=== PATIENT | male | born 1990 | race Hispanic/Latino ===

== ENCOUNTER 2016-04-01 13:24 | Emergency (ER) | payer SELFPAY ==
[~2016-04-01] VITALS: Ht 170.2 cm; Wt 77.1 kg
[~2016-04-01 13:24] MED LIST: CEPH-507 PO; CLIN300C11 PO; DIVA125T2 PO; HYDR-3812 PO; HYDR-757 PO; LEVE100S16 PO; PHEN100C11 PO; PHEN100C4 PO; TOPI100T PO; TOPI15CA6 PO; TOPI200T25 PO; TPR25T PO
[2016-04-01] MEDS ORDERED: LACTATED RINGERS 1,000 ML IV ONE (13:42)
[2016-04-01] MEDS ORDERED: TETANUS,DIPTH,PERTUSS P/F (BOOSTRIX) 0.5 ML VIAL IM ONE (14:00)
[2016-04-01 14:10] LABS: BASOPHILS % (AUTO) 0 % (0-10); EOSINOPHILS # (AUTO) 0.1 10^3/uL (0.0-0.3); EOSINOPHILS % (AUTO) 2 % (0-10); LYMPHOCYTES # (AUTO) 1.2 X 10^3 (1.0-4.0); LYMPHOCYTES % (AUTO) 17 % (12-44); MEAN CORPUSCULAR HEMOGLOBIN 31 PG (25-34); MEAN CORPUSCULAR HGB CONC 35 G/DL (32-36); MEAN CORPUSCULAR VOLUME 88 FL (80-99); MEAN PLATELET VOLUME 10.3 FL (7.4-10.4); MONOCYTES # (AUTO) 0.7 X 10^3 (0.0-1.0); MONOCYTES % (AUTO) 10 % (0-12); NEUTROPHILS # (AUTO) 4.9 X 10^3 (1.8-7.8); NEUTROPHILS % (AUTO) 70 % (42-75); PLATELET COUNT 208 10^3/uL (130-400); RED BLOOD COUNT 4.88 10^6/uL (4.35-5.85); RED CELL DISTRIBUTION WIDTH 12.7 % (10.0-14.5)
[2016-04-01 14:38] LABS: ALANINE AMINOTRANSFERASE 25 U/L (0-55); ALBUMIN 4.5 G/DL (3.2-4.5); ANION GAP 8 MMOL/L (5-14); ASPARTATE AMINO TRANSFERASE 19 U/L (5-34); BILIRUBIN,TOTAL 0.3 MG/DL (0.1-1.0); BLOOD UREA NITROGEN 12 MG/DL (7-18); BUN/CREATININE RATIO 10; CALCIUM 9.3 MG/DL (8.5-10.1); CARBON DIOXIDE 22 MMOL/L (21-32); CHLORIDE 111 MMOL/L (98-107); CREATINE KINASE 98 U/L (30-200); CREATININE SERUM 1.15 MG/DL (0.60-1.30); GFR ESTIMATED > 60; GLUCOSE 92 MG/DL (70-105); MAGNESIUM 2.3 MG/DL (1.8-2.4); POTASSIUM 4.4 MMOL/L (3.6-5.0); SODIUM 141 MMOL/L (135-145); TOTAL PROTEIN 6.9 G/DL (6.4-8.2)
[2016-04-01 14:39] LABS: ALCOHOL < 10 MG/DL (<10)
--- NOTE | 2016-04-01 15:16 | Diagnostic Imaging Report ---
PROCEDURE: CT head and CT cervical spine without contrast. TECHNIQUE: Multiple contiguous axial images were obtained through the brain and cervical spine without the use of intravenous contrast. Sagittal and coronal reformations through the cervical spine were then performed. INDICATION: Seizure, struck back of head with laceration. COMPARISON: 02/02/2016. DISCUSSION: Head: No adverse interval change. No intracranial hemorrhage, mass, midline shift, or hydrocephalus. The ventricles and sulci are normal size and configuration for age. The visualized orbits, paranasal sinuses, mastoid air cells, and calvarium are unremarkable. Cervical spine: No acute fracture, subluxation, or other osseous abnormality identified. No significant degenerative disease. Alignment is anatomic. Soft tissues are unremarkable. Impression: 1. Stable negative head CT. 2. Stable negative cervical spine CT. Dictated by: Dictated on workstation # [id number]
[2016-04-01] MEDS ORDERED: LIDOCAINE/EPI 1%-1:100,000 (XYLOCAINE) 20ML ONE (15:26)
[2016-04-01 15:33] LABS: BILIRUBIN,URINE NEGATIVE (NEGATIVE); KETONES,URINE 1+ (NEGATIVE); LEUKOCYTE ESTERASE ,URINE NEGATIVE (NEGATIVE); NITRITE,URINE NEGATIVE (NEGATIVE); PH,URINE 7 (5-9); PROTEIN,URINE NEGATIVE (NEGATIVE); UROBILINOGEN,URINE NORMAL (NORMAL)
[2016-04-01 15:40] LABS: SQUAMOUS EPITHELIAL CELL,UR 0-2 /HPF; WBC,URINE RARE /HPF
[2016-04-01] MEDS ORDERED: LIDOCAINE/EPI 1%-1:100,000 (XYLOCAINE) 20ML INJ ONE (15:45)
[2016-04-01] MEDS ORDERED: SULF1TAB35 PO (16:02)
--- NOTE | 2016-04-01 16:02 | ED Neurological Problem ---
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 PT HAS NO RECOLLECTION OF EVENTS AT ALL AND NO ONE ACCOMPANIED PT TO ER/NO VISITORS DURING ER STAY PT HAS LACERATION TO BACK OF HEAD--DOES NOT KNOW WHAT HE HIT HIS HEAD ON. PT HAS NO COMPLAINTS AT THIS TIME AND IS NOT POST - ICTAL PT DENIES MISSING DOSES OF HIS MEDICATIONS. HE REPORTS THAT HIS DOSE OF KEPPRA WAS RECENTLY DECREASED FROM 1000 MG DOWN TO 750 MG FOR UNKNOWN REASONS BY SYLVIA RG. PT'S DOSE OF TOPAMAX WAS NOT CHANGED. PT IS NOT FOLLOWED BY NEUROLOGY PT STARTED COMING TO THIS ER 07/31/15 AFTER MOVING HERE FROM [place], AND HAS HAD 15 VISITS TO ER SINCE THEN--ALL FOR SEIZURES. PT STATES HE HAS AT LEAST 3-4 SEIZURES A WEEK PCP: DUANE-ANA, SYLVIA RG Allergies and Home Medications Allergies Coded Allergies: No Known Drug Allergies (Unverified , 07/31/15) Home Medications Cephalexin 500 Mg Capsule #15 500 MG PO TID Prescribed by: ANTOINE WARD on 01/26/16 1646 Hydrocodone/Acetaminophen 1 Each Tablet #10 1 EACH PO Q6H PRN PRN PAIN Prescribed by: ANTOINE WARD on 01/26/16 1646 Levetiracetam 100 Mg/1 Ml Solution Unknown Dose PO BID (Reported) Sulfamethoxazole/Trimethoprim 1 Each Tablet #20 1 EACH PO BID Prescribed by: HORTENSIA HOFFMAN on 04/01/16 1602 Topiramate 100 Mg Tablet #60 100 MG PO BID LAST FILLED #60 09-28-15 Prescribed by: MARY JADE on 11/02/15 1112 Topiramate 200 Mg Tablet #60 200 MG PO BID Prescribed by: EMERSON SYKES on 03/14/16 1533 Constitutional: no symptoms reported Eyes: No Symptoms Reported Ears, Nose, Mouth, Throat: no symptoms reported Respiratory: no symptoms reported Cardiovascular: no symptoms reported Gastrointestinal: no symptoms reported Genitourinary: no symptoms reported Musculoskeletal: no symptoms reported Skin: see HPI Psychiatric/Neurological: See HPI Endocrine: No Symptoms Reported Hematologic/Lymphatic: No Symptoms Reported Past Tnqcbxp-Yfzbon-Xirnrn Hx Patient Social History Alcohol Use: Regular Use (DAILY/HEAVY USE) Recreational Drug Use: Yes (THC) Drug of Choice: POT Smoking Status: Current Everyday Smoker (1 PPD) Type Used: Cigarettes Recent Foreign Travel: No Contact w/Someone Who Travel: No Recent Infectious Disease Expo: No Recent Hopitalizations: No Physical Abuse Screen: No Sexual Abuse: No Immunizations Up To Date Tetanus Booster (TDap): Less than 5yrs Seasonal Allergies Seasonal Allergies: No Surgeries HX Surgeries: Yes (LEG SURGERY) Surgeries: Orthopedic Respiratory Hx Respiratory Disorders: No Cardiovascular Hx Cardiac Disorders: No Neurological Hx Neurological Disorders: Yes (NON-COMPLIANT WITH MEDICATIONS BY HISTORY) Neurological Disorders: Seizure Disorder Reproductive System Hx Reproductive Disorders: No Genitourinary Hx Genitourinary Disorders: No Gastrointestinal Hx Gastrointestinal Disorders: No Musculoskeletal Hx Musculoskeletal Disorders: No Endocrine Hx Endocrine Disorders: No HEENT HX ENT Disorders: No Cancer Hx Cancer: No Psychosocial Hx Psychiatric Problems: No Integumentary HX Skin/Integumentary Disorder: No Blood Transfusions Hx Blood Disorders: No Adverse Reaction to a Blood Tr: No Family Medical History Significant Family History: No Pertinent Family Hx Physical Exam Vital Signs Vital Sign - Last 12Hours 04/01/16 13:35 Temp 98.3 Pulse 120 Resp 20 B/P 131/91 Pulse Ox 95 Capillary Refill : Less Than 3 Seconds General Appearance: WD/WN no apparent distress HEENT: PERRL/EOMI TMs normal pharynx normal other (MULTIPLE OLD DENTAL FRACTURES AND MISSING TEETH. 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 Progress/Results/Core Measures Results/Orders Lab Results Laboratory Tests Test 04/01/16 14:00 04/01/16 15:25 Range/Units Alanine Aminotransferase (ALT/SGPT) 25 0-55 U/L Albumin 4.5 3.2-4.5 G/DL Alkaline Phosphatase 65 40-136 U/L Anion Gap 8 5-14 MMOL/L Aspartate Amino Transf (AST/SGOT) 19 5-34 U/L BUN/Creatinine Ratio 10 Basophils # (Auto) 0.0 0.0-0.1 10^3/uL Basophils (%) (Auto) 0 0-10 % Blood Urea Nitrogen 12 7-18 MG/DL Calcium Level 9.3 8.5-10.1 MG/DL Carbon Dioxide Level 22 21-32 MMOL/L Chloride Level 111 H 98-107 MMOL/L Creatinine 1.15 0.60-1.30 MG/DL Eosinophils # (Auto) 0.1 0.0-0.3 10^3/uL Eosinophils (%) (Auto) 2 0-10 % Estimat Glomerular Filtration Rate > 60 Glucose Level 92 70-105 MG/DL Hematocrit 43 40-54 % Hemoglobin 15.1 13.3-17.7 G/DL Lymphocytes # (Auto) 1.2 1.0-4.0 X 10^3 Lymphocytes (%) (Auto) 17 12-44 % Magnesium Level 2.3 1.8-2.4 MG/DL Mean Corpuscular Hemoglobin 31 25-34 PG Mean Corpuscular Hemoglobin Concent 35 32-36 G/DL Mean Corpuscular Volume 88 80-99 FL Mean Platelet Volume 10.3 7.4-10.4 FL Monocytes # (Auto) 0.7 0.0-1.0 X 10^3 Monocytes (%) (Auto) 10 0-12 % Neutrophils # (Auto) 4.9 1.8-7.8 X 10^3 Neutrophils (%) (Auto) 70 42-75 % Platelet Count 208 130-400 10^3/uL Potassium Level 4.4 3.6-5.0 MMOL/L Red Blood Count 4.88 4.35-5.85 10^6/uL Red Cell Distribution Width 12.7 10.0-14.5 % Serum Alcohol < 10 <10 MG/DL Sodium Level 141 135-145 MMOL/L TSH Perry Testing 0.91 0.35-4.94 UIU/ML Total Bilirubin 0.3 0.1-1.0 MG/DL Total Creatine Kinase 98 30-200 U/L Total Protein 6.9 6.4-8.2 G/DL White Blood Count 7.0 4.3-11.0 10^3/uL Urine Bacteria NONE /HPF Urine Bilirubin NEGATIVE NEGATIVE Urine Casts NONE /LPF Urine Clarity CLEAR Urine Color YELLOW Urine Crystals NONE /LPF Urine Culture Indicated NO Urine Glucose (UA) NEGATIVE NEGATIVE Urine Ketones 1+ H NEGATIVE Urine Leukocyte Esterase NEGATIVE NEGATIVE Urine Mucus NEGATIVE /LPF Urine Nitrite NEGATIVE NEGATIVE Urine Protein NEGATIVE NEGATIVE Urine RBC NONE /HPF Urine RBC (Auto) NEGATIVE NEGATIVE Urine Specific [place] 1.015 L 1.016-1.022 Urine Squamous Epithelial Cells 0-2 /HPF Urine Urobilinogen NORMAL NORMAL MG/DL Urine WBC RARE /HPF Urine pH 7 5-9 My Orders Orders-YASMIN,HORTENSIA K DO Saline Lock/Iv-Start (04/01/16 13:42) Monitor-Rhythm Ecg Trace Only (04/01/16 13:42) Alcohol (04/01/16 13:42) Cbc With Automated Diff (04/01/16 13:42) Comprehensive Metabolic Panel (04/01/16 13:42) Creatine Kinase (04/01/16 13:42) Magnesium (04/01/16 13:42) Thyroid Analyzer (04/01/16 13:42) Ua Culture If Indicated (04/01/16 13:42) Lactated Ringers (Lr 1000 Ml Iv Solution (04/01/16 13:42) Ct Head/Cervical Spine Wo (04/01/16 13:55) Dipht,Pertuss(Acell),Tet Adult (Boostrix (04/01/16 14:00) Lidocaine/Epi 1% 1:100,000 (Xylocaine /E (04/01/16 15:45) Lidocaine/Epi 1% 1:100,000 (Xylocaine /E (04/01/16 15:26) Medications Given in ED Current Medications Medications Dose Ordered Sig/Jennifer Route Start Time Stop Time Status Last Admin Dose Admin Lactated Ringer's 1,000 ml @ 0 mls/hr Q0M ONCE IV 04/01/16 13:42 04/01/16 13:44 DC 04/01/16 14:07 1,000 MLS/HR Vital Signs/I&O Vital Sign - Last 12Hours 04/01/16 13:35 Temp 98.3 Pulse 120 Resp 20 B/P 131/91 Pulse Ox 95 Blood Pressure Mean: 104 Progress Note : Progress Note NO DETERIORATION IN PT'S CONDITION DURING ER STAY PT AMBULATES OUT OF ER WITHOUT ANY DIFFICULTY Diagnostic Imaging Comments CT HEAD/CERVICAL SPINE--NO ACUTE PROCESS, PER RADIOLOGIST REPORTS @ 1525 Reviewed: Reviewed by Me Departure Impression Impression: Primary Impression: Seizure disorder Additional Impressions: Occipital scalp laceration CLOSED HEAD INJURY Uncontrolled seizures Disposition: HOME, SELF-CARE Condition: Stable Departure-Patient Inst. [facility]) Primary Care Physician Patient Instructions: Closed Head Injury (DC), Laceration Repair With Sameer ( DC), Seizures, Adult (DC) Add. Discharge Instructions: DO NOT MISS DOSES OF YOUR MEDICATIONS CLEAN WOUND TWICE A DAY WITH ANTIBACTERIAL SOAP AND WATER, OTHERWISE KEEP CLEAN AND DRY SAMEER OUT IN 10 DAYS--RETURN TO ER FOR REMOVAL FOLLOW UP WITH YOUR DR THIS WEEK FOR FURTHER CARE All discharge instructions reviewed with patient and/or family. Voiced understanding. Scripts Sulfamethoxazole/Trimethoprim (Bactrim Ds Tablet)1 Each Tablet1 Each PO BID #20 TAB Prov:HORTENSIA HOFFMAN DO 04/01/16 HORTENSIA HOFFMAN DO Apr 01, 2016 16:02
[2016-04-01 16:18] VITALS: BP 115/65
== END 2016-04-01 16:18 | disposition home or self-care (01) ==
LOC: EDUNIT# 13:24 → ER 13:27
DX: S01.01XA Laceration without foreign body of scalp, initial encounter (principal); G40.919 Epilepsy, unspecified, intractable, without status epilepticus; Z23 Encounter for immunization; F17.210 Nicotine dependence, cigarettes, uncomplicated; W01.0XXA Fall on same level from slipping, tripping and stumbling without subsequent striking against object, initial encounter; Y92.009 Unspecified place in unspecified non-institutional (private) residence as the place of occurrence of the external cause; Y99.8 Other external cause status
CPT/HCPCS: 12002; 36415; 70450; 72125; 80053; 80320; 81000; 82550; 83735; 84443; 85025; 93041; 96360

== ENCOUNTER 2016-04-10 13:51 | Emergency (ER) | payer SELFPAY ==
[~2016-04-10] VITALS: Ht 170.2 cm; Wt 83.9 kg
[~2016-04-10 13:51] MED LIST changes: +SULF1TAB35 PO
--- NOTE | 2016-04-10 14:17 | ED Neurological Problem ---
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 Nursing Sepsis Screen: No Definite Risk Source: patient, EMS Exam Limitations: clinical condition (postictal) History of Present Illness Time seen by provider: 14:16 Initial Comments 25 yo male patient presents to the ED via EMS with c/o seizure JPTA. Patient is slightly postictal. Patient noted to have a laceration on the chin and missing 2 teeth. EMS reports patient hit his face on the entertainment center. Patient was seen in the ED on 04/01/16 for similar complaints. Timing/Duration: other (JPTA) Allergies and Home Medications Allergies Coded Allergies: No Known Drug Allergies (Unverified , 07/31/15) Home Medications Levetiracetam 100 Mg/1 Ml Solution Unknown Dose PO BID (Reported) Sulfamethoxazole/Trimethoprim 1 Each Tablet #14 1 EACH PO BID Prescribed by: MELISSA STINSON on 04/10/16 1629 Topiramate 200 Mg Tablet #60 200 MG PO BID Prescribed by: EMERSON SYKES on 03/14/16 1533 Constitutional: no symptoms reported Eyes: No Symptoms Reported Ears, Nose, Mouth, Throat: see HPI Respiratory: no symptoms reported Cardiovascular: no symptoms reported Gastrointestinal: no symptoms reported Genitourinary: no symptoms reported Musculoskeletal: no symptoms reported Skin: see HPI Psychiatric/Neurological: See HPIDenies Headache, Denies Numbness, Denies Tingling, Denies Unable to Move Lower Ext, Denies Unable to Move Upper Ext, Denies Weakness All Other Systems Reviewed Negative Unless Noted: Yes (Negative excepted noted.) Past Nbqlxjy-Chhibz-Qhworz Hx Patient Social History Alcohol Use: Occasionally Uses Recreational Drug Use: Yes Drug of Choice: POT Smoking Status: Current Everyday Smoker Type Used: Cigarettes Recent Foreign Travel: No Contact w/Someone Who Travel: No Recent Infectious Disease Expo: No Recent Hopitalizations: Yes (ED LAST WEEK) Physical Abuse Screen: No Sexual Abuse: No Immunizations Up To Date Tetanus Booster (TDap): Less than 5yrs Seasonal Allergies Seasonal Allergies: No Surgeries HX Surgeries: Yes (LEG SURGERY) Surgeries: Orthopedic Respiratory Hx Respiratory Disorders: No Cardiovascular Hx Cardiac Disorders: No Neurological Hx Neurological Disorders: Yes (NON-COMPLIANT WITH MEDICATIONS BY HISTORY) Neurological Disorders: Seizure Disorder Reproductive System Hx Reproductive Disorders: No Genitourinary Hx Genitourinary Disorders: No Gastrointestinal Hx Gastrointestinal Disorders: No Musculoskeletal Hx Musculoskeletal Disorders: No Endocrine Hx Endocrine Disorders: No HEENT HX ENT Disorders: No Cancer Hx Cancer: No Psychosocial Hx Psychiatric Problems: No Integumentary HX Skin/Integumentary Disorder: No Blood Transfusions Hx Blood Disorders: No Adverse Reaction to a Blood Tr: No Reviewed Nursing Assessment Reviewed/Agree w Nursing PMH: Yes Family Medical History Significant Family History: No Pertinent Family Hx Physical Exam Vital Signs Vital Sign - Last 12Hours 04/10/16 13:55 Temp 97.9 Pulse 111 Resp 18 B/P 133/94 Pulse Ox 99 Capillary Refill : Less Than 3 Seconds General Appearance: WD/WN no apparent distress HEENT: PERRL/EOMI normal ENT inspection TMs normal pharynx normal other (4 cm flap laceration inferior chin. #9 tooth avulsed (patient had previously avulsed the #10 tooth). 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 patient is oriented x3.) Crainal Nerves: normal hearing normal speech PERRL Coordination/Gait: normal finger to nose normal gait negative Romberg's sign Motor/Sensory: no motor deficit no sensory deficit no pronator drift Skin: normal color warm/dry other (laceration inferior chin) Laceration Repair : Wound Location: Face (inferior chin) Wound Length (cm): 4 Wound's Depth, Shape: irregular, flap Wound Explored: clean Irrigated w/ Saline (ccs): 60 Betadine Prep?: Yes Anesthesia: Lidocaine w/ Epi Volume Anesthetic (ccs): 4 Suture: Ethlion Suture Size: 4-0 Number of Sutures: 4 Sterile Dressing Applied?: Yes Progress Blood loss minimal. Patient tolerated the procedure well. Progress/Results/Core Measures Results/Orders Lab Results Laboratory Tests Test 04/10/16 15:00 Range/Units Acetaminophen Level < 10 L 10-30 UG/ML Alanine Aminotransferase (ALT/SGPT) 25 0-55 U/L Albumin 4.4 3.2-4.5 G/DL Alkaline Phosphatase 62 40-136 U/L Anion Gap 6 5-14 MMOL/L Aspartate Amino Transf (AST/SGOT) 18 5-34 U/L BUN/Creatinine Ratio 12 Basophils # (Auto) 0.0 0.0-0.1 10^3/uL Basophils (%) (Auto) 0 0-10 % Blood Urea Nitrogen 13 7-18 MG/DL Calcium Level 9.1 8.5-10.1 MG/DL Carbon Dioxide Level 21 21-32 MMOL/L Chloride Level 111 H 98-107 MMOL/L Creatinine 1.06 0.60-1.30 MG/DL Eosinophils # (Auto) 0.1 0.0-0.3 10^3/uL Eosinophils (%) (Auto) 1 0-10 % Estimat Glomerular Filtration Rate > 60 Glucose Level 107 H 70-105 MG/DL Hematocrit 43 40-54 % Hemoglobin 14.7 13.3-17.7 G/DL Lymphocytes # (Auto) 1.0 1.0-4.0 X 10^3 Lymphocytes (%) (Auto) 11 L 12-44 % Mean Corpuscular Hemoglobin 30 25-34 PG Mean Corpuscular Hemoglobin Concent 35 32-36 G/DL Mean Corpuscular Volume 88 80-99 FL Mean Platelet Volume 10.6 H 7.4-10.4 FL Monocytes # (Auto) 0.7 0.0-1.0 X 10^3 Monocytes (%) (Auto) 8 0-12 % Neutrophils # (Auto) 7.1 1.8-7.8 X 10^3 Neutrophils (%) (Auto) 79 H 42-75 % Platelet Count 212 130-400 10^3/uL Potassium Level 4.2 3.6-5.0 MMOL/L Red Blood Count 4.84 4.35-5.85 10^6/uL Red Cell Distribution Width 12.7 10.0-14.5 % Salicylates Level < 5.0 L 5.0-20.0 MG/DL Serum Alcohol < 10 <10 MG/DL Sodium Level 138 135-145 MMOL/L Total Bilirubin 0.3 0.1-1.0 MG/DL Total Protein 7.0 6.4-8.2 G/DL White Blood Count 8.9 4.3-11.0 10^3/uL My Orders Orders-MELISSA STINSON Acetaminophen (04/10/16 14:07) Alcohol (04/10/16 14:07) Cbc With Automated Diff (04/10/16 14:07) Comprehensive Metabolic Panel (04/10/16 14:07) Salicylate (04/10/16 14:07) Ekg Tracing (04/10/16 14:07) Ct Head/Face/Cervical Wo (04/10/16 14:07) Lidocaine/Epi 1% 1:100,000 (Xylocaine /E (04/10/16 15:15) Medications Given in ED Current Medications Medications Dose Ordered Sig/Jennifer Route Start Time Stop Time Status Last Admin Dose Admin Lidocaine/ Epinephrine 20 ml ONCE ONCE INJ 04/10/16 15:15 04/10/16 15:16 DC 04/10/16 15:40 10 ML Vital Signs/I&O Vital Sign - Last 12Hours 04/10/16 04/10/16 13:55 16:49 Temp 97.9 97.9 Pulse 111 111 Resp 18 18 B/P 133/94 Pulse Ox 99 99 Blood Pressure Mean: 107 ECG Initial ECG Impression Date: Apr 10, 2016 Initial ECG Impression Time: 14:41 Initial ECG Rate: 99 Initial ECG Rhythm: Normal Sinus Initial ECG Comparisson: Unchanged Comment NSR. (+) artifact. No STEMI or arrhythmia. ECG reviewed and discussed with Dr. Sergey Ward. Diagnostic Imaging Diagonstic Imaging: CT Plain Films/CT/US/NM/MRI: facial bones, c-spine, head Comments FINDINGS: There is no intracranial hemorrhage, edema or mass effect. The brain parenchyma and geller-white matter differentiation is preserved. There is no hydrocephalus. No extra-axial fluid collection is seen. There are skin reena along the medial aspect of the left parietal scalp area. The calvarium appears grossly unremarkable. CT face: There is minimal mucosal thickening in the right frontal sinus. The maxillary sinuses, the ethmoidal air cells and the sphenoidal sinuses appear clear. The orbits have symmetric appearance. The orbital rosario appear intact. The zygomatic arches appear intact. No nasal bone fracture. The pterygoid plates appear intact. There are missing teeth in the left incisor location and there is a minimally displaced fracture noted involving the alveolar plate of the maxilla just to the left of the midline. This involves the root of the medial incisor. There is a periapical lucency probably related to dental pre-existing abnormality involving the medial upper right incisor. CT cervical spine: There is satisfactory alignment of the cervical spine. The alignment of the facet joints, the lateral masses of C1 and C2 and atlanto-occipital joints appear satisfactory. No widening of the predental space. The vertebral body heights are preserved. There is minimal anterior osteophyte at upper endplate of C5 vertebra that appears from the vertebral bodies which could be secondary to old injury or incidental ossification of the anterior longitudinal ligament. No definite acute fracture is seen. The vertebral body heights and disc heights appear preserved. No significant degenerative changes in the facet joints seen. No posterior osteophytes are noted. IMPRESSION: 1. CT head: No intracranial hemorrhage. 2. CT cervical spine: No acute fracture. 3. CT face: There is a minimally displaced fracture involving the alveolar plate of the maxilla just to the left of midline involving the root of the medial upper left incisor which is missing. The lateral upper left incisor is missing although the fracture does not extend to the roots of this tooth. There is also probably pre-existing dental pathology with periapical lucency or abscess around the medial upper right incisor. The findings on this exam were called to the ER, to Dr. Ward by Dr. Smith at time of dictation. Dictated on workstation # [id number] Reviewed: Reviewed by Me (radiology report reviewed by me. ), Discussed w/ Radiologist (Dr. Sergey ward discussed findings with Dr. Smith) Departure Communication Progress Notes Patient seen, evaluated, and wound repair performed. All labs and diagnostic study findings were discussed with the patient. Patient is now alert, oriented 3. No acute distress. Patient requesting to be discharged to home. I discussed with the patient that he does need follow-up with Radha Moon for discussion of possible medication adjustments. Patient advised to contact her office for appointment time tomorrow. RETURN precautions were discussed with the patient as described in the discharge instructions of this report. Patient voices understanding and agrees with the treatment plan. Patient case discussed with Dr. Sergey Ward, he agrees with the plan of care. Impression Impression: Primary Impression: Maxillary fracture Qualified Code: S02.401A - Maxillary fracture, unspecified side, initial encounter for closed fracture Additional Impressions: Avulsion of tooth due to trauma Qualified Code: S03.2XXA - Dislocation of tooth, initial encounter Laceration of chin without complication Qualified Code: S01.81XA - Laceration without foreign body of other part of head, initial encounter Seizure Disposition: HOME, SELF-CARE Condition: Improved Departure-Patient Inst. Decision time for Depature: 16:27 Referrals: [facility] (PCP/Family) Primary Care Physician WENDY IBRAHIM DDS Patient Instructions: Fractured Tooth (DC), Laceration Repair With Stitches (DC ), Seizures, Adult (DC), Your Choices for Tooth Replacement Add. Discharge Instructions: All discharge instructions reviewed with patient and/or family. Voiced understanding. Medications as instructed. Continue usual home medications. Tylenol extra strength [id number] as directed for pain. Ice pack for 20 minute intervals as needed for pain. Tomorrow morning shower with antibacterial soap. Return to the emergency department in 7 days for suture removal. Follow-up with [facility] in the next 1-2 days for recheck and for discussion of medications. Call tomorrow morning for appointment time. Return to the emergency department. Patient headache, dizziness, changes in vision, changes in behavior, numbness, weakness, bowel incontinence, bladder incontinence, fever, shortness of air, seizure, chest pain , redness, drainage, or any other concerns. Scripts Sulfamethoxazole/Trimethoprim (Bactrim Ds Tablet)1 Each Tablet1 Each PO BID #14 TAB Ref 0 Prov:MELISSA STINSON 04/10/16 Images Mouth/Nose 1 - Tenderness (tooth avulsed) 2 - Swelling, Tenderness (tooth NOT acutely avulsed.) MELISSA STINSON Apr 10, 2016 14:17
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
[2016-04-10 15:11] LABS: BASOPHILS % (AUTO) 0 % (0-10); EOSINOPHILS # (AUTO) 0.1 10^3/uL (0.0-0.3); EOSINOPHILS % (AUTO) 1 % (0-10); LYMPHOCYTES % (AUTO) 11 % (12-44); MEAN CORPUSCULAR HEMOGLOBIN 30 PG (25-34); MEAN CORPUSCULAR HGB CONC 35 G/DL (32-36); MEAN CORPUSCULAR VOLUME 88 FL (80-99); MEAN PLATELET VOLUME 10.6 FL (7.4-10.4); MONOCYTES # (AUTO) 0.7 X 10^3 (0.0-1.0); MONOCYTES % (AUTO) 8 % (0-12); NEUTROPHILS # (AUTO) 7.1 X 10^3 (1.8-7.8); NEUTROPHILS % (AUTO) 79 % (42-75); PLATELET COUNT 212 10^3/uL (130-400); RED BLOOD COUNT 4.84 10^6/uL (4.35-5.85); RED CELL DISTRIBUTION WIDTH 12.7 % (10.0-14.5); WHITE BLOOD COUNT 8.9 10^3/uL (4.3-11.0)
[2016-04-10] MEDS ORDERED: LIDOCAINE/EPI 1%-1:100,000 (XYLOCAINE) 20ML INJ ONE (15:15)
[2016-04-10 15:31] LABS: ALANINE AMINOTRANSFERASE 25 U/L (0-55); ALBUMIN 4.4 G/DL (3.2-4.5); ANION GAP 6 MMOL/L (5-14); ASPARTATE AMINO TRANSFERASE 18 U/L (5-34); BILIRUBIN,TOTAL 0.3 MG/DL (0.1-1.0); BLOOD UREA NITROGEN 13 MG/DL (7-18); BUN/CREATININE RATIO 12; CALCIUM 9.1 MG/DL (8.5-10.1); CARBON DIOXIDE 21 MMOL/L (21-32); CHLORIDE 111 MMOL/L (98-107); CREATININE SERUM 1.06 MG/DL (0.60-1.30); GFR ESTIMATED > 60; GLUCOSE 107 MG/DL (70-105); POTASSIUM 4.2 MMOL/L (3.6-5.0); SALICYLATE < 5.0 MG/DL (5.0-20.0); SODIUM 138 MMOL/L (135-145)
[2016-04-10 15:32] LABS: ACETAMINOPHEN < 10 UG/ML (10-30); ALCOHOL < 10 MG/DL (<10)
[2016-04-10] MEDS ORDERED: SULF1TAB35 PO (16:29)
[2016-04-10 16:49] VITALS: BP 133/94
== END 2016-04-10 16:49 | disposition home or self-care (01) ==
LOC: EDUNIT# 13:51 → ER 13:52
DX: S01.81XA Laceration without foreign body of other part of head, initial encounter (principal); S02.42XA Fracture of alveolus of maxilla, initial encounter for closed fracture; S03.2XXA Dislocation of tooth, initial encounter; G40.909 Epilepsy, unspecified, not intractable, without status epilepticus; F17.210 Nicotine dependence, cigarettes, uncomplicated; W18.09XA Striking against other object with subsequent fall, initial encounter; Y92.009 Unspecified place in unspecified non-institutional (private) residence as the place of occurrence of the external cause; Y99.8 Other external cause status
CPT/HCPCS: 12011; 36415; 70450; 70486; 72125; 80053; 80320; 80329; 85025; 93005

== ENCOUNTER 2017-05-19 12:40 | Emergency (ER) | payer MEDICAID ==
[~2017-05-19] VITALS: Ht 170.2 cm; Wt 83.9 kg
[~2017-05-19 12:40] MED LIST changes: +ACHD5005 PO; -HYDR-3812 PO
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
--- OUTSIDE RECORDS SUMMARY | 2017-05-19 12:46 | XMS REPORT ---
Author Author WERNER RG [facility] Address [address] [place] [address] Care Team Providers Care Battery Container Tester Aluminum Name Role Phone WERNER RG Unavailable PROBLEMS Type Condition ICD9-CM Code [id number] Code Onset Dates Condition Status SNOMED Code Problem Seizure disorder G40.909 Active 674697374 Problem Panic disorder [episodic paroxysmal anxiety] without agoraphobia F41.0 Active 699913937 Problem Generalized anxiety disorder F41.1 Active 78703374 ALLERGIES Unknown Allergies SOCIAL HISTORY No smoking Hx information available PLAN OF CARE VITAL SIGNS MEDICATIONS Medication Instructions Dosage Frequency Start Date End Date Duration Status Topamax 100 MG Orally Twice a day 1 tablet 12h Active RESULTS No Results PROCEDURES No Known procedures IMMUNIZATIONS No Known Immunizations
--- OUTSIDE RECORDS SUMMARY | 2017-05-19 12:47 | XMS REPORT ---
Author Author WERNER RG [facility] eClinicalWorks Address Unknown Phone Unavailable Care Team Providers Care Flamer Sealer Name Role Phone WERNER RG CP Unavailable Allergies, Adverse Reactions, Alerts Substance Reaction Event Type N.K.D.A. Info Not Available Non Drug Allergy Problems Problem Type Condition Code Onset Dates Condition Status Assessment Seizures R56.9 Active Assessment Anxiety F41.9 Active Assessment Encounter to establish care Z76.89 Active Medications Medication Code System Code Instructions Start Date End Date Status Dosage Phenytoin Sodium Extended [facility] [address]-01 100 MG Orally Three times a day x 7 days, then 1 cap twice daily x 7 days, then 1 cap daily x 7 days then stop Nov 02, 2015 Jan 05, 2016 1 capsule Topamax [facility] [address]-04 100 MG Orally Twice a day Nov 02, 2015 1 tablet Keppra [facility] [address]-48 1000 MG Orally 2 times a day Dec 14, 2015 1 tablet Keppra [facility] [address]-10 500 MG Orally 2 times a day Dec 14, 2015Nov 1 tablet Procedures Procedure Coding System Code Date COMPREHEN METABOLIC PANEL CPT-4 71207 Dec 12, 2015 ASSAY THYROID STIM HORMONE CPT-4 99061 Dec 12, 2015 COMPLETE CBC W/AUTO DIFF WBC CPT-4 15384 Dec 12, 2015 VENIPUNCT, ROUTINE* CPT-4 49976 Dec 12, 2015 ASSAY OF PHENYTOIN, TOTAL CPT-4 98857 Dec 12, 2015 Office Visit, Est Pt., Level 3 CPT-4 71160 Dec 12, 2015 Vital Signs Date/Time: Dec 12, 2015 Blood Pressure Systolic 130 mmHg Cardiac Monitoring Heart Rate 80 bpm Weight 189 lbs Blood Pressure Diastolic 94 mmHg Results Name Result Date Reference Range Unit Abnormality Flag TSH ----TSH 1.430 54415907 0.450-4.500 uIU/mL CBC ----Basos 0 82626398 % ----MCV 89 66180133 79-97 fL ----Hematocrit 44.1 35723229 37.5-51.0 % ----Eos 1 20151212 % ----MCHC 34.7 56928947 31.5-35.7 g/dL ----Monocytes 8 83916015 % ----MCH 30.9 30727424 26.6-33.0 pg ----Lymphs 26 73916822 % ----Eos (Absolute) 0.1 88204285 0.0-0.4 x10E3/uL ----WBC 9.9 36961579 3.4-10.8 x10E3/uL ----Monocytes(Absolute) 0.8 94244483 0.1-0.9 x10E3/uL ----Lymphs (Absolute) 2.5 03319149 0.7-3.1 x10E3/uL ----Hemoglobin 15.3 63272630 12.6-17.7 g/dL ----Neutrophils (Absolute) 6.4 35673731 1.4-7.0 x10E3/uL ----RBC 4.95 91176497 4.14-5.80 x10E6/uL ----Immature Grans (Abs) 0.0 12686063 0.0-0.1 x10E3/uL ----Immature Granulocytes 0 73299252 % ----Neutrophils 65 10090784 % ----Baso (Absolute) 0.0 69341087 0.0-0.2 x10E3/uL ----RDW 13.6 34779192 12.3-15.4 % ----Platelets 272 66333620 150-379 x10E3/uL ROUTINE VENIPUNCTURE DILANTIN ----Phenytoin (Dilantin), Serum 3.2 80269924 10.0-20.0 ug/mL L CMP ----Potassium, Serum 4.0 20151212 3.5-5.2 mmol/L ----Sodium, Serum 142 20151212 134-144 mmol/L ----BUN/Creatinine Ratio 8 20151212 8-19 ----eGFR If Africn Am 81 20151212 >59 mL/min/1.73 ----eGFR If NonAfricn Am 70 20151212 >59 mL/min/1.73 ----Creatinine, Serum 1.38 20151212 0.76-1.27 mg/dL H ----BUN 11 20151212 6-20 mg/dL ----Glucose, Serum 92 20151212 65-99 mg/dL ----AST (SGOT) 25 20151212 0-40 IU/L ----Globulin, Total 2.6 20151212 1.5-4.5 g/dL ----ALT (SGPT) 31 20151212 0-44 IU/L ----A/G Ratio 1.9 20151212 1.1-2.5 ----Bilirubin, Total 0.4 70239584 0.0-1.2 mg/dL ----Alkaline Phosphatase, S 68 20151212 39-117 IU/L ----Carbon Dioxide, Total 21 20151212 18-29 mmol/L ----Calcium, Serum 9.5 03044167 8.7-10.2 mg/dL ----Protein, Total, Serum 7.5 66494917 6.0-8.5 g/dL ----Albumin, Serum 4.9 00411543 3.5-5.5 g/dL ----Chloride, Serum 101 20403758 97-108 mmol/L Summary Purpose eClinicalWorks Submission
--- OUTSIDE RECORDS SUMMARY | 2017-05-19 12:48 | XMS REPORT ---
Author Author WERNER RG Organization [employer] Address Unknown Phone Unavailable Care Team Providers Care Timber Supervisor Name Role Phone WERNER RG CP Unavailable Allergies No Known Allergies Problems Problem Type Condition Code Onset Dates Condition Status Problem Generalized anxiety disorder F41.1 Active Problem Panic disorder [episodic paroxysmal anxiety] without agoraphobia F41.0 Active Medications Medication Code System Code Instructions Start Date End Date Status Dosage Topamax [facility] [address]-33 100 MG Orally Twice a day Nov 02, 2015 1 tablet Results No Known Results Summary Purpose eClinicalWorks Submission
--- OUTSIDE RECORDS SUMMARY | 2017-05-19 12:48 | XMS REPORT ---
Author Author WERNER RG [facility] Address [address] [place] [address] Care Team Providers Care Fluxer Name Role Phone WERNER RG Unavailable PROBLEMS Type Condition ICD9-CM Code [id number] Code Onset Dates Condition Status SNOMED Code Problem Seizure disorder G40.909 Active 220017447 Problem Panic disorder [episodic paroxysmal anxiety] without agoraphobia F41.0 Active 37270058 Assessment Acute upper respiratory infection, unspecified J06.9 Feb, Active 976210762 Assessment Other viral agents as the cause of diseases classified elsewhere B97.89 Feb, Active 126901628 Problem Generalized anxiety disorder F41.1 Active 69485830 Assessment Seizure disorder G40.909 Feb, Active 589461763 ALLERGIES Substance Reaction Event Type Date Status N.K.D.A. Unknown Non Drug Allergy Feb, Unknown SOCIAL HISTORY No smoking Hx information available PLAN OF CARE VITAL SIGNS Weight 188.5 lbs 2016-03-07 Heart Rate 84 bpm 2016-03-07 Respiratory Rate 18 2016-03-07 Blood pressure systolic 118 mmHg 2016-03-07 Blood pressure diastolic 80 mmHg 2016-03-07 MEDICATIONS Medication Instructions Dosage Frequency Start Date End Date Duration Status Topamax 100 MG Orally Twice a day 1 tablet h Oct, 14 days Active Zithromax Z-Marc 250 MG Orally Once a day 2 tablets on the first day, then 1 tablet daily for 4 days 24h Feb, Feb, 5 day(s) Active Keppra 750 MG Orally 2 times a day 2 tablet 12h Nov, Active RESULTS No Results PROCEDURES Procedure Date Ordered Related Diagnosis Body Site Office Visit, Est Pt., Level 3 Mar 07, 2016 IMMUNIZATIONS No Known Immunizations
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
--- OUTSIDE RECORDS SUMMARY | 2017-05-19 12:48 | XMS REPORT ---
Author Author MARY JADE [facility] eClinicalWorks Address Unknown Phone Unavailable Care Team Providers Care Wardrobe Assistant Name Role Phone MARY JADE Unavailable Allergies No Known Allergies Problems No Known Problems Medications Medication Code System Code Instructions Start Date End Date Status Dosage Topamax [facility] [address]-75 100 MG Orally Twice a day Nov 02, 2015 1 tablet Phenytoin Sodium Extended [facility] [address]-24 100 MG Orally Three times a day Nov 02, 2015 1 capsule Results No Known Results Summary Purpose eClinicalWorks Submission
--- OUTSIDE RECORDS SUMMARY | 2017-05-19 12:49 | XMS REPORT ---
Author Author EMILY MADISON Organization eClinicalWorks Address Unknown Phone Unavailable Care Team Providers Care Gmat Tutor Name Role Phone EMILY MADISON CP Unavailable Allergies No Known Allergies Problems Problem Type Condition Code Onset Dates Condition Status Problem Generalized anxiety disorder F41.1 Active Problem Panic disorder [episodic paroxysmal anxiety] without agoraphobia F41.0 Active Medications No Known Medications Results No Known Results Summary Purpose eClinicalWorks Submission
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
--- OUTSIDE RECORDS SUMMARY | 2017-05-19 12:49 | XMS REPORT ---
Author Author WERNER RG [facility] Address [address] [place] [address] Care Team Providers Care Tank Builder And Erector Name Role Phone WERNER RG Unavailable PROBLEMS Type Condition ICD9-CM Code JMW68-WM Code Onset Dates Condition Status SNOMED Code Problem Seizure disorder G40.909 Active 618803362 Problem Panic disorder [episodic paroxysmal anxiety] without agoraphobia F41.0 Active 44033404 Problem Generalized anxiety disorder F41.1 Active 97851543 ALLERGIES Unknown Allergies SOCIAL HISTORY No smoking Hx information available PLAN OF CARE VITAL SIGNS MEDICATIONS Medication Instructions Dosage Frequency Start Date End Date Duration Status Topamax 100 MG Orally Twice a day 1 tablet 12h Active RESULTS No Results PROCEDURES No Known procedures IMMUNIZATIONS No Known Immunizations
--- OUTSIDE RECORDS SUMMARY | 2017-05-19 12:49 | XMS REPORT ---
Author Author EMILY MADISON Organization eClinicalWorks Address Unknown Phone Unavailable Care Team Providers Care Turbinated Bone Grinder Name Role Phone EMILY MADISON CP Unavailable Allergies No Known Allergies Problems Problem Type Condition Code Onset Dates Condition Status Problem Generalized anxiety disorder F41.1 Active Problem Panic disorder [episodic paroxysmal anxiety] without agoraphobia F41.0 Active Medications Medication Code System Code Instructions Start Date End Date Status Dosage Keppra [facility] [address]-88 500 MG Orally Once a day in the afternoon Feb 02, 2016 1 tablet Keppra [facility] [address]-98 1000 MG Orally 2 times a day Dec 14, 2015 1 tablet Results No Known Results Summary Purpose eClinicalWorks Submission
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
--- OUTSIDE RECORDS SUMMARY | 2017-05-19 12:50 | XMS REPORT ---
Author Author MARY JADE [facility] eClinicalWorks Address Unknown Phone Unavailable Care Team Providers Care Power Tool Repair Technician Name Role Phone MARY JADE Unavailable Allergies No Known Allergies Problems No Known Problems Medications No Known Medications Results No Known Results Summary Purpose eClinicalWorks Submission
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
--- OUTSIDE RECORDS SUMMARY | 2017-05-19 12:51 | XMS REPORT | Continuity of Care Document ---
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 count (number/volume) 4.64 10*6/uL 4.35-5.85 Venous blood hemoglobin measurement (mass/volume) 14.2 g/dL 13.3-17.7 Blood hematocrit (volume fraction) 41 % 40-54 Automated erythrocyte mean corpuscular volume 88 [foz_us] 80-99 Automated erythrocyte mean corpuscular hemoglobin (mass per erythrocyte) 31 pg 25-34 Automated erythrocyte mean corpuscular hemoglobin concentration measurement ( mass/volume) 35 g/dL 32-36 Automated erythrocyte distribution width ratio 11.8 % 10.0-14.5 Automated blood platelet count (count/volume) 256 10*3/uL 130-400 Automated blood platelet mean volume measurement 9.8 [foz_us] 7.4-10.4 Automated blood neutrophils/100 leukocytes 67 % 42-75 Automated blood lymphocytes/100 leukocytes 25 % 12-44 Blood monocytes/100 leukocytes 7 % 0-12 Automated blood eosinophils/100 leukocytes 2 % 0-10 Automated blood basophils/100 leukocytes 1 % 0-10 Blood neutrophils automated count (number/volume) 5.4 10*3 1.8-7.8 Blood lymphocytes automated count (number/volume) 2.0 10*3 1.0-4.0 Blood monocytes automated count (number/volume) 0.5 10*3 0.0-1.0 Automated eosinophil count 0.1 10*3/uL 0.0-0.3 Automated blood basophil count (count/volume) 0.0 10*3/uL 0.0-0.1 PT panel in platelet poor plasma by coagulation assay - 11/05/15 03:20 Prothrombin time (PT) in platelet poor plasma by coagulation assay 13.5 s 12.2-14.7 INR in platelet poor plasma or blood by coagulation assay 1.1 0.8-1.4 Activated partial thromboplastin time (aPTT) in platelet poor plasma bycoagulation assay - 11/05/15 03:20 Activated partial thromboplastin time (aPTT) in platelet poor plasma bycoagulation assay 28 s 24-35 Comprehensive metabolic panel - 11/05/15 03:20 Serum or plasma sodium measurement (moles/volume) 143 mmol/L 135-145 Serum or plasma potassium measurement (moles/volume) 3.5 mmol/L 3.6-5.0 Serum or plasma chloride measurement (moles/volume) 112 mmol/L 98-107 Carbon dioxide 19 mmol/L 21-32 Serum or plasma anion gap determination (moles/volume) 12 mmol/L 5-14 Serum or plasma urea nitrogen measurement (mass/volume) 11 mg/dL 7-18 Serum or plasma creatinine measurement (mass/volume) 1.14 mg/dL 0.60-1.30 Serum or plasma urea nitrogen/creatinine mass ratio 10 NRG Serum or plasma creatinine measurement with calculation of estimated glomerular filtration rate > NRG Serum or plasma glucose measurement (mass/volume) 101 mg/dL 70-105 Serum or plasma calcium measurement (mass/volume) 9.4 mg/dL 8.5-10.1 Serum or plasma total bilirubin measurement (mass/volume) 0.2 mg/dL 0.1-1.0 Serum or plasma alkaline phosphatase measurement (enzymatic activity/volume) 63 U/L 40-136 Serum or plasma aspartate aminotransferase measurement (enzymatic activity/ volume) 18 U/L 5-34 Serum or plasma alanine aminotransferase measurement (enzymatic activity/volume ) 22 U/L 0-55 Serum or plasma protein measurement (mass/volume) 6.9 g/dL 6.4-8.2 Serum or plasma albumin measurement (mass/volume) 4.3 g/dL 3.2-4.5 Magnesium - 11/05/15 03:20 Magnesium 2.0 mg/dL 1.8-2.4 Serum or plasma phenytoin measurement (mass/volume) - 11/05/15 03:20 Serum or plasma phenytoin measurement (mass/volume) 5.1 ug/mL 10.0-20.0 Serum or plasma ethanol measurement (mass/volume) - 11/05/15 03:20 Serum or plasma ethanol measurement (mass/volume) 180 mg/dL <10 Complete urinalysis with reflex to culture - 11/05/15 03:55 Urine color determination YELLOW NRG Urine clarity determination CLEAR NRG Urine pH measurement by test strip 6 5-9 Specific gravity of urine by test strip 1.010 1.016- 1.022 Urine protein assay by test strip, semi-quantitative NEGATIVE NEGATIVE Urine glucose detection by automated test strip NEGATIVE NEGATIVE Erythrocytes detection in urine sediment by light microscopy NEGATIVE NEGATIVE Urine ketones detection by automated test strip NEGATIVE NEGATIVE Urine nitrite detection by test strip NEGATIVE NEGATIVE Urine total bilirubin detection by test strip NEGATIVE NEGATIVE Urine urobilinogen measurement by automated test strip (mass/volume) NORMAL NORMAL Urine leukocyte esterase detection by dipstick NEGATIVE NEGATIVE Automated urine sediment erythrocyte count by microscopy (number/high power field) NONE NRG Automated urine sediment leukocyte count by microscopy (number/high power field ) RARE NRG Bacteria detection in urine sediment by light microscopy NEGATIVE NRG Squamous epithelial cells detection in urine sediment by light microscopy RARE NRG Crystals detection in urine sediment by light microscopy NONE NRG Casts detection in urine sediment by light microscopy NONE NRG Mucus detection in urine sediment by light microscopy NEGATIVE NRG Complete urinalysis with reflex to culture NO NRG Urine drug screening test - 11/05/15 03:55 Urine acetaminophen detection by screening method NEGATIVE NEGATIVE Urine phencyclidine detection by screening method NEGATIVE NEGATIVE Urine benzodiazepines detection by screening method NEGATIVE NEGATIVE Urine cocaine detection NEGATIVE NEGATIVE Urine amphetamines detection by screening method NEGATIVE NEGATIVE Urine methamphetamine detection by screening method NEGATIVE NEGATIVE Urine cannabinoids detection by screening method NEGATIVE NEGATIVE Urine opiates detection by screening method NEGATIVE NEGATIVE Urine barbiturates detection NEGATIVE NEGATIVE Screening urine tricyclic antidepressants detection NEGATIVE NEGATIVE Urine methadone detection by screening method NEGATIVE NEGATIVE Complete blood count (CBC) with automated white blood cell (WBC) differential - 11/14/15 22:12 Blood leukocytes automated count (number/volume) 14.4 10*3/uL 4.3-11.0 Blood erythrocytes automated count (number/volume) 4.76 10*6/uL 4.35-5.85 Venous blood hemoglobin measurement (mass/volume) 14.8 g/dL 13.3-17.7 Blood hematocrit (volume fraction) 43 % 40-54 Automated erythrocyte mean corpuscular volume 90 [foz_us] 80-99 Automated erythrocyte mean corpuscular hemoglobin (mass per erythrocyte) 31 pg 25-34 Automated erythrocyte mean corpuscular hemoglobin concentration measurement ( mass/volume) 35 g/dL 32-36 Automated erythrocyte distribution width ratio 12.3 % 10.0-14.5 Automated blood platelet count (count/volume) 290 10*3/uL 130-400 Automated blood platelet mean volume measurement 11.1 [foz_us] 7.4-10.4 Automated blood neutrophils/100 leukocytes 52 % 42-75 Automated blood lymphocytes/100 leukocytes 38 % 12-44 Blood monocytes/100 leukocytes 8 % 0-12 Automated blood eosinophils/100 leukocytes 2 % 0-10 Automated blood basophils/100 leukocytes 0 % 0-10 Blood neutrophils automated count (number/volume) 7.6 10*3 1.8-7.8 Blood lymphocytes automated count (number/volume) 5.4 10*3 1.0-4.0 Blood monocytes automated count (number/volume) 1.1 10*3 0.0-1.0 Automated eosinophil count 0.3 10*3/uL 0.0-0.3 Automated blood basophil count (count/volume) 0.1 10*3/uL 0.0-0.1 Blood manual differential performed detection - 11/14/15 22:12 Blood monocytes/100 leukocytes 4 % NRG Manual blood segmented neutrophils/100 leukocytes 56 % NRG Blood band neutrophils/100 leukocytes 0 % NRG Manual blood lymphocytes/100 leukocytes 25 % NRG Manual eosinophils/100 leukocytes in nose 0 % [facility] Manual blood basophils/100 leukocytes 0 % NR Blood lymphocytes variant/100 leukocytes 15 % [facility] Blood erythrocyte morphology finding identification NORMAL [facility] Comprehensive metabolic panel - 11/14/15 22:12 Serum or plasma sodium measurement (moles/volume) 139 mmol/L 135-145 Serum or plasma potassium measurement (moles/volume) 4.3 mmol/L 3.6-5.0 Serum or plasma chloride measurement (moles/volume) 107 mmol/L 98-107 Carbon dioxide 11 mmol/L 21-32 Serum or plasma anion gap determination (moles/volume) 21 mmol/L 5-14 Serum or plasma urea nitrogen measurement (mass/volume) 13 mg/dL 7-18 Serum or plasma creatinine measurement (mass/volume) 1.11 mg/dL 0.60-1.30 Serum or plasma urea nitrogen/creatinine mass ratio 12 NR Serum or plasma creatinine measurement with calculation of estimated glomerular filtration rate > [facility] Serum or plasma glucose measurement (mass/volume) 87 mg/dL 70-105 Serum or plasma calcium measurement (mass/volume) 9.5 mg/dL 8.5-10.1 Serum or plasma total bilirubin measurement (mass/volume) 0.2 mg/dL 0.1-1.0 Serum or plasma alkaline phosphatase measurement (enzymatic activity/volume) 70 U/L 40-136 Serum or plasma aspartate aminotransferase measurement (enzymatic activity/ volume) 29 U/L 5-34 Serum or plasma alanine aminotransferase measurement (enzymatic activity/volume ) 31 U/L 0-55 Serum or plasma protein measurement (mass/volume) 7.2 g/dL 6.4-8.2 Serum or plasma albumin measurement (mass/volume) 4.4 g/dL 3.2-4.5 Magnesium - 11/14/15 22:12 Magnesium 2.9 mg/dL 1.8-2.4 Serum or plasma phenytoin measurement (mass/volume) - 11/14/15 22:12 Serum or plasma phenytoin measurement (mass/volume) 1.2 ug/mL 10.0-20.0 Serum or plasma ethanol measurement (mass/volume) - 11/14/15 22:12 Serum or plasma ethanol measurement (mass/volume) < mg/dL <10 Urine drug screening test - 11/14/15 23:40 Urine acetaminophen detection by screening method NEGATIVE NEGATIVE Urine phencyclidine detection by screening method NEGATIVE NEGATIVE Urine benzodiazepines detection by screening method NEGATIVE NEGATIVE Urine cocaine detection NEGATIVE NEGATIVE Urine amphetamines detection by screening method NEGATIVE NEGATIVE Urine methamphetamine detection by screening method NEGATIVE NEGATIVE Urine cannabinoids detection by screening method NEGATIVE NEGATIVE Urine opiates detection by screening method NEGATIVE NEGATIVE Urine barbiturates detection NEGATIVE NEGATIVE Screening urine tricyclic antidepressants detection NEGATIVE NEGATIVE Urine methadone detection by screening method NEGATIVE NEGATIVE Complete urinalysis with reflex to culture - 11/18/15 00:48 Urine color determination YELLOW NRG Urine clarity determination CLEAR NRG Urine pH measurement by test strip 5 5-9 Specific gravity of urine by test strip 1.020 1.016- 1.022 Urine protein assay by test strip, semi-quantitative 2+ NEGATIVE Urine glucose detection by automated test strip 3+ NEGATIVE Erythrocytes detection in urine sediment by light microscopy NEGATIVE NEGATIVE Urine ketones detection by automated test strip NEGATIVE NEGATIVE Urine nitrite detection by test strip NEGATIVE NEGATIVE Urine total bilirubin detection by test strip NEGATIVE NEGATIVE Urine urobilinogen measurement by automated test strip (mass/volume) NORMAL NORMAL Urine leukocyte esterase detection by dipstick NEGATIVE NEGATIVE Automated urine sediment erythrocyte count by microscopy (number/high power field) NONE NRG Automated urine sediment leukocyte count by microscopy (number/high power field ) NONE NRG Bacteria detection in urine sediment by light microscopy NEGATIVE NRG Squamous epithelial cells detection in urine sediment by light microscopy RARE NRG Crystals detection in urine sediment by light microscopy NONE NRG Casts detection in urine sediment by light microscopy PRESENT NRG Mucus detection in urine sediment by light microscopy NEGATIVE NRG Complete urinalysis with reflex to culture NO NRG Hyaline casts detection in urine sediment by light microscopy RARE NRG Urine drug screening test - 11/18/15 00:48 Urine acetaminophen detection by screening method NEGATIVE NEGATIVE Urine phencyclidine detection by screening method NEGATIVE NEGATIVE Urine benzodiazepines detection by screening method NEGATIVE NEGATIVE Urine cocaine detection NEGATIVE NEGATIVE Urine amphetamines detection by screening method NEGATIVE NEGATIVE Urine methamphetamine detection by screening method NEGATIVE NEGATIVE Urine cannabinoids detection by screening method NEGATIVE NEGATIVE Urine opiates detection by screening method NEGATIVE NEGATIVE Urine barbiturates detection NEGATIVE NEGATIVE Screening urine tricyclic antidepressants detection NEGATIVE NEGATIVE Urine methadone detection by screening method NEGATIVE NEGATIVE Complete blood count (CBC) with automated white blood cell (WBC) differential - 11/18/15 23:24 Blood leukocytes automated count (number/volume) 9.9 10*3/uL 4.3-11.0 Blood erythrocytes automated count (number/volume) 4.97 10*6/uL 4.35-5.85 Venous blood hemoglobin measurement (mass/volume) 15.3 g/dL 13.3-17.7 Blood hematocrit (volume fraction) 44 % 40-54 Automated erythrocyte mean corpuscular volume 88 [foz_us] 80-99 Automated erythrocyte mean corpuscular hemoglobin (mass per erythrocyte) 31 pg 25-34 Automated erythrocyte mean corpuscular hemoglobin concentration measurement ( mass/volume) 35 g/dL 32-36 Automated erythrocyte distribution width ratio 12.3 % 10.0-14.5 Automated blood platelet count (count/volume) 287 10*3/uL 130-400 Automated blood platelet mean volume measurement 9.9 [foz_us] 7.4-10.4 Automated blood neutrophils/100 leukocytes 54 % 42-75 Automated blood lymphocytes/100 leukocytes 34 % 12-44 Blood monocytes/100 leukocytes 10 % 0-12 Automated blood eosinophils/100 leukocytes 2 % 0-10 Automated blood basophils/100 leukocytes 1 % 0-10 Blood neutrophils automated count (number/volume) 5.4 10*3 1.8-7.8 Blood lymphocytes automated count (number/volume) 3.4 10*3 1.0-4.0 Blood monocytes automated count (number/volume) 0.9 10*3 0.0-1.0 Automated eosinophil count 0.2 10*3/uL 0.0-0.3 Automated blood basophil count (count/volume) 0.1 10*3/uL 0.0-0.1 Comprehensive metabolic panel - 11/18/15 23:24 Serum or plasma sodium measurement (moles/volume) 140 mmol/L 135-145 Serum or plasma potassium measurement (moles/volume) 4.3 mmol/L 3.6-5.0 Serum or plasma chloride measurement (moles/volume) 107 mmol/L 98-107 Carbon dioxide 16 mmol/L 21-32 Serum or plasma anion gap determination (moles/volume) 17 mmol/L 5-14 Serum or plasma urea nitrogen measurement (mass/volume) 16 mg/dL 7-18 Serum or plasma creatinine measurement (mass/volume) 1.26 mg/dL 0.60-1.30 Serum or plasma urea nitrogen/creatinine mass ratio 13 NRG Serum or plasma creatinine measurement with calculation of estimated glomerular filtration rate > NRG Serum or plasma glucose measurement (mass/volume) 53 mg/dL 70-105 Serum or plasma calcium measurement (mass/volume) 10.1 mg/dL 8.5-10.1 Serum or plasma total bilirubin measurement (mass/volume) 0.3 mg/dL 0.1-1.0 Serum or plasma alkaline phosphatase measurement (enzymatic activity/volume) 77 U/L 40-136 Serum or plasma aspartate aminotransferase measurement (enzymatic activity/ volume) 19 U/L 5-34 Serum or plasma alanine aminotransferase measurement (enzymatic activity/volume ) 30 U/L 0-55 Serum or plasma protein measurement (mass/volume) 7.7 g/dL 6.4-8.2 Serum or plasma albumin measurement (mass/volume) 4.8 g/dL 3.2-4.5 Magnesium - 11/18/15 23:24 Magnesium 2.8 mg/dL 1.8-2.4 Serum or plasma creatine kinase measurement (enzymatic activity/volume) - 11/17 23:24 Serum or plasma creatine kinase measurement (enzymatic activity/volume) 95 U/L 30-200 Serum or plasma thyrotropin measurement by detection limit <=0.05 miu/l (units/ volume) - 11/18/15 23:24 Serum or plasma thyrotropin measurement by detection limit <=0.05 miu/l (units/ volume) 3.37 u[iU]/mL 0.35-4.94 Serum or plasma phenytoin measurement (mass/volume) - 11/18/15 23:24 Serum or plasma phenytoin measurement (mass/volume) 2.0 ug/mL 10.0-20.0 Serum or plasma ethanol measurement (mass/volume) - 11/18/15 23:24 Serum or plasma ethanol measurement (mass/volume) < mg/dL <10 Serum or plasma topiramate measurement (mass/volume) - 11/18/15 23:24 Blood topiramate measurement (mass/volume) 3.2 % 5.0- 20.0 Capillary blood glucose measurement by glucometer (mass/volume) - 11/19/15 00: 50 Capillary blood glucose measurement by glucometer (mass/volume) 141 mg/dL 70-110 Complete blood count (CBC) with automated white blood cell (WBC) differential - 12/06/15 21:08 Blood leukocytes automated count (number/volume) 16.7 10*3/uL 4.3-11.0 Blood erythrocytes automated count (number/volume) 4.90 10*6/uL 4.35-5.85 Venous blood hemoglobin measurement (mass/volume) 15.5 g/dL 13.3-17.7 Blood hematocrit (volume fraction) 44 % 40-54 Automated erythrocyte mean corpuscular volume 89 [foz_us] 80-99 Automated erythrocyte mean corpuscular hemoglobin (mass per erythrocyte) 32 pg 25-34 Automated erythrocyte mean corpuscular hemoglobin concentration measurement ( mass/volume) 36 g/dL 32-36 Automated erythrocyte distribution width ratio 12.6 % 10.0-14.5 Automated blood platelet count (count/volume) 301 10*3/uL 130-400 Automated blood platelet mean volume measurement 10.6 [foz_us] 7.4-10.4 Automated blood neutrophils/100 leukocytes 49 % 42-75 Automated blood lymphocytes/100 leukocytes 40 % 12-44 Blood monocytes/100 leukocytes 9 % 0-12 Automated blood eosinophils/100 leukocytes 2 % 0-10 Automated blood basophils/100 leukocytes 0 % 0-10 Blood neutrophils automated count (number/volume) 8.2 10*3 1.8-7.8 Blood lymphocytes automated count (number/volume) 6.7 10*3 1.0-4.0 Blood monocytes automated count (number/volume) 1.5 10*3 0.0-1.0 Automated eosinophil count 0.3 10*3/uL 0.0-0.3 Automated blood basophil count (count/volume) 0.1 10*3/uL 0.0-0.1 Blood manual differential performed detection - 12/06/15 21:08 Blood monocytes/100 leukocytes 11 % NR Manual blood segmented neutrophils/100 leukocytes 46 % NRG Blood band neutrophils/100 leukocytes 0 % NRG Manual blood lymphocytes/100 leukocytes 42 % NRG Manual eosinophils/100 leukocytes in nose 1 % NRG Manual blood basophils/100 leukocytes 0 % NR Blood erythrocyte morphology finding identification [facility]ORMAL [facility] Comprehensive metabolic panel - 12/06/15 21:08 Serum or plasma sodium measurement (moles/volume) 140 mmol/L 135-145 Serum or plasma potassium measurement (moles/volume) 4.3 mmol/L 3.6-5.0 Serum or plasma chloride measurement (moles/volume) 110 mmol/L 98-107 Carbon dioxide 10 mmol/L 21-32 Serum or plasma anion gap determination (moles/volume) 20 mmol/L 5-14 Serum or plasma urea nitrogen measurement (mass/volume) 17 mg/dL 7-18 Serum or plasma creatinine measurement (mass/volume) 1.12 mg/dL 0.60-1.30 Serum or plasma urea nitrogen/creatinine mass ratio 15 NRG Serum or plasma creatinine measurement with calculation of estimated glomerular filtration rate > NRG Serum or plasma glucose measurement (mass/volume) 112 mg/dL 70-105 Serum or plasma calcium measurement (mass/volume) 9.7 mg/dL 8.5-10.1 Serum or plasma total bilirubin measurement (mass/volume) 0.1 mg/dL 0.1-1.0 Serum or plasma alkaline phosphatase measurement (enzymatic activity/volume) 82 U/L 40-136 Serum or plasma aspartate aminotransferase measurement (enzymatic activity/ volume) 24 U/L 5-34 Serum or plasma alanine aminotransferase measurement (enzymatic activity/volume ) 31 U/L 0-55 Serum or plasma protein measurement (mass/volume) 7.9 g/dL 6.4-8.2 Serum or plasma albumin measurement (mass/volume) 4.8 g/dL 3.2-4.5 Serum or plasma phenytoin measurement (mass/volume) - 12/06/15 21:08 Serum or plasma phenytoin measurement (mass/volume) 1.3 ug/mL 10.0-20.0 Serum or plasma ethanol measurement (mass/volume) - 12/06/15 21:08 Serum or plasma ethanol measurement (mass/volume) < mg/dL <10 Complete urinalysis with reflex to culture - 12/06/15 21:26 Urine color determination YELLOW NRG Urine clarity determination CLEAR NRG Urine pH measurement by test strip 5 5-9 Specific gravity of urine by test strip 1.025 1.016- 1.022 Urine protein assay by test strip, semi-quantitative 2+ NEGATIVE Urine glucose detection by automated test strip NEGATIVE NEGATIVE Erythrocytes detection in urine sediment by light microscopy 2+ NEGATIVE Urine ketones detection by automated test strip 1+ NEGATIVE Urine nitrite detection by test strip NEGATIVE NEGATIVE Urine total bilirubin detection by test strip NEGATIVE NEGATIVE Urine urobilinogen measurement by automated test strip (mass/volume) NORMAL NORMAL Urine leukocyte esterase detection by dipstick NEGATIVE NEGATIVE Automated urine sediment erythrocyte count by microscopy (number/high power field) [HPF] NRG Automated urine sediment leukocyte count by microscopy (number/high power field ) RARE NRG Bacteria detection in urine sediment by light microscopy NONE NRG Squamous epithelial cells detection in urine sediment by light microscopy RARE NRG Crystals detection in urine sediment by light microscopy NONE NRG Casts detection in urine sediment by light microscopy NONE NRG Mucus detection in urine sediment by light microscopy NEGATIVE NRG Complete urinalysis with reflex to culture NO NRG Urine drug screening test - 12/06/15 21:26 Urine phencyclidine detection by screening method NEGATIVE NEGATIVE Urine benzodiazepines detection by screening method NEGATIVE NEGATIVE Urine cocaine detection NEGATIVE NEGATIVE Urine amphetamines detection by screening method NEGATIVE NEGATIVE Urine methamphetamine detection by screening method NEGATIVE NEGATIVE Urine cannabinoids detection by screening method NEGATIVE NEGATIVE Urine opiates detection by screening method NEGATIVE NEGATIVE Urine barbiturates detection NEGATIVE NEGATIVE Screening urine tricyclic antidepressants detection NEGATIVE NEGATIVE Urine methadone detection by screening method NEGATIVE NEGATIVE Urine oxycodone detection NEGATIVE NEGATIVE Urine propoxyphene detection NEGATIVE NEGATIVE Urine buprenophrine screen NEGATIVE NEGATIVE Complete blood count (CBC) with automated white blood cell (WBC) differential - 01/03/16 10:50 Blood leukocytes automated count (number/volume) 9.7 10*3/uL 4.3-11.0 Blood erythrocytes automated count (number/volume) 4.85 10*6/uL 4.35-5.85 Venous blood hemoglobin measurement (mass/volume) 15.1 g/dL 13.3-17.7 Blood hematocrit (volume fraction) 44 % 40-54 Automated erythrocyte mean corpuscular volume 90 [foz_us] 80-99 Automated erythrocyte mean corpuscular hemoglobin (mass per erythrocyte) 31 pg 25-34 Automated erythrocyte mean corpuscular hemoglobin concentration measurement ( mass/volume) 35 g/dL 32-36 Automated erythrocyte distribution width ratio 12.6 % 10.0-14.5 Automated blood platelet count (count/volume) 261 10*3/uL 130-400 Automated blood platelet mean volume measurement 10.1 [foz_us] 7.4-10.4 Automated blood neutrophils/100 leukocytes 62 % 42-75 Automated blood lymphocytes/100 leukocytes 29 % 12-44 Blood monocytes/100 leukocytes 7 % 0-12 Automated blood eosinophils/100 leukocytes 1 % 0-10 Automated blood basophils/100 leukocytes 0 % 0-10 Blood neutrophils automated count (number/volume) 6.0 10*3 1.8-7.8 Blood lymphocytes automated count (number/volume) 2.8 10*3 1.0-4.0 Blood monocytes automated count (number/volume) 0.7 10*3 0.0-1.0 Automated eosinophil count 0.1 10*3/uL 0.0-0.3 Automated blood basophil count (count/volume) 0.0 10*3/uL 0.0-0.1 Comprehensive metabolic panel - 01/03/16 10:50 Serum or plasma sodium measurement (moles/volume) 139 mmol/L 135-145 Serum or plasma potassium measurement (moles/volume) 4.2 mmol/L 3.6-5.0 Serum or plasma chloride measurement (moles/volume) 111 mmol/L 98-107 Carbon dioxide 13 mmol/L 21-32 Serum or plasma anion gap determination (moles/volume) 15 mmol/L 5-14 Serum or plasma urea nitrogen measurement (mass/volume) 14 mg/dL 7-18 Serum or plasma creatinine measurement (mass/volume) 1.11 mg/dL 0.60-1.30 Serum or plasma urea nitrogen/creatinine mass ratio 13 NRG Serum or plasma creatinine measurement with calculation of estimated glomerular filtration rate > NRG Serum or plasma glucose measurement (mass/volume) 107 mg/dL 70-105 Serum or plasma calcium measurement (mass/volume) 9.2 mg/dL 8.5-10.1 Serum or plasma total bilirubin measurement (mass/volume) 0.2 mg/dL 0.1-1.0 Serum or plasma alkaline phosphatase measurement (enzymatic activity/volume) 72 U/L 40-136 Serum or plasma aspartate aminotransferase measurement (enzymatic activity/ volume) 18 U/L 5-34 Serum or plasma alanine aminotransferase measurement (enzymatic activity/volume ) 26 U/L 0-55 Serum or plasma protein measurement (mass/volume) 7.3 g/dL 6.4-8.2 Serum or plasma albumin measurement (mass/volume) 4.5 g/dL 3.2-4.5 Serum or plasma phenytoin measurement (mass/volume) - 01/03/16 10:50 Serum or plasma phenytoin measurement (mass/volume) < ug/mL 10.0-20.0 Complete urinalysis with reflex to culture - 01/03/16 11:57 Urine color determination YELLOW NRG Urine clarity determination CLEAR NRG Urine pH measurement by test strip 5 5-9 Specific gravity of urine by test strip 1.025 1.016- 1.022 Urine protein assay by test strip, semi-quantitative 1+ NEGATIVE Urine glucose detection by automated test strip NEGATIVE NEGATIVE Erythrocytes detection in urine sediment by light microscopy 1+ NEGATIVE Urine ketones detection by automated test strip 1+ NEGATIVE Urine nitrite detection by test strip NEGATIVE NEGATIVE Urine total bilirubin detection by test strip NEGATIVE NEGATIVE Urine urobilinogen measurement by automated test strip (mass/volume) NORMAL NORMAL Urine leukocyte esterase detection by dipstick NEGATIVE NEGATIVE Automated urine sediment erythrocyte count by microscopy (number/high power field) NONE NRG Automated urine sediment leukocyte count by microscopy (number/high power field ) NONE NRG Bacteria detection in urine sediment by light microscopy NEGATIVE NRG Squamous epithelial cells detection in urine sediment by light microscopy RARE NRG Crystals detection in urine sediment by light microscopy NONE NRG Casts detection in urine sediment by light microscopy PRESENT NRG Mucus detection in urine sediment by light microscopy NEGATIVE NRG Complete urinalysis with reflex to culture NO NRG Hyaline casts detection in urine sediment by light microscopy 2-5 NRG Granular casts detection in urine sediment by light microscopy 0-2 NRG Urine drug screening test - 01/03/16 11:57 Urine phencyclidine detection by screening method NEGATIVE NEGATIVE Urine benzodiazepines detection by screening method NEGATIVE NEGATIVE Urine cocaine detection NEGATIVE NEGATIVE Urine amphetamines detection by screening method NEGATIVE NEGATIVE Urine methamphetamine detection by screening method NEGATIVE NEGATIVE Urine cannabinoids detection by screening method NEGATIVE NEGATIVE Urine opiates detection by screening method NEGATIVE NEGATIVE Urine barbiturates detection POSITIVE NEGATIVE Screening urine tricyclic antidepressants detection NEGATIVE NEGATIVE Urine methadone detection by screening method NEGATIVE NEGATIVE Urine oxycodone detection NEGATIVE NEGATIVE Urine propoxyphene detection NEGATIVE NEGATIVE Urine buprenophrine screen NEGATIVE NEGATIVE Complete blood count (CBC) with automated white blood cell (WBC) differential - 01/26/16 15:40 Blood leukocytes automated count (number/volume) 9.2 10*3/uL 4.3-11.0 Blood erythrocytes automated count (number/volume) 4.56 10*6/uL 4.35-5.85 Venous blood hemoglobin measurement (mass/volume) 14.2 g/dL 13.3-17.7 Blood hematocrit (volume fraction) 40 % 40-54 Automated erythrocyte mean corpuscular volume 89 [foz_us] 80-99 Automated erythrocyte mean corpuscular hemoglobin (mass per erythrocyte) 31 pg 25-34 Automated erythrocyte mean corpuscular hemoglobin concentration measurement ( mass/volume) 35 g/dL 32-36 Automated erythrocyte distribution width ratio 12.5 % 10.0-14.5 Automated blood platelet count (count/volume) 234 10*3/uL 130-400 Automated blood platelet mean volume measurement 10.4 [foz_us] 7.4-10.4 Automated blood neutrophils/100 leukocytes 67 % 42-75 Automated blood lymphocytes/100 leukocytes 23 % 12-44 Blood monocytes/100 leukocytes 9 % 0-12 Automated blood eosinophils/100 leukocytes 1 % 0-10 Automated blood basophils/100 leukocytes 0 % 0-10 Blood neutrophils automated count (number/volume) 6.1 10*3 1.8-7.8 Blood lymphocytes automated count (number/volume) 2.1 10*3 1.0-4.0 Blood monocytes automated count (number/volume) 0.9 10*3 0.0-1.0 Automated eosinophil count 0.1 10*3/uL 0.0-0.3 Automated blood basophil count (count/volume) 0.0 10*3/uL 0.0-0.1 Comprehensive metabolic panel - 01/26/16 15:40 Serum or plasma sodium measurement (moles/volume) 140 mmol/L 135-145 Serum or plasma potassium measurement (moles/volume) 3.8 mmol/L 3.6-5.0 Serum or plasma chloride measurement (moles/volume) 109 mmol/L 98-107 Carbon dioxide 18 mmol/L 21-32 Serum or plasma anion gap determination (moles/volume) 13 mmol/L 5-14 Serum or plasma urea nitrogen measurement (mass/volume) 11 mg/dL 7-18 Serum or plasma creatinine measurement (mass/volume) 1.01 mg/dL 0.60-1.30 Serum or plasma urea nitrogen/creatinine mass ratio 11 NRG Serum or plasma creatinine measurement with calculation of estimated glomerular filtration rate > NRG Serum or plasma glucose measurement (mass/volume) 94 mg/dL 70-105 Serum or plasma calcium measurement (mass/volume) 9.1 mg/dL 8.5-10.1 Serum or plasma total bilirubin measurement (mass/volume) 0.3 mg/dL 0.1-1.0 Serum or plasma alkaline phosphatase measurement (enzymatic activity/volume) 55 U/L 40-136 Serum or plasma aspartate aminotransferase measurement (enzymatic activity/ volume) 17 U/L 5-34 Serum or plasma alanine aminotransferase measurement (enzymatic activity/volume ) 24 U/L 0-55 Serum or plasma protein measurement (mass/volume) 6.6 g/dL 6.4-8.2 Serum or plasma albumin measurement (mass/volume) 4.3 g/dL 3.2-4.5 Serum or plasma creatine kinase measurement (enzymatic activity/volume) - 01/25 15:40 Serum or plasma creatine kinase measurement (enzymatic activity/volume) 253 U/L 30-200 Myoglobin, serum - 01/26/16 15:40 Myoglobin, serum 103.4 ng/mL 10.0-92.0 Serum or plasma ethanol measurement (mass/volume) - 01/26/16 15:40 Serum or plasma ethanol measurement (mass/volume) < mg/dL <10 Complete blood count (CBC) with automated white blood cell (WBC) differential - 02/02/16 09:36 Blood leukocytes automated count (number/volume) 8.4 10*3/uL 4.3-11.0 Blood erythrocytes automated count (number/volume) 4.75 10*6/uL 4.35-5.85 Venous blood hemoglobin measurement (mass/volume) 14.7 g/dL 13.3-17.7 Blood hematocrit (volume fraction) 42 % 40-54 Automated erythrocyte mean corpuscular volume 89 [foz_us] 80-99 Automated erythrocyte mean corpuscular hemoglobin (mass per erythrocyte) 31 pg 25-34 Automated erythrocyte mean corpuscular hemoglobin concentration measurement ( mass/volume) 35 g/dL 32-36 Automated erythrocyte distribution width ratio 12.6 % 10.0-14.5 Automated blood platelet count (count/volume) 234 10*3/uL 130-400 Automated blood platelet mean volume measurement 10.5 [foz_us] 7.4-10.4 Automated blood neutrophils/100 leukocytes 60 % 42-75 Automated blood lymphocytes/100 leukocytes 30 % 12-44 Blood monocytes/100 leukocytes 8 % 0-12 Automated blood eosinophils/100 leukocytes 2 % 0-10 Automated blood basophils/100 leukocytes 0 % 0-10 Blood neutrophils automated count (number/volume) 5.0 10*3 1.8-7.8 Blood lymphocytes automated count (number/volume) 2.5 10*3 1.0-4.0 Blood monocytes automated count (number/volume) 0.7 10*3 0.0-1.0 Automated eosinophil count 0.2 10*3/uL 0.0-0.3 Automated blood basophil count (count/volume) 0.0 10*3/uL 0.0-0.1 Comprehensive metabolic panel - 02/02/16 09:36 Serum or plasma sodium measurement (moles/volume) 140 mmol/L 135-145 Serum or plasma potassium measurement (moles/volume) 4.0 mmol/L 3.6-5.0 Serum or plasma chloride measurement (moles/volume) 111 mmol/L 98-107 Carbon dioxide 14 mmol/L 21-32 Serum or plasma anion gap determination (moles/volume) 15 mmol/L 5-14 Serum or plasma urea nitrogen measurement (mass/volume) 12 mg/dL 7-18 Serum or plasma creatinine measurement (mass/volume) 1.19 mg/dL 0.60-1.30 Serum or plasma urea nitrogen/creatinine mass ratio 10 NRG Serum or plasma creatinine measurement with calculation of estimated glomerular filtration rate > NRG Serum or plasma glucose measurement (mass/volume) 98 mg/dL 70-105 Serum or plasma calcium measurement (mass/volume) 9.0 mg/dL 8.5-10.1 Serum or plasma total bilirubin measurement (mass/volume) 0.5 mg/dL 0.1-1.0 Serum or plasma alkaline phosphatase measurement (enzymatic activity/volume) 73 U/L 40-136 Serum or plasma aspartate aminotransferase measurement (enzymatic activity/ volume) 19 U/L 5-34 Serum or plasma alanine aminotransferase measurement (enzymatic activity/volume ) 26 U/L 0-55 Serum or plasma protein measurement (mass/volume) 6.8 g/dL 6.4-8.2 Serum or plasma albumin measurement (mass/volume) 4.4 g/dL 3.2-4.5 Magnesium - 02/02/16 09:36 Magnesium 2.1 mg/dL 1.8-2.4 Serum or plasma ethanol measurement (mass/volume) - 02/02/16 09:36 Serum or plasma ethanol measurement (mass/volume) < mg/dL <10 Complete blood count (CBC) with automated white blood cell (WBC) differential - 03/14/16 13:27 Blood leukocytes automated count (number/volume) 10.2 10*3/uL 4.3-11.0 Blood erythrocytes automated count (number/volume) 5.03 10*6/uL 4.35-5.85 Venous blood hemoglobin measurement (mass/volume) 15.2 g/dL 13.3-17.7 Blood hematocrit (volume fraction) 44 % 40-54 Automated erythrocyte mean corpuscular volume 88 [foz_us] 80-99 Automated erythrocyte mean corpuscular hemoglobin (mass per erythrocyte) 30 pg 25-34 Automated erythrocyte mean corpuscular hemoglobin concentration measurement ( mass/volume) 34 g/dL 32-36 Automated erythrocyte distribution width ratio 12.4 % 10.0-14.5 Automated blood platelet count (count/volume) 266 10*3/uL 130-400 Automated blood platelet mean volume measurement 9.9 [foz_us] 7.4-10.4 Automated blood neutrophils/100 leukocytes 78 % 42-75 Automated blood lymphocytes/100 leukocytes 13 % 12-44 Blood monocytes/100 leukocytes 7 % 0-12 Automated blood eosinophils/100 leukocytes 1 % 0-10 Automated blood basophils/100 leukocytes 0 % 0-10 Blood neutrophils automated count (number/volume) 8.0 10*3 1.8-7.8 Blood lymphocytes automated count (number/volume) 1.4 10*3 1.0-4.0 Blood monocytes automated count (number/volume) 0.8 10*3 0.0-1.0 Automated eosinophil count 0.1 10*3/uL 0.0-0.3 Automated blood basophil count (count/volume) 0.0 10*3/uL 0.0-0.1 Comprehensive metabolic panel - 03/14/16 13:27 Serum or plasma sodium measurement (moles/volume) 138 mmol/L 135-145 Serum or plasma potassium measurement (moles/volume) 4.2 mmol/L 3.6-5.0 Serum or plasma chloride measurement (moles/volume) 110 mmol/L 98-107 Carbon dioxide 22 mmol/L 21-32 Serum or plasma anion gap determination (moles/volume) 6 mmol/L 5-14 Serum or plasma urea nitrogen measurement (mass/volume) 10 mg/dL 7-18 Serum or plasma creatinine measurement (mass/volume) 0.94 mg/dL 0.60-1.30 Serum or plasma urea nitrogen/creatinine mass ratio 11 NRG Serum or plasma creatinine measurement with calculation of estimated glomerular filtration rate > NRG Serum or plasma glucose measurement (mass/volume) 93 mg/dL 70-105 Serum or plasma calcium measurement (mass/volume) 9.3 mg/dL 8.5-10.1 Serum or plasma total bilirubin measurement (mass/volume) 0.3 mg/dL 0.1-1.0 Serum or plasma alkaline phosphatase measurement (enzymatic activity/volume) 58 U/L 40-136 Serum or plasma aspartate aminotransferase measurement (enzymatic activity/ volume) 25 U/L 5-34 Serum or plasma alanine aminotransferase measurement (enzymatic activity/volume ) 28 U/L 0-55 Serum or plasma protein measurement (mass/volume) 7.2 g/dL 6.4-8.2 Serum or plasma albumin measurement (mass/volume) 4.5 g/dL 3.2-4.5 Magnesium - 03/14/16 13:27 Magnesium 2.3 mg/dL 1.8-2.4 Serum or plasma carbamazepine measurement (mass/volume) - 03/14/16 13:27 Serum or plasma carbamazepine measurement (mass/volume) < ug/mL 4.0-12.0 Serum or plasma ethanol measurement (mass/volume) - 03/14/16 13:27 Serum or plasma ethanol measurement (mass/volume) < mg/dL <10 Urine drug screening test - 03/14/16 14:40 Urine phencyclidine detection by screening method NEGATIVE NEGATIVE Urine benzodiazepines detection by screening method NEGATIVE NEGATIVE Urine cocaine detection NEGATIVE NEGATIVE Urine amphetamines detection by screening method NEGATIVE NEGATIVE Urine methamphetamine detection by screening method NEGATIVE NEGATIVE Urine cannabinoids detection by screening method NEGATIVE NEGATIVE Urine opiates detection by screening method NEGATIVE NEGATIVE Urine barbiturates detection NEGATIVE NEGATIVE Screening urine tricyclic antidepressants detection NEGATIVE NEGATIVE Urine methadone detection by screening method NEGATIVE NEGATIVE Urine oxycodone detection NEGATIVE NEGATIVE Urine propoxyphene detection NEGATIVE NEGATIVE Complete blood count (CBC) with automated white blood cell (WBC) differential - 04/01/16 14:00 Blood leukocytes automated count (number/volume) 7.0 10*3/uL 4.3-11.0 Blood erythrocytes automated count (number/volume) 4.88 10*6/uL 4.35-5.85 Venous blood hemoglobin measurement (mass/volume) 15.1 g/dL 13.3-17.7 Blood hematocrit (volume fraction) 43 % 40-54 Automated erythrocyte mean corpuscular volume 88 [foz_us] 80-99 Automated erythrocyte mean corpuscular hemoglobin (mass per erythrocyte) 31 pg 25-34 Automated erythrocyte mean corpuscular hemoglobin concentration measurement ( mass/volume) 35 g/dL 32-36 Automated erythrocyte distribution width ratio 12.7 % 10.0-14.5 Automated blood platelet count (count/volume) 208 10*3/uL 130-400 Automated blood platelet mean volume measurement 10.3 [foz_us] 7.4-10.4 Automated blood neutrophils/100 leukocytes 70 % 42-75 Automated blood lymphocytes/100 leukocytes 17 % 12-44 Blood monocytes/100 leukocytes 10 % 0-12 Automated blood eosinophils/100 leukocytes 2 % 0-10 Automated blood basophils/100 leukocytes 0 % 0-10 Blood neutrophils automated count (number/volume) 4.9 10*3 1.8-7.8 Blood lymphocytes automated count (number/volume) 1.2 10*3 1.0-4.0 Blood monocytes automated count (number/volume) 0.7 10*3 0.0-1.0 Automated eosinophil count 0.1 10*3/uL 0.0-0.3 Automated blood basophil count (count/volume) 0.0 10*3/uL 0.0-0.1 Comprehensive metabolic panel - 04/01/16 14:00 Serum or plasma sodium measurement (moles/volume) 141 mmol/L 135-145 Serum or plasma potassium measurement (moles/volume) 4.4 mmol/L 3.6-5.0 Serum or plasma chloride measurement (moles/volume) 111 mmol/L 98-107 Carbon dioxide 22 mmol/L 21-32 Serum or plasma anion gap determination (moles/volume) 8 mmol/L 5-14 Serum or plasma urea nitrogen measurement (mass/volume) 12 mg/dL 7-18 Serum or plasma creatinine measurement (mass/volume) 1.15 mg/dL 0.60-1.30 Serum or plasma urea nitrogen/creatinine mass ratio 10 NRG Serum or plasma creatinine measurement with calculation of estimated glomerular filtration rate > NRG Serum or plasma glucose measurement (mass/volume) 92 mg/dL 70-105 Serum or plasma calcium measurement (mass/volume) 9.3 mg/dL 8.5-10.1 Serum or plasma total bilirubin measurement (mass/volume) 0.3 mg/dL 0.1-1.0 Serum or plasma alkaline phosphatase measurement (enzymatic activity/volume) 65 U/L 40-136 Serum or plasma aspartate aminotransferase measurement (enzymatic activity/ volume) 19 U/L 5-34 Serum or plasma alanine aminotransferase measurement (enzymatic activity/volume ) 25 U/L 0-55 Serum or plasma protein measurement (mass/volume) 6.9 g/dL 6.4-8.2 Serum or plasma albumin measurement (mass/volume) 4.5 g/dL 3.2-4.5 Magnesium - 04/01/16 14:00 Magnesium 2.3 mg/dL 1.8-2.4 Serum or plasma creatine kinase measurement (enzymatic activity/volume) - 04/01 14:00 Serum or plasma creatine kinase measurement (enzymatic activity/volume) 98 U/L 30-200 Serum or plasma thyrotropin measurement by detection limit <=0.05 miu/l (units/ volume) - 04/01/16 14:00 Serum or plasma thyrotropin measurement by detection limit <=0.05 miu/l (units/ volume) 0.91 u[iU]/mL 0.35-4.94 Serum or plasma ethanol measurement (mass/volume) - 04/01/16 14:00 Serum or plasma ethanol measurement (mass/volume) < mg/dL <10 Complete urinalysis with reflex to culture - 04/01/16 15:25 Urine color determination YELLOW NRG Urine clarity determination CLEAR NRG Urine pH measurement by test strip 7 5-9 Specific gravity of urine by test strip 1.015 1.016- 1.022 Urine protein assay by test strip, semi-quantitative NEGATIVE NEGATIVE Urine glucose detection by automated test strip NEGATIVE NEGATIVE Erythrocytes detection in urine sediment by light microscopy NEGATIVE NEGATIVE Urine ketones detection by automated test strip 1+ NEGATIVE Urine nitrite detection by test strip NEGATIVE NEGATIVE Urine total bilirubin detection by test strip NEGATIVE NEGATIVE Urine urobilinogen measurement by automated test strip (mass/volume) NORMAL NORMAL Urine leukocyte esterase detection by dipstick NEGATIVE NEGATIVE Automated urine sediment erythrocyte count by microscopy (number/high power field) NONE NRG Automated urine sediment leukocyte count by microscopy (number/high power field ) RARE NRG Bacteria detection in urine sediment by light microscopy NONE NRG Squamous epithelial cells detection in urine sediment by light microscopy 0-2 NRG Crystals detection in urine sediment by light microscopy NONE NRG Casts detection in urine sediment by light microscopy NONE NRG Mucus detection in urine sediment by light microscopy NEGATIVE NRG Complete urinalysis with reflex to culture NO NRG Complete blood count (CBC) with automated white blood cell (WBC) differential - 04/10/16 15:00 Blood leukocytes automated count (number/volume) 8.9 10*3/uL 4.3-11.0 Blood erythrocytes automated count (number/volume) 4.84 10*6/uL 4.35-5.85 Venous blood hemoglobin measurement (mass/volume) 14.7 g/dL 13.3-17.7 Blood hematocrit (volume fraction) 43 % 40-54 Automated erythrocyte mean corpuscular volume 88 [foz_us] 80-99 Automated erythrocyte mean corpuscular hemoglobin (mass per erythrocyte) 30 pg 25-34 Automated erythrocyte mean corpuscular hemoglobin concentration measurement ( mass/volume) 35 g/dL 32-36 Automated erythrocyte distribution width ratio 12.7 % 10.0-14.5 Automated blood platelet count (count/volume) 212 10*3/uL 130-400 Automated blood platelet mean volume measurement 10.6 [foz_us] 7.4-10.4 Automated blood neutrophils/100 leukocytes 79 % 42-75 Automated blood lymphocytes/100 leukocytes 11 % 12-44 Blood monocytes/100 leukocytes 8 % 0-12 Automated blood eosinophils/100 leukocytes 1 % 0-10 Automated blood basophils/100 leukocytes 0 % 0-10 Blood neutrophils automated count (number/volume) 7.1 10*3 1.8-7.8 Blood lymphocytes automated count (number/volume) 1.0 10*3 1.0-4.0 Blood monocytes automated count (number/volume) 0.7 10*3 0.0-1.0 Automated eosinophil count 0.1 10*3/uL 0.0-0.3 Automated blood basophil count (count/volume) 0.0 10*3/uL 0.0-0.1 Comprehensive metabolic panel - 04/10/16 15:00 Serum or plasma sodium measurement (moles/volume) 138 mmol/L 135-145 Serum or plasma potassium measurement (moles/volume) 4.2 mmol/L 3.6-5.0 Serum or plasma chloride measurement (moles/volume) 111 mmol/L 98-107 Carbon dioxide 21 mmol/L 21-32 Serum or plasma anion gap determination (moles/volume) 6 mmol/L 5-14 Serum or plasma urea nitrogen measurement (mass/volume) 13 mg/dL 7-18 Serum or plasma creatinine measurement (mass/volume) 1.06 mg/dL 0.60-1.30 Serum or plasma urea nitrogen/creatinine mass ratio 12 NRG Serum or plasma creatinine measurement with calculation of estimated glomerular filtration rate > NRG Serum or plasma glucose measurement (mass/volume) 107 mg/dL 70-105 Serum or plasma calcium measurement (mass/volume) 9.1 mg/dL 8.5-10.1 Serum or plasma total bilirubin measurement (mass/volume) 0.3 mg/dL 0.1-1.0 Serum or plasma alkaline phosphatase measurement (enzymatic activity/volume) 62 U/L 40-136 Serum or plasma aspartate aminotransferase measurement (enzymatic activity/ volume) 18 U/L 5-34 Serum or plasma alanine aminotransferase measurement (enzymatic activity/volume ) 25 U/L 0-55 Serum or plasma protein measurement (mass/volume) 7.0 g/dL 6.4-8.2 Serum or plasma albumin measurement (mass/volume) 4.4 g/dL 3.2-4.5 Serum or plasma salicylates measurement (mass/volume) - 04/10/16 15:00 Serum or plasma salicylates measurement (mass/volume) < mg/dL 5.0-20.0 Serum or plasma acetaminophen measurement (mass/volume) - 04/10/16 15:00 Serum or plasma acetaminophen measurement (mass/volume) < ug/mL 10-30 Serum or plasma ethanol measurement (mass/volume) - 04/10/16 15:00 Serum or plasma ethanol measurement (mass/volume) < mg/dL <10 Encounters ACCT No. Visit Date/Time Discharge Status Pt. Type Provider Facility Loc./Unit Complaint [id number] 04/06/2013 13:16:00 04/06/2013 23:59:59 CLS Outpatient TARYN STUART DDS [id number] 04/10/2016 13:52:00 04/10/2016 16:49:00 DIS Emergency MELISSA MICHAEL [facility] ER SEIZURE [id number] 04/01/2016 13:27:00 04/01/2016 16:18:00 DIS Emergency HORTENSIA HOFFMAN DO [facility] ER SEIZURE [id number] 03/14/2016 11:59:00 03/14/2016 15:48:00 DIS Emergency ONEL PRUETT EMERSON Yeny [facility] ER SEIZURE [id number] 02/02/2016 09:22:00 02/02/2016 11:19:00 DIS Emergency QUINCY HURT, CARLEY Saini [facility] ER SEIZURE [id number] 01/26/2016 15:37:00 01/26/2016 17:09:00 DIS Emergency ANTOINE WARD APRN [facility] ER SEIZURES [id number] 01/03/2016 10:46:00 01/03/2016 12:54:00 DIS Outpatient ARIEL ALSTON MD [facility] ER SEIZURE FALL/HEAD LAC [id number] 12/06/2015 21:03:00 12/06/2015 22:28:00 DIS Emergency ANTOINE WARD APRN [facility] ER SEIZURE [id number] 11/18/2015 23:22:00 11/19/2015 01:32:00 DIS Emergency ARIEL ALSTON MD [facility] ER SEIZURE [id number] 11/14/2015 22:08:00 11/15/2015 00:30:00 DIS Emergency YASMINAdam PRUETT HORTENSIA K [facility] ER SEIZURE [id number] 11/05/2015 04:45:00 11/05/2015 11:45:00 DIS Inpatient ELIAS HOLT DO Yeny [facility] ICU CLOSED HEAD INJ, ALCOHOL INTOX, HX OF SEIZURES [id number] 11/01/2015 16:50:00 11/02/2015 12:45:00 DIS Outpatient MARY JADE MD [facility] 4TH SEIZURE DISORDER, POSSIBLE ASPIRATION [id number] 10/28/2015 11:48:00 10/28/2015 14:06:00 DIS Emergency ELLEN PROCTOR MD [facility] ER SEIZURE [id number] 09/25/2015 09:56:00 09/25/2015 14:42:00 DIS Outpatient ARIEL ALSTON MD [facility] ER SEIZURE/FALL [id number] 08/28/2015 12:42:00 08/28/2015 16:30:00 DIS Emergency ESTHELA HURT, ELLEN Jensen [facility] ER SEIZURES [id number] 08/09/2015 00:32:00 08/09/2015 02:09:00 DIS Outpatient QUINCY HURT, CARLEY Saini [facility] ER SEIZURE [id number] 07/31/2015 21:38:00 07/31/2015 23:54:00 DIS Emergency ALECIA HURT, ARIEL Shah [facility] ER POSS SEIZURE
--- NOTE | 2017-05-19 13:10 | Diagnostic Imaging Report ---
PROCEDURE: CT head without contrast. TECHNIQUE: Multiple contiguous axial images were obtained through the brain without the use of intravenous contrast. INDICATION: Seizure this morning with dizziness and blurred vision. COMPARISON: 04/10/2016. FINDINGS: No acute intracranial hemorrhage is seen. The ventricles and cortical sulci appear age-appropriate. There is no midline shift or mass effect. No CT evidence of acute territorial ischemia seen. The calvarium appears intact. The visualized paranasal sinuses are clear. IMPRESSION: 1. No acute intracranial hemorrhage. No CT evidence of acute territorial ischemia or focal mass. Dictated by: Dictated on workstation # [id number]
--- NOTE | 2017-05-19 13:12 | ED Neurological Problem ---
General Chief Complaint: Neurological Problems Stated Complaint: SEIZURE Nursing Triage Note: PATIENT HERE BY EMS FOLLOWING A SEIZURE THAT OCCURRED AT HOME. HE STATES HE IS TAKING HIS SEIZURE MEDICATION REGULARLY. HE IS ALERT AND ORIENTED TO SELF AND SITUATION. HE IS UNSURE WHERE HE IS AT RIGHT NOW. Nursing Sepsis Screen: No Definite Risk Source: patient Exam Limitations: no limitations History of Present Illness Date Seen by Provider: May 19, 2017 Time Seen by Provider: 13:10 Initial Comments To ER with reports of a seizure at home. He has been taking his Depakote and Topamax regularly. He states that most recently filled this just a few days ago at [facility]. He does have a laceration over the left upper eyelid. Timing/Duration: 1 hour Severity: moderate Allergies and Home Medications Allergies Coded Allergies: No Known Drug Allergies (Unverified , 07/31/15) Home Medications Levetiracetam 100 Mg/1 Ml Solution, Unknown Dose PO BID, (Reported) Sulfamethoxazole/Trimethoprim 1 Each Tablet, 1 EACH PO BID, #14 Ref 0 Prescribed by: MELISSA STINSON on 04/10/16 1629 Topiramate 200 Mg Tablet, 200 MG PO BID, #60 Ref 2 Prescribed by: EMERSON SYKES on 03/14/16 1533 Constitutional: see HPI Eyes: No Symptoms Reported Ears, Nose, Mouth, Throat: no symptoms reported Respiratory: no symptoms reported Cardiovascular: no symptoms reported Genitourinary: no symptoms reported Musculoskeletal: no symptoms reported Skin: no symptoms reported Psychiatric/Neurological: See HPI Endocrine: No Symptoms Reported Past Aywbtja-Zpoqmv-Rghpre Hx Patient Social History Alcohol Use: Denies Use Number of Drinks Today: DD Alcohol Beverage of Choice: Beer, Rum Recreational Drug Use: Yes Drug of Choice: POT Smoking Status: Current Everyday Smoker Type Used: Cigarettes Former Smoker, Quit: Oct 24, 2015 2nd Hand Smoke Exposure: Yes Recent Foreign Travel: No Contact w/Someone Who Travel: No Recent Infectious Disease Expo: No Recent Hopitalizations: Yes (ED LAST WEEK) Immunizations Up To Date Tetanus Booster (TDap): Less than 5yrs Seasonal Allergies Seasonal Allergies: No Surgeries History of Surgeries: Yes (LEG SURGERY) Surgeries: Orthopedic Respiratory History of Respiratory Disorde: No Cardiovascular History of Cardiac Disorders: No Neurological History of Neurological Disord: Yes (NON-COMPLIANT WITH MEDICATIONS BY HISTORY) Neurological Disorders: Seizure Disorder Reproductive System Hx Reproductive Disorders: No Gastrointestinal History of Gastrointestinal Di: No Musculoskeletal History of Musculoskeletal Dis: No Endocrine History of Endocrine Disorders: No Cancer History of Cancer: No Psychosocial History of Psychiatric Problem: No Integumentary History of Skin or Integumenta: No Blood Transfusions History of Blood Disorders: No Adverse Reaction to a Blood Tr: No Family Medical History Significant Family History: No Pertinent Family Hx Physical Exam Vital Signs Vital Signs - First Documented 05/19/17 12:46 Temp 97.9 Pulse 109 Resp 20 B/P (MAP) 143/66 (91) Pulse Ox 98 O2 Delivery Room Air Capillary Refill : Less Than 3 Seconds General Appearance: WD/WN, no apparent distress HEENT: PERRL/EOMI, normal ENT inspection, other (there is a 1 cm laceration to the upper eyelid superficial in nature and is not full-thickness.) Neck: non-tender, full range of motion Respiratory: no respiratory distress, no accessory muscle use Cardiovascular: regular rate, rhythm, no murmur Gastrointestinal: normal bowel sounds, non tender Extremities: normal range of motion, non-tender Neurologic/Psychiatric: alert, normal mood/affect, oriented x 3 Crainal Nerves: normal hearing, normal speech, PERRL Skin: normal color, warm/dry, other (superficial laceration over the left upper eyelid) Laceration Repair : Wound Location: Face Wound Length (cm): 1 Wound's Depth, Shape: linear Wound Explored: clean Anesthesia: 1% Lidocaine Volume Anesthetic (ccs): 1 Suture Size: 6-0 Number of Sutures: 2 Layer Closure?: 1 Number Deep Layer Sutures: 0 Progress Area was anesthetized with 0.5 mL of 2% lidocaine without epinephrine. Wound then scrubbed with car accident/saline solution then closed with 2 simple interrupted sutures size 6-0 Prolene. Progress/Results/Core Measures Results/Orders My Orders Orders - ANTOINE WARD APRN Ct Head Wo (05/19/17 12:45) Lidocaine 2% Injection 20 Ml (Xylocaine (05/19/17 13:45) Lidocaine 2% Injection 20 Ml (Xylocaine (05/19/17 13:30) Vital Signs/I&O Vital Sign - Last 12Hours 05/19/17 12:46 Temp 97.9 Pulse 109 Resp 20 B/P (MAP) 143/66 (91) Pulse Ox 98 O2 Delivery Room Air Blood Pressure Mean: 91 Departure Impression Impression: Primary Impression: Seizure disorder Additional Impression: Eyelid laceration Disposition: 01 HOME, SELF-CARE Condition: Stable Departure-Patient Inst. Decision time for Depature: 13:11 Referrals: [facility]/ (PCP/Family) Primary Care Physician Patient Instructions: NO INSTRUCTIONS GIVEN Add. Discharge Instructions: 1. Take your seizure medication 2. Return to ER for any concerns 3. Return to the emergency room in 5 days have the stitches removed from your left eyelid. All discharge instructions reviewed with patient and/or family. Voiced understanding. ANTOINE WARD APRN May 19, 2017 13:12
[2017-05-19] MEDS ORDERED: LIDOCAINE 2% 20 ML (XYLOCAINE) VIAL ONE (13:30)
[2017-05-19] MEDS ORDERED: LIDOCAINE 2% 20 ML (XYLOCAINE) VIAL INJ ONE (13:45)
[2017-05-19 14:00] VITALS: BP 143/66
== END 2017-05-19 14:00 | disposition home or self-care (01) ==
LOC: EDUNIT# 12:40 → ER 12:42
DX: S01.112A Laceration without foreign body of left eyelid and periocular area, initial encounter (principal); G40.909 Epilepsy, unspecified, not intractable, without status epilepticus; F12.90 Cannabis use, unspecified, uncomplicated; F17.210 Nicotine dependence, cigarettes, uncomplicated; W26.9XXA Contact with unspecified sharp object(s), initial encounter
CPT/HCPCS: 70450; 99283

== ENCOUNTER 2017-06-08 20:30 | Emergency (ER) | payer MEDICAID ==
[~2017-06-08] VITALS: Ht 170.2 cm; Wt 83.9 kg
[2017-06-08 20:53] LABS: BASOPHILS % (AUTO) 0 % (0-10); EOSINOPHILS # (AUTO) 0.2 10^3/uL (0.0-0.3); EOSINOPHILS % (AUTO) 2 % (0-10); HEMATOCRIT 44 % (40-54); HEMOGLOBIN 15.6 G/DL (13.3-17.7); LYMPHOCYTES # (AUTO) 3.4 X 10^3 (1.0-4.0); LYMPHOCYTES % (AUTO) 35 % (12-44); MEAN CORPUSCULAR HEMOGLOBIN 32 PG (25-34); MEAN CORPUSCULAR HGB CONC 35 G/DL (32-36); MEAN CORPUSCULAR VOLUME 90 FL (80-99); MEAN PLATELET VOLUME 10.1 FL (7.4-10.4); MONOCYTES # (AUTO) 0.8 X 10^3 (0.0-1.0); MONOCYTES % (AUTO) 9 % (0-12); NEUTROPHILS # (AUTO) 5.1 X 10^3 (1.8-7.8); NEUTROPHILS % (AUTO) 54 % (42-75); PLATELET COUNT 275 10^3/uL (130-400); RED CELL DISTRIBUTION WIDTH 12.3 % (10.0-14.5); WHITE BLOOD COUNT 9.5 10^3/uL (4.3-11.0)
[2017-06-08 21:09] LABS: ALANINE AMINOTRANSFERASE 21 U/L (0-55); ALBUMIN 4.7 GM/DL (3.2-4.5); ALKALINE PHOSPHATASE 52 U/L (40-136); BILIRUBIN,TOTAL 0.2 MG/DL (0.1-1.0); BUN/CREATININE RATIO 12; CALCIUM 10.1 MG/DL (8.5-10.1); CARBON DIOXIDE 21 MMOL/L (21-32); CHLORIDE 102 MMOL/L (98-107); GFR ESTIMATED > 60; GLUCOSE 68 MG/DL (70-105); MAGNESIUM 2.3 MG/DL (1.8-2.4); SODIUM 142 MMOL/L (135-145); TOTAL PROTEIN 7.6 GM/DL (6.4-8.2)
--- NOTE | 2017-06-08 21:33 | ED Neurological Problem ---
General Chief Complaint: Neurological Problems Stated Complaint: SEIZURE Nursing Triage Note: seizure Nursing Sepsis Screen: No Definite Risk Source: patient Exam Limitations: no limitations History of Present Illness Date Seen by Provider: Jun 08, 2017 Time Seen by Provider: 21:20 Initial Comments Here with report of seizure tonight. Patient has intermittent seizures. He is reporting that he is on Depakote and Keppra. States that he is taking medications as directed. Despite that he still has some breakthrough seizures. Tonight he had witnessed seizure and his friend assisted him to the ground but he may have hit his head a little. Does complain of bilateral neck pain and a little bit of left shoulder pain but was everything without difficulty. Otherwise via EMS with c-collar in place. Postictal initially but improving. No other injuries or concerns. Timing/Duration: 1/2 hour Severity: moderate Associated Symptoms: seizures Allergies and Home Medications Allergies Coded Allergies: No Known Drug Allergies (Unverified , 07/31/15) Home Medications Levetiracetam 100 Mg/1 Ml Solution, Unknown Dose PO BID, (Reported) Topiramate 200 Mg Tablet, 200 MG PO BID Prescribed by: EMERSON SYKES on 03/14/16 1533 Patient Home Medication List Home Medication List Reviewed: Yes Constitutional: see HPI, No chills, No fever Eyes: No Symptoms Reported Ears, Nose, Mouth, Throat: no symptoms reported Respiratory: no symptoms reported Cardiovascular: no symptoms reported Gastrointestinal: no symptoms reported Musculoskeletal: see HPI, joint pain, muscle pain, neck pain Skin: no symptoms reported Psychiatric/Neurological: See HPI All Other Systems Reviewed Negative Unless Noted: Yes Past Abzicgx-Gwiqjb-Dfthnh Hx Patient Social History Alcohol Use: Occasionally Uses Number of Drinks Today: DD Alcohol Beverage of Choice: Beer, Rum Recreational Drug Use: Yes Drug of Choice: cannibus Smoking Status: Former Smoker Type Used: Cigarettes Former Smoker, Quit: Oct 24, 2015 2nd Hand Smoke Exposure: Yes Recent Foreign Travel: No Contact w/Someone Who Travel: No Recent Infectious Disease Expo: No Recent Hopitalizations: No Immunizations Up To Date Tetanus Booster (TDap): Less than 5yrs Seasonal Allergies Seasonal Allergies: No Surgeries History of Surgeries: Yes (LEG SURGERY) Surgeries: Orthopedic Respiratory History of Respiratory Disorde: No Cardiovascular History of Cardiac Disorders: No Neurological History of Neurological Disord: Yes (NON-COMPLIANT WITH MEDICATIONS BY HISTORY) Neurological Disorders: Seizure Disorder Reproductive System Hx Reproductive Disorders: No Genitourinary History of Genitourinary Disor: No Gastrointestinal History of Gastrointestinal Di: No Musculoskeletal History of Musculoskeletal Dis: No Endocrine History of Endocrine Disorders: No HEENT History of HEENT Disorders: No Cancer History of Cancer: No Psychosocial History of Psychiatric Problem: No Integumentary History of Skin or Integumenta: No Blood Transfusions History of Blood Disorders: No Adverse Reaction to a Blood Tr: No Reviewed Nursing Assessment Reviewed/Agree w Nursing PMH: Yes Family Medical History Significant Family History: No Pertinent Family Hx Physical Exam Vital Signs Vital Signs - First Documented 06/08/17 20:35 Temp 97.8 Pulse 117 Resp 18 B/P (MAP) 139/80 (99) Pulse Ox 97 O2 Delivery Room Air Capillary Refill : Less Than 3 Seconds General Appearance: WD/WN, no apparent distress HEENT: PERRL/EOMI, pharynx normal Neck: supple, tender lateral, No tender midline, other (c-collar remains in place after exam due to the lateral neck pain and pending CT) Respiratory: lungs clear, normal breath sounds Cardiovascular: regular rate, rhythm, no murmur Gastrointestinal: non tender, soft Extremities: normal range of motion, non-tender, normal inspection Neurologic/Psychiatric: alert, oriented x 3 Crainal Nerves: normal hearing, normal speech, PERRL Motor/Sensory: no motor deficit, no sensory deficit Skin: normal color, warm/dry Laceration Repair : Suture Size: 6-0 Progress/Results/Core Measures Results/Orders Lab Results Laboratory Tests Test 06/08/17 20:40 Range/Units White Blood Count 9.5 4.3-11.0 10^3/uL Red Blood Count 4.90 4.35-5.85 10^6/uL Hemoglobin 15.6 13.3-17.7 G/DL Hematocrit 44 40-54 % Mean Corpuscular Volume 90 80-99 FL Mean Corpuscular Hemoglobin 32 25-34 PG Mean Corpuscular Hemoglobin Concent 35 32-36 G/DL Red Cell Distribution Width 12.3 10.0-14.5 % Platelet Count 275 130-400 10^3/uL Mean Platelet Volume 10.1 7.4-10.4 FL Neutrophils (%) (Auto) 54 42-75 % Lymphocytes (%) (Auto) 35 12-44 % Monocytes (%) (Auto) 9 0-12 % Eosinophils (%) (Auto) 2 0-10 % Basophils (%) (Auto) 0 0-10 % Neutrophils # (Auto) 5.1 1.8-7.8 X 10^3 Lymphocytes # (Auto) 3.4 1.0-4.0 X 10^3 Monocytes # (Auto) 0.8 0.0-1.0 X 10^3 Eosinophils # (Auto) 0.2 0.0-0.3 10^3/uL Basophils # (Auto) 0.0 0.0-0.1 10^3/uL Sodium Level 142 135-145 MMOL/L Potassium Level 4.0 3.6-5.0 MMOL/L Chloride Level 102 98-107 MMOL/L Carbon Dioxide Level 21 21-32 MMOL/L Anion Gap 19 H 5-14 MMOL/L Blood Urea Nitrogen 12 7-18 MG/DL Creatinine 1.00 0.60-1.30 MG/DL Estimat Glomerular Filtration Rate > 60 BUN/Creatinine Ratio 12 Glucose Level 68 L 70-105 MG/DL Calcium Level 10.1 8.5-10.1 MG/DL Magnesium Level 2.3 1.8-2.4 MG/DL Total Bilirubin 0.2 0.1-1.0 MG/DL Aspartate Amino Transf (AST/SGOT) 17 5-34 U/L Alanine Aminotransferase (ALT/SGPT) 21 0-55 U/L Alkaline Phosphatase 52 40-136 U/L Total Protein 7.6 6.4-8.2 GM/DL Albumin 4.7 H 3.2-4.5 GM/DL Valproic Acid (Depakene) Level 46.5 L 50.0-100.0 UG/ML My Orders Orders - CARLEY MATHEW MD Ct Head/Cervical Spine Wo (06/08/17 20:47) Cbc With Automated Diff (06/08/17 20:47) Comprehensive Metabolic Panel (06/08/17 20:47) Magnesium (06/08/17 20:47) Valproic Acid (06/08/17 21:10) Vital Signs/I&O Vital Sign - Last 12Hours 06/08/17 20:35 Temp 97.8 Pulse 117 Resp 18 B/P (MAP) 139/80 (99) Pulse Ox 97 O2 Delivery Room Air Blood Pressure Mean: 99 Progress Note : Progress Note Seen and evaluated. CT head and neck ordered. Basic labs and Depakote level ordered. Monitor patient. 2149: CT negative and c-collar removed. Nexus negative otherwise. Patient states that he has medicines at home and would prefer to just take him home. Discharged home with return precautions. Patient verbalize understanding instructions and agreement with plan Diagnostic Imaging Diagonstic Imaging: CT Plain Films/CT/US/NM/MRI: c-spine, head Comments VIA [facility]. [place], [place] NAME: SARANYA HARTMANN [facility] REC#: [id number] PT STATUS: REG ER : 1990 PHYSICIAN: CARLEY MATHEW MD ADMIT DATE: 06/08/17/ER Draft Date of Exam:06/08/17 CT HEAD/CERVICAL SPINE WO INDICATION: Seizure. COMPARISON STUDY: CT scan of the head from May 19 of this year and CT scan of the cervical spine from April 10 of last year. FINDINGS: CT head: Noncontrast CT scan of the head demonstrates no mass effect, midline shift, hemorrhage or extra-axial fluid collections. The geller-white matter differentiation is normal. The bone windows appear normal. Paranasal sinuses and mastoid air cells are clear. CT cervical spine: Noncontrast CT scan of the cervical spine demonstrates no fracture or subluxation. Some anterior osteophytes are seen at C4-5. No stenotic lesions are present. The soft tissues appear normal. Lung apices are clear. IMPRESSION: 1. Normal CT scan of the head. 2. Minimal degenerative changes are present in the cervical spine. Dictated on workstation # [id number] Dict: 06/08/172125 Trans: 06/08/172132 [facility] [id number] Interpreted by: ZEYAD ATNUNEZ MD Electronically signed by: Departure Impression Impression: Primary Impression: Seizure disorder Disposition: HOME, SELF-CARE Condition: Stable Departure-Patient Inst. Decision time for Depature: 21:51 Referrals: [facility] (PCP/Family) Primary Care Physician Patient Instructions: Seizures, Adult (DC) Add. Discharge Instructions: All discharge instructions reviewed with patient and/or family. Voiced understanding. Continue home medications as directed. It is very important that he take your medicines as home. Follow-up with your neurologist this week for recheck and further evaluation. Return for worse pain, fever, vomiting, seizures, weakness , breathing problems or other concerns as needed. CARLEY MATHEW MD Jun 08, 2017 21:33
[2017-06-08 22:05] VITALS: BP 124/79
[2017-06-09] MEDS ORDERED: DIVA500T PO (10:36)
[2017-06-09] MEDS ORDERED: LEVE750T19 PO (10:36)
--- OUTSIDE RECORDS SUMMARY | 2017-06-09 10:37 | XMS REPORT | Continuity of Care Document ---
Author Author [facility] Address Unknown Phone Unavailable Allergies Active Description Code Type Severity Reaction Onset Reported/Identified Relationship to Patient Clinical Status Yes No Known Drug Allergies [id number] Drug Allergy Unknown N/A 07/31/2015 Medications There [...] 07/31/2015 ARIEL ALSTON MD Ot Z79.899 OTHER COPY TECHNICIAN (CURRENT) DRUG THERAPY 07/31/2015 ARIEL ALSTON MD Ot Z91.14 PATIENT'S OTHER NONCOMPLIANCE WITH MEDIC 08/09/2015 CARLEY MATHEW MD Ot F17.210 NICOTINE DEPENDENCE, CIGARETTES, UNCOMPL 08/09/2015 CARLEY MATHEW MD Ot G40.909 EPILEPSY, UNSP, NOT INTRACTABLE, WITHOUT 08/09/2015 CARLEY MATHEW MD Ot Z79.899 OTHER COPY TECHNICIAN (CURRENT) DRUG THERAPY 08/09/2015 CARLEY MATHEW MD Ot F17.210 NICOTINE DEPENDENCE, CIGARETTES, UNCOMPL 08/09/2015 CARLEY MATHEW MD Ot G40.909 EPILEPSY, UNSP, NOT INTRACTABLE, WITHOUT 08/09/2015 CARLEY MATHEW MD Ot Z79.899 OTHER COPY TECHNICIAN (CURRENT) DRUG THERAPY 08/11/2015 CARLEY MATHEW MD Ot F17.210 NICOTINE DEPENDENCE, CIGARETTES, UNCOMPL 08/11/2015 CARLEY MATHEW MD Ot G40.909 EPILEPSY, UNSP, NOT INTRACTABLE, WITHOUT 08/11/2015 CARLEY MATHEW MD Ot Z79.899 OTHER COPY TECHNICIAN (CURRENT) DRUG THERAPY 08/28/2015 CARLEY MATHEW MD Ot F17.210 NICOTINE DEPENDENCE, CIGARETTES, UNCOMPL 08/28/2015 CARLEY MATHEW MD Ot G40.909 EPILEPSY, UNSP, NOT INTRACTABLE, WITHOUT 08/28/2015 CARLEY MATHEW MD Ot Z79.899 OTHER COPY TECHNICIAN (CURRENT) DRUG THERAPY 08/28/2015 ELLEN PROCTOR MD [...] ALSTON MD Ot Y92.012 BATHROOM OF SINGLE-FAMILY ([facility]) HOUS 10/19/2015 ARIEL ALSTON MD Ot Y93.E1 [...] UNSP, NOT INTRACTABLE, WITHOUT 11/16/2015 YASMIN DO, HORTESNIA K Ot R79.0 ABNORMAL LEVEL OF BLOOD [...] 11/19/2015 ARIEL ALSTON MD Ot Z79.899 OTHER [facility] (CURRENT) DRUG THERAPY 11/20/2015 ARIEL ALSTON MD Ot E16.2 HYPOGLYCEMIA, UNSPECIFIED 11/20/2015 ALECIA HURT, ARIEL Shah Ot G40.409 OTH GENERALIZED EPILEPSY, NOT INTRACTABL 11/20/2015 ARIEL ALSTON MD Ot G40.909 EPILEPSY, UNSP, NOT INTRACTABLE, WITHOUT 11/20/2015 ARIEL ALSTON MD Ot R79.89 OTHER SPECIFIED ABNORMAL FINDINGS OF BLO 11/20/2015 ARIEL ALSTON MD Ot Z79.899 OTHER COPY TECHNICIAN (CURRENT) DRUG THERAPY 11/22/2015 CARLEY MATHEW MD Ot F17.210 NICOTINE DEPENDENCE, CIGARETTES, UNCOMPL 11/22/2015 CARLEY MATHEW MD Ot G40.909 EPILEPSY, UNSP, NOT INTRACTABLE, WITHOUT 11/22/2015 CARLEY MATHEW MD Ot Z79.899 OTHER [facility] (CURRENT) DRUG THERAPY 11/22/2015 ARIEL ALSTON MD [...] 11/24/2015 ARIEL ALSTON MD Ot Z79.899 OTHER [facility] (CURRENT) DRUG THERAPY 12/06/2015 ANTOINE WARD APRN Ot G40.909 EPILEPSY, UNSP, NOT INTRACTABLE, WITHOUT 12/06/2015 ANTOINE WARD APRN Ot Z79.899 OTHER COPY TECHNICIAN (CURRENT) DRUG THERAPY 12/06/2015 ANTOINE WARD APRN Ot Z91.14 PATIENT'S OTHER NONCOMPLIANCE WITH MEDIC 12/08/2015 ANTOINE WARD APRN Ot G40.909 EPILEPSY, UNSP, NOT INTRACTABLE, WITHOUT 12/08/2015 ANTOINE WARD APRN Ot Z79.899 OTHER [facility] (CURRENT) DRUG THERAPY 12/08/2015 ANTOINE WARD APRN [...] ALECIA HURT, ARIEL Shah Ot Z79.899 OTHER [facility] (CURRENT) DRUG THERAPY 01/26/2016 ANTOINE WARD APRN Ot G40.909 EPILEPSY, UNSP, NOT INTRACTABLE, WITHOUT 01/26/2016 ANTOINE WARD APRN Ot S00.83XA CONTUSION OF OTHER PART OF HEAD, INITIAL 01/26/2016 ANTOINE WARD APRN Ot W01.0XXA FALL SAME LEV FROM SLIP/TRIP W/O STRIKE 01/26/2016 ANTOINE WARD APRN Ot Y92.[address] IN [facility] NONINSTITUT (PRIVATE 01/26/2016 ANTOINE WARD APRN Ot [...] WARD APRN Ot Y92.[address] [facility] NON[facility] (PRIVATE 01/30/2016 ANTOINE WARD APRN Ot [...] WARD APRN Ot Y92.[address] [facility] 02/01[facility]2016 ANTOINE WARD APRN [...] 02/02/2016 CARLEY MATHEW MD Ot Z79.899 OTHER [facility] (CURRENT) DRUG THERAPY 02/04/2016 ANTOINE WARD APRN [...] 02/05/2016 CARLEY MATHEW MD Ot Z79.899 OTHER [facility] (CURRENT) DRUG THERAPY 03/14/2016 EMERSON SYKES DO [...] HORTENSIA K Ot Y92.[address] IN [facility] NON[facility] (PRIVATE 04/01/2016 YASMIN DO, HORTENSIA K [...] HORTENSIA K Ot Y92.[address] IN [facility] NON[facility] (PRIVATE 04/03/2016 YASMIN DO, HORTENSIA K [...] MELISSA MICHAEL Ot Y92.[address] IN [facility] (PRIVATE 04/10/2016 MELISSA MICHAEL Ot Y99.8 OTHER [...] S03.2XXA DISLOCATION OF TOOTH, INITIAL ENCOUNTER 04/11/2016 MELISSA MICHAEL Ot W18.09XA STRIKING AGAINST OTH OBJECT W SUBSEQUENT 04/11/2016 MELISSA MICHAEL Ot Y92.[address] IN [facility] (PRIVATE 04/11/2016 MELISSA MICHAEL Ot Y99.8 OTHER [...] MELISSA MICHAEL Ot Y92.[address] [facility] 04/12/2016 MELISSA MICHAEL Ot Y99.8 OTHER EXTERNAL CAUSE STATUS 05/21/2017 ANTOINE WARD APRN Ot F12.90 CANNABIS USE, UNSPECIFIED, UNCOMPLICATED 05/21/2017 ANTOINE WARD APRN Ot F17.210 NICOTINE DEPENDENCE, CIGARETTES, UNCOMPL 05/21/2017 ANTOINE WARD APRN Ot G40.909 EPILEPSY, UNSP, NOT INTRACTABLE, WITHOUT 05/21/2017 ANTOINE WARD APRN Ot S01.112A LACERATION W/O FB OF LEFT EYELID AND PER 05/21/2017 ANTOINE WARD APRN Ot W26.9XXA CONTACT WITH UNSPECIFIED SHARP OBJECT(S) Procedures There is no data. Results Test [...] Manual eosinophils/100 leukocytes in nose 0 % NRG Manual blood basophils/100 leukocytes 0 % NRG Blood lymphocytes variant/100 leukocytes 15 % NRG Blood erythrocyte morphology finding identification NORMAL NR Comprehensive metabolic panel - 11/14/15 22:12 Serum [...] NRG Serum or plasma glucose measurement (mass/volume) 87 [...] 12/06/15 21:08 Blood monocytes/100 leukocytes 11 % NRG Manual blood segmented neutrophils/100 leukocytes 46 % NRG Blood band neutrophils/100 leukocytes 0 % NRG Manual blood lymphocytes/100 leukocytes 42 % NRG Manual eosinophils/100 leukocytes in nose 1 % NRG Manual blood basophils/100 leukocytes 0 % NRG Blood erythrocyte morphology finding identification NORMAL NR Comprehensive metabolic panel - 12/06/15 21:08 Serum [...] Status Pt. Type Provider Facility Loc./Unit Complaint [id number] 04/06/2013 13:16:00 04/06/2013 23:59:59 CLS Outpatient WHITE DDTARYN Mendoza [id number] 05/19/2017 12:42:00 05/19/2017 14:00:00 DIS Emergency ANTOINE WARD APRN [facility] ER SEIZURE [id number] 04/10/2016 13:52:00 04/10/2016 16:49:00 DIS Emergency MELISSA MICHAEL [facility] ER SEIZURE [id number] 04/01/2016 13:27:00 04/01/2016 16:18:00 DIS Emergency YASMINHORTENSIA Medina DO [facility] ER SEIZURE [id number] 03/14/2016 11:59:00 03/14/2016 15:48:00 DIS Emergency EMERSON SYKES DO [facility] ER SEIZURE [id number] 02/02/2016 09:22:00 02/02/2016 11:19:00 DIS Emergency CARLEY MATHEW MD [facility] ER SEIZURE [id number] 01/26/2016 15:37:00 01/26/2016 17:09:00 DIS Emergency ANTOINE WARD APRN [facility] ER SEIZURES [id number] 01/03/2016 10:46:00 01/03/2016 12:54:00 DIS Outpatient ARIEL ALSTON MD [facility] ER SEIZURE FALL/HEAD LAC [id number] 12/06/2015 21:03:00 12/06/2015 22:28:00 DIS Emergency ANTOINE WARD APRN [facility] ER SEIZURE [id number] 11/18/2015 23:22:00 11/19/2015 01:32:00 DIS Emergency ARIEL ALSTON MD [facility] ER SEIZURE [id number] 11/14/2015 22:08:00 11/15/2015 00:30:00 DIS Emergency HORTENSIA HOFFMAN DO [facility] ER SEIZURE [id number] 11/05/2015 04:45:00 11/05/2015 11:45:00 DIS Inpatient ELIAS HOLT DO [facility] ICU CLOSED HEAD INJ, ALCOHOL INTOX, HX OF SEIZURES [id number] 11/01/2015 16:50:00 11/02/2015 12:45:00 DIS Outpatient KALIE HURT, MARY North [facility] 4TH SEIZURE DISORDER, POSSIBLE ASPIRATION [id number] 10/28/2015 11:48:00 10/28/2015 14:06:00 DIS Emergency ELLEN PROCTOR MD [facility] ER SEIZURE [id number] 09/25/2015 09:56:00 09/25/2015 14:42:00 DIS Outpatient ALECIA HURT, ARIEL Shah [facility] ER SEIZURE/FALL [id number] 08/28/2015 12:42:00 08/28/2015 16:30:00 DIS Emergency ESTHELA HURT, ELLEN Jensen [facility] ER SEIZURES [id number] 08/09/2015 00:32:00 08/09/2015 02:09:00 DIS Outpatient CARLEY MATHEW MD [facility] ER SEIZURE [id number] 07/31/2015 21:38:00 07/31/2015 23:54:00 DIS Emergency ARIEL ALSTON MD [facility] ER POSS SEIZURE
== END 2017-06-08 22:05 | disposition home or self-care (01) ==
LOC: EDUNIT# 20:30 → ER 20:31
DX: G40.909 Epilepsy, unspecified, not intractable, without status epilepticus (principal); F12.90 Cannabis use, unspecified, uncomplicated; Z87.891 Personal history of nicotine dependence
CPT/HCPCS: 36415; 70450; 72125; 80053; 80164; 83735; 85025

== ENCOUNTER 2017-06-09 09:21 | Emergency (ER) | payer MEDICAID ==
[~2017-06-09] VITALS: Ht 170.2 cm; Wt 81.6 kg
[2017-06-09 09:47] LABS: BUN/CREATININE RATIO 13; CALCIUM 8.9 MG/DL (8.5-10.1); CARBON DIOXIDE 19 MMOL/L (21-32); CHLORIDE 104 MMOL/L (98-107); CREATININE SERUM 1.02 MG/DL (0.60-1.30); GFR ESTIMATED > 60; GLUCOSE 102 MG/DL (70-105); POTASSIUM 4.3 MMOL/L (3.6-5.0); SODIUM 139 MMOL/L (135-145)
[2017-06-09 09:55] LABS: VALPROIC ACID 76.9 UG/ML (50.0-100.0)
--- NOTE | 2017-06-09 09:55 | ED Neurological Problem ---
General Chief Complaint: Neurological Problems Stated Complaint: FALL-SEIZURE Nursing Triage Note: ARRIVED VIA EMS FROM HOME. EMS REPORTS PT HAVING A SEIZURE THEN FALLING AND HITTING HIS HEAD ON A WATER HEATER. PT ALERT ET SLOW TO RESPOND UPON ARRIVING. PT INC OF URINE. PT HAS A HX OF SEIZURES. Nursing Sepsis Screen: No Definite Risk Source: patient, EMS, old records Exam Limitations: no limitations History of Present Illness Date Seen by Provider: Jun 09, 2017 Time Seen by Provider: 09:22 Initial Comments This 26-year-old young man presents to the emergency room via EMS after having a seizure in his home and striking his head on either a liter or a cabinet. He was also seen yesterday for the same thing and evaluated by Dr. Covington. EMS reports he has been post ictal. There is some blood on his face presumably from his nose. He has no active bleeding at present. He is alert and oriented but still appears postictal. His post ictal state has been improving per EMS. His clothes are urine soaked. Patient reports he has been taking Keppra and valproic acid. He states his last dose was "this afternoon". When I clarify with the patient that it is still morning, he insists that he took the medications "this afternoon". Review of his chart notes a valproic acid level just under therapeutic level on his visit yesterday. Patient states he has no primary care provider and gets his medications from [facility]. I checked with [facility] at [place] and they report he has had Keppra 750 mg twice a day quantity 60 filled on May 14 as well as valproic acid 500 mg 3 times a day quantity 90 filled on May 14. Prescribing providers on file include Ashanti Garcia, ER physician possibly from [place], [place], and Dr. Akanksha Stroud from [facility]. He has mild left shoulder pain but good range of motion. This was documented on his visit yesterday as well. Fingerstick blood sugar for EMS was 121. Allergies and Home Medications Allergies Coded Allergies: No Known Drug Allergies (Unverified , 07/31/15) Home Medications Divalproex Sodium 500 Mg Tablet.dr, 500 MG PO TID Prescribed by: ARIEL HUTCHINSON on 06/09/17 1036 Levetiracetam 100 Mg/1 Ml Solution, Unknown Dose PO BID, (Reported) Levetiracetam 750 Mg Tablet, 750 MG PO BID Prescribed by: ARIEL HUTCHINSON on 06/09/17 1036 Topiramate 200 Mg Tablet, 200 MG PO BID Prescribed by: EMERSON SYKES on 03/14/16 1533 Patient Home Medication List Home Medication List Reviewed: Yes Constitutional: no symptoms reported Eyes: No Symptoms Reported Ears, Nose, Mouth, Throat: see HPI Respiratory: no symptoms reported Cardiovascular: no symptoms reported Gastrointestinal: no symptoms reported Genitourinary: see HPI Musculoskeletal: no symptoms reported Skin: no symptoms reported Psychiatric/Neurological: See HPI Endocrine: No Symptoms Reported Hematologic/Lymphatic: No Symptoms Reported Past Gxqtkvx-Ckxnbf-Pswvur Hx Patient Social History Alcohol Use: Occasionally Uses Number of Drinks Today: DD Alcohol Beverage of Choice: Beer, Rum Recreational Drug Use: Yes Drug of Choice: cannibus Smoking Status: Former Smoker Type Used: Cigarettes Former Smoker, Quit: Oct 24, 2015 2nd Hand Smoke Exposure: Yes Recent Foreign Travel: No Contact w/Someone Who Travel: No Recent Infectious Disease Expo: No Recent Hopitalizations: No Immunizations Up To Date Tetanus Booster (TDap): Less than 5yrs Seasonal Allergies Seasonal Allergies: No Surgeries History of Surgeries: Yes (LEG SURGERY) Surgeries: Orthopedic Respiratory History of Respiratory Disorde: No Cardiovascular History of Cardiac Disorders: No Neurological History of Neurological Disord: Yes (NON-COMPLIANT WITH MEDICATIONS BY HISTORY) Neurological Disorders: Seizure Disorder Reproductive System Hx Reproductive Disorders: No Genitourinary History of Genitourinary Disor: No Gastrointestinal History of Gastrointestinal Di: No Musculoskeletal History of Musculoskeletal Dis: No Endocrine History of Endocrine Disorders: No HEENT History of HEENT Disorders: No Cancer History of Cancer: No Psychosocial History of Psychiatric Problem: No Integumentary History of Skin or Integumenta: No Blood Transfusions History of Blood Disorders: No Adverse Reaction to a Blood Tr: No Family Medical History Significant Family History: No Pertinent Family Hx Physical Exam Vital Signs Vital Signs - First Documented 06/09/17 09:21 Temp 98.0 Pulse 104 Resp 18 B/P (MAP) 133/86 (102) Pulse Ox 95 O2 Delivery Room Air Capillary Refill : Less Than 3 Seconds General Appearance: WD/WN, no apparent distress HEENT: PERRL/EOMI, other (small quantity of blood smeared on the face with no obvious source. Bruising noted lateral to the left eye. No acute dental injury.) Neck: non-tender, normal inspection Respiratory: lungs clear, normal breath sounds, no respiratory distress, no accessory muscle use Cardiovascular: regular rate, rhythm, no edema, no murmur Gastrointestinal: non tender, soft Extremities: normal inspection, no pedal edema Neurologic/Psychiatric: learning support aide II-XII nml as tested, no motor/sensory deficits, alert, normal mood/affect, oriented x 3, other (technically alert and oriented but seems a little confused) Crainal Nerves: normal hearing, normal speech, PERRL Motor/Sensory: no motor deficit, no sensory deficit Skin: normal color, warm/dry, ecchymosis Laceration Repair : Suture Size: 6-0 Progress/Results/Core Measures Results/Orders Lab Results Laboratory Tests Test 06/09/17 09:25 Range/Units Sodium Level 139 135-145 MMOL/L Potassium Level 4.3 3.6-5.0 MMOL/L Chloride Level 104 98-107 MMOL/L Carbon Dioxide Level 19 L 21-32 MMOL/L Anion Gap 16 H 5-14 MMOL/L Blood Urea Nitrogen 13 7-18 MG/DL Creatinine 1.02 0.60-1.30 MG/DL Estimat Glomerular Filtration Rate > 60 BUN/Creatinine Ratio 13 Glucose Level 102 70-105 MG/DL Calcium Level 8.9 8.5-10.1 MG/DL Valproic Acid (Depakene) Level 76.9 50.0-100.0 UG/ML My Orders Orders - ARIEL ALSTON MD Basic Metabolic Panel (06/09/17 09:33) Valproic Acid (06/09/17 09:33) Levetiracetam Injection (Keppra Injectio (06/09/17 21:00) Ct Head/Cervical Spine Wo (06/09/17 09:34) Vital Signs/I&O Vital Sign - Last 12Hours 06/09/17 09:21 Temp 98.0 Pulse 104 Resp 18 B/P (MAP) 133/86 (102) Pulse Ox 95 O2 Delivery Room Air Blood Pressure Mean: 102 Progress Note #1: Time: 09:56 Progress Note Workup is in progress. CT scan is being performed. Keppra 1000 mg IV is being administered. Progress Note #2: Time: 10:30 Progress Note Patient received his Keppra dose. CT imaging was negative for acute injury injuries. Patient presents a confusing social history. He states he has Medicaid but yet has not seen a primary care provider or a neurologist in over 2 years. I contacted [facility] at [facility] and found he has been prescribed his medications by doctors at [facility] and in [place], [place]. I contacted [facility] and found he had not been seen there in over 2 years. His last visit was in 2015. Despite having coverage he has not sought continuity care. Patient has active [place] Medicaid policy but has a [place] address. I attempted to schedule an appointment at [facility]. They will work on reestablishing him as soon as possible and stated they will call him back with an appointment time. Patient had no further seizure episodes while in the emergency room. He was discharged in good condition. Patient's prescriptions at [facility] had no refills. I gave him prescriptions for another month of medications. I did ask patient if his seizures were controlled in the year we did not see him from March 2016 to May 2017. He stated his seizures were not controlled; he just was not coming to the hospital. Diagnostic Imaging Diagonstic Imaging: CT Plain Films/CT/US/NM/MRI: c-spine, head Comments CT head and cervical spine viewed by me and report reviewed. See report below: NAME: SARANYA HARTMANN [facility] REC#: [id number] PT STATUS: REG ER : 1990 PHYSICIAN: ARIEL ALSTON MD ADMIT DATE: 06/09/17/ER Draft Date of Exam:06/09/17 CT HEAD/CERVICAL SPINE WO PROCEDURE: CT head and CT cervical spine without contrast. TECHNIQUE: Multiple contiguous axial images were obtained through the brain and cervical spine without the use of intravenous contrast. Sagittal and coronal reformations through the cervical spine were then performed. INDICATION: Seizure-like activity with fall and head and neck pain. COMPARISON: Correlation is made to the study of one day prior with seizure activity having recurred since the prior exam and the fall a new event. CT HEAD: There is no intracranial hemorrhage. There is no focal or generalized cerebral edema. There are no abnormal extra-axial fluid collections and there is no mass or mass effect. There is no hemo-sinus. The calvarium has an unremarkable appearance. CT CERVICAL SPINE: Reconstruction views reveal normal body heights aligned anatomically. Mild anteriorly oriented osteophyte/disc material is present. The spinal canal itself appears patent throughout. No substantial foraminal encroachment. No acute or suspicious endplate irregularity. No cervical spinal fracture. No evidence for paravertebral hemorrhage. Incidentally noted is incomplete incorporation and fusion of the posterior arch of the C1 ring as a variant. No acute or chronic fracture deformity is demonstrated. The facet relationships, aside from mild degenerative change, are unremarkable. IMPRESSION: CT HEAD: Stable negative head. CT CERVICAL SPINE: Minimal degenerative change results in no stenosis. No fracture or malalignment. Dictated on workstation # [id number] Dict: 06/09/17 1016 Trans: 06/09/17 1024 [id number] Interpreted by: DARYA GARCIA Departure Impression Impression: Primary Impression: Seizure disorder Additional Impression: Head injury Qualified Codes: S09.90XA - Unspecified injury of head, initial encounter Disposition: HOME, SELF-CARE Condition: Improved Departure-Patient Inst. Decision time for Depature: 10:32 Referrals: [facility] (PCP/Family) Primary Care Physician DERREK WHARTON MD Patient Instructions: Seizures, Adult (DC) Add. Discharge Instructions: Take your medications exactly as prescribed. [facility] should be calling you to schedule an appointment. If you do not hear from them by the end of the day, please call them at [phone] to make that appointment. Avoid any activity that could cause injury should you have another seizure. These activities will include driving, operating machinery, any activity involving heights such as use of ladders, swimming, etc. Return to care if you have worsening problems. Also contact Dr. Wharton's office to arrange follow-up there. All discharge instructions reviewed with patient and/or family. Voiced understanding. Scripts Divalproex Sodium (Depakote) 500 Mg Tablet. 500 MG PO TID, #90 TAB Prov: ARIEL ALSTON MD 06/09/17 Levetiracetam (Keppra) 750 Mg Tablet 750 MG PO BID, #60 TAB Prov: ARIEL ALSTON MD 06/09/17 Copy Copies To 1: LIZBETH BALLARD JOSHUA T MD Mar 12, 2018 09:55
--- NOTE | 2017-06-09 10:24 | Diagnostic Imaging Report ---
PROCEDURE: CT head and CT cervical spine without contrast. TECHNIQUE: Multiple contiguous axial images were obtained through the brain and cervical spine without the use of intravenous contrast. Sagittal and coronal reformations through the cervical spine were then performed. INDICATION: Seizure-like activity with fall and head and neck pain. COMPARISON: Correlation is made to the study of one day prior with seizure activity having recurred since the prior exam and the fall a new event. CT HEAD: There is no intracranial hemorrhage. There is no focal or generalized cerebral edema. There are no abnormal extra-axial fluid collections and there is no mass or mass effect. There is no hemo-sinus. The calvarium has an unremarkable appearance. CT CERVICAL SPINE: Reconstruction views reveal normal body heights aligned anatomically. Mild anteriorly oriented osteophyte/disc material is present. The spinal canal itself appears patent throughout. No substantial foraminal encroachment. No acute or suspicious endplate irregularity. No cervical spinal fracture. No evidence for paravertebral hemorrhage. Incidentally noted is incomplete incorporation and fusion of the posterior arch of the C1 ring as a variant. No acute or chronic fracture deformity is demonstrated. The facet relationships, aside from mild degenerative change, are unremarkable. IMPRESSION: CT HEAD: Stable negative head. CT CERVICAL SPINE: Minimal degenerative change results in no stenosis. No fracture or malalignment. Dictated by: Dictated on workstation # [id number]
[2017-06-09] MEDS ORDERED: LEVE750T19 PO (10:36)
[2017-06-09] MEDS ORDERED: DIVA500T PO (10:36)
--- OUTSIDE RECORDS SUMMARY | 2017-06-09 11:04 | XMS REPORT | Continuity of Care Document ---
Author Author Formerly [facility], [facility] Address Unknown Phone Unavailable Allergies Active Description Code Type Severity Reaction Onset Reported/Identified Relationship to Patient Clinical Status Yes No Known Drug Allergies [id number] Drug Allergy Unknown N/A 07/31/2015 Medications There [...] 07/31/2015 ARIEL ALSTON MD Ot Z79.899 OTHER CAGE TENDER (CURRENT) DRUG THERAPY 07/31/2015 ARIEL ALSTON MD Ot Z91.14 PATIENT'S OTHER NONCOMPLIANCE WITH MEDIC 08/09/2015 CARLEY MATHEW MD Ot F17.210 NICOTINE DEPENDENCE, CIGARETTES, UNCOMPL 08/09/2015 CARLEY MATHEW MD Ot G40.909 EPILEPSY, UNSP, NOT INTRACTABLE, WITHOUT 08/09/2015 CARLEY MATHEW MD Ot Z79.899 OTHER CAGE TENDER (CURRENT) DRUG THERAPY 08/09/2015 CARLEY MATHEW MD Ot F17.210 NICOTINE DEPENDENCE, CIGARETTES, UNCOMPL 08/09/2015 CARLEY MATHEW MD Ot G40.909 EPILEPSY, UNSP, NOT INTRACTABLE, WITHOUT 08/09/2015 CARLEY MATHEW MD Ot Z79.899 OTHER CAGE TENDER (CURRENT) DRUG THERAPY 08/11/2015 CARLEY MATHEW MD Ot F17.210 NICOTINE DEPENDENCE, CIGARETTES, UNCOMPL 08/11/2015 CARLEY MATHEW MD Ot G40.909 EPILEPSY, UNSP, NOT INTRACTABLE, WITHOUT 08/11/2015 CARLEY MATHEW MD Ot Z79.899 OTHER CAGE TENDER (CURRENT) DRUG THERAPY 08/28/2015 CARLEY MATHEW MD Ot F17.210 NICOTINE DEPENDENCE, CIGARETTES, UNCOMPL 08/28/2015 CARLEY MATHEW MD Ot G40.909 EPILEPSY, UNSP, NOT INTRACTABLE, WITHOUT 08/28/2015 CARLEY MATHEW MD Ot Z79.899 OTHER CAGE TENDER (CURRENT) DRUG THERAPY 08/28/2015 ELLEN PROCTOR MD [...] ALSTON MD Ot Y92.012 BATHROOM OF SINGLE-FAMILY ([facility]) HOUS 10/19/2015 ARIEL ALSTON MD Ot Y93.E1 [...] G40.909 EPILEPSY, UNSP, NOT INTRACTABLE, WITHOUT 11/02/2015 MRAY JADE MD Ot R09.02 HYPOXEMIA 11/02/2015 MARY [...] 11/19/2015 ARIEL ALSTON MD Ot Z79.899 OTHER CORRECTION (CURRENT) DRUG THERAPY 11/20/2015 ARIEL ALSTON MD Ot E16.2 HYPOGLYCEMIA, UNSPECIFIED 11/20/2015 ALECIA HURT, ARIEL Shah Ot G40.409 OTH GENERALIZED EPILEPSY, NOT INTRACTABL 11/20/2015 ARIEL ALSTON MD Ot G40.909 EPILEPSY, UNSP, NOT INTRACTABLE, WITHOUT 11/20/2015 ARIEL ALSTON MD Ot R79.89 OTHER SPECIFIED ABNORMAL FINDINGS OF BLO 11/20/2015 ARIEL ALSTON MD Ot Z79.899 OTHER CAGE TENDER (CURRENT) DRUG THERAPY 11/22/2015 CARLEY MATHEW MD Ot F17.210 NICOTINE DEPENDENCE, CIGARETTES, UNCOMPL 11/22/2015 CARLEY MATHEW MD Ot G40.909 EPILEPSY, UNSP, NOT INTRACTABLE, WITHOUT 11/22/2015 CARLEY MATHEW MD Ot Z79.899 OTHER CORRECTION (CURRENT) DRUG THERAPY 11/22/2015 ARIEL ALSTON MD [...] 11/24/2015 ARIEL ALSTON MD Ot Z79.899 OTHER CORRECTION (CURRENT) DRUG THERAPY 12/06/2015 ANTOINE WARD APRN Ot G40.909 EPILEPSY, UNSP, NOT INTRACTABLE, WITHOUT 12/06/2015 ANTOINE WARD APRN Ot Z79.899 OTHER CAGE TENDER (CURRENT) DRUG THERAPY 12/06/2015 ANTOINE WARD APRN Ot Z91.14 PATIENT'S OTHER NONCOMPLIANCE WITH MEDIC 12/08/2015 ANTOINE WARD APRN Ot G40.909 EPILEPSY, UNSP, NOT INTRACTABLE, WITHOUT 12/08/2015 ANTOINE WADR APRN Ot Z79.899 OTHER CORRECTION (CURRENT) DRUG THERAPY 12/08/2015 ANTOINE WARD APRN Ot Z91.14 PATIENT'S OTHER NONCOMPLIANCE WITH MEDIC 01/04/2016 ARIEL ALSTON MD Ot G40.909 EPILEPSY, UNSP, NOT INTRACTABLE, WITHOUT 01/04/2016 ARIEL ALSTON MD Ot S01.112A LACERATION W/O FB OF LEFT EYELID AND PER 01/04/2016 AIREL ALSTON MD Ot W01.0XXA FALL SAME LEV FROM SLIP/TRIP W/O STRIKE 01/04/2016 ALECIA HURT, ARIEL Shah Ot Y92.012 BATHROOM OF SINGLE-FAMILY (PRIVATE) HOUS 01/04/2016 ARIEL ALSTON MD Ot Y99.8 OTHER EXTERNAL CAUSE STATUS 01/04/2016 ALECIA HURT, ARIEL Shah Ot Z79.899 OTHER CORRECTION (CURRENT) DRUG THERAPY 01/26/2016 ANTOINE WARD APRN Ot G40.909 EPILEPSY, UNSP, NOT INTRACTABLE, WITHOUT 01/26/2016 ANTOINE WARD APRN Ot S00.83XA CONTUSION OF OTHER PART OF HEAD, INITIAL 01/26/2016 ANTOINE WARD APRN Ot W01.0XXA FALL SAME LEV FROM SLIP/TRIP W/O STRIKE 01/26/2016 ANTOINE WARD APRN Ot Y92.[address] IN [facility] NON[facility] (PRIVATE 01/26/2016 ANTOINE WARD APRN Ot [...] WARD APRN Ot Y92.[address] IN [facility] (PRIVATE 01/29/2016 ANTOINE WARD APRN Ot [...] WARD APRN Ot Y92.[address] IN [facility] (PRIVATE 01/30/2016 ANTOINE WARD APRN Ot [...] WARD APRN Ot Y92.[address] [facility] 02/01/2016 ANTOINE WARD APRN Ot Y99.8 [...] 02/02/2016 CARLEY MATHEW MD Ot Z79.899 OTHER CORRECTION (CURRENT) DRUG THERAPY 02/04/2016 ANTOINE WARD APRN [...] OF OTHER PART OF HEAD, INITIAL 02/05/2016 CARELY MATHEW MD Ot W01.0XXA FALL SAME LEV FROM SLIP/TRIP W/O STRIKE 02/05/2016 CARLEY MATHEW MD Ot Y92.[address] OR NOT APPLICABLE 02/05/2016 CARLEY MATHEW MD Ot Y93.9 ACTIVITY, UNSPECIFIED 02/05/2016 CARLEY MATHEW MD Ot Y99.8 OTHER EXTERNAL CAUSE STATUS 02/05/2016 CARLEY MATHEW MD Ot Z79.899 OTHER CORRECTION (CURRENT) DRUG THERAPY 03/14/2016 EMERSON SYKES DO [...] HORTENSIA K Ot Y92.[address] IN [facility] (PRIVATE 04/01/2016 YASMIN DO, HORTENSIA K [...] HORTENSIA K Ot Y92.[address] IN [facility] (PRIVATE 04/03/2016 YASMIN DO, HORTENSIA K [...] MELISSA MICHAEL Ot Y92.[address] IN [facility] (PRIVATE 04/10/2016 MELISSA MICHAEL Ot Y99.8 [...] MELISSA MICHAEL Ot Y92.[address] IN [facility] (PRIVATE 04/11/2016 MELISSA MICHAEL Ot Y99.8 [...] MELISSA MICHAEL Ot Y92.[address] [facility] 04/12/2016 MELISSA MICHAEL Ot Y99.8 OTHER [...] Status Pt. Type Provider Facility Loc./Unit Complaint [id number] 04/06/2013 13:16:00 04/06/2013 23:59:59 CLS Outpatient WHITE DDTARYN Mendoza [id number] 05/19/2017 12:42:00 05/19/2017 14:00:00 DIS Emergency ANTOINE WARD APRN [facility] ER SEIZURE [id number] 04/10/2016 13:52:00 04/10/2016 16:49:00 DIS Emergency MELISSA MICHAEL [facility] ER SEIZURE [id number] 04/01/2016 13:27:00 04/01/2016 16:18:00 DIS Emergency YASMINHORTENSIA Medina DO [facility] ER SEIZURE [id number] 03/14/2016 11:59:00 03/14/2016 15:48:00 DIS Emergency EMERSON SYKES DO [facility] ER SEIZURE [id number] 02/02/2016 09:22:00 02/02/2016 11:19:00 DIS Emergency CARLEY MATHEW MD [facility] ER SEIZURE [id number] 01/26/2016 15:37:00 01/26/2016 17:09:00 DIS Emergency ANTOINE AWRD APRN [facility] ER SEIZURES [id number] 01/03/2016 10:46:00 01/03/2016 12:54:00 DIS Outpatient ARIEL ALSTON MD [facility] ER SEIZURE FALL/HEAD LAC [id number] 12/06/2015 21:03:00 12/06/2015 22:28:00 DIS Emergency ANTOINE WARD APRN [facility] ER SEIZURE [id number] 11/18/2015 23:22:00 11/19/2015 01:32:00 DIS Emergency ARIEL ALSTON MD [facility] ER SEIZURE [id number] 11/14/2015 22:08:00 11/15/2015 00:30:00 DIS Emergency HORTENSIA HOFFMAN DO [facility] ER SEIZURE [id number] 11/05/2015 04:45:00 11/05/2015 11:45:00 DIS Inpatient ELIAS HOLT DO [facility] ICU CLOSED HEAD INJ, ALCOHOL INTOX, HX OF SEIZURES [id number] 11/01/2015 16:50:00 11/02/2015 12:45:00 DIS Outpatient KALIE HURT, MARY North [facility] 4TH SEIZURE DISORDER, POSSIBLE ASPIRATION [id number] 10/28/2015 11:48:00 10/28/2015 14:06:00 DIS Emergency ELLEN PROCTOR MD [facility] ER SEIZURE [id number] 09/25/2015 09:56:00 09/25/2015 14:42:00 DIS Outpatient ALECIA HURT, ARIEL Shah [facility] ER SEIZURE/FALL [id number] 08/28/2015 12:42:00 08/28/2015 16:30:00 DIS Emergency ESTHELA HURT, ELLEN Jensen [facility] ER SEIZURES [id number] 08/09/2015 00:32:00 08/09/2015 02:09:00 DIS Outpatient CARLEY MATHEW MD [facility] ER SEIZURE [id number] 07/31/2015 21:38:00 07/31/2015 23:54:00 DIS Emergency ARIEL ALSTON MD [facility] ER POSS SEIZURE
[2017-06-09 11:08] VITALS: BP 117/76
[2017-06-09] MEDS ORDERED: LEVETIRACETAM INJECTION 1,000 MG in NS (IVPB) 100 ML IV SCH (21:00)
== END 2017-06-09 11:08 | disposition home or self-care (01) ==
LOC: EDUNIT# 09:21 → ER 09:22
DX: S09.90XA Unspecified injury of head, initial encounter (principal); G40.909 Epilepsy, unspecified, not intractable, without status epilepticus; F12.90 Cannabis use, unspecified, uncomplicated; Z87.891 Personal history of nicotine dependence; Z98.890 Other specified postprocedural states; W01.198A Fall on same level from slipping, tripping and stumbling with subsequent striking against other object, initial encounter; Y92.009 Unspecified place in unspecified non-institutional (private) residence as the place of occurrence of the external cause
CPT/HCPCS: 36415; 70450; 72125; 80048; 80164; 96374

== ENCOUNTER 2017-06-18 11:04 | Emergency (ER) | payer MEDICAID ==
[~2017-06-18] VITALS: Ht 167.6 cm; Wt 81.6 kg
[~2017-06-18 11:04] MED LIST changes: +DIVA500T PO; +LEVE750T19 PO
--- NOTE | 2017-06-18 11:13 | ED Neurological Problem ---
General Stated Complaint: SEIZURE,HEAD INJ Source: patient Exam Limitations: no limitations History of Present Illness Date Seen by Provider: Jun 18, 2017 Time Seen by Provider: 11:09 Initial Comments To ER per EMS from home with reports of seizure.Laceration over the right eyelid , knocked out 2 of his front teeth which were laying on the floor next to him at home. He takes Topamax, Depakote, Keppra. States he has not missed any doses. I saw him here during the first half of this month with a laceration to the left eyelid also from a seizure and fall. I sutured that he still has the sutures in place, has not bothered to follow-up to have these removed. Patient has a history of terrible noncompliance with appointments, seizure medication and any follow-up care. Severity: moderate Associated Symptoms: seizures Allergies and Home Medications Allergies Coded Allergies: No Known Drug Allergies (Unverified , 07/31/15) Home Medications Divalproex Sodium 500 Mg Tablet.dr, 500 MG PO TID Prescribed by: ARIEL HUTCHINSON on 06/09/17 1036 Levetiracetam 100 Mg/1 Ml Solution, Unknown Dose PO BID, (Reported) Levetiracetam 750 Mg Tablet, 750 MG PO BID Prescribed by: ARIEL HUTCHINSON on 06/09/17 1036 Topiramate 200 Mg Tablet, 200 MG PO BID Prescribed by: EMERSON SYKES on 03/14/16 1533 Patient Home Medication List Home Medication List Reviewed: Yes Constitutional: see HPI Eyes: No Symptoms Reported Ears, Nose, Mouth, Throat: see HPI Respiratory: no symptoms reported Cardiovascular: no symptoms reported Genitourinary: no symptoms reported Musculoskeletal: no symptoms reported Skin: no symptoms reported Psychiatric/Neurological: No Symptoms Reported Past Uuupoyz-Yjncqh-Wuubtv Hx Patient Social History Alcohol Beverage of Choice: Beer, Rum Drug of Choice: cannibus Type Used: Cigarettes Former Smoker, Quit: Oct 24, 2015 2nd Hand Smoke Exposure: Yes Recent Hopitalizations: No Immunizations Up To Date Tetanus Booster (TDap): Less than 5yrs Seasonal Allergies Seasonal Allergies: No Surgeries History of Surgeries: Yes (LEG SURGERY) Surgeries: Orthopedic Respiratory History of Respiratory Disorde: No Cardiovascular History of Cardiac Disorders: No Neurological History of Neurological Disord: Yes (NON-COMPLIANT WITH MEDICATIONS BY HISTORY) Neurological Disorders: Seizure Disorder Reproductive System Hx Reproductive Disorders: No Genitourinary History of Genitourinary Disor: No Gastrointestinal History of Gastrointestinal Di: No Musculoskeletal History of Musculoskeletal Dis: No Endocrine History of Endocrine Disorders: No HEENT History of HEENT Disorders: No Cancer History of Cancer: No Psychosocial History of Psychiatric Problem: No Integumentary History of Skin or Integumenta: No Blood Transfusions History of Blood Disorders: No Adverse Reaction to a Blood Tr: No Family Medical History Significant Family History: No Pertinent Family Hx Physical Exam Vital Signs Vital Signs - First Documented 06/18/17 11:20 Temp 98.1 Pulse 102 Resp 20 B/P (MAP) 137/96 (110) Pulse Ox 97 Capillary Refill : General Appearance: WD/WN, no apparent distress HEENT: PERRL/EOMI, normal ENT inspection, other (ecchymosis right eyebrow, superficial laceration over the right upper eyelid. No hyphema or evidence of globe injury; Sutures remain in place left upper eyelid from being placed earlier this month. Tooth #7/8 are missing now with clotted blood in the socket. ) Neck: non-tender, full range of motion, other (yes there is no midface instability to palpation or crepitus. No epistaxis. The mandible is without tenderness except for the anterior left ramey where there is a hematoma. No trismus.) Respiratory: normal breath sounds, no respiratory distress, no accessory muscle use Cardiovascular: regular rate, rhythm, no murmur Gastrointestinal: normal bowel sounds, non tender Extremities: normal range of motion, non-tender Neurologic/Psychiatric: alert, normal mood/affect, oriented x 3 Crainal Nerves: normal hearing, normal speech, PERRL Skin: normal color, warm/dry Laceration Repair : Suture Size: 6-0 Progress/Results/Core Measures Results/Orders Lab Results Laboratory Tests Test 06/18/17 11:16 Range/Units Valproic Acid (Depakene) Level 92.1 50.0-100.0 UG/ML Serum Alcohol < 10 <10 MG/DL My Orders Orders - ANTOINE WARD APRN Valproic Acid (06/18/17 11:08) Ct Head/Cervical Spine Wo (06/18/17 11:08) Alcohol (06/18/17 11:15) Vital Signs/I&O Vital Sign - Last 12Hours 06/18/17 11:20 Temp 98.1 Pulse 102 Resp 20 B/P (MAP) 137/96 (110) Pulse Ox 97 Departure Communication (Admissions) Progress Notes Sutures were removed from the left eyelid Impression Impression: Primary Impression: Dental trauma Additional Impressions: Facial contusion Seizure disorder Disposition: HOME, SELF-CARE Condition: Stable Departure-Patient Inst. Decision time for Depature: 11:[address]: [facility] (PCP/Family) Primary Care Physician Patient Instructions: Seizures, Adult (DC) Add. Discharge Instructions: 1. You must follow-up with a neurologist to change your seizure medications as these are clearly controlling your seizures 2. Follow-up with a dentist of your choosing. Call today for an appointment. Images Mouth/Nose 1 - ANTOINE WARD APRN Jun 18, 2017 11:13
--- OUTSIDE RECORDS SUMMARY | 2017-06-18 11:30 | XMS REPORT | Continuity of Care Document ---
Author Author [facility] Address Unknown Phone Unavailable Allergies Active Description Code Type Severity Reaction Onset Reported/Identified Relationship to Patient Clinical Status Yes No Known Drug Allergies [id number] N/A N/A Yes NO KNOWN DRUG ALLERGIES NO KNOWN DRUG ALLERG UNKNOWN Yes No Known Drug Allergies [id number] Drug Allergy Unknown N/A 07/31/2015 Medications There is no data. Problems Date Dx Coded Attending Type Code Diagnosis Diagnosed By 07/31/2015 ARIEL ALSTON MD, Ot G40.909 EPILEPSY, UNSP, NOT INTRACTABLE, WITHOUT 07/31/2015 ARIEL ALSTON MD, Ot K08.419 PARTIAL LOSS OF TEETH DUE TO TRAUMA, UNS 07/31/2015 ARIEL ALSTON MD Ot S00.81XA ABRASION OF OTHER PART OF HEAD, INITIAL 07/31/2015 ARIEL ALSTON MD Ot S02.401A MAXILLARY FRACTURE, UNSP, INIT ENCNTR FO 07/31/2015 ARIEL ALSTON MD, Ot S60.511A ABRASION OF RIGHT HAND, INITIAL ENCOUNTE 07/31/2015 ARIEL ALSTON MD Ot W19.XXXA UNSPECIFIED FALL, INITIAL ENCOUNTER 07/31/2015 ARIEL ALSTON MD Ot Y92.[address] OF OCCURRENCE OF T 07/31/2015 ARIEL ALSTON MD, Ot Y93.01 ACTIVITY, WALKING, MARCHING AND HIKING 07/31/2015 ARIEL ALSTON MD, Ot Y99.8 OTHER EXTERNAL CAUSE STATUS 07/31/2015 ARIEL ALSTON MD, Ot Z23 ENCOUNTER FOR IMMUNIZATION 07/31/2015 ARIEL ALSTON MD, Ot Z79.899 OTHER [facility] (CURRENT) DRUG THERAPY 07/31/2015 ARIEL ALSTON MD, Ot Z91.14 PATIENT'S OTHER NONCOMPLIANCE WITH MEDIC 08/09/2015 CARLEY MATHEW MD Ot F17.210 NICOTINE DEPENDENCE, CIGARETTES, UNCOMPL 08/09/2015 CARLEY MATHEW MD Ot G40.909 EPILEPSY, UNSP, NOT INTRACTABLE, WITHOUT 08/09/2015 CARLEY MATHEW MD Ot Z79.899 OTHER MAIL DISTRIBUTOR (CURRENT) DRUG THERAPY 08/09/2015 CARLEY MATHEW MD Ot F17.210 NICOTINE DEPENDENCE, CIGARETTES, UNCOMPL 08/09/2015 CARLEY MATHEW MD Ot G40.909 EPILEPSY, UNSP, NOT INTRACTABLE, WITHOUT 08/09/2015 CARLEY MATHEW MD Ot Z79.899 OTHER MAIL DISTRIBUTOR (CURRENT) DRUG THERAPY 08/11/2015 CARLEY MATHEW MD Ot F17.210 NICOTINE DEPENDENCE, CIGARETTES, UNCOMPL 08/11/2015 CARLEY MATHEW MD Ot G40.909 EPILEPSY, UNSP, NOT INTRACTABLE, WITHOUT 08/11/2015 CARLEY MATHEW MD Ot Z79.899 OTHER [facility] (CURRENT) DRUG THERAPY 08/28/2015 CARLEY MATHEW MD Ot F17.210 NICOTINE DEPENDENCE, CIGARETTES, UNCOMPL 08/28/2015 CARLEY MATHEW MD Ot G40.909 EPILEPSY, UNSP, NOT INTRACTABLE, WITHOUT 08/28/2015 CARLEY MATHEW MD Ot Z79.899 OTHER [facility] (CURRENT) DRUG THERAPY 08/28/2015 ELLEN PROCTOR MD [...] Ot Y92.012 BATHROOM OF SINGLE-FAMILY (PRIVATE) HOUS 10/19/2015 ARIEL ALSTON MD Ot Y93.E1 [...] WITHOUT FOREIGN BODY OF LIP, 11/03/2015 ARIEL ALSTNO MD Ot W18.2XXA FALL IN (INTO) SHOWER OR EMPTY BATHTUB, 11/03/2015 ARIEL ALSTON MD T Ot Y92.012 BATHROOM OF SINGLE-FAMILY (PRIVATE) HOUS 11/03/2015 ALECIA HURT, ARIEL Shah Ot Y93.E1 ACTIVITY, PERSONAL BATHING AND SHOWERING 11/03/2015 ALECIA HURT, ARIEL Shah Ot Y99.8 OTHER EXTERNAL CAUSE STATUS 11/03/2015 ARIEL ALSTON MD Ot Z91.14 PATIENT'S OTHER [...] Z91.14 PATIENT'S OTHER NONCOMPLIANCE WITH MEDIC 11/15/2015 HORTENSIA HOFFMAN DO Ot F17.210 NICOTINE DEPENDENCE, CIGARETTES, UNCOMPL 11/15/2015 HORTENSIA HOFFMAN DO Ot G40.409 OTH GENERALIZED EPILEPSY, NOT INTRACTABL 11/15/2015 HORTENSIA HOFFMAN DO Ot G40.909 EPILEPSY, UNSP, NOT INTRACTABLE, WITHOUT 11/15/2015 YASMIN DO, HORTENSIA K Ot R79.0 ABNORMAL LEVEL OF BLOOD MINERAL 11/15/2015 YASMIN DO, HORTENSIA K Ot S00.83XA CONTUSION OF OTHER PART OF HEAD, INITIAL 11/15/2015 YASMIN DO, HORTENSIA K Ot W18.30XA FALL ON SAME LEVEL, UNSPECIFIED, INITIAL 11/15/2015 YASMIN DOKAYLAA K Ot Y92.010 KITCHEN OF SINGLE-FAMILY (PRIVATE) [...] OF OTHER PART OF HEAD, INITIAL 11/16/2015 HORTENSIA HOFFMAN DO Ot W18.30XA FALL ON SAME LEVEL, UNSPECIFIED, [...] 11/19/2015 ARIEL ALSTON MD Ot Z79.899 OTHER [facility] (CURRENT) DRUG THERAPY 11/20/2015 ARIEL ALSTON MD Ot E16.2 HYPOGLYCEMIA, UNSPECIFIED 11/20/2015 ARIEL ALSTON MD Ot G40.409 OTH GENERALIZED EPILEPSY, NOT INTRACTABL 11/20/2015 ARIEL ALSTON MD Ot G40.909 EPILEPSY, UNSP, NOT INTRACTABLE, WITHOUT 11/20/2015 ARIEL ALSTON MD Ot R79.89 OTHER SPECIFIED ABNORMAL FINDINGS OF BLO 11/20/2015 ARIEL ALSTON MD Ot Z79.899 OTHER [facility] (CURRENT) DRUG THERAPY 11/22/2015 CARLEY MATHEW MD Ot F17.210 NICOTINE DEPENDENCE, CIGARETTES, UNCOMPL 11/22/2015 CARLEY MATHEW MD Ot G40.909 EPILEPSY, UNSP, NOT INTRACTABLE, WITHOUT 11/22/2015 CARLEY MATHEW MD Ot Z79.899 OTHER [facility] (CURRENT) DRUG THERAPY 11/22/2015 ARIEL ALSTON MD [...] OTHER EXTERNAL CAUSE STATUS 11/22/2015 ARIEL ALSTON MD Ot Z91.14 PATIENT'S OTHER NONCOMPLIANCE WITH MEDIC 11/24/2015 ARIEL ALSTON MD Ot E16.2 HYPOGLYCEMIA, UNSPECIFIED 11/24/2015 ARIEL ALSTON MD Ot G40.409 OTH GENERALIZED EPILEPSY, NOT INTRACTABL 11/24/2015 ARIEL ALSTON MD Ot G40.909 EPILEPSY, UNSP, NOT INTRACTABLE, WITHOUT 11/24/2015 ARIEL ALSTON MD Ot R79.89 OTHER SPECIFIED ABNORMAL FINDINGS OF BLO 11/24/2015 ARIEL ALSTON MD Ot Z79.899 OTHER [facility] (CURRENT) DRUG THERAPY 12/06/2015 ANTOINE WARD APRN Ot G40.909 EPILEPSY, UNSP, NOT INTRACTABLE, WITHOUT 12/06/2015 ANTOINE WARD APRN Ot Z79.899 OTHER MAIL DISTRIBUTOR (CURRENT) DRUG THERAPY 12/06/2015 ANTOINE WARD APRN Ot Z91.14 PATIENT'S OTHER NONCOMPLIANCE WITH MEDIC 12/08/2015 ANTOINE WARD APRN Ot G40.909 EPILEPSY, UNSP, NOT INTRACTABLE, WITHOUT 12/08/2015 ANTOINE WARD APRN Ot Z79.899 OTHER [facility] (CURRENT) DRUG THERAPY 12/08/2015 ANTOINE WARD APRN Ot Z91.14 PATIENT'S OTHER NONCOMPLIANCE WITH MEDIC 01/04/2016 ARIEL ALSTON MD Ot G40.909 EPILEPSY, UNSP, NOT INTRACTABLE, WITHOUT 01/04/2016 ARIEL ALSTON MD Ot S01.112A LACERATION W/O FB OF LEFT EYELID AND PER 01/04/2016 ARIEL ALSTON MD Ot W01.0XXA FALL SAME LEV FROM SLIP/TRIP W/O STRIKE 01/04/2016 ARIEL ALSTON MD Ot Y92.012 BATHROOM OF SINGLE-FAMILY (PRIVATE) HOUS 01/04/2016 ARIEL ALSTON MD Ot Y99.8 OTHER EXTERNAL CAUSE STATUS 01/04/2016 ARIEL ALSTON MD Ot Z79.899 OTHER MAIL DISTRIBUTOR (CURRENT) DRUG THERAPY 01/26/2016 ANTOINE WARD APRN Ot G40.909 EPILEPSY, UNSP, NOT INTRACTABLE, WITHOUT 01/26/2016 ANTOINE WARD APRN Ot S00.83XA CONTUSION OF OTHER PART OF HEAD, INITIAL 01/26/2016 ANTOINE WARD APRN Ot W01.0XXA FALL SAME LEV FROM SLIP/TRIP W/O STRIKE 01/26/2016 ANTOINE WARD APRN Ot Y92.[address] IN [facility] NON[facility]INST[facility] (PRIVATE 01/26/2016 ANTOINE WARD APRN Ot Y99.8 OTHER EXTERNAL CAUSE STATUS 01/26/2016 ATNOINE WARD APRN Ot Z91.14 PATIENT'S OTHER NONCOMPLIANCE WITH MEDIC 01/29/2016 ANTOINE WARD APRN Ot G40.909 EPILEPSY, UNSP, NOT INTRACTABLE, WITHOUT 01/29/2016 ANTOINE WARD APRN Ot S00.83XA CONTUSION OF OTHER PART OF HEAD, INITIAL 01/29/2016 ANTOINE WARD APRN Ot W01.0XXA FALL SAME LEV FROM SLIP/TRIP W/O STRIKE 01/29/2016 ANTOINE WARD APRN Ot Y92.[address] IN [facility] NON[facility] (PRIVATE 01/29/2016 ANTOINE WARD APRN Ot Y99.8 [...] WARD APRN Ot Y92.[address] [facility] 01/30/2016 ANTOINE WARD APRN Ot Y99.8 [...] WARD APRN Ot Y92.[address] IN [facility] (PRIVATE 02/01/2016 ANTOINE WARD APRN Ot Y99.8 [...] 02/02/2016 CARLEY MATHEW MD Ot Z79.899 OTHER MAIL DISTRIBUTOR (CURRENT) DRUG THERAPY 02/04/2016 ANTOINE WARD APRN Ot G40.909 EPILEPSY, UNSP, NOT INTRACTABLE, WITHOUT 02/04/2016 ANTOINE WARD APRN Ot S00.83XA CONTUSION OF OTHER PART OF HEAD, INITIAL 02/04/2016 ANTOINE WARD MATHEMATICAL STATISTICIAN Ot W01.0XXA FALL SAME LEV FROM SLIP/TRIP W/O STRIKE 02/04/2016 ANTOINE WARD APRN Ot Y92.[address] IN [facility] (PRIVATE 02/04/2016 ANTOINE WARD MATHEMATICAL STATISTICIAN Ot Y99.8 OTHER EXTERNAL CAUSE STATUS 02/04/2016 ANTOINE WARD MATHEMATICAL STATISTICIAN Ot Z91.14 PATIENT'S OTHER NONCOMPLIANCE WITH MEDIC 02/05/2016 CARLEY MATHEW MD, Ot F17.210 NICOTINE DEPENDENCE, CIGARETTES, UNCOMPL 02/05/2016 CARLEY MATHEW MD, Ot G40.909 EPILEPSY, UNSP, NOT INTRACTABLE, WITHOUT 02/05/2016 CARLEY MAHTEW MD Ot H11.31 CONJUNCTIVAL HEMORRHAGE, RIGHT EYE [...] 02/05/2016 CARLEY MATHEW MD Ot Z79.899 OTHER [facility] (CURRENT) DRUG THERAPY 02/27/2016 Wing Velasco 345.80 OTHER FORMS OF EPILEPSY AND RECURRENT SEIZURES, WITHOUT MENTION OF INTRACTABLE EPILEPSY 02/27/2016 Wing Velasco G40.89 OTHER SEIZURES 03/14/2016 EMERSON SYKES DO, Ot F17.210 NICOTINE DEPENDENCE, CIGARETTES, UNCOMPL 03/14/2016 EMERSON SYKES DO, Ot G40.909 EPILEPSY, UNSP, NOT INTRACTABLE, WITHOUT 03/15/2016 EMERSON SYKES DO Ot F17.210 NICOTINE DEPENDENCE, CIGARETTES, UNCOMPL 03/15/2016 ONEL PRUETT EMERSON Yeny Ot G40.909 EPILEPSY, UNSP, NOT INTRACTABLE, WITHOUT 03/20/2016 ONEL DO EMERSON Yeny Ot F17.210 NICOTINE DEPENDENCE, CIGARETTES, UNCOMPL 03/20/2016 ONEL PRUETT EMERSON Yeny Ot G40.909 EPILEPSY, UNSP, NOT INTRACTABLE, WITHOUT [...] HORTENSIA K Ot Y92.[address] IN [facility] NON[facility] (PRIVATE 04/01/2016 YASMIN DO, HORTENSIA [...] HORTENSIA K Ot Y92.[address] IN [facility] NON[facility] (PRIVATE 04/03/2016 YASMIN DO, HORTENSIA [...] MELISSA MICHAEL Ot Y92.[address] IN [facility] NON[facility] (PRIVATE 04/10/2016 MELISSA MICHAEL Ot [...] MELISSA MICHAEL Ot Y92.[address] IN [facility] NON[facility] (PRIVATE 04/11/2016 MELISSA MICHAEL Ot [...] MELISSA MICHAEL Ot Y92.[address] IN [facility] (PRIVATE 04/12/2016 MELISSA MICHAEL Ot Y99.8 OTHER EXTERNAL CAUSE STATUS 05/19/2017 ANTOINE WARD APRN Ot F12.90 CANNABIS USE, UNSPECIFIED, UNCOMPLICATED 05/19/2017 ANTOINE WARD APRN Ot F17.210 NICOTINE DEPENDENCE, CIGARETTES, UNCOMPL 05/19/2017 ANTOINE WARD APRN Ot G40.909 EPILEPSY, UNSP, NOT INTRACTABLE, WITHOUT 05/19/2017 ANTOINE WARD APRN Ot S01.112A LACERATION W/O FB OF LEFT EYELID AND PER 05/19/2017 ANTOINE WARD APRN Ot W26.9XXA CONTACT WITH UNSPECIFIED SHARP OBJECT(S) 05/21/2017 ANTOINE WARD MATHEMATICAL STATISTICIAN Ot F12.90 CANNABIS USE, UNSPECIFIED, UNCOMPLICATED 05/21/2017 ANTOINE WARD APRN Ot F17.210 NICOTINE DEPENDENCE, CIGARETTES, UNCOMPL 05/21/2017 ANTOINE WARD APRN Ot G40.909 EPILEPSY, UNSP, NOT INTRACTABLE, WITHOUT 05/21/2017 ANTOINE WARD APRN Ot S01.112A LACERATION W/O FB OF LEFT EYELID AND PER 05/21/2017 ANTOINE WARD APRN Ot W26.9XXA CONTACT WITH UNSPECIFIED SHARP OBJECT(S) 06/11/2017 ALECIA HURT, ARIEL Shah Ot F12.90 CANNABIS USE, UNSPECIFIED, UNCOMPLICATED 06/11/2017 ARIEL ALSTON MD Ot G40.909 EPILEPSY, UNSP, NOT INTRACTABLE, WITHOUT 06/11/2017 ARIEL ALSTON MD Ot S09.90XA UNSPECIFIED INJURY OF HEAD, INITIAL ENCO 06/11/2017 ALECIA HURT, ARIEL Shah Ot W01.198A FALL SAME LEV FROM SLIP/TRIP W STRIKE AG 06/11/2017 ARIEL ALSTON MD Ot Y92.[address] IN [facility] NON-[facility] (PRIVATE 06/11/2017 ARIEL ALSTON MD Ot Z87.891 PERSONAL HISTORY OF NICOTINE DEPENDENCE 06/11/2017 ARIEL ALSTON MD Ot Z98.890 OTHER SPECIFIED POSTPROCEDURAL STATES 06/14/2017 CARLEY MATHEW MD, Ot F12.90 CANNABIS USE, UNSPECIFIED, UNCOMPLICATED 06/14/2017 CARLEY MATHEW MD, Ot G40.909 EPILEPSY, UNSP, NOT INTRACTABLE, WITHOUT 06/14/2017 CARLEY MATHEW MD, Ot Z87.891 PERSONAL HISTORY OF NICOTINE DEPENDENCE Procedures There is no data. Results Test [...] NRG Blood erythrocyte morphology finding identification NORMAL NRG Comprehensive metabolic panel - 11/14/15 22:12 Serum [...] NR Blood erythrocyte morphology finding identification NORMAL NR [...] NEGATIVE NEGATIVE Urine buprenophrine screen NEGATIVE NEGATIVE CBC With Differential/Platelet - 12/12/15 16:10 WBC 9.9 x10E3/uL 3.4-10.8 RBC 4.95 x10E6/uL 4.14-5.80 Hemoglobin 15.3 g/dL 12.6-17.7 Hematocrit 44.1 % 37.5-51.0 MCV 89 fL 79-97 MCH 30.9 pg 26.6-33.0 MCHC 34.7 g/dL 31.5-35.7 RDW 13.6 % 12.3-15.4 Platelets 272 x10E3/uL 150-379 Neutrophils 65 % Lymphs 26 % Monocytes 8 % Eos 1 % Basos 0 % Neutrophils (Absolute) 6.4 x10E3/uL 1.4-7.0 Lymphs (Absolute) 2.5 x10E3/uL 0.7-3.1 Monocytes(Absolute) 0.8 x10E3/uL 0.1-0.9 Eos (Absolute) 0.1 x10E3/uL 0.0-0.4 Baso (Absolute) 0.0 x10E3/uL 0.0-0.2 Immature Granulocytes 0 % Immature Grans (Abs) 0.0 x10E3/uL 0.0-0.1 Comp. Metabolic Panel (14) - 12/12/15 16:10 Glucose, Serum 92 mg/dL 65-99 BUN 11 mg/dL 6-20 Creatinine, Serum 1.38 mg/dL 0.76-1.27 eGFR If NonAfricn Am 70 mL/min/1.73 >59 eGFR If Africn Am 81 mL/min/1.73 >59 BUN/Creatinine Ratio 8 8-19 Sodium, Serum 142 mmol/L 134-144 Potassium, Serum 4.0 mmol/L 3.5-5.2 Chloride, Serum 101 mmol/L 97-108 Carbon Dioxide, Total 21 mmol/L 18-29 Calcium, Serum 9.5 mg/dL 8.7-10.2 Protein, Total, Serum 7.5 g/dL 6.0-8.5 Albumin, Serum 4.9 g/dL 3.5-5.5 Globulin, Total 2.6 g/dL 1.5-4.5 A/G Ratio 1.9 1.1-2.5 Bilirubin, Total 0.4 mg/dL 0.0-1.2 Alkaline Phosphatase, S 68 IU/L 39-117 AST (SGOT) 25 IU/L 0-40 ALT (SGPT) 31 IU/L 0-44 TSH - 12/12/15 16:10 TSH 1.430 uIU/mL 0.450-4.500 Phenytoin (Dilantin), Serum - 12/12/15 16:10 Phenytoin (Dilantin), Serum 3.2 ug/mL 10.0-20.0 Complete blood count (CBC) with automated white [...] plasma ethanol measurement (mass/volume) < mg/dL <10 Comprehensive Metabolic Panel - 02/27/16 12:41 Albumin 4.5 g/dL 3.6-5.1 ALP 57 U/L 35-130 ALT 22 U/L 6-45 Anion Gap 13 6-14 AST 17 U/L 2-40 BUN 12 mg/dL 5-25 Calcium 9.5 mg/dL 8.3-10.4 Chloride 109 mmol/L 95-114 CO2 23 mEq/L 22-33 Creat 1.00 mg/dL 0.50-1.50 eGFR 90 mL/min/1.73m2 >59 Globulin 2.7 g/dL 2.3-3.5 Glucose 110 mg/dL 70-110 Osmo 292 280-295 Potassium 3.8 mmol/L 3.5-5.3 Sodium 141 mmol/L 134-148 TBil 0.4 mg/dL 0.2-1.2 TP 7.2 g/dL 6.0-8.3 Complete blood count (CBC) with automated white [...] automated white blood cell (WBC) differential - 06/08/17 20:40 Blood leukocytes automated count (number/volume) 9.5 10*3/uL 4.3-11.0 Blood erythrocytes automated count (number/volume) 4.90 10*6/uL 4.35-5.85 Venous blood hemoglobin measurement (mass/volume) 15.6 g/dL 13.3-17.7 Blood hematocrit (volume fraction) 44 % 40-54 Automated erythrocyte mean corpuscular volume 90 [foz_us] 80-99 Automated erythrocyte mean corpuscular hemoglobin (mass per erythrocyte) 32 pg 25-34 Automated erythrocyte mean corpuscular hemoglobin concentration measurement ( mass/volume) 35 g/dL 32-36 Automated erythrocyte distribution width ratio 12.3 % 10.0-14.5 Automated blood platelet count (count/volume) 275 10*3/uL 130-400 Automated blood platelet mean volume measurement 10.1 [foz_us] 7.4-10.4 Automated blood neutrophils/100 leukocytes 54 % 42-75 Automated blood lymphocytes/100 leukocytes 35 % 12-44 Blood monocytes/100 leukocytes 9 % 0-12 Automated blood eosinophils/100 leukocytes 2 % 0-10 Automated blood basophils/100 leukocytes 0 % 0-10 Blood neutrophils automated count (number/volume) 5.1 10*3 1.8-7.8 Blood lymphocytes automated count (number/volume) 3.4 10*3 1.0-4.0 Blood monocytes automated count (number/volume) 0.8 10*3 0.0-1.0 Automated eosinophil count 0.2 10*3/uL 0.0-0.3 Automated blood basophil count (count/volume) 0.0 10*3/uL 0.0-0.1 Comprehensive metabolic panel - 06/08/17 20:40 Serum or plasma sodium measurement (moles/volume) 142 mmol/L 135-145 Serum or plasma potassium measurement (moles/volume) 4.0 mmol/L 3.6-5.0 Serum or plasma chloride measurement (moles/volume) 102 mmol/L 98-107 Carbon dioxide 21 mmol/L 21-32 Serum or plasma anion gap determination (moles/volume) 19 mmol/L 5-14 Serum or plasma urea nitrogen measurement (mass/volume) 12 mg/dL 7-18 Serum or plasma creatinine measurement (mass/volume) 1.00 mg/dL 0.60-1.30 Serum or plasma urea nitrogen/creatinine mass ratio 12 NRG Serum or plasma creatinine measurement with calculation of estimated glomerular filtration rate > NRG Serum or plasma glucose measurement (mass/volume) 68 mg/dL 70-105 Serum or plasma calcium measurement (mass/volume) 10.1 mg/dL 8.5-10.1 Serum or plasma total bilirubin measurement (mass/volume) 0.2 mg/dL 0.1-1.0 Serum or plasma alkaline phosphatase measurement (enzymatic activity/volume) 52 U/L 40-136 Serum or plasma aspartate aminotransferase measurement (enzymatic activity/ volume) 17 U/L 5-34 Serum or plasma alanine aminotransferase measurement (enzymatic activity/volume ) 21 U/L 0-55 Serum or plasma protein measurement (mass/volume) 7.6 g/dL 6.4-8.2 Serum or plasma albumin measurement (mass/volume) 4.7 g/dL 3.2-4.5 Magnesium - 06/08/17 20:40 Magnesium 2.3 mg/dL 1.8-2.4 [id number] - 06/08/17 20:40 [id number] 46.5 ug/mL 50.0-100.0 Encounters ACCT No. Visit Date/Time Discharge Status Pt. Type Provider Facility Loc./Unit Complaint [id number] 04/06/2013 13:16:00 04/06/2013 23:59:59 CLS Outpatient WHITE TARYN HERNÁNDEZ [id number] 06/09/2017 09:22:00 06/09/2017 11:08:00 DIS Outpatient ARIEL ALSTON MD [facility] ER FALL-SEIZURE [id number] 06/08/2017 20:31:00 06/08/2017 22:05:00 DIS Outpatient CARLEY MATHEW MD [facility] ER SEIZURE [id number] 05/19/2017 12:42:00 05/19/2017 14:00:00 DIS Emergency ANTOINE WARD APRN [facility] ER SEIZURE [id number] 04/10/2016 13:52:00 04/10/2016 16:49:00 DIS Emergency MELISSA MICHAEL [facility] ER SEIZURE [id number] 04/01/2016 13:27:00 04/01/2016 16:18:00 DIS Emergency HORTENSIA HOFFMAN DO [facility] ER SEIZURE [id number] 03/14/2016 11:59:00 03/14/2016 15:48:00 DIS Emergency EMERSON SYKES DO [facility] ER SEIZURE [id number] 02/02/2016 09:22:00 02/02/2016 11:19:00 DIS Emergency CARLEY MATHEW MD [facility] ER SEIZURE [id number] 01/26/2016 15:37:00 01/26/2016 17:09:00 DIS Emergency ANTOINE WARD APRN [facility] ER SEIZURES [id number] 01/03/2016 10:46:00 01/03/2016 12:54:00 DIS Outpatient ARIEL ALSTON MD [facility] ER SEIZURE FALL/HEAD LAC [id number] 12/06/2015 21:03:00 12/06/2015 22:28:00 DIS Emergency ANTOINE WARD APRN [facility] ER SEIZURE [id number] 11/18/2015 23:22:00 11/19/2015 01:32:00 DIS Emergency ARIEL ALSTON MD [facility] ER SEIZURE [id number] 11/14/2015 22:08:00 11/15/2015 00:30:00 DIS Emergency HORTENSIA HOFFMAN DO [facility] ER SEIZURE [id number] 11/05/2015 04:45:00 11/05/2015 11:45:00 DIS Inpatient ELIAS HOLT DO [facility] ICU CLOSED HEAD INJ, ALCOHOL INTOX, HX OF SEIZURES [id number] 11/01/2015 16:50:00 11/02/2015 12:45:00 DIS Outpatient MARY JADE MD [facility] 4TH SEIZURE DISORDER, POSSIBLE ASPIRATION [id number] 10/28/2015 11:48:00 10/28/2015 14:06:00 DIS Emergency ELLEN PROCTOR MD [facility] ER SEIZURE [id number] 09/25/2015 09:56:00 09/25/2015 14:42:00 DIS Outpatient ARIEL ALSTON MD [facility] ER SEIZURE/FALL [id number] 08/28/2015 12:42:00 08/28/2015 16:30:00 DIS Emergency ELLEN PROCTOR MD [facility] ER SEIZURES [id number] 08/09/2015 00:32:00 08/09/2015 02:09:00 DIS Outpatient CARLEY MATHEW MD [facility] ER SEIZURE [id number] 07/31/2015 21:38:00 07/31/2015 23:54:00 DIS Emergency ARIEL ALSTON MD [facility] ER POSS SEIZURE [id number] 01/06/2017 20:28:52 Document Registration [id number] 02/27/2016 12:14:00 02/27/2016 14:30:[address] [facility] ER [id number] 12/13/2015 10:05:00 Document Registration
[2017-06-18 11:49] LABS: VALPROIC ACID 92.1 UG/ML (50.0-100.0)
--- NOTE | 2017-06-18 12:21 | Diagnostic Imaging Report ---
Clinical indication: Patient status post seizure. Patient hit chin. Exam: Head CT without IV contrast. Axial CT scan of the cervical spine with sagittal and coronal reformations. Comparison: CT scan of the head and cervical spine dated 06/09/2017. Findings: Head CT: There is no evidence of acute cerebral infarct, intracranial hemorrhage, or gross mass effect. The brain parenchymal volume appears appropriate for patient's age. There is normal geller-white matter distinction. There is no significant midline shift or herniation. There is no evidence of hydrocephalus. The basal cisterns are unremarkable. There appears to be interval mild soft tissue swelling in the right supraorbital/upper eyelid region. Stable bony deformity of the nasal bone with it being deviated toward the right which appears chronic. Otherwise, the skull, extracranial soft tissue, and orbits are unremarkable. There is mild mucosal thickening involving both maxillary sinuses. Temporal bones show no significant abnormality. Cervical spine: There is no evidence of acute cervical spine fracture or dislocation. There is incidental note of unfused posterior elements of the C1 vertebral body. There is cervical spine vertebral body spurs involving the cervical spine which are stable. There is no significant bony central spinal canal or neural foramen narrowing. Impression: 1: There is no evidence of acute intracranial process. There is no skull fracture. Of note, the chin is not imaged on this exam. If imaging of the chin is necessary, then maxillofacial CT scan would better evaluate. 2: Stable cervical spine degenerative disease with no acute fracture or dislocation. Dictated by: Dictated on workstation # [id number]
[2017-06-18 12:53] VITALS: BP 119/80
== END 2017-06-18 12:53 | disposition home or self-care (01) ==
LOC: EDUNIT# 11:04 → ER 11:05
DX: S00.83XA Contusion of other part of head, initial encounter (principal); S09.93XA Unspecified injury of face, initial encounter; G40.909 Epilepsy, unspecified, not intractable, without status epilepticus; F12.90 Cannabis use, unspecified, uncomplicated; Z87.891 Personal history of nicotine dependence; Z91.14 Patient's other noncompliance with medication regimen; Z91.19 Patient's noncompliance with other medical treatment and regimen; W01.198A Fall on same level from slipping, tripping and stumbling with subsequent striking against other object, initial encounter
CPT/HCPCS: 36415; 70450; 72125; 80164; 80320

== ENCOUNTER 2017-06-28 18:16 | Emergency (ER) | payer MEDICAID ==
[~2017-06-28] VITALS: Ht 167.6 cm; Wt 81.6 kg
--- NOTE | 2017-06-28 18:58 | ED Neurological Problem ---
General Chief Complaint: Neurological Problems Stated Complaint: SEIZURE Nursing Triage Note: Patient reports having 2 seizures today. Nursing Sepsis Screen: No Definite Risk Source: patient Exam Limitations: no limitations History of Present Illness Date Seen by Provider: Jun 28, 2017 Time Seen by Provider: 18:40 Initial Comments Here by EMS with report of 2 seizures today. Has known history seizure disorder. States that he is taking his meds as directed. Did get his meds refilled a week ago and states that he has been taking them as directed. Denies any other injury or concerns. Does have facial pain but has known facial fracture. Nothing else is new. Timing/Duration: 1-3 hours Severity: moderate Associated Symptoms: No confusion, No fever/chills, No nausea/vomiting, seizures, No weakness Allergies and Home Medications Allergies Coded Allergies: No Known Drug Allergies (Unverified , 07/31/15) Home Medications Divalproex Sodium 500 Mg Tablet.dr, 500 MG PO TID Prescribed by: ARIEL HUTCHINSON on 06/09/17 1036 Levetiracetam 100 Mg/1 Ml Solution, Unknown Dose PO BID, (Reported) Levetiracetam 750 Mg Tablet, 750 MG PO BID Prescribed by: ARIEL HUTCHINSON on 06/09/17 1036 Topiramate 200 Mg Tablet, 200 MG PO BID Prescribed by: EMERSNO SYKES on 03/14/16 1533 Patient Home Medication List Home Medication List Reviewed: Yes Constitutional: see HPI, No chills, No fever Eyes: No Symptoms Reported Ears, Nose, Mouth, Throat: see HPI, mouth pain Respiratory: No cough, No short of breath Cardiovascular: no symptoms reported Gastrointestinal: No abdominal pain, No nausea, No vomiting Genitourinary: no symptoms reported Musculoskeletal: No joint swelling, muscle pain Skin: No change in color, lesions Psychiatric/Neurological: Tonic Clonic Seizures All Other Systems Reviewed Negative Unless Noted: Yes Past Qqxnwvk-Yuyucn-Qxlvin Hx Patient Social History Alcohol Use: Occasionally Uses Number of Drinks Today: DD Alcohol Beverage of Choice: Beer, Rum Recreational Drug Use: No Drug of Choice: cannibus Type Used: Cigarettes Former Smoker, Quit: Oct 24, 2015 2nd Hand Smoke Exposure: Yes Recent Foreign Travel: No Contact w/Someone Who Travel: No Recent Infectious Disease Expo: No Recent Hopitalizations: No Physical Abuse: No Sexual Abuse: No Immunizations Up To Date Tetanus Booster (TDap): Less than 5yrs Seasonal Allergies Seasonal Allergies: No Surgeries History of Surgeries: Yes (LEG SURGERY) Surgeries: Orthopedic Respiratory History of Respiratory Disorde: No Cardiovascular History of Cardiac Disorders: No Neurological History of Neurological Disord: Yes (NON-COMPLIANT WITH MEDICATIONS BY HISTORY) Neurological Disorders: Seizure Disorder Reproductive System Hx Reproductive Disorders: No Genitourinary History of Genitourinary Disor: No Gastrointestinal History of Gastrointestinal Di: No Musculoskeletal History of Musculoskeletal Dis: No Endocrine History of Endocrine Disorders: No HEENT History of HEENT Disorders: No Cancer History of Cancer: No Psychosocial History of Psychiatric Problem: No Suicide Risk Score: 0 Integumentary History of Skin or Integumenta: No Blood Transfusions History of Blood Disorders: No Adverse Reaction to a Blood Tr: No Reviewed Nursing Assessment Reviewed/Agree w Nursing PMH: Yes Family Medical History Significant Family History: No Pertinent Family Hx Physical Exam Vital Signs Vital Signs - First Documented 06/28/17 18:22 Temp 98.4 Pulse 84 Resp 18 B/P (MAP) 129/95 (106) Pulse Ox 99 Capillary Refill : Less Than 3 Seconds General Appearance: WD/WN, no apparent distress HEENT: PERRL/EOMI, pharynx normal, other (Tenderness along the lower jaw and pain at the front teeth. These are in place. Does have a healing lesion to the right side of the face.) Neck: full range of motion, supple Respiratory: chest non-tender, lungs clear, normal breath sounds Cardiovascular: regular rate, rhythm, no murmur Gastrointestinal: non tender, soft Back: normal inspection, no CVA tenderness, no vertebral tenderness Extremities: non-tender, normal inspection Neurologic/Psychiatric: alert, oriented x 3 Crainal Nerves: normal hearing, normal speech Motor/Sensory: no motor deficit, no sensory deficit Skin: normal color, warm/dry, other (Lesion to the face as discussed above) Laceration Repair : Suture Size: 6-0 Progress/Results/Core Measures Results/Orders My Orders Orders - CARLEY MATHEW MD Levetiracetam Tablet (Keppra Tablet) (06/28/17 19:00) Medications Given in ED Current Medications Medications Dose Ordered Sig/Jennifer Route Start Time Stop Time Status Last Admin Dose Admin Levetiracetam 500 mg ONCE ONCE PO 06/28/17 19:00 06/28/17 19:01 DC 06/28/17 19:18 500 MG Vital Signs/I&O Vital Sign - Last 12Hours 06/28/17 18:22 Temp 98.4 Pulse 84 Resp 18 B/P (MAP) 129/95 (106) Pulse Ox 99 Blood Pressure Mean: 106 Progress Note : Progress Note Seen and evaluated. I have reviewed patient's med list. We will increase the Keppra to 1000mg twice a day and I will provide additional prescription for that. I did discuss the case with Dr. Schumacher and he agrees with the additional dosing. Patient would like to get EEG study which I think is reasonable. He has appointment on July 02. I will write a prescription for additional Keppra 250 mg twice a day with his Keppra 750 mg dosing. This brings total dosing to 1000 mg twice a day. Discharged home with return precautions. Patient verbalize understanding of instructions and agreement with plan. Departure Impression Impression: Primary Impression: Uncontrolled seizures Qualified Codes: R56.9 - Unspecified convulsions Disposition: HOME, SELF-CARE Condition: Improved Departure-Patient Inst. Decision time for Depature: 19:04 Referrals: [facility] (PCP/Family) Primary Care Physician Patient Instructions: Seizures, Adult (DC) Add. Discharge Instructions: All discharge instructions reviewed with patient and/or family. Voiced understanding. Get new prescription filled. Follow-up with your doctor this week for recheck and further evaluation. Return for worse pain, fever, vomiting, weakness, breathing problems or other concerns as needed. Scripts Levetiracetam (Keppra) 250 Mg Tablet 250 MG PO BID, #60 TAB 0 Refills Prov: CARLEY MATHEW MD 06/28/17 Copy Copies To 1: LIZBETH BALLARD TIMOTHY D MD Jun 28, 2017 18:58
[2017-06-28] MEDS ORDERED: LEVETIRACETAM 500 MG (KEPPRA) TAB PO ONE (19:00)
[2017-06-28] MEDS ORDERED: LEVE250T18 PO (19:40)
[2017-06-28 19:45] VITALS: BP 129/95
--- OUTSIDE RECORDS SUMMARY | 2017-06-29 05:00 | XMS REPORT | Continuity of Care Document ---
Author Author [facility] Address Unknown Phone Unavailable Allergies Active Description Code Type Severity Reaction Onset Reported/Identified Relationship to Patient Clinical Status Yes No Known Drug Allergies [id number] N/A N/A Yes NO KNOWN DRUG ALLERGIES NO KNOWN DRUG ALLERG UNKNOWN Yes No Known Drug Allergies [id number] Drug Allergy Unknown N/A 07/31/2015 Medications There is no data. Problems Date Dx Coded Attending Type Code Diagnosis Diagnosed By 07/31/2015 ARIEL ALSTON MD, Ot G40.909 EPILEPSY, UNSP, NOT INTRACTABLE, WITHOUT 07/31/2015 ARIEL ALSTON MD, Ot K08.419 PARTIAL LOSS OF TEETH DUE TO TRAUMA, UNS 07/31/2015 ARIEL ALSTON MD Ot S00.81XA ABRASION OF OTHER PART OF HEAD, INITIAL 07/31/2015 ARIEL ALSTON MD, Ot S02.401A MAXILLARY FRACTURE, UNSP, INIT ENCNTR [...] 07/31/2015 ARIEL ALSTON MD, Ot Z79.899 OTHER [facility] (CURRENT) DRUG THERAPY 07/31/2015 ARIEL ALSTON MD, Ot Z91.14 PATIENT'S OTHER NONCOMPLIANCE WITH MEDIC 08/09/2015 CARLEY MATHEW MD Ot F17.210 NICOTINE DEPENDENCE, CIGARETTES, UNCOMPL 08/09/2015 CARLEY MATHEW MD Ot G40.909 EPILEPSY, UNSP, NOT INTRACTABLE, WITHOUT 08/09/2015 CARLEY MATHEW MD Ot Z79.899 OTHER ENVIRONMENTAL SCIENTISTS (CURRENT) DRUG THERAPY 08/09/2015 CARLEY MATHEW MD Ot F17.210 NICOTINE DEPENDENCE, CIGARETTES, UNCOMPL 08/09/2015 CARLEY MATHEW MD Ot G40.909 EPILEPSY, UNSP, NOT INTRACTABLE, WITHOUT 08/09/2015 CARLEY MATHEW MD Ot Z79.899 OTHER ENVIRONMENTAL SCIENTISTS (CURRENT) DRUG THERAPY 08/11/2015 CARLEY MATHEW MD Ot F17.210 NICOTINE DEPENDENCE, CIGARETTES, UNCOMPL 08/11/2015 CARLEY MATHEW MD Ot G40.909 EPILEPSY, UNSP, NOT INTRACTABLE, WITHOUT 08/11/2015 CARLEY MATHEW MD Ot Z79.899 OTHER [facility] (CURRENT) DRUG THERAPY 08/28/2015 CARLEY MATHEW MD Ot F17.210 NICOTINE DEPENDENCE, CIGARETTES, UNCOMPL 08/28/2015 CARLEY MATHEW MD Ot G40.909 EPILEPSY, UNSP, NOT INTRACTABLE, WITHOUT 08/28/2015 CARLEY MATHEW MD Ot Z79.899 OTHER [facility] (CURRENT) DRUG THERAPY 08/28/2015 ELLEN PROCTOR MD [...] UNARMED BRAWL OR FIGHT, INITI 11/05/2015 ELIAS HLOT DO Ot 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, 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 [...] 11/19/2015 ARIEL ALSTON MD Ot Z79.899 OTHER [facility] (CURRENT) DRUG THERAPY 11/20/2015 ARIEL ALSTON MD Ot E16.2 HYPOGLYCEMIA, UNSPECIFIED 11/20/2015 ARIEL ALSTON MD Ot G40.409 OTH GENERALIZED EPILEPSY, NOT INTRACTABL 11/20/2015 ARIEL ALSTON MD Ot G40.909 EPILEPSY, UNSP, NOT INTRACTABLE, WITHOUT 11/20/2015 ARIEL ALSTON MD Ot R79.89 OTHER SPECIFIED ABNORMAL FINDINGS OF BLO 11/20/2015 ARIEL ALSTON MD Ot Z79.899 OTHER [facility] (CURRENT) DRUG THERAPY 11/22/2015 CARLEY MATHEW MD Ot F17.210 NICOTINE DEPENDENCE, CIGARETTES, UNCOMPL 11/22/2015 CARLEY MATHEW MD Ot G40.909 EPILEPSY, UNSP, NOT INTRACTABLE, WITHOUT 11/22/2015 CARLEY MATHEW MD Ot Z79.899 OTHER [facility] (CURRENT) DRUG THERAPY 11/22/2015 ARIEL ALSTON MD [...] 11/24/2015 ARIEL ALSTON MD Ot Z79.899 OTHER [facility] (CURRENT) DRUG THERAPY 12/06/2015 ANTOINE WARD APRN Ot G40.909 EPILEPSY, UNSP, NOT INTRACTABLE, WITHOUT 12/06/2015 ANTOINE WARD APRN Ot Z79.899 OTHER ENVIRONMENTAL SCIENTISTS (CURRENT) DRUG THERAPY 12/06/2015 ANTOINE WARD APRN Ot Z91.14 PATIENT'S OTHER NONCOMPLIANCE WITH MEDIC 12/08/2015 ANTOINE WARD APRN Ot G40.909 EPILEPSY, UNSP, NOT INTRACTABLE, WITHOUT 12/08/2015 ANTOINE WARD APRN Ot Z79.899 OTHER [facility] (CURRENT) DRUG THERAPY 12/08/2015 ANTOINE WARD APRN [...] 01/04/2016 ARIEL ALSTON MD Ot Z79.899 OTHER ENVIRONMENTAL SCIENTISTS (CURRENT) DRUG THERAPY 01/26/2016 ANTOINE WARD APRN Ot G40.909 EPILEPSY, UNSP, NOT INTRACTABLE, WITHOUT 01/26/2016 ANTOINE WARD APRN Ot S00.83XA CONTUSION OF OTHER PART OF HEAD, INITIAL 01/26/2016 ANTOINE WARD APRN Ot W01.0XXA FALL SAME LEV FROM SLIP/TRIP W/O STRIKE 01/26/2016 ANTOINE WARD APRN Ot Y92.[address] IN [facility] 01/26/2016 ANTOINE WARD APRN Ot [...] WARD APRN Ot Y92.[address] IN [facility] 01/29/2016 ANTOINE WARD APRN Ot [...] WARD APRN Ot Y92.[address] [facility] 01[facility]30/2016 ANTOINE WARD APRN Ot Y99.8 OTHER EXTERNAL CAUSE STATUS 01/30/2016 ANTOINE WARD APRN Ot Z91.14 PATIENT'S OTHER NONCOMPLIANCE WITH MEDIC 02/01/2016 ANTOINE AWRD APRN Ot G40.909 EPILEPSY, UNSP, NOT INTRACTABLE, WITHOUT 02/01/2016 ANTOINE WARD APRN Ot S00.83XA CONTUSION OF OTHER PART OF HEAD, INITIAL 02/01/2016 ANTOINE WARD APRN Ot W01.0XXA FALL SAME LEV FROM SLIP/TRIP W/O STRIKE 02/01/2016 ANTOINE WARD APRN Ot Y92.[address] [facility] ([facility] 02/01/2016 ANTOINE WARD APRN Ot Y99.8 [...] 02/02/2016 CARLEY MATHEW MD Ot Z79.899 OTHER ENVIRONMENTAL SCIENTISTS (CURRENT) DRUG THERAPY 02/04/2016 ANTOINE WARD APRN Ot G40.909 EPILEPSY, UNSP, NOT INTRACTABLE, WITHOUT 02/04/2016 ANTOINE WARD APRN Ot S00.83XA CONTUSION OF OTHER PART OF HEAD, INITIAL 02/04/2016 ANTOINE WARD VAT OPERATOR Ot W01.0XXA FALL SAME LEV FROM SLIP/TRIP W/O STRIKE 02/04/2016 ANTOINE WARD APRN Ot Y92.[address] IN [facility] 02/04/2016 ANTOINE WARD VAT OPERATOR Ot Y99.8 OTHER EXTERNAL CAUSE STATUS 02/04/2016 ANTOINE WARD VAT OPERATOR Ot Z91.14 PATIENT'S OTHER NONCOMPLIANCE WITH MEDIC [...] 02/05/2016 CARLEY MATHEW MD Ot Z79.899 OTHER [facility] (CURRENT) DRUG THERAPY 02/27/2016 Wing Velasco 345.80 OTHER FORMS OF EPILEPSY AND RECURRENT SEIZURES, WITHOUT MENTION OF INTRACTABLE EPILEPSY 02/27/2016 Wing Vleasco G40.89 OTHER SEIZURES 03/14/2016 EMERSON SYKES DO, Ot F17.210 NICOTINE DEPENDENCE, CIGARETTES, UNCOMPL 03/14/2016 EMERSON SYEKS DO, Ot G40.909 EPILEPSY, UNSP, NOT INTRACTABLE, [...] HORTENSIA K Ot Y92.[address] IN [facility] 04/01/2016 YASMIN DO, HORTENSIA [...] HORTENSIA K Ot Y92.[address] IN [facility] 04/03/2016 YASMIN DO, HORTENSIA [...] MELISSA MICHAEL Ot Y92.[address] IN [facility] 04/10/2016 MELISSA MICHAEL Ot Y99.8 [...] MELISSA MICHAEL Ot Y92.[address] IN [facility] 04/11/2016 MELISSA MICHAEL Ot Y99.8 [...] MELISSA MICHAEL Ot Y92.[address] IN [facility] 04/12/2016 MELISSA MICHAEL Ot Y99.8 [...] WITH UNSPECIFIED SHARP OBJECT(S) 05/21/2017 ANTOINE WARD VAT OPERATOR Ot F12.90 CANNABIS USE, UNSPECIFIED, UNCOMPLICATED 05/21/2017 [...] ALSTON MD Ot Y92.[address] IN [facility] 06/11/2017 ARIEL ALSTON MD Ot Z87.891 PERSONAL HISTORY OF NICOTINE DEPENDENCE 06/11/2017 ARIEL ALSTON MD Ot Z98.890 OTHER SPECIFIED POSTPROCEDURAL STATES 06/14/2017 CARLEY MATHEW MD Ot F12.90 CANNABIS USE, UNSPECIFIED, UNCOMPLICATED 06/14/2017 CARLEY MATHEW MD, Ot G40.909 EPILEPSY, UNSP, NOT INTRACTABLE, WITHOUT 06/14/2017 CARLEY MATHEW MD, Ot Z87.891 PERSONAL HISTORY OF NICOTINE DEPENDENCE 06/20/2017 ANTOINE WARD APRN Ot F12.90 CANNABIS USE, UNSPECIFIED, UNCOMPLICATED 06/20/2017 ANTOINE WARD APRN, Ot G40.909 EPILEPSY, UNSP, NOT INTRACTABLE, WITHOUT 06/20/2017 ANTOINE WARD APRN Ot S00.83XA CONTUSION OF OTHER PART OF HEAD, INITIAL 06/20/2017 ANTOINE WARD APRN Ot S09.90XA UNSPECIFIED INJURY OF HEAD, INITIAL ENCO 06/20/2017 ANTOINE WARD APRN Ot S09.93XA UNSPECIFIED INJURY OF FACE, INITIAL ENCO 06/20/2017 ANTOINE WARD APRN Ot W01.198A FALL SAME LEV FROM SLIP/TRIP W STRIKE AG 06/20/2017 ANTOINE WARD APRN Ot Z87.891 PERSONAL HISTORY OF NICOTINE DEPENDENCE 06/20/2017 ANTOINE WARD APRN Ot Z91.14 PATIENT'S OTHER NONCOMPLIANCE WITH MEDIC 06/20/2017 ANTOINE WARD APRN Ot Z91.19 PATIENT'S NONCOMPLIANCE W [facility] Procedures There is no data. Results Test [...] NRG Blood erythrocyte morphology finding identification NORMAL [facility] Comprehensive metabolic panel - 11/14/15 22:12 Serum [...] NRG Blood erythrocyte morphology finding identification NORMAL [facility] Comprehensive metabolic panel - 12/06/15 21:08 Serum [...] - 06/08/17 20:40 Magnesium 2.3 mg/dL 1.8-2.4 [id number] - 06/08/17 20:40 [id number] 46.5 ug/mL 50.0-100.0 [id number] - 06/18/17 11:16 [id number] 92.1 ug/mL 50.0-100.0 Serum or plasma ethanol measurement (mass/volume) - 06/18/17 11:16 Serum or plasma ethanol measurement (mass/volume) < mg/dL <10 Encounters ACCT No. Visit Date/Time Discharge Status Pt. Type Provider Facility Loc./Unit Complaint [id number] 04/06/2013 13:16:00 04/06/2013 23:59:59 CLS Outpatient TARYN STUART DDS [id number] 06/18/2017 11:05:00 06/18/2017 12:53:00 DIS Outpatient ANTOINE WARD APRN [facility] ER SEIZURE,HEAD INJ [id number] 06/09/2017 09:22:00 06/09/2017 11:08:00 DIS Outpatient ALECIA HURT, ARIEL Shah [facility] ER FALL-SEIZURE [id number] 06/08/2017 20:31:00 06/08/2017 22:05:00 DIS Outpatient CARLEY MATHEW MD [facility] ER SEIZURE [id number] 05/19/2017 12:42:00 05/19/2017 14:00:00 DIS Emergency ANTOINE WARD APRN [facility] ER SEIZURE [id number] 04/10/2016 13:52:00 04/10/2016 16:49:00 DIS Emergency MELISSA MICHAEL [facility] ER SEIZURE [id number] 04/01/2016 13:27:00 04/01/2016 16:18:00 DIS Emergency HORTENSIA HOFFMAN DO [facility] ER SEIZURE [id number] 03/14/2016 11:59:00 03/14/2016 15:48:00 DIS Emergency EMERSON SYKES DO [facility] ER SEIZURE [id number] 02/02/2016 09:22:00 02/02/2016 11:19:00 DIS Emergency CARLEY MATHEW MD [facility] ER SEIZURE [id number] 01/26/2016 15:37:00 01/26/2016 17:09:00 DIS Emergency ANTOINE WARD APRN [facility] ER SEIZURES [id number] 01/03/2016 10:46:00 01/03/2016 12:54:00 DIS Outpatient ARIEL ALSTON MD [facility] ER SEIZURE FALL/HEAD LAC [id number] 12/06/2015 21:03:00 12/06/2015 22:28:00 DIS Emergency ANTOINE WARD APRN [facility] ER SEIZURE [id number] 11/18/2015 23:22:00 11/19/2015 01:32:00 DIS Emergency ARIEL ALSTON MD [facility] ER SEIZURE [id number] 11/14/2015 22:08:00 11/15/2015 00:30:00 DIS Emergency HORTENSIA HOFFMAN DO [facility] ER SEIZURE [id number] 11/05/2015 04:45:00 11/05/2015 11:45:00 DIS Inpatient ELIAS HOLT DO [facility] ICU CLOSED HEAD INJ, ALCOHOL INTOX, HX OF SEIZURES [id number] 11/01/2015 16:50:00 11/02/2015 12:45:00 DIS Outpatient KALIE HURT, MARY North [facility] 4TH SEIZURE DISORDER, POSSIBLE ASPIRATION [id number] 10/28/2015 11:48:00 10/28/2015 14:06:00 DIS Emergency ESTHELA HURT, ELLEN Jensen [facility] ER SEIZURE [id number] 09/25/2015 09:56:00 09/25/2015 14:42:00 DIS Outpatient ALECIA HURT, ARIEL Shah [facility] ER SEIZURE/FALL [id number] 08/28/2015 12:42:00 08/28/2015 16:30:00 DIS Emergency ESTHELA HURT, ELLEN Jensen [facility] ER SEIZURES [id number] 08/09/2015 00:32:00 08/09/2015 02:09:00 DIS Outpatient CARLEY MATHEW MD [facility] ER SEIZURE [id number] 07/31/2015 21:38:00 07/31/2015 23:54:00 DIS Emergency ALECIA HURT, ARIEL Shah [facility] ER POSS SEIZURE [id number] 01/06/2017 20:28:52 Document Registration [id number] 02/27/2016 12:14:00 02/27/2016 14:30:[address] [facility] [place] [id number] 06/23/2017 14:30:00 06/23/2017 23:59:59 CLS Outpatient WERNER RG APRN [facility] [id number] 12/13/2015 10:05:00 Document Registration
== END 2017-06-28 19:44 | disposition home or self-care (01) ==
LOC: EDUNIT# 18:16 → ER 18:17
DX: G40.909 Epilepsy, unspecified, not intractable, without status epilepticus (principal); F12.90 Cannabis use, unspecified, uncomplicated; Z98.890 Other specified postprocedural states; Z87.891 Personal history of nicotine dependence
CPT/HCPCS: 99283

== ENCOUNTER 2017-07-02 08:54 | Emergency (ER) | payer SELFPAY ==
[~2017-07-02] VITALS: Ht 167.6 cm; Wt 81.6 kg
[~2017-07-02 08:54] MED LIST changes: +LEVE250T18 PO
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
[2017-07-02 10:21] VITALS: BP 114/73
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
[2017-07-02] MEDS ORDERED: BACI28OI5 TP (11:56)
[2017-07-02] MEDS ORDERED: TETANUS,DIPTH,PERTUSS P/F (BOOSTRIX) 0.5 ML VIAL IM ONE (12:00)
[2017-07-02 12:17] VITALS: BP 134/78
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
[2017-07-02] MEDS ORDERED: BACITRACIN OINTMENT 28 GM TUBE TOP SCH (21:00)
== END 2017-07-02 12:17 | disposition home or self-care (01) ==
LOC: EDUNIT# 08:54 → ER 08:56
DX: T20.26XA Burn of second degree of forehead and cheek, initial encounter (principal); T31.0 Burns involving less than 10% of body surface; G40.909 Epilepsy, unspecified, not intractable, without status epilepticus; F12.90 Cannabis use, unspecified, uncomplicated; Z91.14 Patient's other noncompliance with medication regimen; Z87.891 Personal history of nicotine dependence; X15.3XXA Contact with hot saucepan or skillet, initial encounter; Y93.G3 Activity, cooking and baking
CPT/HCPCS: 99283

== ENCOUNTER 2018-01-17 11:16 | Emergency (ER) | payer SELFPAY ==
[~2018-01-17] VITALS: Ht 172.7 cm; Wt 122.5 kg
[~2018-01-17 11:16] MED LIST changes: +BACI28OI5 TP; +HYDR-4226 PO; -HYDR-757 PO
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
--- OUTSIDE RECORDS SUMMARY | 2018-01-17 11:22 | XMS REPORT ---
Author Author KENYATTA CARMONA [facility] Address Unknown Care Team Providers Care Service Bar Cashier Name Role Phone KENYATTA CARMONA Unavailable PROBLEMS Type Condition ICD9-CM Code FAF84-PT Code Onset Dates Condition Status SNOMED Code Problem Panic disorder [episodic paroxysmal anxiety] without agoraphobia F41.0 Active 616124702 Problem Generalized anxiety disorder F41.1 Active 36380171 Problem Other schizophrenia F20.89 Active 95106614 Problem Attention deficit hyperactivity disorder (ADHD), unspecified ADHD type F90.9 Active 899141926 Problem Intractable epilepsy without status epilepticus, unspecified epilepsy type G40.919 Active 850686227 Problem Seizure disorder G40.909 Active 134759498 Problem Chronic periodontal disease K05.6 Active 1487361 Problem Open broken tooth due to trauma without complication, initial encounter S02.5XXB Active 650913242 ALLERGIES No Known Allergies ENCOUNTERS Encounter Location Date Diagnosis [facility] [address] [id number] Oct, Dental examination Z01.20 and Caries K02.9 [place] [id number] [place] [address] 51023- 7469 Sep, Dental examination Z01.20 [facility] [id number] [place] [address] 86342- 4186 Sep, Seizure disorder G40.909 ; Vision disorder H53.9 and Dental abscess K04.7 [facility] [address] 00[address]- 7517 Aug, [facility] [address] 45598- 1352 Jun, Seizure disorder G40.909 and Long-term use of high-risk medication Z79.899 [place] [id number] [place] [address] 66703- 4796 Jun, [place] [id number] [place], [place] [phone] May, Generalized anxiety disorder F41.1 ; Panic disorder [ episodic paroxysmal anxiety] without agoraphobia F41.0 ; Other schizophrenia F20.89 and Attention deficit hyperactivity disorder (ADHD), unspecified ADHD type F90.9 [place] [id number] [place] [address] May, Dental examination Z01.20 ; Open broken tooth due to trauma without complication, initial encounter S02.5XXB and Chronic periodontal disease K05.6 [place] [id number] [place] [address] 84658- 7278 May, Intractable epilepsy without status epilepticus, unspecified epilepsy type G40.919 [place] [id number] [place] [address] 79257- 9290 May, Seizure disorder G40.909 [place] [id number] [place] [address] 61253- 6974 May, Seizure disorder G40.909 [place] [id number] [place] [address] 33038- 2302 May, [place] [id number] [place] [address] 21051- 3708 May, [place] [id number] [place] [address] 74509- 6484 Mar, [place] [id number] [place] [address] 32868- 8077 Feb, [place] [address] 922936- 3150 Feb, Seizure disorder G40.909 ; Acute upper respiratory infection , unspecified J06.9 and Other viral agents as the cause of diseases classified elsewhere B97.89 [place] [id number] [place] [address] 88423- 9321 Jan, [facility] [id number] [place] [address] 70243- 6656 Jan, [facility] [id number] [place] [address] 16237- 1979 Dec, [facility] [id number] [place] [address] 63077- 4363 Nov, Panic disorder [episodic paroxysmal anxiety] without agoraphobia F41.0 and Generalized anxiety disorder F41.1 [facility] [id number] [place] [address] 31538- 6940 Nov, [facility] [id number] [place] [address] 55827- 1163 Nov, Encounter to establish care Z76.89 ; Seizures R56.9 and Anxiety F41.9 [facility] [id number] [place] [address] 52801- 2354 Oct, [facility] [id number] [place] [address] 79681- 9155 Oct, [facility] [id number] [place] [address] 83098- 4331 Sep, [facility] [id number] [place] [address] 17197- 4709 Jan, [facility] [id number] [place] [address] 78407- 2839 Jan, [facility] [id number] [place] [address] 31020- 1715 Aug, [facility] [id number] [place] [address] 13735- 6161 Aug, [facility] [id number] [place] [address] 92641- 9151 Jun, [facility] [id number] [place] [address] 97326- 9396 Jun, [facility] [address] [facility] [id number] [place] [address]- 5286 May, [facility] [address] [facility] [id number], [place] [address] May, IMMUNIZATIONS No Known Immunizations SOCIAL HISTORY Never Assessed REASON FOR VISIT TE / PLAN OF CARE Activity Details Follow Up prn Reason:stacey/hygiene VITAL SIGNS Height 5'6" in 2017-11-25 Blood pressure systolic 130 mmHg 2017-11-25 Blood pressure diastolic 90 mmHg 2017-11-25 MEDICATIONS Medication Instructions Dosage Frequency Start Date End Date Duration Status Lamictal 25 MG Orally Once a day 1 tablet 24h 30 day Unknown Keppra 750 MG Orally 2 times a day 1 tablet 12h 15 Nov, 2015 Active Depakote 500 mg Orally 3 times a day 1 tablet 8h 22 May, 2017 Active Oxycodone HCl Active RESULTS No Results PROCEDURES Procedure Date Ordered Result Body Site EXTRAC ERUPTED TOOTH/EXPOSED ROOT Nov 25, 2017 Periapical Abscess October 09, 2017 INSTRUCTIONS MEDICATIONS ADMINISTERED No Known Medications MEDICAL (GENERAL) HISTORY Type Description Date Medical History epilepsy Hospitalization History Seizure disorder, possible aspiration-[facility]ia [facility] 11/01/15 Hospitalization History [facility] Se[facility]ures 2017
--- OUTSIDE RECORDS SUMMARY | 2018-01-17 11:22 | XMS REPORT ---
Author Author JACE SOLER [facility] Address [address] [place] [address] Care Team Providers Care Event Operations Manager Name Role Phone JACE SOLER Unavailable PROBLEMS Type Condition ICD9-CM Code GQF46-LX Code Onset Dates Condition Status SNOMED Code Problem Panic disorder [episodic paroxysmal anxiety] without agoraphobia F41.0 Active 543007747 Problem Generalized anxiety disorder F41.1 Active 90154455 Problem Other schizophrenia F20.89 Active 72421914 Problem Attention deficit hyperactivity disorder (ADHD), unspecified ADHD type F90.9 Active 633308117 Problem Intractable epilepsy without status epilepticus, unspecified epilepsy type G40.919 Active 398230746 Problem Seizure disorder G40.909 Active 617181897 Problem Chronic periodontal disease K05.6 Active 6061366 Problem Open broken tooth due to trauma without complication, initial encounter S02.5XXB Active 200469913 ALLERGIES No Known Allergies ENCOUNTERS Encounter Location Date Diagnosis [facility] [id number] [place] [id number] Oct, Dental examination Z01.20 and Caries K02.9 [facility] [id number] [place] [address] 88608- 3384 Sep, Dental examination Z01.20 [facility] [id number] [place] [address] 20017- 8118 Sep, Seizure disorder G40.909 ; Vision disorder H53.9 and Dental abscess K04.7 [facility] [id number] [place] [address] 87890- 0832 Aug, [facility] [id number] [place] [address] 03390- 0922 Jun, Seizure disorder G40.909 and Long-term use of high-risk medication Z79.899 [place] [id number] [place] [address] 41313- 7268 Jun, [place] [id number] [place] [address] 6186 May, Generalized anxiety disorder F41.1 ; Panic disorder [ episodic paroxysmal anxiety] without agoraphobia F41.0 ; Other schizophrenia F20.89 and Attention deficit hyperactivity disorder (ADHD), unspecified ADHD type F90.9 [place] [id number] [place] [address] 91347- 9083 May, Dental examination Z01.20 ; Open broken tooth due to trauma without complication, initial encounter S02.5XXB and Chronic periodontal disease K05.6 [place] [id number] [place] [address] 24448- 0382 May, Intractable epilepsy without status epilepticus, unspecified epilepsy type G40.919 [place] [id number] [place] [address] 83217- 3608 May, Seizure disorder G40.909 [place] [id number] [place] [address] 85225- 6435 May, Seizure disorder G40.909 [place] [id number] [place] [address] 76929- 1521 May, [place] [id number] [place] [address] 05514- 5103 May, [place] [id number] [place] [address] 63062- 1341 Mar, [place] [id number] [place] [address] 10157- 6841 Feb, [place] [id number] [place] [address] 10753- 9495 Feb, Seizure disorder G40.909 ; Acute upper respiratory infection , unspecified J06.9 and Other viral agents as the cause of diseases classified elsewhere B97.89 [facility] [id number] [place] [address] 50420- 0114 Jan, [facility] [id number] [place] [address] 90893- 3846 Jan, [facility] [id number] [place] [address] 73775- 3346 Dec, [facility] [id number] [place] [address] 96466- 2495 Nov, Panic disorder [episodic paroxysmal anxiety] without agoraphobia F41.0 and Generalized anxiety disorder F41.1 [facility] [id number] [place] [address] 00011- 4964 Nov, [facility] [id number] [place] [address] 73090- 9371 Nov, Encounter to establish care Z76.89 ; Seizures R56.9 and Anxiety F41.9 [facility] [id number] [place] [address] 26366- 6195 Oct, [facility] [id number] [place] [address] 58072- 5022 Oct, [facility] [id number] [place] [address] 74689- 2463 Sep, [facility] [id number] [place] [address] 58383- 3517 Jan, [facility] [id number] [place] [address] 76331- 4066 Jan, [facility] [id number] [place] [address] 59285- 2047 Aug, [facility] [id number] [place] [address] 52312- 9444 Aug, [facility] [id number] [place] [address] 30148- 8759 Jun, [facility] [address] [facility] [id number] [place] [address]- 0376 Jun, [facility] [address] [facility] [id number] [place] [address] 2546 May, [facility] [address] [facility] [id number] [place] [address] 2546 May, IMMUNIZATIONS No Known Immunizations SOCIAL HISTORY Never Assessed REASON FOR VISIT ref for tooth pain family prac PLAN OF CARE Activity Details Follow Up 1 Week Reason: VITAL SIGNS Blood pressure systolic 130 mmHg 2017-10-09 Blood pressure diastolic 82 mmHg 2017-10-09 MEDICATIONS Medication Instructions Dosage Frequency Start Date End Date Duration Status Lamictal 25 MG Orally Once a day 1 tablet 24h 30 day Unknown Oxycodone HCl Active Depakote 500 mg Orally 3 times a day 1 tablet 8h 22 May, 2017 Active Keppra 750 MG Orally 2 times a day 1 tablet 12h 15 Nov, 2015 Active RESULTS No Results PROCEDURES Procedure Date Ordered Result Body Site INTRAORL-PERIAPICAL 1 FILM [id number] October 09, 2017 SCREENING OF A PATIENT October 09, 2017 Billing Notes on claim October 09, 2017 INSTRUCTIONS MEDICATIONS ADMINISTERED No Known Medications MEDICAL (GENERAL) HISTORY Type Description Date Medical History epilepsy Hospitalization History Seizure disorder, possible aspiration-[facility]ia [facility] 11/01/15 Hospitalization History [facility] Se[facility]ures 2017
--- OUTSIDE RECORDS SUMMARY | 2018-01-17 11:22 | XMS REPORT ---
Author Author WERNER RG Organization [facility] Address [address] [place] [address] Care Team Providers Care News Videotape Editor Name Role Phone WERNER RG Unavailable PROBLEMS Type Condition ICD9-CM Code JEM71-ZJ Code Onset Dates Condition Status SNOMED Code Problem Panic disorder [episodic paroxysmal anxiety] without agoraphobia F41.0 Active 401925626 Problem Generalized anxiety disorder F41.1 Active 81865073 Problem Other schizophrenia F20.89 Active 15970704 Problem Attention deficit hyperactivity disorder (ADHD), unspecified ADHD type F90.9 Active 939158674 Problem Intractable epilepsy without status epilepticus, unspecified epilepsy type G40.919 Active 141755811 Problem Seizure disorder G40.909 Active 086511837 Problem Chronic periodontal disease K05.6 Active 2928131 Problem Open broken tooth due to trauma without complication, initial encounter S02.5XXB Active 798069421 ALLERGIES No Information ENCOUNTERS Encounter Location Date Diagnosis [facility] [address] [place] [id number] Oct, [facility] [id number] [place] [address] 20785- 8893 Oct, [facility] [id number] [place] [address] 91963- 3898 Oct, [facility] [id number] [place] [address] 19551- 4913 Sep, Dental examination Z01.20 [place] [id number] [place] [address] 47546- 6236 Sep, Seizure disorder G40.909 ; Vision disorder H53.9 and Dental abscess K04.7 [facility] [id number] [place] [address] 64316- 5795 Aug, [facility] [address] [place] [address] 12784- 2833 Jun, Seizure disorder G40.909 and Long-term use of high-risk medication Z79.899 [facility] [id number] [place] [address] 74323- 8452 Jun, [place] [address] 99046- 5744 May, Generalized anxiety disorder F41.1 ; Panic disorder [ episodic paroxysmal anxiety] without agoraphobia F41.0 ; Other schizophrenia F20.89 and Attention deficit hyperactivity disorder (ADHD), unspecified ADHD type F90.9 [place] [id number] [place] [address] 66436- 9789 May, Dental examination Z01.20 ; Open broken tooth due to trauma without complication, initial encounter S02.5XXB and Chronic periodontal disease K05.6 [place] [id number] [place] [address] 51082- 5207 May, Intractable epilepsy without status epilepticus, unspecified epilepsy type G40.919 [place] [id number] [place] [address] 87031- 8545 May, Seizure disorder G40.909 [place] [id number] [place] [address] 68630- 2090 May, Seizure disorder G40.909 [place] [id number] [place] [address] 02690- 0122 May, [place] [id number] [place] [address] 67467- 2060 May, [place] [id number] [place] [address] 32006- 5055 Mar, [place] [id number] [place] [address] 67267- 7227 Feb, [place] [id number] [place] [address] 91309- 9716 Feb, Seizure disorder G40.909 ; Acute upper respiratory infection , unspecified J06.9 and Other viral agents as the cause of diseases classified elsewhere B97.89 [facility] [id number] [place] [address] 31909- 8227 Jan, [facility] [id number] [place] [address] 08182- 1901 Jan, [facility] [id number] [place] [address] 73084- 9690 Dec, [facility] [id number] [place] [address] 12761- 3785 Nov, Panic disorder [episodic paroxysmal anxiety] without agoraphobia F41.0 and Generalized anxiety disorder F41.1 [place] [id number] [place] [address] 35316- 0419 Nov, [facility] [id number] [place] [address] 61229- 8761 Nov, Encounter to establish care Z76.89 ; Seizures R56.9 and Anxiety F41.9 [place] [id number] [place] [address] 64145- 4932 Oct, [facility] [address] [place] [address] 43088- 4435 Oct, [facility] [id number] [place] [address] 56944- 3837 Sep, [facility] [id number] [place] [address] 00883- 5697 Jan, [facility] [id number] [place] [address] 76157- 9259 Jan, [facility] [id number] [place] [address] 55813- 1439 Aug, [facility] [id number] [address]- 3456 Aug, [facility] [id number] [address]- 6397 Jun, [facility] [id number] [address]- 9837 Jun, [facility] [id number] [address]- 5647 May, [facility] [id number] [address]- 5474 May, IMMUNIZATIONS No Known Immunizations SOCIAL HISTORY Never Assessed REASON FOR VISIT Referral PLAN OF CARE VITAL SIGNS MEDICATIONS Unknown Medications RESULTS No Results PROCEDURES No Known procedures INSTRUCTIONS MEDICATIONS ADMINISTERED No Known Medications MEDICAL (GENERAL) HISTORY Type Description Date Medical History epilepsy Hospitalization History Seizure disorder, possible aspiration-[facility] 11/01/15 Hospitalization History [facility] Se[facility] 2017
--- OUTSIDE RECORDS SUMMARY | 2018-01-17 11:22 | XMS REPORT ---
Author Author KARL DELACRUZ [facility] Address [address] [place] [address] Care Team Providers Care Senior Clinical Data Coordinator Name Role Phone KARL DELACRUZ Unavailable PROBLEMS Type Condition ICD9-CM Code ZSE21-HG Code Onset Dates Condition Status SNOMED Code Problem Panic disorder [episodic paroxysmal anxiety] without agoraphobia F41.0 Active 979998100 Problem Generalized anxiety disorder F41.1 Active 24845821 Problem Other schizophrenia F20.89 Active 46890942 Problem Attention deficit hyperactivity disorder (ADHD), unspecified ADHD type F90.9 Active 077803622 Problem Intractable epilepsy without status epilepticus, unspecified epilepsy type G40.919 Active 963608332 Problem Seizure disorder G40.909 Active 975208597 Problem Chronic periodontal disease K05.6 Active 3893417 Problem Open broken tooth due to trauma without complication, initial encounter S02.5XXB Active 285329133 ALLERGIES No Information ENCOUNTERS Encounter Location Date Diagnosis [facility] [id number] [place] [address] [id number] Oct, Dental examination Z01.20 and Caries K02.9 [place] [id number] [place] [address] 35880- 3245 Sep, Dental examination Z01.20 [facility] [id number] [place] [address] 03051- 2338 Sep, Seizure disorder G40.909 ; Vision disorder H53.9 and Dental abscess K04.7 [facility] [id number] [place] [address] 18047- 8142 Aug, [facility] [id number] [place] [address] 21747- 1423 Jun, Seizure disorder G40.909 and Long-term use of high-risk medication Z79.899 [place] [id number] [place] [address] 43612- 2262 Jun, [place] [id number] [place] [address] May, Generalized anxiety disorder F41.1 ; Panic disorder [ episodic paroxysmal anxiety] without agoraphobia F41.0 ; Other schizophrenia F20.89 and Attention deficit hyperactivity disorder (ADHD), unspecified ADHD type F90.9 [place] [id number] [place] [address] 17936- 6759 May, Dental examination Z01.20 ; Open broken tooth due to trauma without complication, initial encounter S02.5XXB and Chronic periodontal disease K05.6 [place] [id number] [place] [address] 82898- 0422 May, Intractable epilepsy without status epilepticus, unspecified epilepsy type G40.919 [place] [id number] [place] [address] 84460- 8107 May, Seizure disorder G40.909 [place] [id number] [place] [address] 01064- 2722 May, Seizure disorder G40.909 [place] [id number] [place] [address] 60117- 1462 May, [place] [id number] [place] [address] 64450- 3207 May, [place] [id number] [place] [address] 85831- 2430 Mar, [place] [id number] [place] [address] 62621- 9342 Feb, [place] [id number] [place] [address] 47165- 1514 Feb, Seizure disorder G40.909 ; Acute upper respiratory infection , unspecified J06.9 and Other viral agents as the cause of diseases classified elsewhere B97.89 [facility] [address] [place] [address] 38060- 8045 Jan, [facility] [id number] [place] [address] 65707- 9765 Jan, [facility] [id number] [place] [address] 85856- 9826 Dec, [facility] [id number] [place] [address] 82920- 8186 Nov, Panic disorder [episodic paroxysmal anxiety] without agoraphobia F41.0 and Generalized anxiety disorder F41.1 [facility] [id number] [place] [address] 86312- 6167 Nov, [facility] [id number] [place] [address] 78159- 2450 Nov, Encounter to establish care Z76.89 ; Seizures R56.9 and Anxiety F41.9 [facility] [id number] [place] [address] 64299- 5673 Oct, [facility] [id number] [place] [address] 32716- 8424 Oct, [facility] [id number] [place] [address] 73430- 8877 Sep, [facility] [id number] [place] [address] 33627- 2000 Jan, [facility] [id number] [place] [address] 65354- 4824 Jan, [facility] [id number] [place] [address] 71327- 5059 Aug, [facility] [id number] [place] [address] 10819- 8192 Aug, [facility] [id number] [place] [address] 96397- 6442 Jun, [facility] [address] [facility] [id number] [place] 5193 Jun, [facility] [address] [facility] [id number] 7268 May, [facility] [address] [facility] [id number] [place] [address]- 7402 May, IMMUNIZATIONS No Known Immunizations SOCIAL HISTORY Never Assessed REASON FOR VISIT Refill request PLAN OF CARE VITAL SIGNS MEDICATIONS Unknown Medications RESULTS No Results PROCEDURES No Known procedures INSTRUCTIONS MEDICATIONS ADMINISTERED No Known Medications MEDICAL (GENERAL) HISTORY Type Description Date Medical History epilepsy Hospitalization History Seizure disorder, possible aspiration-[facility]ia [facility] 11/01/15 Hospitalization History [facility] Se[facility] 2017
--- OUTSIDE RECORDS SUMMARY | 2018-01-17 11:22 | XMS REPORT ---
Author Author KARL DELACRUZ [facility] Address [address] [place] [address] Care Team Providers Care Receiver Setter Name Role Phone KARL DELACRUZ Unavailable PROBLEMS Type Condition ICD9-CM Code AJM17-UP Code Onset Dates Condition Status SNOMED Code Problem Panic disorder [episodic paroxysmal anxiety] without agoraphobia F41.0 Active 194940584 Problem Generalized anxiety disorder F41.1 Active 82610865 Problem Other schizophrenia F20.89 Active 93997843 Problem Attention deficit hyperactivity disorder (ADHD), unspecified ADHD type F90.9 Active 746226197 Problem Intractable epilepsy without status epilepticus, unspecified epilepsy type G40.919 Active 517679195 Problem Seizure disorder G40.909 Active 203989253 Problem Chronic periodontal disease K05.6 Active 8568815 Problem Open broken tooth due to trauma without complication, initial encounter S02.5XXB Active 000168802 ALLERGIES No Known Allergies ENCOUNTERS Encounter Location Date Diagnosis [facility] [address] [id number] Oct, [place] [id number] [place] [address] 79153- 0908 Oct, [facility] [id number] [place] [address] 51676- 0408 Oct, [facility] [id number] [place] [address] 75809- 1613 Sep, Dental examination Z01.20 [facility] [id number] [place] [address] 88418- 4523 Sep, Seizure disorder G40.909 ; Vision disorder H53.9 and Dental abscess K04.7 [facility] [address] 22104- 5731 Aug, [facility] [id number] [place] [address] 65422- 5661 Jun, Seizure disorder G40.909 and Long-term use of high-risk medication Z79.899 [place] [id number] [place] [address] 90645- 9716 Jun, [place] [address] 22218- 0932 May, Generalized anxiety disorder F41.1 ; Panic disorder [ episodic paroxysmal anxiety] without agoraphobia F41.0 ; Other schizophrenia F20.89 and Attention deficit hyperactivity disorder (ADHD), unspecified ADHD type F90.9 [place] [id number] [place] [address] 67445- 7246 May, Dental examination Z01.20 ; Open broken tooth due to trauma without complication, initial encounter S02.5XXB and Chronic periodontal disease K05.6 [place] [id number] [place] [address] 27242- 3130 May, Intractable epilepsy without status epilepticus, unspecified epilepsy type G40.919 [place] [id number] [place] [address] 71694- 4691 May, Seizure disorder G40.909 [place] [id number] [place] [address] 91441- 7501 May, Seizure disorder G40.909 [place] [id number] [place] [address] 60335- 8378 May, [place] [id number] [place] [address] 28766- 2913 May, [place] [id number] [place] [address] 06524- 1552 Mar, [place] [id number] [place] [address] 07429- 6361 Feb, [place] [id number] [place] [address] 57354- 0968 Feb, Seizure disorder G40.909 ; Acute upper respiratory infection , unspecified J06.9 and Other viral agents as the cause of diseases classified elsewhere B97.89 [facility] [id number] [place] [address] 31043- 0635 Jan, [facility] [id number] [place] [address] 02743- 1902 Jan, [facility] [id number] [place] [address] 58771- 7082 Dec, [facility] [id number] [place] [address] 78539- 7645 Nov, Panic disorder [episodic paroxysmal anxiety] without agoraphobia F41.0 and Generalized anxiety disorder F41.1 [place] [id number] [place] [address] 07091- 3428 Nov, [facility] [id number] [place] [address] 73121- 6315 Nov, Encounter to establish care Z76.89 ; Seizures R56.9 and Anxiety F41.9 [facility] [id number] [place] [address] 23609- 8233 Oct, [facility] [id number] [place] [address] 88281- 5939 Oct, [facility] [id number] [place] [address] 41226- 3009 Sep, [facility] [id number] [place] [address] 26201- 5489 Jan, [facility] [id number] [place] [address] 96830- 2881 Jan, [facility] [id number] [place] [address] 93386- 1634 Aug, [facility] [address] [place] [address]- 6463 Aug, [facility] [address] [facility] [id number] [place] [address]- 7980 Jun, [facility] [address] [facility] [id number] [place] [address]- 4170 Jun, [facility] [address] [facility] [id number] [place] [address]- 3269 May, [facility] [address] [facility] [id number] [place] 9284 May, IMMUNIZATIONS No Known Immunizations SOCIAL HISTORY Never Assessed REASON FOR VISIT Seizure fu -- shankar medeiros, needing refill on medication PLAN OF CARE Activity Details Follow Up 6 Months Reason:Seizure VITAL SIGNS Height 5'6" in 2017-07-24 Weight 206.6 lbs 2017-07-24 Temperature 98.0 degrees Fahrenheit 2017-07-24 Heart Rate 78 bpm 2017-07-24 Respiratory Rate 20 2017-07-24 BMI 33.34 kg/m2 2017-07-24 Blood pressure systolic 128 mmHg 2017-07-24 Blood pressure diastolic 82 mmHg 2017-07-24 MEDICATIONS Medication Instructions Dosage Frequency Start Date End Date Duration Status Depakote 500 mg Orally 3 times a day 1 tablet 8h 22 May, 2017 Active Oxycodone HCl Active Keppra 750 MG Orally 2 times a day 1 tablet 12h 15 Nov, 2015 Active Lamictal 25 MG Orally 3-4 times per week 1 tablet Active RESULTS No Results PROCEDURES Procedure Date Ordered Result Body Site LAB NOT BILLED BY [facility] July 24, 2017 [facility]* July 24, 2017 INSTRUCTIONS MEDICATIONS ADMINISTERED No Known Medications MEDICAL (GENERAL) HISTORY Type Description Date Medical History epilepsy Hospitalization History Seizure disorder, possible aspiration-Via [facility] 11/01/15 Hospitalization History [facility] Se[facility] 2017
--- OUTSIDE RECORDS SUMMARY | 2018-01-17 11:22 | XMS REPORT ---
Author Author KARL DELACRUZ [facility] Address [address] [place] [address] Care Team Providers Care Mixing Place Supervisor Name Role Phone KARL DELACRUZ Unavailable PROBLEMS Type Condition ICD9-CM Code CLC85-XG Code Onset Dates Condition Status SNOMED Code Problem Panic disorder [episodic paroxysmal anxiety] without agoraphobia F41.0 Active 566176163 Problem Generalized anxiety disorder F41.1 Active 49051721 Problem Other schizophrenia F20.89 Active 94067928 Problem Attention deficit hyperactivity disorder (ADHD), unspecified ADHD type F90.9 Active 090389131 Problem Intractable epilepsy without status epilepticus, unspecified epilepsy type G40.919 Active 850139254 Problem Seizure disorder G40.909 Active 079066519 Problem Chronic periodontal disease K05.6 Active 5371058 Problem Open broken tooth due to trauma without complication, initial encounter S02.5XXB Active 174323696 ALLERGIES No Known Allergies ENCOUNTERS Encounter Location Date Diagnosis [facility] [address] [id number] Oct, Dental examination Z01.20 and Caries K02.9 [place] [id number] [place] [address] 62639- 8263 Sep, Dental examination Z01.20 [facility] [id number] [place] [address] 54140- 4141 Sep, Seizure disorder G40.909 ; Vision disorder H53.9 and Dental abscess K04.7 [facility] [id number] [place] [address] 15137- 0295 Aug, [facility] [id number] [place] [address] 94380- 3096 Jun, Seizure disorder G40.909 and Long-term use of high-risk medication Z79.899 [place] [id number] [place] [address] 94700- 8041 Jun, [place] [id number] [place] [address]- 8585 May, Generalized anxiety disorder F41.1 ; Panic disorder [ episodic paroxysmal anxiety] without agoraphobia F41.0 ; Other schizophrenia F20.89 and Attention deficit hyperactivity disorder (ADHD), unspecified ADHD type F90.9 [place] [id number] [place] [address] 91114- 7481 May, Dental examination Z01.20 ; Open broken tooth due to trauma without complication, initial encounter S02.5XXB and Chronic periodontal disease K05.6 [place] [id number] [place] [address] 08359- 7534 May, Intractable epilepsy without status epilepticus, unspecified epilepsy type G40.919 [place] [id number] [place] [address] 37066- 9049 May, Seizure disorder G40.909 [place] [id number] [place] [address] 85808- 6849 May, Seizure disorder G40.909 [place] [id number] [place] [address] 85622- 0703 May, [place] [id number] [place] [address] 97702- 6322 May, [place] [id number] [place] [address] 44800- 5463 Mar, [place] [id number] [place] [address] 53614- 5136 Feb, [place] [id number] [place] [address] 88501- 9048 Feb, Seizure disorder G40.909 ; Acute upper respiratory infection , unspecified J06.9 and Other viral agents as the cause of diseases classified elsewhere B97.89 [facility] [id number] [place] [address] 37794- 7275 Jan, [facility] [id number] [place] [address] 34976- 3748 Jan, [facility] [id number] [place] [address] 08563- 0363 Dec, [facility] [address] 74691- 6277 Nov, Panic disorder [episodic paroxysmal anxiety] without agoraphobia F41.0 and Generalized anxiety disorder F41.1 [facility] [address] 74043- 4269 Nov, [facility] [id number] [place] [address] 31197- 6901 Nov, Encounter to establish care Z76.89 ; Seizures R56.9 and Anxiety F41.9 [facility] [id number] [place] [address] 31947- 2642 Oct, [facility] [id number] [place] [address] 18266- 9161 Oct, [facility] [id number] [place] [address] 80431- 9430 Sep, [facility] [id number] [place] [address] 44408- 0136 Jan, [facility] [id number] [place] [address] 12535- 7267 Jan, [facility] [id number] [place] [address] 97469- 9772 Aug, [facility] [id number] [place] [address] 15417- 7604 Aug, [facility] [id number] [place] [address] 62500- 7248 Jun, [facility] [address] [facility] [id number] [place] [address]- 1512 Jun, [facility] [address] [facility] [id number] [place] [address]- 5066 May, [facility] [address] [facility] [id number] [place] [address]- 7384 May, IMMUNIZATIONS No Known Immunizations SOCIAL HISTORY Never Assessed REASON FOR VISIT Seizure--[facility]ettRN PLAN OF CARE Activity Details Follow Up 3 Months Reason: VITAL SIGNS Height 5'6" in 2017-10-09 Weight 211.3 lbs 2017-10-09 Temperature 98.3 degrees Fahrenheit 2017-10-09 Heart Rate 88 bpm 2017-10-09 Respiratory Rate 20 2017-10-09 BMI 34.10 kg/m2 2017-10-09 Blood pressure systolic 130 mmHg 2017-10-09 Blood pressure diastolic 82 mmHg 2017-10-09 MEDICATIONS Medication Instructions Dosage Frequency Start Date End Date Duration Status Augmentin 500-125 MG Orally 2 times a day as directed h Sep, Sep, 10 days Active Oxycodone HCl Active Augmentin 500-125 MG Orally 2 times a day 1 tablet 12h 12 Sep, 2017Sep 10 days Active Keppra 750 MG Orally 2 times a day 1 tablet 12h 15 Nov, 2015 Active Lamictal 25 MG Orally Once a day 1 tablet 24h 30 day Active Depakote 500 mg Orally 3 times a day 1 tablet 8h May, Active RESULTS No Results PROCEDURES No Known procedures INSTRUCTIONS MEDICATIONS ADMINISTERED No Known Medications MEDICAL (GENERAL) HISTORY Type Description Date Medical History epilepsy Hospitalization History Seizure disorder, possible aspiration-Via [facility] 11/01/15 Hospitalization [facility] Se[facility]ures 2017
--- OUTSIDE RECORDS SUMMARY | 2018-01-17 11:23 | XMS REPORT ---
Author Author JUSTEN Laughlin Organization [facility] Address [address] [place] [address] Care Team Providers Care Silverware Buffer Name Role Phone JUSTEN Laughlin Unavailable PROBLEMS Type Condition ICD9-CM Code TGE32-NV Code Onset Dates Condition Status SNOMED Code Problem Panic disorder [episodic paroxysmal anxiety] without agoraphobia F41.0 Active 674396370 Problem Generalized anxiety disorder F41.1 Active 36086701 Problem Other schizophrenia F20.89 Active 71967914 Problem Attention deficit hyperactivity disorder (ADHD), unspecified ADHD type F90.9 Active 606510690 Problem Intractable epilepsy without status epilepticus, unspecified epilepsy type G40.919 Active 274145549 Problem Seizure disorder G40.909 Active 600931285 Problem Chronic periodontal disease K05.6 Active 9575548 Problem Open broken tooth due to trauma without complication, initial encounter S02.5XXB Active 906354384 ALLERGIES No Known Allergies ENCOUNTERS Encounter Location Date Diagnosis [facility] [id number] [place] [address] [id number] Oct, [facility] [id number] [place] [address] 91507- 3301 Sep, Dental examination Z01.20 [facility] [id number] [place] [address] 06010- 4140 Sep, Seizure disorder G40.909 ; Vision disorder H53.9 and Dental abscess K04.7 [facility] [id number] [place] [address] 04803- 3360 Aug, [facility] [id number] [place] [address] 00262- 3447 Jun, Seizure disorder G40.909 and Long-term use of high-risk medication Z79.899 [place] [id number] [place] [address] 29554- 8439 Jun, [place] [id number] [place] [address] 70377- 3318 May, Generalized anxiety disorder F41.1 ; Panic disorder [ episodic paroxysmal anxiety] without agoraphobia F41.0 ; Other schizophrenia F20.89 and Attention deficit hyperactivity disorder (ADHD), unspecified ADHD type F90.9 [place] [id number] [place] [address] 76864- 7054 May, Dental examination Z01.20 ; Open broken tooth due to trauma without complication, initial encounter S02.5XXB and Chronic periodontal disease K05.6 [place] [id number] [place] [address] 05485- 3591 May, Intractable epilepsy without status epilepticus, unspecified epilepsy type G40.919 [place] [id number] [place] [address] 34541- 3738 May, Seizure disorder G40.909 [place] [facility] [id number] [place] [address] 53340- 3425 May, Seizure disorder G40.909 [facility] [facility] [id number] [place] [address] 21713- 9764 May, [place] [id number] [place] [address] 38008- 7800 May, [place] [id number] [place] [address] 47394- 1336 Mar, [facility] [facility] [id number] [place] [address] 58212- 1094 Feb, [facility] [id number] [place] [address] 48578- 3995 Feb, Seizure disorder G40.909 ; Acute upper respiratory infection , unspecified J06.9 and Other viral agents as the cause of diseases classified elsewhere B97.89 [facility] [id number] [place] [address] 32389- 0705 Jan, [facility] [id number] [place] [address] 07285- 2950 Jan, [facility] [id number] [place] [address] 34742- 2409 Dec, [facility] [id number] [place] [address] 78855- 8242 Nov, Panic disorder [episodic paroxysmal anxiety] without agoraphobia F41.0 and Generalized anxiety disorder F41.1 [facility] [id number] [place] [address] 19585- 6481 Nov, [facility] [id number] [place] [address] 86759- 2413 Nov, Encounter to establish care Z76.89 ; Seizures R56.9 and Anxiety F41.9 [facility] [id number] [place] [address] 46999- 9687 Oct, [facility] [id number] [place] [address] 79762- 0796 Oct, [facility] [id number] [place] [address] 16842- 1821 Sep, [facility] [address] [place] [address] 81891- 6639 Jan, [facility] [id number] [place] [address] 61731- 8412 Jan, [facility] [id number] [place] [address] 35478- 6467 Aug, [facility] [id number] [place] [address] 22853- 1901 Aug, [facility] [address] [address]- 5172 Jun, [facility] [address] [place] [address]- 1822 Jun, [facility] [address] [facility] [id number] [address]- 7621 May, [facility] [address] [facility] [id number] [place] [address]- 1246 May, IMMUNIZATIONS No Known Immunizations SOCIAL HISTORY Never Assessed REASON FOR VISIT VIA C ER f/u, at the end of last week the PT had a GrandMal seizer and hit his face on the way down busting open his lip, hitting his right eye and lost some teeth-Teressa MELENDREZ PLAN OF CARE Activity Details Follow Up Dr Colon Reason:intractable seizure VITAL SIGNS Weight 203.7 lbs 2017-06-23 Temperature 98.5 degrees Fahrenheit 2017-06-23 Heart Rate 78 bpm 2017-06-23 Respiratory Rate 18 2017-06-23 Blood pressure systolic 130 mmHg 2017-06-23 Blood pressure diastolic 84 mmHg 2017-06-23 MEDICATIONS Medication Instructions Dosage Frequency Start Date End Date Duration Status Topamax 100 MG Orally Twice a day 1 tablet 12h Not-Taking Depakote 500 mg Orally 3 times a day 1 tablet 8h May, Active Keppra 750 MG Orally 2 times a day 1 tablet 12h 15 Nov, 2015 Active RESULTS Name Result Date Reference Range VALPROIC ACID/DEPAKOTE 2017-06-23 VALPROIC ACID 63.2 50.0-100.0 PROCEDURES Procedure Date Ordered Result Body Site LAB NOT BILLED BY [facility] June 23, 2017 VENIPUNCT, ROUTINE* June 23, 2017 INSTRUCTIONS MEDICATIONS ADMINISTERED No Known Medications MEDICAL (GENERAL) HISTORY Type Description Date Medical History epilepsy Hospitalization History Seizure disorder, possible aspiration-Via [facility] 11/01/15 Hospitalization History [facility] Se[facility]ures 2017
--- OUTSIDE RECORDS SUMMARY | 2018-01-17 11:23 | XMS REPORT ---
Author Author EWRNER RG [facility] Address [address] [place] [address] Care Team Providers Care Obstetrics/Gynecology Nurse Name Role Phone WERNER GR Unavailable PROBLEMS Type Condition ICD9-CM Code JBA74-FC Code Onset Dates Condition Status SNOMED Code Problem Panic disorder [episodic paroxysmal anxiety] without agoraphobia F41.0 Active 297106866 Problem Generalized anxiety disorder F41.1 Active 47287142 Problem Other schizophrenia F20.89 Active 44002406 Problem Attention deficit hyperactivity disorder (ADHD), unspecified ADHD type F90.9 Active 791118909 Problem Intractable epilepsy without status epilepticus, unspecified epilepsy type G40.919 Active 718468569 Problem Seizure disorder G40.909 Active 611564583 Problem Chronic periodontal disease K05.6 Active 8384702 Problem Open broken tooth due to trauma without complication, initial encounter S02.5XXB Active 489135617 ALLERGIES No Information ENCOUNTERS Encounter Location Date Diagnosis [facility] [address] [place] [address] [id number] Oct, [facility] [id number] [place] [address] 57380- 5368 Sep, Dental examination Z01.20 [facility] [id number] [place] [address] 44205- 6051 Sep, Seizure disorder G40.909 ; Vision disorder H53.9 and Dental abscess K04.7 [place] [id number] [place] [address] 38157- 9254 Aug, [facility] [id number] [place] [address] 42305- 5177 Jun, Seizure disorder G40.909 and Long-term use of high-risk medication Z79.899 [place] [id number] [place] [address] 94300- 1313 Jun, [place] [address] [id number]- 9182 May, Generalized anxiety disorder F41.1 ; Panic disorder [ episodic paroxysmal anxiety] without agoraphobia F41.0 ; Other schizophrenia F20.89 and Attention deficit hyperactivity disorder (ADHD), unspecified ADHD type F90.9 [place] [address] 80472- 4685 May, Dental examination Z01.20 ; Open broken tooth due to trauma without complication, initial encounter S02.5XXB and Chronic periodontal disease K05.6 [place] [id number] [place] [address] 37316- 5927 May, Intractable epilepsy without status epilepticus, unspecified epilepsy type G40.919 [place] [address] 54482- 8617 May, Seizure disorder G40.909 [place] [id number] [place] [address] 16689- 5209 May, Seizure disorder G40.909 [place] [id number] [place] [address] 91068- 5155 May, [place] [id number] [place] [address] 49187- 5713 May, [place] [id number] [place] [address] 10044- 4987 Mar, [place] [id number] [place] [address] 60116- 4161 Feb, [place] [address] [id number]- 0346 Feb, Seizure disorder G40.909 ; Acute upper respiratory infection , unspecified J06.9 and Other viral agents as the cause of diseases classified elsewhere B97.89 [place] [id number] [place] [address] 82388- 7158 Jan, [facility] [id number] [place] [address] 40490- 2082 Jan, [facility] [id number] [place] [address] 67870- 1268 Dec, [facility] [id number] [place] [address] 16205- 3372 Nov, Panic disorder [episodic paroxysmal anxiety] without agoraphobia F41.0 and Generalized anxiety disorder F41.1 [facility] [id number] [place] [address] 54558- 9278 Nov, [facility] [id number] [place] [address] 37730- 5801 Nov, Encounter to establish care Z76.89 ; Seizures R56.9 and Anxiety F41.9 [facility] [id number] [place] [address] 68612- 2835 Oct, [facility] [id number] [place] [address] 73216- 4510 Oct, [facility] [id number] [place] [address] 92539- 3625 Sep, [facility] [id number] [place] [address] 37127- 3820 Jan, [facility] [id number] [place] [address] 30943- 5128 Jan, [facility] [id number] [place] [address] 27670- 0083 Aug, [facility] [id number] [place] [address] 52666- 2488 Aug, [facility] [address] [place] [address] 95340- 2967 Jun, [facility] [id number] [place] [address], [place] [address]- 6665 Jun, [facility] [address] [facility] [id number] [place] [address]- 5312 May, [facility] [address] [facility] [id number] [place] [address]- 2437 May, IMMUNIZATIONS No Known Immunizations SOCIAL HISTORY Never Assessed REASON FOR VISIT Controlled Med Refill PLAN OF CARE VITAL SIGNS MEDICATIONS Unknown Medications RESULTS No Results PROCEDURES No Known procedures INSTRUCTIONS MEDICATIONS ADMINISTERED No Known Medications MEDICAL (GENERAL) HISTORY Type Description Date Medical History epilepsy Hospitalization History Seizure disorder, possible aspiration-Via [facility] 11/01/15 Hospitalization History [facility] Seizures 2018
--- OUTSIDE RECORDS SUMMARY | 2018-01-17 11:23 | XMS REPORT ---
Author Author JACE SOLER [facility] Address [address] [place] [address] Care Team Providers Care Credit Risk Review Officer Name Role Phone JACE SOLER Unavailable PROBLEMS Type Condition ICD9-CM Code UCC92-WZ Code Onset Dates Condition Status SNOMED Code Problem Panic disorder [episodic paroxysmal anxiety] without agoraphobia F41.0 Active 545699416 Problem Generalized anxiety disorder F41.1 Active 92732878 Problem Other schizophrenia F20.89 Active 06798211 Problem Attention deficit hyperactivity disorder (ADHD), unspecified ADHD type F90.9 Active 524855483 Problem Intractable epilepsy without status epilepticus, unspecified epilepsy type G40.919 Active 667895052 Problem Seizure disorder G40.909 Active 565081969 Problem Chronic periodontal disease K05.6 Active 5604454 Problem Open broken tooth due to trauma without complication, initial encounter S02.5XXB Active 019824292 ALLERGIES No Known Allergies ENCOUNTERS Encounter Location Date Diagnosis [facility] [id number] [place] [address] [id number] Oct, [facility] [id number] [place] [address] 42073- 9029 Sep, Dental examination Z01.20 [facility] [address] 75290- 9313 Sep, Seizure disorder G40.909 ; Vision disorder H53.9 and Dental abscess K04.7 [facility] [address] 18696- 8005 Aug, [facility] [address] 33696- 0333 Jun, Seizure disorder G40.909 and Long-term use of high-risk medication Z79.899 [place] [id number] [place] [address] 03123- 3618 Jun, [place] [address] 31072- 2504 May, Generalized anxiety disorder F41.1 ; Panic disorder [ episodic paroxysmal anxiety] without agoraphobia F41.0 ; Other schizophrenia F20.89 and Attention deficit hyperactivity disorder (ADHD), unspecified ADHD type F90.9 [place] [id number] [place] [address] 71204- 7591 May, Dental examination Z01.20 ; Open broken tooth due to trauma without complication, initial encounter S02.5XXB and Chronic periodontal disease K05.6 [place] [id number] [place] [address] 80870- 2488 May, Intractable epilepsy without status epilepticus, unspecified epilepsy type G40.919 [place] [id number] [place] [address] 55056- 5724 May, Seizure disorder G40.909 [place] [id number] [place] [address] 88736- 1241 May, Seizure disorder G40.909 [place] [id number] [place] [address] 20983- 9699 May, [place] [id number] [place] [address] 99639- 4467 May, [place] [id number] [place] [address] 10006- 0551 Mar, [place] [address] 44142- 6238 Feb, [place] [address] [id number]- 4803 Feb, Seizure disorder G40.909 ; Acute upper respiratory infection , unspecified J06.9 and Other viral agents as the cause of diseases classified elsewhere B97.89 [place] [address] [id number] [address]- 4660 Jan, [facility] [id number] [place] [address] 47420- 8462 Jan, [facility] [id number] [place] [address] 30467- 1244 Dec, [facility] [id number] [place] [address] 23811- 4712 Nov, Panic disorder [episodic paroxysmal anxiety] without agoraphobia F41.0 and Generalized anxiety disorder F41.1 [facility] [id number] [place] [address] 19561- 8478 Nov, [facility] [id number] [place] [address] 70279- 5984 Nov, Encounter to establish care Z76.89 ; Seizures R56.9 and Anxiety F41.9 [facility] [id number] [place] [address] 65586- 5962 Oct, [facility] [id number] [place] [address] 01589- 5597 Oct, [facility] [id number] [place] [address] 64768- 4939 Sep, [facility] [address], [place] [address]- 7407 Jan, [facility] [address] [place] [address] 69241- 2498 Jan, [facility] [address] [place] [address] 05017- 6526 Aug, [facility] [id number] [place] [address] 32102- 1310 Aug, [facility] [address], [place] [address]- 5914 Jun, [facility] [id number] [place] [address]- 1437 Jun, [facility] [address] [facility] [id number] [place]- 4948 May, [facility] [address] [facility] [id number] [place]- 0969 May, IMMUNIZATIONS No Known Immunizations SOCIAL HISTORY Never Assessed REASON FOR VISIT internal med/ referal for injury PLAN OF CARE Activity Details Follow Up 1 Week Reason:rsoi and possible TE Fractured #12 VITAL SIGNS MEDICATIONS Medication Instructions Dosage Frequency Start Date End Date Duration Status Topamax 100 MG Orally Twice a day 1 tablet 12h Not-Taking Keppra 750 MG Orally 2 times a day 1 tablet 12h 15 Nov, 2015 Active Depakote 500 mg Orally 3 times a day 1 tablet 8h 22 May, 2017 Active RESULTS No Results PROCEDURES Procedure Date Ordered Result Body Site INTRAORL-PERIAPICAL 1 FILM [id number] June 23, 2017 INTRAORL-PERIAPICAL EA ADD FILM June 23, 2017 SCREENING OF A PATIENT June 23, 2017 PANORAMIC FILM SEE ALSO CODE [id number] June 23, 2017 Billing Notes on claim June 23, 2017 INSTRUCTIONS MEDICATIONS ADMINISTERED No Known Medications MEDICAL (GENERAL) HISTORY Type Description Date Medical History epilepsy Hospitalization History Seizure disorder, possible aspiration-Via [facility] 11/01/15 Hospitalization History [facility] Se[facility]ures 2017
--- OUTSIDE RECORDS SUMMARY | 2018-01-17 11:23 | XMS REPORT ---
Author Author CLARITA Beal Organization [facility] Address [address] [place] [address] Care Team Providers Care Pulp Mixer Name Role Phone Emigdio CLARITA Unavailable PROBLEMS Type Condition ICD9-CM Code OPI21-VA Code Onset Dates Condition Status SNOMED Code Problem Panic disorder [episodic paroxysmal anxiety] without agoraphobia F41.0 Active 745280221 Problem Generalized anxiety disorder F41.1 Active 49113800 Problem Other schizophrenia F20.89 Active 45130733 Problem Attention deficit hyperactivity disorder (ADHD), unspecified ADHD type F90.9 Active 202913743 Problem Intractable epilepsy without status epilepticus, unspecified epilepsy type G40.919 Active 991377042 Problem Seizure disorder G40.909 Active 871137634 Problem Chronic periodontal disease K05.6 Active 3230066 Problem Open broken tooth due to trauma without complication, initial encounter S02.5XXB Active 871116665 ALLERGIES No Information ENCOUNTERS Encounter Location Date Diagnosis [facility] [address] [id number] Oct, [facility] [address] [address]- [address] Sep, Dental examination Z01.20 [place] [address] 21880- 6881 Sep, Seizure disorder G40.909 ; Vision disorder H53.9 and Dental abscess K04.7 [place] [address] 20239- 3196 Aug, [facility] [address] 24[address]- 9499 Jun, Seizure disorder G40.909 and Long-term use of high-risk medication Z79.899 [place] [address] [place] [id number] [place] [address] 61436- 9662 Jun, [place] [address] [place] [id number] 8238 May, Generalized anxiety disorder F41.1 ; Panic disorder [ episodic paroxysmal anxiety] without agoraphobia F41.0 ; Other schizophrenia F20.89 and Attention deficit hyperactivity disorder (ADHD), unspecified ADHD type F90.9 [place] [address] 21052- 9354 May, Dental examination Z01.20 ; Open broken tooth due to trauma without complication, initial encounter S02.5XXB and Chronic periodontal disease K05.6 [place] [address] [place] [address] [id number] [place] [address] 50451- 2313 May, Intractable epilepsy without status epilepticus, unspecified epilepsy type G40.919 [place] [address] [address] [id number] [place] [address] 71583- 1283 May, Seizure disorder G40.909 [place] [address] [address] [id number] [place] [address] 75151- 1324 May, Seizure disorder G40.909 [place] [address] [address] [id number] [place] [address] 56267- 9702 May, [place] [address] [address] [id number] [place] [address] 52528- 9349 May, [place] [address] [address] [id number] [place] [address] 30743- 5861 Mar, [place] [address] [address] [id number] [place] [address] 17571- 8223 Feb, [place] [address] [place] [id number]- 0696 Feb, Seizure disorder G40.909 ; Acute upper respiratory infection , unspecified J06.9 and Other viral agents as the cause of diseases classified elsewhere B97.89 [place] [address] [id number] [address] Jan, [facility] [address] [id number] [place] [address] 48411- 4546 Jan, [facility] [address] [id number] [place] [address] 64586- 7839 Dec, [facility] [address] [id number] [place] [address] 23581- 9948 Nov, Panic disorder [episodic paroxysmal anxiety] without agoraphobia F41.0 and Generalized anxiety disorder F41.1 [facility] [address] [id number] [place] [address] 63375- 4651 Nov, [facility] [address] [id number] [place] [address] 15753- 5957 Nov, Encounter to establish care Z76.89 ; Seizures R56.9 and Anxiety F41.9 [facility] [address] [address] [id number] [place] [address] 68764- 0142 Oct, [facility] [address] [address] [id number] [place] [address] 30317- 6312 Oct, [facility] [address] [id number] [place] [address] 52890- 7027 Sep, [facility] [id number] [place] [address] 40700- 0427 Jan, [facility] [id number] [place] [address] 69391- 9714 Jan, [facility] [address] [place] [address] [id number] [place] [address] 67461- 2187 Aug, [facility] [address] [id number] [place] [address] 05241- 7147 Aug, [facility] [address] [address] 3142 Jun, [facility] [address] [place] [address] [id number] [place] [address]- 9953 Jun, [facility] [address] [facility] [id number] [place] [address]- [address]64 May, [facility] [address] [facility] [id number] [place] [address]- 0641 May, IMMUNIZATIONS No Known Immunizations SOCIAL HISTORY Never Assessed REASON FOR VISIT [facility] Contact PLAN OF CARE Activity Details Follow Up Not rescheduled with me. Scheduled with psychiatric provider Reason :Anxiety, ADHD, Schizophrenia VITAL SIGNS MEDICATIONS Medication Instructions Dosage Frequency Start Date End Date Duration Status Keppra 750 MG Orally 2 times a day 1 tablet 12h 15 Nov, 2015 Unknown Topamax 100 MG Orally Twice a day 1 tablet 12h Unknown Depakote 500 mg Orally 3 times a day 1 tablet 8h 22 May, 2017 Unknown RESULTS No Results PROCEDURES Procedure Date Ordered Result Body Site Psych diagnostic evaluation, new patient June 23, 2017 INSTRUCTIONS MEDICATIONS ADMINISTERED No Known Medications MEDICAL (GENERAL) HISTORY Type Description Date Medical History epilepsy Hospitalization History Seizure disorder, possible aspiration-Via [facility] 11/01/15 Hospitalization History [facility]- Seizures 2017
--- OUTSIDE RECORDS SUMMARY | 2018-01-17 11:23 | XMS REPORT ---
Author Author WERNER RG [facility] Address [address] [place] [address] Care Team Providers Care Calender Inspector Name Role Phone WERNER RG Unavailable PROBLEMS Type Condition ICD9-CM Code KVM23-BM Code Onset Dates Condition Status SNOMED Code Problem Panic disorder [episodic paroxysmal anxiety] without agoraphobia F41.0 Active 846936166 Problem Generalized anxiety disorder F41.1 Active 93574571 Problem Other schizophrenia F20.89 Active 87998459 Problem Attention deficit hyperactivity disorder (ADHD), unspecified ADHD type F90.9 Active 965973627 Problem Intractable epilepsy without status epilepticus, unspecified epilepsy type G40.919 Active 063258710 Problem Seizure disorder G40.909 Active 002193198 Problem Chronic periodontal disease K05.6 Active 6140636 Problem Open broken tooth due to trauma without complication, initial encounter S02.5XXB Active 187178591 ALLERGIES No Information ENCOUNTERS Encounter Location Date Diagnosis [facility] [id number] [place] [id number] Oct, [facility] [address] [place] [id number] [place] [address] 09028- 5247 Sep, Dental examination Z01.20 [facility] [address] [address] [id number] [place] [address] 62182- 3867 Sep, Seizure disorder G40.909 ; Vision disorder H53.9 and Dental abscess K04.7 [place] [address] [place] [id number] [place] [address] 76410- 0146 Aug, [facility] [address] [place] [address] [id number] [place] [address] 94010- 6644 Jun, Seizure disorder G40.909 and Long-term use of high-risk medication Z79.899 [place] [address] [place] [address] [id number] [place] [address] 82411- 5645 Jun, [place] [address] [place] [phone]- 6320 May, Generalized anxiety disorder F41.1 ; Panic disorder [ episodic paroxysmal anxiety] without agoraphobia F41.0 ; Other schizophrenia F20.89 and Attention deficit hyperactivity disorder (ADHD), unspecified ADHD type F90.9 [place] [address] [address]- 6616 May, Dental examination Z01.20 ; Open broken tooth due to trauma without complication, initial encounter S02.5XXB and Chronic periodontal disease K05.6 [place] [address] [place] [id number] [place] [address] 71981- 9592 May, Intractable epilepsy without status epilepticus, unspecified epilepsy type G40.919 [place] [address] 36217- 7680 May, Seizure disorder G40.909 [place] [address] [place] [id number] [place] [address] 21686- 2098 May, Seizure disorder G40.909 [place] [address] [place] [id number] [place] [address] 09445- 1998 May, [place] [address] [place] [id number] [place] [address] 55246- 4137 May, [place] [address] [place] [id number] [place] [address] 60227- 5559 Mar, [place] [address] [place] [id number] [place] [address] 62056- 2208 Feb, [place] [address] [place] [id number]- 1083 Feb, Seizure disorder G40.909 ; Acute upper respiratory infection , unspecified J06.9 and Other viral agents as the cause of diseases classified elsewhere B97.89 [place] [address] [place] [id number] [place] [address] 05473- 2607 Jan, [facility] [id number] [place] [address] 06757- 5430 Jan, [facility] [id number] [place] [address] 35331- 3930 Dec, [facility] [address] [place] [id number] [place] [address] 52860- 6511 Nov, Panic disorder [episodic paroxysmal anxiety] without agoraphobia F41.0 and Generalized anxiety disorder F41.1 [facility] [address] [place] [id number] [place] [address] 94661- 3163 Nov, [facility] [address] [place] [id number] [place] [address] 46220- 3472 Nov, Encounter to establish care Z76.89 ; Seizures R56.[address] [facility] [address] [place] [id number] [place] [address] 31142- 7777 Oct, [facility] [address] [id number] [place] [address] 51274- 4561 Oct, [facility] [address] [id number] [place] [address] 45308- 4258 Sep, [facility] [address] [id number] [place] [address] 40925- 6185 Jan, [facility] [address] [id number] [place] [address] 08012- 2656 Jan, [facility] [address] [place] [id number] [place] [address] 37824- 0354 Aug, [facility] [address] [id number] [place] [address] 75281- 8534 Aug, [facility] [id number] [place] [address] 07764- 3660 Jun, [facility] [address] [place] [id number] [place] [address], [place] [address]- [address] Jun, [facility] [address] [facility] [id number] [place] [address]- 5672 May, [facility] [address] [facility] [id number] [place] [id number]484 May, IMMUNIZATIONS No Known Immunizations SOCIAL HISTORY Never Assessed REASON FOR VISIT pt followup from ER PLAN OF CARE VITAL SIGNS MEDICATIONS Unknown Medications RESULTS No Results PROCEDURES No Known procedures INSTRUCTIONS MEDICATIONS ADMINISTERED No Known Medications MEDICAL (GENERAL) HISTORY Type Description Date Medical History epilepsy Hospitalization History Seizure disorder, possible aspiration-Via [facility] 11/01/15 Hospitalization History [facility]- Seizures 2018
--- OUTSIDE RECORDS SUMMARY | 2018-01-17 11:23 | XMS REPORT ---
Author Author JUSTEN Laughlin Organization [facility] Address [address] [place] [address] Care Team Providers Care Real Estate Associate Name Role Phone JUSTEN Laughlin Unavailable PROBLEMS Type Condition ICD9-CM Code GYU39-YZ Code Onset Dates Condition Status SNOMED Code Problem Panic disorder [episodic paroxysmal anxiety] without agoraphobia F41.0 Active 970175790 Problem Generalized anxiety disorder F41.1 Active 77257076 Problem Other schizophrenia F20.89 Active 35291305 Problem Attention deficit hyperactivity disorder (ADHD), unspecified ADHD type F90.9 Active 468678273 Problem Intractable epilepsy without status epilepticus, unspecified epilepsy type G40.919 Active 513575542 Problem Seizure disorder G40.909 Active 692022476 Problem Chronic periodontal disease K05.6 Active 4082678 Problem Open broken tooth due to trauma without complication, initial encounter S02.5XXB Active 061887300 ALLERGIES No Information ENCOUNTERS Encounter Location Date Diagnosis [facility] [address] [place] [id number] [place] [id number] Oct, [facility] [address] [place] [id number] [place] [address] 44458- 6173 Sep, Dental examination Z01.20 [facility] [address] [place] [id number] [place] [address] 25042- 0203 Sep, Seizure disorder G40.909 ; Vision disorder H53.9 and Dental abscess K04.7 [facility] [address] [place] [id number] [place] [address] 43737- 0058 Aug, [facility] [address] [place] [address] [id number] [place] [address] 85841- 1802 Jun, Seizure disorder G40.909 and Long-term use of high-risk medication Z79.899 [place] [address] [place] [address] [id number] [place] [address] 02618- 5925 Jun, [place] [address] [place] [id number] [place] [address] 59259- 5044 May, Generalized anxiety disorder F41.1 ; Panic disorder [ episodic paroxysmal anxiety] without agoraphobia F41.0 ; Other schizophrenia F20.89 and Attention deficit hyperactivity disorder (ADHD), unspecified ADHD type F90.9 [place] [address] [place] [id number] [place] [address] 36263- 1988 May, Dental examination Z01.20 ; Open broken tooth due to trauma without complication, initial encounter S02.5XXB and Chronic periodontal disease K05.6 [place] [address] [place] [id number] [place] [address] 74968- 7553 May, Intractable epilepsy without status epilepticus, unspecified epilepsy type G40.919 [place] [address] [place] [id number] [place] [address] 94344- 7193 May, Seizure disorder G40.909 [place] [address] [place] [id number] [place] [address] 09223- 0287 May, Seizure disorder G40.909 [place] [address] [place] [id number] [place] [address] 72060- 0640 May, [place] [address] [place] [id number] [place] [address] 45936- 7621 May, [place] [address] [place] [id number] [place] [address] 31844- 1627 Mar, [place] [address] [place] [id number] [place] [address] 93131- 3108 Feb, [place] [address] 29329- 7543 Feb, Seizure disorder G40.909 ; Acute upper respiratory infection , unspecified J06.9 and Other viral agents as the cause of diseases classified elsewhere B97.89 [facility] [address] [address]- 5217 Jan, [facility] [address] [place] [id number] [place] [address] 51448- 0904 Jan, [facility] [address] [place] [id number] [place] [address] 68599- 9117 Dec, [facility] [address] [place] [id number] [place] [address] 94949- 2160 Nov, Panic disorder [episodic paroxysmal anxiety] without agoraphobia F41.0 and Generalized anxiety disorder F41.1 [facility] [address] [place] [id number] [place] [address] 10847- 4871 Nov, [facility] [address] [place] [address] [id number] [place] [address] 13664- 1868 Nov, Encounter to establish care Z76.89 ; Seizures R56.9 and Anxiety F41.9 [facility] [address] [place] [id number] [place] [address] 58564- 9344 Oct, [facility] [address] [place] [id number] [place] [address] 54191- 7858 Oct, [facility] [address] [place] [id number] [place] [address] 07362- 7390 Sep, [facility] [id number] [place] [address] 87031- 2938 Jan, [facility] [address] [place] [id number] [place] [address] 53962- 9569 Jan, [facility] [id number] [place] [address] 05968- 2803 Aug, [facility] [id number] [place] [address] 02239- 4772 Aug, [facility] [address] [address]- 8749 Jun, [facility] [address] [id number] [place] [address]- 1576 Jun, [facility] [address] [id number] [address]- 0683 May, [facility] [address] [place] [id number] [place] [address]- 6247 May, IMMUNIZATIONS No Known Immunizations SOCIAL HISTORY Never Assessed REASON FOR VISIT clarification PLAN OF CARE VITAL SIGNS MEDICATIONS Medication Instructions Dosage Frequency Start Date End Date Duration Status Depakote 500 mg Orally 3 times a day 1 tablet 8h May, 05 days Active RESULTS No Results PROCEDURES No Known procedures INSTRUCTIONS MEDICATIONS ADMINISTERED No Known Medications MEDICAL (GENERAL) HISTORY Type Description Date Medical History epilepsy Hospitalization History Seizure disorder, possible aspiration-[facility]ia [facility] 11/01/15 Hospitalization History [facility]- Se[facility]ures 2017
--- OUTSIDE RECORDS SUMMARY | 2018-01-17 11:23 | XMS REPORT ---
Author Author JUSTEN Laughlin Organization [facility] Address [address] [place] [address] Care Team Providers Care Public Information Director Name Role Phone JUSTEN Laughlin Unavailable PROBLEMS Type Condition ICD9-CM Code PZV84-CA Code Onset Dates Condition Status SNOMED Code Problem Panic disorder [episodic paroxysmal anxiety] without agoraphobia F41.0 Active 208747333 Problem Generalized anxiety disorder F41.1 Active 71578029 Problem Other schizophrenia F20.89 Active 37255173 Problem Attention deficit hyperactivity disorder (ADHD), unspecified ADHD type F90.9 Active 098636362 Problem Intractable epilepsy without status epilepticus, unspecified epilepsy type G40.919 Active 394273185 Problem Seizure disorder G40.909 Active 341317684 Problem Chronic periodontal disease K05.6 Active 4371598 Problem Open broken tooth due to trauma without complication, initial encounter S02.5XXB Active [id number] ALLERGIES No Information ENCOUNTERS Encounter Location Date Diagnosis [facility] [id number] [place] [id number] Oct, [facility] [place] [id number] [place] [address] [phone]- 7316 Sep, Dental examination Z01.20 [facility] [place] [id number] [place] [address] 11883- 6118 Sep, Seizure disorder G40.909 ; Vision disorder H53.9 and Dental abscess K04.7 [facility] [place] [id number] [place] [address] [phone]- 6586 Aug, [facility] [place] [id number] [place] [address] 43297- 1006 Jun, Seizure disorder G40.909 and Long-term use of high-risk medication Z79.899 [facility] [id number] [place] [address] 50354- 6406 Jun, [facility] [id number] [place] [address] 77624- 1428 May, Generalized anxiety disorder F41.1 ; Panic disorder [ episodic paroxysmal anxiety] without agoraphobia F41.0 ; Other schizophrenia F20.89 and Attention deficit hyperactivity disorder (ADHD), unspecified ADHD type F90.9 [facility] [id number] [place] [address] 13715- 7547 May, Dental examination Z01.20 ; Open broken tooth due to trauma without complication, initial encounter S02.5XXB and Chronic periodontal disease K05.6 [facility] [id number] [place] [address] 98898- 9155 May, Intractable epilepsy without status epilepticus, unspecified epilepsy type G40.919 [facility] [id number] [place] [address] 15784- 0082 May, Seizure disorder G40.909 [facility] [id number] [place] [address] 50620- 0368 May, Seizure disorder G40.909 [facility] [id number] [place] [address] 41943- 1786 May, [facility] [id number] [place] [address] 93110- 8452 May, [facility] [id number] [place] [address] 51333- 4623 Mar, [facility] [id number] [place] [address] 21695- 2135 Feb, [facility] [address] [address]- [address]20 Feb, Seizure disorder G40.909 ; Acute upper respiratory infection , unspecified J06.9 and Other viral agents as the cause of diseases classified elsewhere B97.89 [facility] [place] [address] [address] Jan, [facility] [place] [id number] [place] [address] 33823- 9270 Jan, [facility] [place] [id number] [place] [address] 68357- 6179 Dec, [facility] [place] [id number] [place] [address] 48273- 4235 Nov, Panic disorder [episodic paroxysmal anxiety] without agoraphobia F41.0 and Generalized anxiety disorder F41.1 [facility] [place] [id number] [place] [address] 08554- 3793 Nov, [facility] [place] [id number] [place] [address] 21913- 0329 Nov, Encounter to establish care Z76.89 ; Seizures R56.9 and Anxiety F41.9 [facility] [place] [id number] [place] [address] 66316- 2435 Oct, [facility] [place] [id number] [place] [address] 38454- 9935 Oct, [facility] [place] [id number] [place] [address] 52617- 9294 Sep, [facility] [place] [id number] [place] [address] 55496- 5843 Jan, [facility] [place] [id number] [place] [address] 90742- 6680 Jan, [facility] [place] [id number] [place] [address] 88402- 3988 Aug, [facility] [place] [id number] [place] [address] 76979- 4122 Aug, [facility] [place] [id number] [place] [address] Jun, [facility] [place] [id number] [place] [address] Jun, [facility] [place] [address] [facility] [id number] [address] May, [facility] [place] [address] [facility] [id number] [address] May, IMMUNIZATIONS No Known Immunizations SOCIAL HISTORY Never Assessed REASON FOR VISIT PLAN OF CARE VITAL SIGNS MEDICATIONS Medication Instructions Dosage Frequency Start Date End Date Duration Status Depakote ER 500 mg Orally 3 times a day 1 tablet 8h 21 May, 2017 05 days Active Keppra 750 MG Orally 2 times a day 1 tablet 12h Nov, 05 days Active RESULTS No Results PROCEDURES No Known procedures INSTRUCTIONS MEDICATIONS ADMINISTERED No Known Medications MEDICAL (GENERAL) HISTORY Type Description Date Medical History epilepsy Hospitalization History Seizure disorder, possible aspiration-[facility] 11/01/15 Hospitalization History [facility]- Seizures 2017
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
--- NOTE | 2018-01-17 11:28 | ED Neurological Problem ---
General Chief Complaint: Neurological Problems Stated Complaint: SEIZURES Source: patient Exam Limitations: no limitations History of Present Illness Date Seen by Provider: Jan 17, 2018 Time Seen by Provider: 11:24 Initial Comments Patient is a 27-year-old male who is brought to the emergency room by [facility] after having a seizure. He lives with his parents and they reported to EMS that he has seizures all the time but during his seizure today he fell and hit his head on the coffee table and was lodged between the coffee table and the wall. On EMSs arrival he was postictal but in route he became alert and oriented. On arrival to the emergency room he is alert and oriented complains of mild neck tenderness and facial tenderness, he does have a c-collar in place. Reports taking Depakote and Lamictal and reports he has not missed any of his doses. He also has facial abrasions to the right side of his face. He reports he has had seizures since . Timing/Duration: 1/2 hour Associated Symptoms: denies symptoms Allergies and Home Medications Allergies Coded Allergies: No Known Drug Allergies (Unverified , 01/17/18) Home Medications Bacitracin 28 Gm Oint...g., 28 GM TP twice a day Prescribed by: ELLEN PROCTOR on 07/02/17 1156 Divalproex Sodium 500 Mg Tablet.dr, 500 MG PO TID Prescribed by: ARIEL HUTCHINSON on 06/09/17 1036 Levetiracetam 100 Mg/1 Ml Solution, Unknown Dose PO BID, (Reported) Levetiracetam 750 Mg Tablet, 750 MG PO BID Prescribed by: ARIEL HUTCHINSON on 06/09/17 1036 Levetiracetam 250 Mg Tablet, 250 MG PO BID Prescribed by: CARLEY MATHEW on 06/28/17 194 Topiramate 200 Mg Tablet, 200 MG PO BID Prescribed by: EMERSON SYKES on 03/14/16 1533 Patient Home Medication List Home Medication List Reviewed: Yes Review of Systems Review of Systems Constitutional: see HPI; No chills, No fever Musculoskeletal: see HPI, neck pain Skin: see HPI, other (facial abrasions) Psychiatric/Neurological: See HPI, Tonic Clonic Seizures All Other Systems Reviewed Negative Unless Noted: Yes Past Vkbnwzs-Zzvqch-Wwksdu Hx Past Med/Social Hx: Reviewed Nursing Past Med/Soc Hx Patient Social History Alcohol Beverage of Choice: Beer, Rum Drug of Choice: cannibus Type Used: Cigarettes Former Smoker, Quit: Oct 24, 2015 2nd Hand Smoke Exposure: Yes Recent Foreign Travel: No Contact w/Someone Who Travel: No Recent Hopitalizations: No Immunizations Up To Date Tetanus Booster (TDap): Less than 5yrs Seasonal Allergies Seasonal Allergies: No Past Medical History Surgeries: Yes (LEG SURGERY) Orthopedic Respiratory: No Cardiac: No Neurological: Yes (NON-COMPLIANT WITH MEDICATIONS BY HISTORY) Seizure Disorder Reproductive Disorders: No Genitourinary: No Gastrointestinal: No Musculoskeletal: No Endocrine: No HEENT: No Cancer: No Psychosocial: No Integumentary: No Blood Disorders: No Adverse Reaction/Blood Tranf: No Family Medical History Reviewed Nursing Family Hx No Pertinent Family Hx Physical Exam Vital Signs Vital Signs - First Documented 01/17/18 11:20 Temp 100.1 Pulse 118 Resp 20 B/P (MAP) 139/105 (116) Pulse Ox 98 O2 Delivery Room Air Capillary Refill : Height, Weight, BMI Height: 5'6.00" Weight: 180lbs. 0.0oz. 81.415940ee; 26.6 BMI Method:Stated General Appearance: WD/WN, no apparent distress HEENT: PERRL/EOMI, normal ENT inspection, TMs normal, pharynx normal Neck: non-tender, full range of motion, supple, normal inspection Respiratory: chest non-tender, lungs clear, normal breath sounds, no respiratory distress, no accessory muscle use, respiratory distress Cardiovascular: normal peripheral pulses, regular rate, rhythm, no edema, no gallop, no JVD, no murmur Neurologic/Psychiatric: alert, normal mood/affect, oriented x 3 Crainal Nerves: normal hearing, normal speech, PERRL Coordination/Gait: normal finger to nose, normal gait Skin: normal color, warm/dry, other (facial abrasions. no active bleeding.) Procedures/Interventions Suture Size: 6-0 Progress/Results/Core Measures Results/Orders My Orders Orders - TAYLA DELUNA Ct Head/Cervical Spine Wo (01/17/18 11:24) Vital Signs/I&O 01/17/18 01/17/18 11:20 12:52 Temp 100.1 98.2 Pulse 118 92 Resp 20 14 B/P (MAP) 139/105 (116) 137/86 (103) Pulse Ox 98 98 O2 Delivery Room Air Room Air Progress Progress Note : Time: 12:40 Progress Note C collar was removed at this time. The patient has remained seizure-free throughout his visit. He was cleaned up and noted the abrasions needed repair. He agrees with plans of discharge, plans for close follow-up with his primary care provider, return precautions were given. Diagnostic Imaging Diagonstic Imaging: CT Plain Films/CT/US/NM/MRI: c-spine, head Comments [facility]IA [facility]. [place], [place] NAME: SARANYA HARTMANN [facility] REC#: [id number] PT STATUS: REG ER : 1990 PHYSICIAN: TAYLA DELUNA ADMIT DATE: 01/17/18/ER Draft Date of Exam:01/17/18 CT HEAD/CERVICAL SPINE WO PROCEDURE: CT head and CT cervical spine without contrast. TECHNIQUE: Multiple contiguous axial images were obtained through the brain and cervical spine without the use of intravenous contrast. Sagittal and coronal reformations through the cervical spine were then performed. INDICATION: Seizure and fall. Correlation is made with prior CT from 06/18/2017. CT head: The ventricles and sulci are within normal limits. No sulcal effacement, midline shift or hemorrhage is detected. Cisterns are patent. The visualized paranasal sinuses are clear. IMPRESSION: No acute intracranial process is detected. CT cervical spine: Alignment is normal. There is some degenerative disease C4-5 level with marginal spurring. No fracture or subluxation is identified. The prevertebral tissues are normal. The odontoid is intact. IMPRESSION: No acute bony abnormality is detected. Dictated on workstation # [id number] Dict: 01/17/18 1226 Trans: 01/17/18 1230 CV [id number] Interpreted by: DALE TAFOYA MD Electronically signed by: Reviewed: Reviewed by Me Departure Impression Primary Impression: Seizure Additional Impression: Facial abrasion Disposition: 01 HOME, SELF-CARE Condition: Stable/Unchanged Departure-Patient Inst. Decision time for Depature: 12:41 Referrals: [facility] (PCP/Family) Primary Care Physician Patient Instructions: Seizures, Adult (DC), Skin Abrasions (DC) Add. Discharge Instructions: Resume your home medications as previously prescribed. Watch for signs of infection such as increased redness, swelling, drainage, pain. Return back to the emergency room for any worsening symptoms or concerns as needed. All of with her primary care provider within 1 week for recheck. All discharge instructions reviewed with patient and/or family. Voiced understanding. TAYLA DELUNA Jan 17, 2018 11:28
--- OUTSIDE RECORDS SUMMARY | 2018-01-17 11:28 | XMS REPORT | Continuity of Care Document ---
Author Author [facility] of [facility] of [facility] Address Unknown Phone Unavailable Allergies Active Description Code Type Severity Reaction Onset Reported/Identified Relationship to Patient Clinical Status Yes No Known Drug Allergies [id number] N/A N/A Yes NO KNOWN DRUG ALLERGIES NO KNOWN DRUG ALLERG UNKNOWN Yes No Known Drug Allergies [id number] Drug Allergy Unknown N/A 07/31/2015 Medications There [...] 07/31/2015 ARIEL ALSTON MD, Ot Z79.899 OTHER INTERMEDIATE (CURRENT) DRUG THERAPY 07/31/2015 ARIEL ALSTON MD, Ot Z91.14 PATIENT'S OTHER NONCOMPLIANCE WITH MEDIC 08/09/2015 CARLEY MATHEW MD Ot F17.210 NICOTINE DEPENDENCE, CIGARETTES, UNCOMPL 08/09/2015 CARLEY MATHEW MD Ot G40.909 EPILEPSY, UNSP, NOT INTRACTABLE, WITHOUT 08/09/2015 CARLEY MATHEW MD Ot Z79.899 OTHER TRUANT OFFICER (CURRENT) DRUG THERAPY 08/09/2015 CARLEY MATHEW MD Ot F17.210 NICOTINE DEPENDENCE, CIGARETTES, UNCOMPL 08/09/2015 CARLEY MATHEW MD Ot G40.909 EPILEPSY, UNSP, NOT INTRACTABLE, WITHOUT 08/09/2015 CARLEY MATHEW MD Ot Z79.899 OTHER TRUANT OFFICER (CURRENT) DRUG THERAPY 08/11/2015 CARLEY MATHEW MD Ot F17.210 NICOTINE DEPENDENCE, CIGARETTES, UNCOMPL 08/11/2015 CARLEY MATHEW MD Ot G40.909 EPILEPSY, UNSP, NOT INTRACTABLE, WITHOUT 08/11/2015 CARLEY MATHEW MD Ot Z79.899 OTHER INTERMEDIATE (CURRENT) DRUG THERAPY 08/28/2015 CARLEY MATHEW MD Ot F17.210 NICOTINE DEPENDENCE, CIGARETTES, UNCOMPL 08/28/2015 CARLEY MATHEW MD Ot G40.909 EPILEPSY, UNSP, NOT INTRACTABLE, WITHOUT 08/28/2015 CARLEY MATHEW MD Ot Z79.899 OTHER INTERMEDIATE (CURRENT) DRUG THERAPY 08/28/2015 ELLEN PROCTOR MD [...] 11/19/2015 ARIEL ALSTON MD Ot Z79.899 OTHER INTERMEDIATE (CURRENT) DRUG THERAPY 11/20/2015 ARIEL ALSTON MD Ot E16.2 HYPOGLYCEMIA, UNSPECIFIED 11/20/2015 ARIEL ALSTON MD Ot G40.409 OTH GENERALIZED EPILEPSY, NOT INTRACTABL 11/20/2015 ARIEL ALSTON MD Ot G40.909 EPILEPSY, UNSP, NOT INTRACTABLE, WITHOUT 11/20/2015 ARIEL ALSTON MD Ot R79.89 OTHER SPECIFIED ABNORMAL FINDINGS OF BLO 11/20/2015 ARIEL ALSTON MD Ot Z79.899 OTHER INTERMEDIATE (CURRENT) DRUG THERAPY 11/22/2015 CARLEY MATHEW MD Ot F17.210 NICOTINE DEPENDENCE, CIGARETTES, UNCOMPL 11/22/2015 CARLEY MATHEW MD Ot G40.909 EPILEPSY, UNSP, NOT INTRACTABLE, WITHOUT 11/22/2015 CARLEY MATHEW MD Ot Z79.899 OTHER INTERMEDIATE (CURRENT) DRUG THERAPY 11/22/2015 ARIEL ALSTON MD [...] 11/24/2015 ARIEL ALSTON MD Ot Z79.899 OTHER INTERMEDIATE (CURRENT) DRUG THERAPY 12/06/2015 ANTOINE WARD APRN Ot G40.909 EPILEPSY, UNSP, NOT INTRACTABLE, WITHOUT 12/06/2015 ANTOINE WARD APRN Ot Z79.899 OTHER TRUANT OFFICER (CURRENT) DRUG THERAPY 12/06/2015 ANTOINE WARD APRN Ot Z91.14 PATIENT'S OTHER NONCOMPLIANCE WITH MEDIC 12/08/2015 ANTOINE WARD APRN Ot G40.909 EPILEPSY, UNSP, NOT INTRACTABLE, WITHOUT 12/08/2015 ANTOINE WARD APRN Ot Z79.899 OTHER INTERMEDIATE (CURRENT) DRUG THERAPY 12/08/2015 ANTOINE WARD APRN [...] 01/04/2016 ARIEL ALSTON MD Ot Z79.899 OTHER TRUANT OFFICER (CURRENT) DRUG THERAPY 01/26/2016 ANTOINE WARD APRN Ot G40.909 EPILEPSY, UNSP, NOT INTRACTABLE, WITHOUT 01/26/2016 ANTOINE WARD APRN Ot S00.83XA CONTUSION OF OTHER PART OF HEAD, INITIAL 01/26/2016 ANTOINE WARD APRN Ot W01.0XXA FALL SAME LEV FROM SLIP/TRIP W/O STRIKE 01/26/2016 ANTOINE WARD APRN Ot Y92.[address] IN [facility] NON-[facility] (PRIVATE 01/26/2016 ANTOINE WARD APRN [...] WARD APRN Ot Y92.[address] IN [facility] NON[facility] (PRIVATE 01/29/2016 ANTOINE WARD APRN [...] WARD APR[facility] Ot Y92.[address] [facility] 01/30/2016 ANTOINE WARD APRN Ot Y99.8 [...] APRN Ot Y92.[address] [facility] (PRIVATE 02/01/2016 ANTOINE WARD APRN Ot [...] 02/02/2016 CARLEY MATHEW MD Ot Z79.899 OTHER TRUANT OFFICER (CURRENT) DRUG THERAPY 02/04/2016 ANTOINE WARD APRN Ot G40.909 EPILEPSY, UNSP, NOT INTRACTABLE, WITHOUT 02/04/2016 ANTOINE WARD APRN Ot S00.83XA CONTUSION OF OTHER PART OF HEAD, INITIAL 02/04/2016 ANTOINE WARD SUPERVISOR NURSE Ot W01.0XXA FALL SAME LEV FROM SLIP/TRIP W/O STRIKE 02/04/2016 ANTOINE WARD APRN Ot Y92.[address] IN [facility] NON[facility] (PRIVATE 02/04/2016 ANTOINE WARD SUPERVISOR NURSE Ot Y99.8 OTHER EXTERNAL CAUSE STATUS 02/04/2016 ANTOINE WARD SUPERVISOR NURSE Ot Z91.14 PATIENT'S OTHER NONCOMPLIANCE WITH MEDIC [...] 02/05/2016 CARLEY MATHEW MD Ot Z79.899 OTHER INTERMEDIATE (CURRENT) DRUG THERAPY 02/27/2016 Wing Velasco 345.80 [...] HORTENSIA K Ot Y92.[address] IN [facility] NON-[facility] (PRIVATE 04/01/2016 YASMIN DO, HORTENSIA [...] HORTENSIA K Ot Y92.[address] IN [facility] NON[facility] (PRIVATE 04/03/2016 YASMIN DO, HORTENSIA [...] MELISSA MICHAEL Ot Y92.[address] IN [facility] NON[facility] (PRIVATE 04/10/2016 MELISSA MICHAEL Ot [...] MELISSA MICHAEL Ot Y92.[address] IN [facility] NON[facility] (PRIVATE 04/11/2016 MELISSA MICHAEL Ot Y99.8 OTHER EXTERNAL CAUSE STATUS 04/12/2016 MELISSA MICHAEL Ot F17.210 NICOTINE DEPENDENCE, CIGARETTES, UNCOMPL 04/12/2016 MELISSA MICHAEL Ot G40.909 EPILEPSY, UNSP, NOT INTRACTABLE, WITHOUT 04/12/2016 MELISSA MIHCAEL Ot S01.81XA LACERATION W/O FOREIGN BODY OF OTH PART 04/12/2016 MELISSA MICHAEL Ot S02.42XA FRACTURE OF ALVEOLUS OF MAXILLA, INIT FO 04/12/2016 MELISSA MICHAEL Ot S03.2XXA DISLOCATION OF TOOTH, INITIAL ENCOUNTER 04/12/2016 MELISSA MICHAEL Ot W18.09XA STRIKING AGAINST OTH OBJECT W SUBSEQUENT 04/12/2016 MELISSA MICHAEL Ot Y92.[address] IN [facility] NON-[facility]IT[facility] (PRIVATE 04/12/2016 MELISSA MICHAEL Ot Y99.8 [...] WITH UNSPECIFIED SHARP OBJECT(S) 05/21/2017 ANTOINE WARD APRN Ot F12.90 CANNABIS USE, UNSPECIFIED, UNCOMPLICATED 05/21/2017 ANTOINE WARD APRN Ot F17.210 NICOTINE DEPENDENCE, CIGARETTES, UNCOMPL 05/21/2017 ANTOINE WARD APRN Ot G40.909 EPILEPSY, UNSP, NOT INTRACTABLE, WITHOUT 05/21/2017 ANTOINE WARD APRN Ot S01.112A LACERATION W/O FB OF LEFT EYELID AND PER 05/21/2017 ANTOINE WARD APRN Ot W26.9XXA CONTACT WITH UNSPECIFIED SHARP OBJECT(S) 06/08/2017 CARLEY MATHEW MD Ot F12.90 CANNABIS USE, UNSPECIFIED, UNCOMPLICATED 06/08/2017 CARLEY MATHEW MD Ot G40.909 EPILEPSY, UNSP, NOT INTRACTABLE, WITHOUT 06/08/2017 CARLEY MATHEW MD Ot Z87.891 PERSONAL HISTORY OF NICOTINE DEPENDENCE 06/09/2017 ALECIA HURT, ARIEL Shah Ot F12.90 CANNABIS USE, UNSPECIFIED, UNCOMPLICATED 06/09/2017 ALECIA HURT, ARIEL Shah Ot G40.909 EPILEPSY, UNSP, NOT INTRACTABLE, WITHOUT 06/09/2017 ALECIA HURT, ARIEL Shah Ot S09.90XA UNSPECIFIED INJURY OF HEAD, INITIAL ENCO 06/09/2017 ALECIA HURT, ARIEL Shah Ot W01.198A FALL SAME LEV FROM SLIP/TRIP W STRIKE AG 06/09/2017 ARIEL ALSTON MD Ot Y92.[address] IN [facility] NON-[facility] (PRIVATE 06/09/2017 ARIEL ALSTON MD Ot Z87.891 PERSONAL HISTORY OF NICOTINE DEPENDENCE 06/09/2017 ARIEL ALSTON MD Ot Z98.890 OTHER SPECIFIED POSTPROCEDURAL STATES 06/11/2017 ARIEL ALSTON MD Ot F12.90 CANNABIS USE, UNSPECIFIED, UNCOMPLICATED 06/11/2017 ARIEL ALSTON MD Ot G40.909 EPILEPSY, UNSP, NOT INTRACTABLE, WITHOUT 06/11/2017 ARIEL ALSTON MD Ot S09.90XA UNSPECIFIED INJURY OF HEAD, INITIAL ENCO 06/11/2017 ARIEL ALSTON MD Ot W01.198A FALL SAME LEV FROM SLIP/TRIP W STRIKE AG 06/11/2017 ARIEL ALSTON MD Ot Y92.[address] IN [facility] NON-INST[facility] (PRIVATE 06/11/2017 ARIEL ALSTON MD Ot Z87.891 PERSONAL HISTORY OF NICOTINE DEPENDENCE 06/11/2017 ARIEL ALSTON MD Ot Z98.890 OTHER SPECIFIED POSTPROCEDURAL STATES 06/14/2017 CARLEY MATHEW MD Ot F12.90 CANNABIS USE, UNSPECIFIED, UNCOMPLICATED 06/14/2017 CARLEY MATHEW MD Ot G40.909 EPILEPSY, UNSP, NOT INTRACTABLE, WITHOUT 06/14/2017 CARLEY MATHEW MD Ot Z87.891 PERSONAL HISTORY OF NICOTINE DEPENDENCE 06/18/2017 ANTOINE WARD SUPERVISOR NURSE Ot F12.90 CANNABIS USE, UNSPECIFIED, UNCOMPLICATED 06/18/2017 ANOTINE WARD APRN Ot G40.909 EPILEPSY, UNSP, NOT INTRACTABLE, WITHOUT 06/18/2017 ANTOINE WARD APRN Ot S00.83XA CONTUSION OF OTHER PART OF HEAD, INITIAL 06/18/2017 ANTOINE WARD APRN Ot S09.90XA UNSPECIFIED INJURY OF HEAD, INITIAL ENCO 06/18/2017 ANTOINE WARD APRN Ot S09.93XA UNSPECIFIED INJURY OF FACE, INITIAL ENCO 06/18/2017 ANTOINE WARD APRN Ot W01.198A FALL SAME LEV FROM SLIP/TRIP W STRIKE AG 06/18/2017 ANTOINE WARD APRN Ot Z87.891 PERSONAL HISTORY OF NICOTINE DEPENDENCE 06/18/2017 ANTOINE WARD APRN Ot Z91.14 PATIENT'S OTHER NONCOMPLIANCE WITH MEDIC 06/18/2017 ANTOINE WARD APRN Ot Z91.19 PATIENT'S NONCOMPLIANCE W [facility] 06/20/2017 ANTOINE WARD APRN Ot F12.90 CANNABIS USE, UNSPECIFIED, UNCOMPLICATED 06/20/2017 ANTOINE WARD APRN Ot G40.909 EPILEPSY, UNSP, [...] WARD APRN Ot Z91.19 PATIENT'S NONCOMPLIANCE W [facility] TR 06/28/2017 CARLEY MATHEW MD Ot F12.90 CANNABIS USE, UNSPECIFIED, UNCOMPLICATED 06/28/2017 CARLEY MATHEW MD Ot G40.909 EPILEPSY, UNSP, NOT INTRACTABLE, WITHOUT 06/28/2017 CARLEY MATHEW MD Ot Z87.891 PERSONAL HISTORY OF NICOTINE DEPENDENCE 06/28/2017 CARLEY MATHEW MD Ot Z98.890 OTHER SPECIFIED POSTPROCEDURAL STATES 06/30/2017 CARLEY MATHEW MD Ot F12.90 CANNABIS USE, UNSPECIFIED, UNCOMPLICATED 06/30/2017 CARLEY MATHEW MD Ot G40.909 EPILEPSY, UNSP, NOT INTRACTABLE, WITHOUT 06/30/2017 CARLEY MATHEW MD Ot Z87.891 PERSONAL HISTORY OF NICOTINE DEPENDENCE 06/30/2017 CARLEY MATHEW MD Ot Z98.890 OTHER SPECIFIED POSTPROCEDURAL STATES 07/02/2017 ELLEN PROCTOR MD, Ot F12.90 CANNABIS USE, UNSPECIFIED, UNCOMPLICATED 07/02/2017 ELLEN PROCTOR MD Ot G40.909 EPILEPSY, UNSP, NOT INTRACTABLE, WITHOUT 07/02/2017 ELLEN PROCTOR MD Ot T20.26XA BURN OF SECOND DEGREE OF FOREHEAD AND CH 07/02/2017 ELLEN PROCTOR MD Ot T31.0 BHAGAT INVOLVING LESS THAN 10% OF BODY VALLEJO 07/02/2017 ELLEN PROCTOR MD Ot X15.3XXA CONTACT WITH HOT SAUCEPAN OR SKILLET, IN 07/02/2017 ELLEN PROCTOR MD Ot Y93.G3 ACTIVITY, COOKING AND BAKING 07/02/2017 ELLEN PROCTOR MD Ot Z87.891 PERSONAL HISTORY OF NICOTINE DEPENDENCE 07/02/2017 ELLEN PROCTOR MD Ot Z91.14 PATIENT'S OTHER NONCOMPLIANCE WITH MEDIC 07/04/2017 ELLEN PROCTOR MD Ot F12.90 CANNABIS USE, UNSPECIFIED, UNCOMPLICATED 07/04/2017 ELLEN PROCTOR MD Ot G40.909 EPILEPSY, UNSP, NOT INTRACTABLE, WITHOUT 07/04/2017 ELLEN PROCTOR MD Ot T20.26XA BURN OF SECOND DEGREE OF FOREHEAD AND CH 07/04/2017 ELLEN PROCTOR MD Ot T31.0 BHAGAT INVOLVING LESS THAN 10% OF BODY VALLEJO 07/04/2017 ELLEN PROCTOR MD Ot X15.3XXA CONTACT WITH HOT SAUCEPAN OR SKILLET, IN 07/04/2017 ELLEN PROCTOR MD Ot Y93.G3 ACTIVITY, COOKING AND BAKING 07/04/2017 ELLEN PROCTOR MD Ot Z87.891 PERSONAL HISTORY OF NICOTINE DEPENDENCE 07/04/2017 ELLEN PROCTOR MD Ot Z91.14 PATIENT'S OTHER NONCOMPLIANCE WITH MEDIC Procedures There is no data. Results Test [...] NRG Blood erythrocyte morphology finding identification NORMAL [facility] Comprehensive metabolic panel - 11/14/15 [...] or plasma urea nitrogen/creatinine mass ratio 12 [facility] Serum or plasma creatinine measurement with calculation of estimated glomerular filtration rate > [facility] Serum or plasma glucose measurement [...] NRG Blood erythrocyte morphology finding identification NORMAL [facility] Comprehensive metabolic panel - 12/06/15 [...] - 06/08/17 20:40 Magnesium 2.3 mg/dL 1.8-2.4 [id number] - 06/08/17 20:40 [id number] 46.5 ug/mL 50.0-100.0 [id number] - 06/18/17 11:16 [id number] 92.1 ug/mL 50.0-100.0 Serum or plasma ethanol measurement (mass/volume) - 06/18/17 11:16 Serum or plasma ethanol measurement (mass/volume) < mg/dL <10 Encounters ACCT No. Visit Date/Time Discharge Status Pt. Type Provider Facility Loc./Unit Complaint [id number] 04/06/2013 13:16:00 04/06/2013 23:59:59 CLS Outpatient WHITE DDS, TARYN Saini [id number] 07/02/2017 08:56:00 07/02/2017 12:17:00 DIS Emergency ESTHELA HURT, ELLEN Jensen [facility] ER SEIZURE [id number] 06/28/2017 18:17:00 06/28/2017 19:44:00 DIS Emergency CARLEY MATHEW MD [facility] ER SEIZURE [id number] 06/18/2017 11:05:00 06/18/2017 12:53:00 DIS Emergency ANTOINE WARD APRN [facility] ER SEIZURE,HEAD INJ [id number] 06/09/2017 09:22:00 06/09/2017 11:08:00 DIS Emergency ARIEL ALSTON MD [facility] ER FALL-SEIZURE [id number] 06/08/2017 20:31:00 06/08/2017 22:05:00 DIS Emergency CARLEY MATHEW MD [facility] ER SEIZURE [id number] 05/19/2017 12:42:00 05/19/2017 14:00:00 DIS Emergency ANTOINE WARD APRN [facility] ER SEIZURE [id number] 04/10/2016 13:52:00 04/10/2016 16:49:00 DIS Emergency MELISSA MICHAEL [facility] ER SEIZURE [id number] 04/01/2016 13:27:00 04/01/2016 16:18:00 DIS Emergency HORTENSIA HOFFMAN DO [facility] ER SEIZURE [id number] 03/14/2016 11:59:00 03/14/2016 15:48:00 DIS Emergency EMERSON SYKES DO [facility] ER SEIZURE [id number] 02/02/2016 09:22:00 02/02/2016 11:19:00 DIS Emergency CARLEY MATHEW MD [facility] ER SEIZURE [id number] 01/26/2016 15:37:00 01/26/2016 17:09:00 DIS Emergency ANTOINE WARD APRN [facility] ER SEIZURES [id number] 01/03/2016 10:46:00 01/03/2016 12:54:00 DIS Outpatient ARIEL ALSTON MD [facility] ER SEIZURE FALL/HEAD LAC [id number] 12/06/2015 21:03:00 12/06/2015 22:28:00 DIS Emergency WARDANTOINE APRN [facility] ER SEIZURE [id number] 11/18/2015 23:22:00 11/19/2015 01:32:00 DIS Emergency ARIEL ALSTON MD [facility] ER SEIZURE [id number] 11/14/2015 22:08:00 11/15/2015 00:30:00 DIS Emergency YASMIN HORTENSIA Camila [facility] ER SEIZURE [id number] 11/05/2015 04:45:00 11/05/2015 11:45:00 DIS Inpatient YANET PRUETTELIAS [facility] ICU CLOSED HEAD INJ, ALCOHOL INTOX, HX OF SEIZURES [id number] 11/01/2015 16:50:00 11/02/2015 12:45:00 DIS Inpatient KALIE HURT, MARY North [facility] 4TH SEIZURE DISORDER, POSSIBLE ASPIRATION [id number] 10/28/2015 11:48:00 10/28/2015 14:06:00 DIS Emergency ELLEN PROCTOR MD [facility] ER SEIZURE [id number] 09/25/2015 09:56:00 09/25/2015 14:42:00 DIS Emergency ARIEL ALSTON MD [facility] ER SEIZURE/FALL [id number] 08/28/2015 12:42:00 08/28/2015 16:30:00 DIS Emergency ELLEN PROCTOR MD [facility] ER SEIZURES [id number] 08/09/2015 00:32:00 08/09/2015 02:09:00 DIS Emergency CARLEY MATHEW MD [facility] ER SEIZURE [id number] 07/31/2015 21:38:00 07/31/2015 23:54:00 DIS Emergency ARIEL ALSTON MD [facility] ER POSS SEIZURE [id number] 01/06/2017 20:28:52 Document Registration [id number] 02/27/2016 12:14:00 02/27/2016 14:30:00 DIS [place]patient [place] [facility] [place] [id number] 10/09/2017 15:20:00 10/09/2017 23:59:59 CLS Outpatient WERNER RG APRN [facility] [id number] 12/13/2015 10:05:00 Document Registration
--- NOTE | 2018-01-17 12:30 | Diagnostic Imaging Report ---
PROCEDURE: CT head and CT cervical spine without contrast. TECHNIQUE: Multiple contiguous axial images were obtained through the brain and cervical spine without the use of intravenous contrast. Sagittal and coronal reformations through the cervical spine were then performed. INDICATION: Seizure and fall. Correlation is made with prior CT from 06/18/2017. CT head: The ventricles and sulci are within normal limits. No sulcal effacement, midline shift or hemorrhage is detected. Cisterns are patent. The visualized paranasal sinuses are clear. IMPRESSION: No acute intracranial process is detected. CT cervical spine: Alignment is normal. There is some degenerative disease C4-5 level with marginal spurring. No fracture or subluxation is identified. The prevertebral tissues are normal. The odontoid is intact. IMPRESSION: No acute bony abnormality is detected. Dictated by: Dictated on workstation # [id number]
[2018-01-17 12:52] VITALS: BP 137/86
== END 2018-01-17 13:00 | disposition home or self-care (01) ==
LOC: EDUNIT# 11:16 → ER 11:17
DX: S00.81XA Abrasion of other part of head, initial encounter (principal); G40.909 Epilepsy, unspecified, not intractable, without status epilepticus; F12.10 Cannabis abuse, uncomplicated; Z87.891 Personal history of nicotine dependence; Z91.14 Patient's other noncompliance with medication regimen; W01.190A Fall on same level from slipping, tripping and stumbling with subsequent striking against furniture, initial encounter
CPT/HCPCS: 70450; 72125

== ENCOUNTER 2018-11-25 00:21 | Emergency (ER) | payer SELFPAY ==
[~2018-11-25] VITALS: Ht 172.7 cm; Wt 90.7 kg
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
[2018-11-25 01:41] VITALS: BP 121/74
--- NOTE | 2018-11-25 06:11 | Diagnostic Imaging Report ---
EXAMINATION: Left elbow at 1:22 AM INDICATION: Injury, elbow pain 3 views were obtained. There are no prior studies available for comparison. There is no fracture, dislocation or acute bony abnormality evident. The elbow joint is well-maintained. The posterior fat-pad is not elevated. The soft tissues are unremarkable. IMPRESSION: There is no evidence for an acute bony abnormality. Dictated by: Dictated on workstation # [id number]
== END 2018-11-25 01:41 | disposition home or self-care (01) ==
LOC: EDUNIT# 00:21 → ER 00:26
DX: S50.02XA Contusion of left elbow, initial encounter (principal); S50.812A Abrasion of left forearm, initial encounter; G40.909 Epilepsy, unspecified, not intractable, without status epilepticus; Z87.891 Personal history of nicotine dependence; V40.7XXA Person on outside of car injured in collision with pedestrian or animal in traffic accident, initial encounter; Y93.01 Activity, walking, marching and hiking
CPT/HCPCS: 73080

== ENCOUNTER 2019-11-03 18:55 | Emergency (ER) | payer SELFPAY ==
[~2019-11-03] VITALS: Ht 170 cm; Wt 94.6 kg
[2019-11-03] MEDS ORDERED: DOXYCYCLINE 100 MG (VIBRAMYCIN) TABLET PO SCH (19:15)
[2019-11-03] MEDS ORDERED: RX-HYDROCODONE/APAP 5/325 MG #4 TAB PK PO PRN (19:15)
[2019-11-03] MEDS ORDERED: LIDOCAINE 1% INJ 20 ML 20 ML VIAL INJ ONE (19:15)
[2019-11-03 19:16] VITALS: BP 120/82
[2019-11-03] MEDS ORDERED: DOXY100T2 PO (19:16)
--- NOTE | 2019-11-03 19:16 | ED Integumentary General ---
General Stated Complaint: LUMPS AND BITES ALL OVER Source: patient Exam Limitations: no limitations History of Present Illness Date Seen by Provider: Nov 03, 2019 Time Seen by Provider: 19:13 Initial Comments to ER with reports of a bump to the left axilla for a few days that is painful. He also has a few bumps to the legs. Timing/Duration: just prior to arrival Severity: moderate Associated Symptoms: denies symptoms Allergies and Home Medications Allergies Coded Allergies: No Known Drug Allergies (Unverified , 01/17/18) Home Medications Bacitracin 28 Gm Oint...g., 28 GM TP twice a day Prescribed by: ELLEN PROCTOR on 07/02/17 1156 Divalproex Sodium 500 Mg Tablet.dr, 500 MG PO TID Prescribed by: ARIEL HUTCHINSON on 06/09/17 1036 Levetiracetam 100 Mg/1 Ml Solution, Unknown Dose PO BID, (Reported) Levetiracetam 750 Mg Tablet, 750 MG PO BID Prescribed by: ARIEL HUTCHINSON on 06/09/17 1036 Levetiracetam 250 Mg Tablet, 250 MG PO BID Prescribed by: CARLEY MATHEW on 06/28/17 1940 Topiramate 200 Mg Tablet, 200 MG PO BID Prescribed by: EMERSON SYKES on 03/14/16 1533 Patient Home Medication List Home Medication List Reviewed: Yes Review of Systems Review of Systems Constitutional: see HPI EENTM: see HPI Respiratory: no symptoms reported Cardiovascular: no symptoms reported Genitourinary: no symptoms reported Musculoskeletal: no symptoms reported Skin: no symptoms reported Psychiatric/Neurological: No Symptoms Reported Endocrine: No Symptoms Reported Hematologic/Lymphatic: No Symptoms Reported Past Akbxlyc-Zztmcn-Wyaitz Hx Patient Social History Alcohol Beverage of Choice: Beer, Rum Drug of Choice: cannibus Type Used: Cigarettes Former Smoker, Quit: Oct 24, 2015 2nd Hand Smoke Exposure: Yes Recent Foreign Travel: No Contact w/Someone Who Travel: No Recent Hopitalizations: No Immunizations Up To Date Tetanus Booster (TDap): Less than 5yrs Seasonal Allergies Seasonal Allergies: No Past Medical History Surgeries: Yes (LEG SURGERY, cranial surg for epilepsy) Orthopedic Respiratory: No Cardiac: No Neurological: Yes (NON-COMPLIANT WITH MEDICATIONS BY HISTORY) Seizure Disorder Reproductive Disorders: No Genitourinary: No Gastrointestinal: No Musculoskeletal: No Endocrine: No HEENT: No Cancer: No Psychosocial: No Integumentary: No Blood Disorders: No Adverse Reaction/Blood Tranf: No Family Medical History No Pertinent Family Hx Physical Exam Vital Signs Capillary Refill : General Appearance: WD/WN, no apparent distress Respiratory: no respiratory distress, no accessory muscle use Neurologic/Psychiatric: alert, normal mood/affect, oriented x 3 Skin: normal color, warm/dry Skin Problem Location: generalized, other (axilla has a quarter-sized area of fluctuance surrounded by about 3 or 4 cm of erythema. Anterior lower legs have a few (about 2-3 on each leg) areas of folliculitis/pustules.) Procedures/Interventions Suture Size: 6-0 Progress/Results/Core Measures Results/Orders My Orders Orders - ANTOINE WARD APRN Lidocaine 1% Inj 20 Ml (Xylocaine 1% Inj (11/03/19 19:15) Doxycycline Hyclate Tablet (Vibramycin T (11/03/19 19:15) Rx-Hydrocodone/Apap 5-325 Mg (Rx-Vicodin (11/03/19 19:15) Wound Culture (11/03/19 19:12) Departure Impression Primary Impression: Folliculitis Additional Impression: Abscess Disposition: 01 HOME, SELF-CARE Condition: Stable Departure-Patient Inst. Decision time for Depature: 19:15 [facility]: [facility] [place] ([place]P/Family) Primary Care Physician Patient Instructions: Skin Abscess Add. Discharge Instructions: 1. Return to ER for any concerns 2. Follow-up with your doctor next week 3. Antibiotics as directed. Scripts Doxycycline Hyclate (Doxycycline Hyclate) 100 Mg Tablet 100 MG PO BID, #20 TAB 0 Refills Prov: ANTOINE WARD APRN 11/03/19 ANTOINE WARD APRN Nov 03, 2019 19:16
== END 2019-11-03 19:34 | disposition home or self-care (01) ==
LOC: EDUNIT# 18:55 → ER 18:56
DX: L73.9 Follicular disorder, unspecified (principal); L02.412 Cutaneous abscess of left axilla; G40.909 Epilepsy, unspecified, not intractable, without status epilepticus; Z87.891 Personal history of nicotine dependence
CPT/HCPCS: 87070; 87077; 87186; 87205; 99282

== ENCOUNTER 2019-11-30 22:43 | Emergency (ER) | payer SELFPAY ==
[~2019-11-30] VITALS: Ht 167 cm; Wt 92.0 kg
[~2019-11-30 22:43] MED LIST changes: +DOXY100T2 PO
--- NOTE | 2019-11-30 23:39 | ED Integumentary General ---
General Chief Complaint: Skin/Wound Problems Stated Complaint: ABSCESS UNDER R ARM Nursing Triage Note: Pt here with two abscess-type wounds under his right axilla; states he had one under his left a month ago that required an I&D. These wounds have been present x 2 days. Denies fever. Source: patient Exam Limitations: no limitations History of Present Illness Date Seen by Provider: Nov 30, 2019 Time Seen by Provider: 23:25 Initial Comments The patient presents to ER by private conveyance with chief complaint of about one week of 3 red nodules in his right armpit consistent with abscesses. They're not draining anything but they are painful and warm to the touch. He's had them in the past but never been diagnosed with this hidradenitis suparativa. Follows with Roly alfonso. No other significant medical history. He's been using Tylenol and ibuprofen as necessary. No history of diabetes or immunocompromise. Allergies and Home Medications Allergies Coded Allergies: No Known Drug Allergies (Unverified , 01/17/18) Home Medications Bacitracin 28 Gm Oint...g., 28 GM TP twice a day Prescribed by: ELLEN PROCTOR on 07/02/17 1156 Divalproex Sodium 500 Mg Tablet.dr, 500 MG PO TID Prescribed by: ARIEL HUTCHINSON on 06/09/17 1036 Doxycycline Hyclate 100 Mg Tablet, 100 MG PO BID Prescribed by: ANTOINE WARD on 11/03/191915 Levetiracetam 100 Mg/1 Ml Solution, Unknown Dose PO BID, (Reported) Levetiracetam 750 Mg Tablet, 750 MG PO BID Prescribed by: ARIEL HUTCHINSON on 06/09/17 1036 Levetiracetam 250 Mg Tablet, 250 MG PO BID Prescribed by: CARLEY MATHEW on 06/28/17 194 Topiramate 200 Mg Tablet, 200 MG PO BID Prescribed by: EMERSON SYKES on 03/14/16 1533 Patient Home Medication List Home Medication List Reviewed: Yes Review of Systems Review of Systems Constitutional: No chills, No fever, No malaise EENTM: No ear discharge, No hearing loss, No ear pain Respiratory: No cough, No short of breath Cardiovascular: No edema, No Hx of Intervention Gastrointestinal: No abdominal pain, No nausea, No vomiting Genitourinary: No discharge, No dysuria Musculoskeletal: No back pain, No joint pain Skin: see HPI All Other Systems Reviewed Negative Unless Noted: Yes Past Dyrxoif-Nykkdg-Bvjkyy Hx Patient Social History Alcohol Use: Occasionally Uses Number of Drinks Today: DD Alcohol Beverage of Choice: Beer, Rum Recreational Drug Use: No Drug of Choice: cannibus Smoking Status: Current Everyday Smoker Type Used: Cigarettes Former Smoker, Quit: Oct 24, 2015 2nd Hand Smoke Exposure: Yes Recent Foreign Travel: No Contact w/Someone Who Travel: No Recent Infectious Disease Expo: No Recent Hopitalizations: No Immunizations Up To Date Tetanus Booster (TDap): Unknown PED Vaccines UTD: Yes Seasonal Allergies Seasonal Allergies: No Past Medical History Surgeries: No Orthopedic Respiratory: No Cardiac: No Neurological: Yes Seizure Disorder Reproductive Disorders: No Sexually Transmitted Disease: No Genitourinary: No Gastrointestinal: No Musculoskeletal: No Endocrine: No HEENT: No Cancer: No Psychosocial: Yes Anxiety, Bipolar Integumentary: No Blood Disorders: No Adverse Reaction/Blood Tranf: No Family Medical History No Pertinent Family Hx Physical Exam Vital Signs Vital Signs - First Documented 11/30/19 23:17 Temp 36.8 Pulse 84 Resp 20 B/P (MAP) 120/85 (97) Pulse Ox 95 O2 Delivery Room Air Capillary Refill : Less Than 3 Seconds General Appearance: WD/WN, no apparent distress HEENT: PERRL/EOMI, pharynx normal Neck: full range of motion, supple, normal inspection Cardiovascular: normal peripheral pulses, regular rate, rhythm Respiratory: no respiratory distress, no accessory muscle use Extremities: normal range of motion, non-tender, normal inspection Neurologic/Psychiatric: alert, oriented x 3 Skin: other (right axilla has 3 areas of erythema induration and fluctuance approximately 1 senna meter diameter each without pointing. Associated lymphadenopathy.) Procedures/Interventions I&D : Site: right axilla Blade Size: 11 I & D Procedure: betadine prep Progress To the abscesses were lanced using a 4 x 4 mm cross ash incision using 11 blade scalpel. The skin was infiltrated with 2 cc of 2% lidocaine with epinephrine prior to the incision. Patient expressed about 5-10 cc of thick purulent with diarrheal and was flushed with 50 cc of normal saline and loosely packed with gauze around the wound. Patient tolerated procedure well. Suture Size: 6-0 Progress/Results/Core Measures Results/Orders My Orders Orders - ANTONIETA PROCTOR Ketorolac Injection (Toradol Injection) (11/30/19 23:45) Vital Signs/I&O 11/30/19 23:17 Temp 36.8 Pulse 84 Resp 20 B/P (MAP) 120/85 (97) Pulse Ox 95 O2 Delivery Room Air Blood Pressure Mean: 97 Progress Progress Note : Time: 23:39 Progress Note Plan to infiltrate with some 2% Xylocaine and epinephrine and opened the 2 larger areas to see if anything drains and then put the patient on Bactrim. Departure Impression Primary Impression: Abscess Disposition: HOME, SELF-CARE Condition: Stable Departure-Patient Inst. Decision time for Depature: 23:54 Referrals: [facility]/ (PCP/Family) Primary Care Physician Patient Instructions: Abscess Incision and Drainage (DC) Add. Discharge Instructions: Keep the wound clean with regular soap and water. Place clean and dry gauze over the wound to The drainage over the next couple days until the wound seal over. It's fine to use soap and water. Do not use hydrogen peroxide, alcohol, iodine etc. occupational health physiotherapist the Bactrim at the pharmacy and start taking 1 tablet with food twice a day for the next week. All discharge instructions reviewed with patient and/or family. Voiced understanding. Scripts Sulfamethoxazole/Trimethoprim (Bactrim Ds Tablet) 1 Each Tablet 1 EACH PO BID for 7 Days, #14 TAB 0 Refills Prov: ANTONIETA PROCTOR 11/30/19 ANTONIETA PROCTOR Nov 30, 2019 23:39
[2019-11-30] MEDS ORDERED: KETOROLAC 60 MG/2 ML VIAL IM ONE (23:45)
[2019-11-30] MEDS ORDERED: SULF1TAB35 PO (23:57)
[2019-12-01 00:09] VITALS: BP 120/85
== END 2019-12-01 00:04 | disposition home or self-care (01) ==
LOC: EDUNIT# 22:43 → ER 22:45
DX: L02.411 Cutaneous abscess of right axilla (principal); G40.909 Epilepsy, unspecified, not intractable, without status epilepticus; F31.9 Bipolar disorder, unspecified; F17.210 Nicotine dependence, cigarettes, uncomplicated
CPT/HCPCS: 99284

== ENCOUNTER 2020-08-08 12:40 | Emergency (ER) | payer SELFPAY ==
[~2020-08-08] VITALS: Ht 167.6 cm; Wt 94.3 kg
[~2020-08-08 12:40] MED LIST changes: -CLIN300C11 PO; +CLIN300C12 PO
[2020-08-08] MEDS ORDERED: ONDANSETRON 4 MG/2 ML (SDV) Z0FRAN IVP ONE (12:45)
[2020-08-08] MEDS ORDERED: LACTATED RINGERS 1,000 ML IV SCH (12:45)
--- NOTE | 2020-08-08 12:47 | ED General ---
General Stated Complaint: SEIZURE Source of Information: Patient, EMS Exam Limitations: No Limitations History of Present Illness Date Seen by Provider: August 08, 2020 Time Seen by Provider: 12:44 Initial Comments To ER by EMS from home with reports of a seizure. Patient's mother stated to EMS that his seizure regimen was adjusted down about 3 weeks ago. Patient denies this. He also denies missing any doses of his Lamictal Keppra or Depakote. He did bite the left front aspect of his tongue. Timing/Duration: 1/2 Hour Severity: Moderate Associated Systoms: Denies Symptoms Allergies and Home Medications Allergies Coded Allergies: No Known Drug Allergies (Unverified , 01/17/18) Home Medications Bacitracin 28 Gm Oint...g., 28 GM TP twice a day Prescribed by: ELLEN PROCTOR on 07/02/17 1156 Divalproex Sodium 500 Mg Tablet.dr, 500 MG PO TID Prescribed by: ARIEL HUTCHINSON on 06/09/17 1036 Doxycycline Hyclate 100 Mg Tablet, 100 MG PO BID Prescribed by: ANTOINE WARD on 11/03/19 1916 Levetiracetam 100 Mg/1 Ml Solution, Unknown Dose PO BID, (Reported) Levetiracetam 750 Mg Tablet, 750 MG PO BID Prescribed by: ARIEL HUTCHINSON on 06/09/17 1036 Levetiracetam 250 Mg Tablet, 250 MG PO BID Prescribed by: CARLEY MATHEW on 06/28/17 1940 Sulfamethoxazole/Trimethoprim 1 Each Tablet, 1 EACH PO BID Prescribed by: ATNONIETA PROCTOR on 11/30/19 2357 Topiramate 200 Mg Tablet, 200 MG PO BID Prescribed by: EMERSON SYKES on 03/14/16 1533 Patient Home Medication List Home Medication List Reviewed: Yes Review of Systems Review of Systems Constitutional: see HPI EENTM: see HPI Respiratory: no symptoms reported Cardiovascular: no symptoms reported Genitourinary: no symptoms reported Musculoskeletal: no symptoms reported Skin: no symptoms reported Psychiatric/Neurological: See HPI Hematologic/Lymphatic: No Symptoms Reported Immunological/Allergic: no symptoms reported Past Azoiiyz-Lkcsiz-Mdetki Hx Patient Social History Alcohol Beverage of Choice: Beer, Rum Drug of Choice: cannibus Type Used: Cigarettes Former Smoker, Quit: Oct 24, 2015 2nd Hand Smoke Exposure: Yes Recent Hopitalizations: No Immunizations Up To Date Tetanus Booster (TDap): Unknown PED Vaccines UTD: Yes Seasonal Allergies Seasonal Allergies: No Past Medical History Surgeries: No Orthopedic Respiratory: No Cardiac: No Neurological: Yes Seizure Disorder Reproductive Disorders: No Sexually Transmitted Disease: No Genitourinary: No Gastrointestinal: No Musculoskeletal: No Endocrine: No HEENT: No Cancer: No Psychosocial: Yes Anxiety, Bipolar Integumentary: No Blood Disorders: No Adverse Reaction/Blood Tranf: No Family Medical History No Pertinent Family Hx Physical Exam Vital Signs Vital Signs - First Documented Capillary Refill : Height, Weight, BMI Height: 5'8.00" Weight: 200lbs. 0oz. 90.198806ca; 32.00 BMI Method:Estimated General Appearance: No Apparent Distress, WD/WN, Other (He is alert, nauseated. Vomited once on the way in.) Eyes: Bilateral Eye Normal Inspection, Bilateral Eye PERRL, Bilateral Eye EOMI HEENT: PERRL/EOMI, TMs Normal Neck: Full Range of Motion, Normal Inspection Respiratory: Normal Breath Sounds, No Accessory Muscle Use, No Respiratory Distress Cardiovascular: Normal Peripheral Pulses, Tachycardia Gastrointestinal: Normal Bowel Sounds, Non Tender, Soft Extremity: Normal Capillary Refill, Normal Inspection Neurologic/Psychiatric: Alert, Oriented x3 Skin: Normal Color, Warm/Dry Procedures/Interventions Suture Size: 6-0 Progress/Results/Core Measures Suspected Sepsis SIRS Temperature: Pulse: Respiratory Rate: Laboratory Tests 08/08/20 12:40: White Blood Count 17.2H Blood Pressure / Mean: Laboratory Tests 08/08/20 12:40: Creatinine 1.11, Platelet Count 300, Total Bilirubin 0.4 Results/Orders Lab Results Laboratory Tests Test 08/08/20 12:40 08/08/20 13:35 Range/Units White Blood Count 17.2 H 4.3-11.0 10^3/uL Red Blood Count 5.00 4.30-5.52 10^6/uL Hemoglobin 15.9 13.3-17.7 g/dL Hematocrit 47 40-54 % Mean Corpuscular Volume 95 80-99 fL Mean Corpuscular Hemoglobin 32 25-34 pg Mean Corpuscular Hemoglobin Concent 34 32-36 g/dL Red Cell Distribution Width 11.9 10.0-14.5 % Platelet Count 300 130-400 10^3/uL Mean Platelet Volume 10.2 9.0-12.2 fL Immature Granulocyte % (Auto) 1 % Neutrophils (%) (Auto) 59 42-75 % Lymphocytes (%) (Auto) 29 12-44 % Monocytes (%) (Auto) 10 0-12 % Eosinophils (%) (Auto) 1 0-10 % Basophils (%) (Auto) 1 0-10 % Neutrophils # (Auto) 10.2 H 1.8-7.8 10^3/uL Lymphocytes # (Auto) 5.0 H 1.0-4.0 10^3/uL Monocytes # (Auto) 1.7 H 0.0-1.0 10^3/uL Eosinophils # (Auto) 0.1 0.0-0.3 10^3/uL Basophils # (Auto) 0.1 0.0-0.1 10^3/uL Immature Granulocyte # (Auto) 0.1 0.0-0.1 10^3/uL Neutrophils % (Manual) 41 % Lymphocytes % (Manual) 29 % Monocytes % (Manual) 8 % Eosinophils % (Manual) 1 % Reactive Lymphocytes 21 % Blood Morphology Comment NORMAL Sodium Level 142 135-145 MMOL/L Potassium Level 3.8 3.6-5.0 MMOL/L Chloride Level 103 98-107 MMOL/L Carbon Dioxide Level 12 L 21-32 MMOL/L Anion Gap 27 H 5-14 MMOL/L Blood Urea Nitrogen 14 7-18 MG/DL Creatinine 1.11 0.60-1.30 MG/DL Estimat Glomerular Filtration Rate > 60 BUN/Creatinine Ratio 13 Glucose Level 127 H 70-105 MG/DL Calcium Level 9.9 8.5-10.1 MG/DL Corrected Calcium 8.5-10.1 MG/DL Total Bilirubin 0.4 0.1-1.0 MG/DL Aspartate Amino Transf (AST/SGOT) 28 5-34 U/L Alanine Aminotransferase (ALT/SGPT) 34 0-55 U/L Alkaline Phosphatase 57 40-136 U/L Total Protein 8.0 6.4-8.2 GM/DL Albumin 4.9 H 3.2-4.5 GM/DL Urine Color YELLOW Urine Clarity CLEAR Urine pH 6.0 5-9 Urine Specific [place] >=1.030 1.016-1.022 Urine Protein 2+ H NEGATIVE Urine Glucose (UA) NEGATIVE NEGATIVE Urine Ketones NEGATIVE NEGATIVE Urine Nitrite NEGATIVE NEGATIVE Urine Bilirubin NEGATIVE NEGATIVE Urine Urobilinogen 0.2 < = 1.0 MG/DL Urine Leukocyte Esterase NEGATIVE NEGATIVE Urine RBC (Auto) 1+ H NEGATIVE Urine RBC NONE /HPF Urine WBC 0-2 /HPF Urine Crystals NONE /LPF Urine Bacteria TRACE /HPF Urine Casts PRESENT /LPF Urine Hyaline Casts 2-5 H /LPF Urine Mucus MODERATE H /LPF Urine Other RARE SPERM /HPF Urine Culture Indicated NO My Orders Orders - ANTOINE WARD APRN Cbc With Automated Diff (08/08/20 12:43) Comprehensive Metabolic Panel (08/08/20 12:43) Ua Culture If Indicated (08/08/20 12:43) Ed Iv/Invasive Line Start (08/08/20 12:43) Ondansetron Injection (Zofran Injectio (08/08/20 12:45) Lactated Ringers (Lr 1000 Ml Iv Solution (08/08/20 12:45) Levetiracetam Injection (Keppra Injectio (08/08/20 12:45) Manual Differential (08/08/20 12:40) Medications Given in ED Current Medications Medications Dose Ordered Sig/Jennifer Route Start Time Stop Time Status Last Admin Dose Admin Levetiracetam 500 mg/Sodium Chloride 105 ml @ 210 mls/hr ONCE ONCE IV 08/08/20 12:45 08/08/20 13:14 DC 08/08/20 13:07 210 MLS/HR Ondansetron HCl 4 mg ONCE ONCE IVP 08/08/20 12:45 08/08/20 12:46 DC 08/08/20 12:49 4 MG Vital Signs/I&O 08/08/20 08/08/20 12:42 12:42 Temp 36.3 36.3 Pulse 125 125 Resp 18 18 B/P (MAP) 144/83 (103) Pulse Ox 95 95 O2 Delivery Room Air Capillary Refill : Departure Impression Primary Impression: Seizure disorder Disposition: HOME, SELF-CARE Condition: Stable Departure-Patient Inst. Decision time for Depature: 14:35 Referrals: [facility] (PCP/Family) Primary Care Physician Patient Instructions: Seizures, Adult (DC) ANTOINE WARD APRN August 08, 2020 12:46
[2020-08-08 12:50] LABS: BASOPHILS # (AUTO) 0.1 10^3/uL (0.0-0.1); BASOPHILS % (AUTO) 1 % (0-10); EOSINOPHILS # (AUTO) 0.1 10^3/uL (0.0-0.3); EOSINOPHILS % (AUTO) 1 % (0-10); HEMATOCRIT 47 % (40-54); HEMOGLOBIN 15.9 g/dL (13.3-17.7); LYMPHOCYTES % (AUTO) 29 % (12-44); MEAN CORPUSCULAR HEMOGLOBIN 32 pg (25-34); MEAN CORPUSCULAR HGB CONC 34 g/dL (32-36); MEAN CORPUSCULAR VOLUME 95 fL (80-99); MEAN PLATELET VOLUME 10.2 fL (9.0-12.2); MONOCYTES # (AUTO) 1.7 10^3/uL (0.0-1.0); MONOCYTES % (AUTO) 10 % (0-12); NEUTROPHILS # (AUTO) 10.2 10^3/uL (1.8-7.8); NEUTROPHILS % (AUTO) 59 % (42-75); PLATELET COUNT 300 10^3/uL (130-400); WHITE BLOOD COUNT 17.2 10^3/uL (4.3-11.0)
[2020-08-08 13:05] LABS: ALBUMIN 4.9 GM/DL (3.2-4.5); CHLORIDE 103 MMOL/L (98-107); POTASSIUM 3.8 MMOL/L (3.6-5.0); SODIUM 142 MMOL/L (135-145)
[2020-08-08 13:07] LABS: CALCIUM 9.9 MG/DL (8.5-10.1)
[2020-08-08 13:08] LABS: GLUCOSE 127 MG/DL (70-105)
[2020-08-08 13:09] LABS: CARBON DIOXIDE 12 MMOL/L (21-32)
[2020-08-08 13:10] LABS: BILIRUBIN,TOTAL 0.4 MG/DL (0.1-1.0)
[2020-08-08 13:11] LABS: ALKALINE PHOSPHATASE 57 U/L (40-136)
[2020-08-08 13:12] LABS: CREATININE SERUM 1.11 MG/DL (0.60-1.30); GFR ESTIMATED > 60
[2020-08-08 13:13] LABS: BUN/CREATININE RATIO 13
[2020-08-08 13:14] LABS: ALANINE AMINOTRANSFERASE 34 U/L (0-55)
[2020-08-08 13:32] LABS: EOSINOPHILS % (MANUAL) 1 %; LYMPHOCYTES % (MANUAL) 29 %; MONOCYTES % (MANUAL) 8 %; NEUTROPHILS % (MANUAL) 41 %; RBC MORPH NORMAL; REACTIVE LYMPHOCYTES 21 %
[2020-08-08 13:44] LABS: BILIRUBIN,URINE NEGATIVE (NEGATIVE); CLARITY,URINE CLEAR; COLOR,URINE YELLOW; GLUCOSE, URINE (UA) NEGATIVE (NEGATIVE); KETONES,URINE NEGATIVE (NEGATIVE); LEUKOCYTE ESTERASE ,URINE NEGATIVE (NEGATIVE); NITRITE,URINE NEGATIVE (NEGATIVE); PROTEIN,URINE 2+ (NEGATIVE)
[2020-08-08 13:57] LABS: WBC,URINE 0-2 /HPF
[2020-08-08 13:58] LABS: BACTERIA,URINE TRACE /HPF; URINE OTHER RARE SPERM /HPF
[2020-08-08 14:45] VITALS: BP 140/90
== END 2020-08-08 14:43 | disposition home or self-care (01) ==
LOC: EDUNIT# 12:40 → ER 12:42
DX: G40.909 Epilepsy, unspecified, not intractable, without status epilepticus (principal); F31.9 Bipolar disorder, unspecified; Z87.891 Personal history of nicotine dependence; Z79.899 Other long term (current) drug therapy
CPT/HCPCS: 36415; 80053; 81000; 85007; 85027

== ENCOUNTER 2020-08-19 16:38 | Emergency (ER) | payer SELFPAY ==
[~2020-08-19] VITALS: Ht 170.2 cm; Wt 94.3 kg
[2020-08-19 16:51] VITALS: BP 137/80
[2020-08-19 16:58] LABS: BILIRUBIN,URINE NEGATIVE (NEGATIVE); CLARITY,URINE CLEAR; COLOR,URINE YELLOW; GLUCOSE, URINE (UA) NEGATIVE (NEGATIVE); KETONES,URINE NEGATIVE (NEGATIVE); LEUKOCYTE ESTERASE ,URINE NEGATIVE (NEGATIVE); NITRITE,URINE NEGATIVE (NEGATIVE); PROTEIN,URINE NEGATIVE (NEGATIVE)
--- NOTE | 2020-08-19 17:02 | ED Back Pain ---
General Chief Complaint: Back Problems Stated Complaint: RT SIDE PAIN Nursing Triage Note: PT AMBULATE TO ROOM 06 WITH C/O RIGHT SIDE FLANK PAIN X2-3 DAYS. Nursing Sepsis Screen: No Definite Risk Source of Information: Patient Exam Limitations: No Limitations History of Present Illness Date Seen by Provider: August 19, 2020 Time Seen by Provider: 16:52 Initial Comments This is a well-appearing 29-year-old male presents to the ER with complaints of right posterior and lateral rib pain x3 days. States he had a recent fall after experiencing a seizure. He is concerned this might be related to the incident. Has been taking Tylenol [id number] with no relief. Currently rating pain 10/10, sharp and stabbing, constant, localized to his posterior lateral rib region ribs 10 through 12. Denies fever, chills, cough, shortness of breath, nausea, vomiting, abdominal pain, difficulty urinating. Allergies and Home Medications Allergies Coded Allergies: No Known Drug Allergies (Unverified , 01/17/18) Home Medications Bacitracin 28 Gm Oint...g., 28 GM TP twice a day Prescribed by: ELLEN PROCTOR on 07/02/17 1156 Cyclobenzaprine HCl 10 Mg Tablet, 10 MG PO Q8H Prescribed by: BENNY LOFTON on 08/19/20 1756 Divalproex Sodium 500 Mg Tablet.dr, 500 MG PO TID Prescribed by: ARIEL HUTCHINSON on 06/09/17 103 Doxycycline Hyclate 100 Mg Tablet, 100 MG PO BID Prescribed by: ANTOINE WARD on 11/03/191915 Levetiracetam 100 Mg/1 Ml Solution, Unknown Dose PO BID, (Reported) Levetiracetam 750 Mg Tablet, 750 MG PO BID Prescribed by: ARIEL HUTCHINSON on 06/09/17 1036 Levetiracetam 250 Mg Tablet, 250 MG PO BID Prescribed by: CARLEY MATHEW on 06/28/17 194 Sulfamethoxazole/Trimethoprim 1 Each Tablet, 1 EACH PO BID Prescribed by: ANTONIETA PROCTOR on 11/30/19 2357 Topiramate 200 Mg Tablet, 200 MG PO BID Prescribed by: EMERSON SYKES on 03/14/16 1533 Patient Home Medication List Home Medication List Reviewed: Yes Review of Systems Constitutional: no symptoms reported EENTM: no symptoms reported Respiratory: see HPI Cardiovascular: no symptoms reported Gastrointestinal: no symptoms reported Genitourinary: no symptoms reported Musculoskeletal: see HPI Skin: no symptoms reported Psychiatric/Neurological: No Symptoms Reported Past Trsrerf-Jtjswq-Yncxrk Hx Patient Social History Alcohol Use: Regular Use Number of Drinks Today: DD Alcohol Beverage of Choice: Beer, Rum Drug of Choice: cannibus Smoking Status: Former Smoker Type Used: Cigarettes Former Smoker, Quit: Oct 24, 2015 2nd Hand Smoke Exposure: Yes Recent Infectious Disease Expo: No Recent Hopitalizations: No Immunizations Up To Date Tetanus Booster (TDap): Unknown PED Vaccines UTD: Yes Seasonal Allergies Seasonal Allergies: No Past Medical History Surgeries: No Orthopedic Respiratory: No Cardiac: No Neurological: Yes Seizure Disorder Reproductive Disorders: No Sexually Transmitted Disease: No Genitourinary: No Gastrointestinal: No Musculoskeletal: No Endocrine: No HEENT: No Cancer: No Psychosocial: Yes Anxiety, Bipolar Integumentary: No Blood Disorders: No Adverse Reaction/Blood Tranf: No Family Medical History No Pertinent Family Hx Physical Exam Vital Signs Vital Signs - First Documented 08/19/20 16:51 Temp 35.6 Pulse 99 Resp 17 B/P (MAP) 137/80 (99) O2 Delivery Room Air Capillary Refill : Less Than 3 Seconds Height, Weight, BMI Height: 5'8.00" Weight: 200lbs. 0oz. [id number]; 32.00 BMI Method:Estimated General Appearance: No Apparent Distress, WD/WN HEENT: PERRL/EOMI, Normal ENT Inspection, Moist Mucous Membranes Neck: Full Range of Motion, Normal Inspection Cardiovascular: Regular Rate, Rhythm, Normal Peripheral Pulses Respiratory: Chest Non Tender, Lungs Clear, Normal Breath Sounds Gastrointestinal: Normal Bowel Sounds, Non Tender, Soft Back: Normal Inspection, No CVA Tenderness Extremity: Normal Inspection, Normal Range of Motion, Non Tender Neurologic/Psychiatric: Alert, Oriented x3, No Motor/Sensory Deficits, Normal Mood/Affect Skin: Normal Color, Warm/Dry Procedures/Interventions Suture Size: 6-0 Progress/Results/Core Measures Results/Orders Lab Results Laboratory Tests Test 08/19/20 16:44 Range/Units Urine Color YELLOW Urine Clarity CLEAR Urine pH 6.0 5-9 Urine Specific [place] >=1.030 1.016-1.022 Urine Protein NEGATIVE NEGATIVE Urine Glucose (UA) NEGATIVE NEGATIVE Urine Ketones NEGATIVE NEGATIVE Urine Nitrite NEGATIVE NEGATIVE Urine Bilirubin NEGATIVE NEGATIVE Urine Urobilinogen 1.0 < = 1.0 MG/DL Urine Leukocyte Esterase NEGATIVE NEGATIVE Urine RBC (Auto) NEGATIVE NEGATIVE Urine RBC NONE /HPF Urine WBC NONE /HPF Urine Squamous Epithelial Cells NONE /HPF Urine Crystals NONE /LPF Urine Bacteria NEGATIVE /HPF Urine Casts NONE /LPF Urine Mucus NEGATIVE /LPF Urine Culture Indicated NO My Orders Orders - BENNY LOFTON COUNTER DISH CARRIER Ua Culture If Indicated (08/19/20 16:40) Ribs/Unilateral With Chest (08/19/20 16:59) Ketorolac Injection (Toradol Injection) (08/19/20 17:45) Medications Given in ED Current Medications Medications Dose Ordered Sig/Jennifer Route Start Time Stop Time Status Last Admin Dose Admin Ketorolac Tromethamine 60 mg ONCE ONCE IM 08/19/20 17:45 08/19/20 17:46 DC 08/19/20 17:40 60 MG Vital Signs/I&O 08/19/20 16:51 Temp 35.6 Pulse 99 Resp 17 B/P (MAP) 137/80 (99) O2 Delivery Room Air Blood Pressure Mean: 99 Progress Progress Note : Progress Note Patient examined and in no acute distress. He is tender along his right posterior and lateral ribs 10 through 12 did light and deep palpation. No crepitus or obvious deformity appreciated on exam. Discussed giving him Toradol 60 mg IM for pain and he is agreeable to this. Will obtain x-ray of right ribs to evaluate for any fractures. X-ray showed no acute pathology. No fractures identified. Discussed using incentive spirometer at home to help prevent pneumonia. Reviewed discharge plan of care and he is agreeable with plan. Diagnostic Imaging Diagonstic Imaging: Xray Plain Films/CT/US/NM/MRI: chest Comments [facility] [place], [place] NAME: SARANYA HARTMANN [facility] REC#: [id number] PT STATUS: REG ER : 1990 PHYSICIAN: BENNY LOFTON COUNTER DISH CARRIER ADMIT DATE: 08/19/20/ER Signed Date of Exam:08/19/20 RIBS/UNILATERAL WITH CHEST INDICATION: Right-sided posterior rib pain. COMPARISON: None available. TECHNIQUE: PA chest with two views of the right ribs. FINDINGS: No pleural effusion or pneumothorax. No consolidation. Normal cardiomediastinal silhouette. No acute displaced fracture in the right ribs. IMPRESSION: 1. No pneumothorax. 2. No acute fracture of the right ribs. Dictated by: Dictated on workstation # [id number] Dict: 08/19/20 1728 Trans: 08/19/201802 [facility] [id number] Interpreted by: LAM RAMOS MD Electronically signed by: LAM RAMOS MD 08/19/201802 Reviewed: Reviewed by Me Departure Impression Primary Impression: Rib pain on right side Disposition: HOME, SELF-CARE Condition: Improved Departure-Patient Inst. Decision time for Depature: 17:54 Referrals: [facility] [place]) Primary Care Physician Patient Instructions: Back Muscle Strain (DC) Add. Discharge Instructions: Plan: 1. May use ice/heat 20 minutes at a time 4-6x per day for pain. 2. May use Ibupfrofen 600mg by mouth every 6 hours as needed for pain. 3. May take Flexeril 10mg by mouth every 8 hours as needed for severe pain. Do not work/drive while taking. 4. Follow up with your doctor for persistent pain. 5. Return for any new, concerning, or worsening symptoms. All discharge instructions reviewed with patient and/or family. Voiced understanding. Scripts Cyclobenzaprine HCl (Cyclobenzaprine HCl) 10 Mg Tablet 10 MG PO Q8H, #10 TAB 0 Refills Prov: BENNY LOFTON APRN 08/19/20 BENNY LOFTON APRN August 19, 2020 17:02
[2020-08-19 17:09] LABS: BACTERIA,URINE NEGATIVE /HPF
--- NOTE | 2020-08-19 17:32 | Diagnostic Imaging Report ---
INDICATION: Right-sided posterior rib pain. COMPARISON: None available. TECHNIQUE: PA chest with two views of the right ribs. FINDINGS: No pleural effusion or pneumothorax. No consolidation. Normal cardiomediastinal silhouette. No acute displaced fracture in the right ribs. IMPRESSION: 1. No pneumothorax. 2. No acute fracture of the right ribs. Dictated by: Dictated on workstation # [id number]
[2020-08-19] MEDS ORDERED: KETOROLAC 60 MG/2 ML VIAL IM ONE (17:45)
[2020-08-19] MEDS ORDERED: CYCL10TA9 PO (17:56)
== END 2020-08-19 18:06 | disposition home or self-care (01) ==
LOC: EDUNIT# 16:38 → ER 16:40
DX: R07.81 Pleurodynia (principal); G40.909 Epilepsy, unspecified, not intractable, without status epilepticus; F31.9 Bipolar disorder, unspecified; Z87.891 Personal history of nicotine dependence; Z77.22 Contact with and (suspected) exposure to environmental tobacco smoke (acute) (chronic); W19.XXXA Unspecified fall, initial encounter
CPT/HCPCS: 71101; 81000

== ENCOUNTER 2020-12-31 09:02 | Emergency (ER) | payer SELFPAY ==
[~2020-12-31] VITALS: Ht 167 cm; Wt 91.0 kg
[~2020-12-31 09:02] MED LIST changes: +CYCL10TA9 PO; -SULF1TAB35 PO; +SULF1TAB38 PO
[2020-12-31 09:10] VITALS: BP 159/89
--- NOTE | 2020-12-31 10:24 | ED EENT ---
History of Present Illness General Chief Complaint: Dental Problems/Pain Stated Complaint: TOOTH ABCESS Nursing Triage Note: PT AMB TO FT3 PT CO OF DENTAL PAIN 10/10 L LOWER JAW. STATES FILLING FELL OUT A COUPLE DAYS AGO. Source: patient Exam Limitations: no limitations History of Present Illness Date Seen by Provider: Dec 31, 2020 Time Seen by Provider: 10:00 Initial Comments Patient to the ER by private conveyance from home chief complaint that today he started having an episode of right molar tooth pain. The filling fell out sometime ago and he has had episodes of pain. He is not having any fevers or chills. He does not see a dentist for this. He has not been on antibiotics Allergies and Home Medications Allergies Coded Allergies: No Known Drug Allergies (Unverified , 01/17/18) Patient Home Medication List Home Medication List Reviewed: Yes Bacitracin (Bacitraycin Plus) 28 Gm Oint...g., 28 GM TP twice a day Prescribed by: ELLEN PROCTOR on 07/02/17 1156 Cyclobenzaprine HCl (Cyclobenzaprine HCl) 10 Mg Tablet, 10 MG PO Q8H Prescribed by: BENNY LOFTON on 08/19/20 1756 Divalproex Sodium (Depakote) 500 Mg Tablet.dr, 500 MG PO TID Prescribed by: ARIEL HUTCHINSON on 06/09/17 103 Doxycycline Hyclate (Doxycycline Hyclate) 100 Mg Tablet, 100 MG PO BID Prescribed by: ANTOINE WRAD on 11/03/19 191 Levetiracetam (Keppra) 100 Mg/1 Ml Solution, Unknown Dose PO BID, (Reported) Entered as Reported by: NIKO DELUNA on 01/26/16 155 Levetiracetam (Keppra) 750 Mg Tablet, 750 MG PO BID Prescribed by: ARIEL HUTCHINSON on 06/09/17 1036 Levetiracetam (Keppra) 250 Mg Tablet, 250 MG PO BID Prescribed by: CARLEY MATHEW on 06/28/17 194 Sulfamethoxazole/Trimethoprim (Bactrim Ds Tablet) 1 Each Tablet, 1 EACH PO BID Prescribed by: ANTONIETA PROCTOR on 11/30/19 1207 Topiramate (Topamax) 200 Mg Tablet, 200 MG PO BID Prescribed by: EMERSON SYKES on 03/14/16 1533 Review of Systems Review of Systems Constitutional: No chills, No diaphoresis Eyes: Denies Blindness, Denies Drainage Ears: Denies Dizziness, Denies Pain Nose: denies clots, denies congestion Mouth: denies clots, denies pain Throat: denies pain, denies swelling Respiratory: No cough, No phlegm Cardiovascular: No chest pain, No edema Gastrointestinal: No abdominal pain, No nausea, No vomiting All Other Systems Reviewed Negative Unless Noted: Yes Past Koxlbrh-Pfscvt-Mmufdp Hx Patient Social History Tobacco Use?: Yes Tobacco type used: Cigarettes Substance use?: Yes Substance type: Marijuana Alcohol Use?: Yes Alcohol Frequency: Rarely Pt feels they are or have been: No Immunizations Up To Date Tetanus Booster (TDap): Unknown PED Vaccines UTD: Yes Second COVID19 Vaccination Gerry: PT STATES BOTH MODERNA VACCINE Seasonal Allergies Seasonal Allergies: No Past Medical History Surgeries: No Orthopedic Respiratory: No Cardiac: No Neurological: Yes Seizure Disorder Reproductive Disorders: No Sexually Transmitted Disease: No Genitourinary: No Gastrointestinal: No Musculoskeletal: No Endocrine: No HEENT: No Cancer: No Psychosocial: Yes Anxiety, Bipolar Integumentary: No Blood Disorders: No Adverse Reaction/Blood Tranf: No Family Medical History No Pertinent Family Hx Physical Exam Vital Signs Vital Signs - First Documented 12/31/20 09:10 Temp 36.8 Pulse 57 Resp 20 B/P (MAP) 159/89 (112) Pulse Ox 97 Height, Weight, BMI Height: 5'8.00" Weight: 200lbs. 0oz. 90.075585wh; 32.00 BMI Method:Estimated General Appearance: WD/WN, mild distress Eyes: bilateral eye normal inspection, bilateral eye PERRL, bilateral eye EOMI Nose: normal inspection; No active bleeding, No discharge Mouth/Throat: other (Dental caries without edema erythema or discharge) Neck: full range of motion, normal inspection Cardiovascular: normal peripheral pulses, regular rate, rhythm Respiratory: no respiratory distress, no accessory muscle use Procedures/Interventions Suture Size: 6-0 Progress/Results/Core Measures Results/Orders My Orders Orders - ANTONIETA PROCTOR Lidocaine 2% Viscous 15 Ml (Xylocaine Vi (12/31/20 10:30) Ketorolac Injection (Toradol Injection) (12/31/20 10:30) Vital Signs/I&O 12/31/20 09:10 Temp 36.8 Pulse 57 Resp 20 B/P (MAP) 159/89 (112) Pulse Ox 97 Blood Pressure Mean: 112 Progress Progress Note : Time: 10:21 Progress Note Viscous lidocaine, Toradol, conservative management and Augmentin up to 10 days. Encouraged him to follow-up with a dentist. Departure Impression Primary Impression: Dental abscess Disposition: HOME, SELF-CARE Condition: Stable Departure-Patient Inst. Decision time for Depature: 10:22 Referrals: [facility] (PCP/Family) Primary Care Physician Patient Instructions: Tooth Abscess (DC) Add. Discharge Instructions: Continue to brush your teeth and use mouthwash to reduce the bacterial burden in your mouth. Tylenol 1000 mg every 8 hours as necessary for pain. Ibuprofen 800 mg every 8 hours as necessary for pain. Augmentin 1 tablet twice a day with food for the next 7 to 10 days. If your pain goes away you may take the antibiotic for another 2 days and quit early. Follow-up with a dentist as this will need to be surgically treated or it will continue to recur. [facility] has dentist as well as there are dental schools that can sometimes help people on a limited budget. Put 5 cc of viscous lidocaine on gauze and pack it over the tooth once every 4 hours as necessary to keep the pain under control. After that you may use Orajel or similar numbing medicines for tooth pain. Warm moist heat applied to the jaw can also helpdesk administrator the healing process and reduce pain. All discharge instructions reviewed with patient and/or family. Voiced understanding. Scripts Amoxicillin/Potassium Clav (Augmentin 875-125 Tablet) 1 Each Tablet 1 EACH PO BID for 10 Days, #20 TAB 0 Refills Prov: ANTONIETA PROCTOR 12/31/20 ANTONIETA PROCTOR Dec 31, 2020 10:24
[2020-12-31] MEDS ORDERED: AMOX-358 PO (10:25)
[2020-12-31] MEDS ORDERED: KETOROLAC 60 MG/2 ML VIAL IM ONE (10:30)
[2020-12-31] MEDS ORDERED: LIDOCAINE 2% VISCOUS 15 ML UDC PO ONE (10:30)
== END 2020-12-31 10:32 | disposition home or self-care (01) ==
LOC: EDUNIT# 09:02 → ER 09:03
DX: K04.7 Periapical abscess without sinus (principal); F31.9 Bipolar disorder, unspecified; G40.909 Epilepsy, unspecified, not intractable, without status epilepticus; Z72.0 Tobacco use; Z79.899 Other long term (current) drug therapy
CPT/HCPCS: 99284

== ENCOUNTER 2021-03-08 09:11 | Emergency (ER) | payer SELFPAY ==
[~2021-03-08] VITALS: Ht 170.2 cm; Wt 94.3 kg
[~2021-03-08 09:11] MED LIST changes: +AMOX-358 PO; +CLIN-144 PO; -CLIN300C12 PO; +CYCL10TA25 PO; -CYCL10TA9 PO
--- NOTE | 2021-03-08 10:02 | ED Neurological Problem ---
General Chief Complaint: Neurological Problems Stated Complaint: SEIZURE Nursing Triage Note: PT AMBULATE TO ROOM FT1 WITH C/O HE THINKS HE MAY HAVE "A BIG SEIZURE". PT STATES THAT HE HAS "PETITE" SEIZURE FREQUENTLY AND IS CURRENT ON SEIZURE MEDS. PT STATES "WHERE ELSE DO YOU COME IF YOU THINK YOU ARE GONNA HAVE A SEIZURE". PT REPORTS HE IS SHAKEY. Source: patient Exam Limitations: no limitations (CELINE SCHERER STUDENT) History of Present Illness Date Seen by Provider: Mar 08, 2021 Time Seen by Provider: 09:45 Initial Comments Trent Velazquez is a 30 yo M with history of epilepsy who presents to ED via private conveyance after having a seizure. Pt states he was getting up this morning and about to leave for work when he had what he describes as a minor seizure. During the episode he states he hit his arm on his door but denies hitting his head or any other injuries associated with the event. States he has been compliant with his seizure meds, but is anxious that he may have another seizure as he often has multiple once he has had one. Also reports nausea and vomiting associated with the event and he currently feels shaky. Denies any fever, chills, sob, chest pain, decreased strength or sensation, vision changes. Location Injury Occurred: L arm Timing/Duration: constant Severity: mild Associated Symptoms: nausea/vomiting, seizures (CELINE SCHERER STUDENT) Allergies and Home Medications Allergies Coded Allergies: No Known Drug Allergies (Unverified , 01/17/18) Patient Home Medication List Home Medication List Reviewed: Yes (ANTOINE WARD APRN) Amoxicillin/Potassium Clav (Augmentin 875-125 Tablet) 1 Each Tablet, 1 EACH PO BID Prescribed by: ANTONIETA PROCTOR on 12/31/20 1025 Bacitracin (Bacitraycin Plus) 28 Gm Oint...g., 28 GM TP twice a day Prescribed by: ELLEN PROCTOR on 07/02/17 1156 Cyclobenzaprine HCl (Cyclobenzaprine HCl) 10 Mg Tablet, 10 MG PO Q8H Prescribed by: BENNY LOFTON on 08/19/20 1756 Divalproex Sodium (Depakote) 500 Mg Tablet.dr, 500 MG PO TID Prescribed by: ARIEL HUTCHINSON on 06/09/17 1036 Doxycycline Hyclate (Doxycycline Hyclate) 100 Mg Tablet, 100 MG PO BID Prescribed by: ANTOINE WARD on 11/03/19 1916 Levetiracetam (Keppra) 100 Mg/1 Ml Solution, Unknown Dose PO BID, (Reported) Entered as Reported by: NIKO DELUNA on 01/26/16 1551 Levetiracetam (Keppra) 750 Mg Tablet, 750 MG PO BID Prescribed by: ARIEL HUTCHINSON on 06/09/17 1036 Levetiracetam (Keppra) 250 Mg Tablet, 250 MG PO BID Prescribed by: CARLEY MATHEW on 06/28/17 1940 Sulfamethoxazole/Trimethoprim (Bactrim Ds Tablet) 1 Each Tablet, 1 EACH PO BID Prescribed by: ANTONIETA PROCTOR on 11/30/19 646 Topiramate (Topamax) 200 Mg Tablet, 200 MG PO BID Prescribed by: EMERSON SYKES on 03/14/16 1533 Review of Systems Review of Systems Constitutional: No chills, No diaphoresis Eyes: Denies Blindness, Denies Blurred Vision Ears, Nose, Mouth, Throat: denies nose discharge, denies epistaxis Respiratory: No cough, No dyspnea on exertion Cardiovascular: No chest pain, No edema Gastrointestinal: No abdominal pain, No constipation Genitourinary: No dysuria, No frequency Musculoskeletal: No joint swelling; muscle pain (L arm) Skin: No change in color, No change in hair/nails Psychiatric/Neurological: Petit Mal Seizures Endocrine: Denies Excessive Sweating, Denies Flushing (CELINE SCHERER MED STUDENT) Past Ffuvmoi-Srxykr-Pfurvo Hx Patient Social History Tobacco Use?: Yes Tobacco type used: Cigarettes Smoking Status: Current Everyday Smoker Smokeless Tobacco Frequency: Never a User Use of E-Cig and/or Vaping dev: No Use of E-Cig and/or Vaping García: Never a User Substance use?: Yes Substance type: Marijuana Substance frequency: Daily Alcohol Use?: No Pt feels they are or have been: No (CELINE SCHERER MED STUDENT) Immunizations Up To Date Tetanus Booster (TDap): Unknown PED Vaccines UTD: Yes First/Initial COVID19 Vaccinat: 3-4 MONTHS AGO Second COVID19 Vaccination Gerry: 3-4 MONTHS AGO COVID19 Vaccine 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 ([facility]) Seasonal Allergies Seasonal Allergies: No ([facility]) Past Medical History Surgeries: No Orthopedic Respiratory: No Cardiac: No Neurological: Yes Seizure Disorder Reproductive Disorders: No Sexually Transmitted Disease: No Genitourinary: No Gastrointestinal: No Musculoskeletal: No Endocrine: No HEENT: No Cancer: No Psychosocial: Yes Anxiety, Bipolar Integumentary: No Blood Disorders: No Adverse Reaction/Blood Tranf: No ([facility]) Family Medical History No Pertinent Family Hx ([facility]) Physical Exam Vital Signs Vital Signs - First Documented 03/08/21 09:36 Temp 36.5 Pulse 89 Resp 17 B/P (MAP) 138/91 (107) O2 Delivery Room Air (ANTOINE WARD APRN) Vital Signs Capillary Refill : Less Than 3 Seconds ([facility]) Height, Weight, BMI Height: 5'8.00" Weight: 200lbs. 0oz. 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, no motor/sensory deficits, alert, normal mood/affect, oriented x 3 Crainal Nerves: normal hearing, normal speech, PERRL Coordination/Gait: normal finger to nose, normal gait Motor/Sensory: no motor deficit, no sensory deficit, no pronator drift; No weak motor strength RUE, No weak motor strength LUE, No weak motor strength RLE, No weak motor strength LLE Skin: normal color, warm/dry Lymphatic: no adenopathy ([facility]) Procedures/Interventions Suture Size: 6-0 (GILMER,CELINE MED STUDENT) Progress/Results/Core Measures Results/Orders My Orders Orders - ANTOINE WARD APRN Diazepam Tablet (Valium Tablet) (03/08/21 11:00) (ANTOINE WARD APRN) Medications Given in ED Current Medications Medications Dose Ordered Sig/Jennifer Route Start Time Stop Time Status Last Admin Dose Admin Diazepam 5 mg ONCE ONCE PO 03/08/21 11:00 03/08/21 11:01 DC 03/08/21 10:57 5 MG Ondansetron HCl 4 mg ONCE ONCE PO 03/08/21 10:15 03/08/21 10:16 DC 03/08/21 10:57 4 MG (ANTOINE WARD APRN) Vital Signs/I&O 03/08/21 09:36 Temp 36.5 Pulse 89 Resp 17 B/P (MAP) 138/91 (107) O2 Delivery Room Air (ANTOINE WARD APRN) Blood Pressure Mean: 107 Departure Communication (Admissions) 1103-I have seen the patient and agree with plan of care. He is a known epileptic on 3 different antiepileptic medications which she states he has been compliant with. He has not had a seizure since August of this year. This morning he had an "small 1". He just feels tired now. He felt fine yesterday and fine this morning before having a seizure. He is worried he may have another 1. He has follow-up with Dr. Thompson in March. He sees Roly Matute at the clinic. Aside from being tired as expected he has no symptoms. I discussed with him that I do not really have any concerns that warrants laboratory evaluation or CT imaging. With his epilepsy he is just going to have a seizure from time to time. Is been 6 months since his last seizure. If he has a recurrent seizure in the near future then we might check some labs and consider adjusting medications but he is alert and oriented and pleasant here. No evidence of injury from the fall. We did give him a Valium and Zofran here. (ANTOINE WARD APRN) Impression Primary Impression: Seizure disorder Disposition: HOME, SELF-CARE Condition: Stable Departure-Patient Inst. Decision time for Depature: 11:05 (ANTOINE WARD APRN) Referrals: [facility] (PCP/Family) Primary Care Physician Patient Instructions: Epilepsy in Adults Add. Discharge Instructions: . Return to ER for any worsening. Return to ER also if you have any recurrent seizure in the next few days and at that point we would need to check some labs and consider adjusting your medications. No driving for 6 months. Do not swim alone. All discharge instructions reviewed with patient and/or family. Voiced understanding. Work/School Note: Work Release Form Date Seen in the Emergency Department: Mar 08, 2021 Return to Work: Mar 09, 2021 Other Restrictions Listed Below: No driving for 6 months. Please excuse today as patient had seizure CELINE SCHERER MED STUDENT Mar 08, 2021 10:02 ANTOINE WARD APRN Mar 08, 2021 11:07
[2021-03-08] MEDS ORDERED: ONDANSETRON 4 MG (ZOFRAN) ORAL DISSOLVE TAB PO ONE (10:15)
[2021-03-08] MEDS ORDERED: DIAZEPAM 5 MG (VALIUM) TABLET PO ONE (11:00)
[2021-03-08 11:23] VITALS: BP 136/88
== END 2021-03-08 11:24 | disposition home or self-care (01) ==
LOC: EDUNIT# 09:11 → ER 09:12
DX: G40.909 Epilepsy, unspecified, not intractable, without status epilepticus (principal); F31.9 Bipolar disorder, unspecified; F17.210 Nicotine dependence, cigarettes, uncomplicated; Z79.899 Other long term (current) drug therapy
CPT/HCPCS: 99283

== ENCOUNTER 2021-05-21 01:11 | Emergency (ER) | payer SELFPAY ==
[~2021-05-21] VITALS: Ht 170 cm; Wt 96.0 kg
[2021-05-21 02:15] LABS: BASOPHILS # (AUTO) 0.1 10^3/uL (0.0-0.1); BASOPHILS % (AUTO) 1 % (0-10); EOSINOPHILS # (AUTO) 0.1 10^3/uL (0.0-0.3); EOSINOPHILS % (AUTO) 1 % (0-10); HEMATOCRIT 45 % (40-54); HEMOGLOBIN 15.4 g/dL (13.3-17.7); LYMPHOCYTES % (AUTO) 28 % (12-44); MEAN CORPUSCULAR HEMOGLOBIN 31 pg (25-34); MEAN CORPUSCULAR HGB CONC 34 g/dL (32-36); MEAN CORPUSCULAR VOLUME 92 fL (80-99); MEAN PLATELET VOLUME 10.3 fL (9.0-12.2); MONOCYTES # (AUTO) 0.7 10^3/uL (0.0-1.0); MONOCYTES % (AUTO) 9 % (0-12); NEUTROPHILS # (AUTO) 4.3 10^3/uL (1.8-7.8); NEUTROPHILS % (AUTO) 61 % (42-75); PLATELET COUNT 250 10^3/uL (130-400); WHITE BLOOD COUNT 7.1 10^3/uL (4.3-11.0)
[2021-05-21 02:22] LABS: BILIRUBIN,URINE NEGATIVE (NEGATIVE); CLARITY,URINE CLEAR; COLOR,URINE YELLOW; GLUCOSE, URINE (UA) NEGATIVE (NEGATIVE); KETONES,URINE NEGATIVE (NEGATIVE); LEUKOCYTE ESTERASE ,URINE NEGATIVE (NEGATIVE); NITRITE,URINE NEGATIVE (NEGATIVE); PH,URINE 6.5 (5-9); PROTEIN,URINE NEGATIVE (NEGATIVE)
[2021-05-21 02:24] LABS: ALBUMIN 4.6 GM/DL (3.2-4.5); CHLORIDE 105 MMOL/L (98-107); POTASSIUM 4.5 MMOL/L (3.6-5.0); SODIUM 139 MMOL/L (135-145)
[2021-05-21 02:25] LABS: CALCIUM 9.6 MG/DL (8.5-10.1)
[2021-05-21 02:26] LABS: GLUCOSE 106 MG/DL (70-105)
[2021-05-21 02:27] LABS: CARBON DIOXIDE 20 MMOL/L (21-32); TOTAL PROTEIN 7.5 GM/DL (6.4-8.2)
[2021-05-21 02:28] LABS: BILIRUBIN,TOTAL 0.3 MG/DL (0.1-1.0)
[2021-05-21 02:30] LABS: ALKALINE PHOSPHATASE 54 U/L (40-136); CREATININE SERUM 1.26 MG/DL (0.60-1.30); GFR ESTIMATED 78
[2021-05-21 02:32] LABS: BUN/CREATININE RATIO 14
[2021-05-21 02:33] LABS: ALANINE AMINOTRANSFERASE 31 U/L (0-55); SALICYLATE < 5.0 MG/DL (5.0-20.0)
[2021-05-21 02:39] LABS: AMPHETAMINE SCREEN, URINE NEGATIVE (NEGATIVE); BARBITURATE SCREEN URINE NEGATIVE (NEGATIVE); BENZODIAZEPINES SCREEN URINE POSITIVE (NEGATIVE); CANNABINOID SCREEN, URINE POSITIVE (NEGATIVE); COCAINE SCREEN URINE NEGATIVE (NEGATIVE); METHADONE STAT NEGATIVE (NEGATIVE); METHAMPHETAMINE SCREEN URINE S NEGATIVE (NEGATIVE); OPIATE SCREEN URINE NEGATIVE (NEGATIVE); OXYCODONE STAT NEGATIVE (NEGATIVE); PROPOXYPHENE STAT NEGATIVE (NEGATIVE); TRICYCLIC ANTIDEPRESSANTS SCRE NEGATIVE (NEGATIVE)
[2021-05-21 02:40] LABS: BACTERIA,URINE NEGATIVE /HPF; SQUAMOUS EPITHELIAL CELL,UR RARE /HPF
[2021-05-21 02:44] LABS: ACETAMINOPHEN < 10 UG/ML (10-30)
--- NOTE | 2021-05-21 03:29 | ED Psychosocial ---
General Chief Complaint: Psych/Social Disorder Stated Complaint: WOULD NOT SAY WHY WANTED TO BE SEEN Nursing Triage Note: PT AMB TO ED BY POV WITH C/O SI WITHOUT A PLAN. PT REPORTS HE HAS BEEN HAVING SUICIDAL THOUGHTS X 1WK. PT WAS TEARFUL AND VAGUE WITH ANSWERS. PT REPORTS HIS THERAPIST IS ELIAS SHEEHAN AT [facility], BUT DID NOT TELL HIM HE WAS HAVING SUICIDAL THOUGHTS WHEN HE SAW HIM THIS WEEK. PT REPORTS HE HAS TRIED TO HARM HIMSELF IN THE PAST BY "CUTTING HIMSELF AND TAKING PILLS." Source: patient (VERY VAGUE HISTORIAN/GIVES MINIMAL INFORMATION) (HORTENSIA HOFFMAN DO) History of Present Illness Date Seen by Provider: May 21, 2021 Time Seen by Provider: 02:00 Initial Comments PT ARRIVES FROM HOME--STATES HE WALKED HERE PT LIVES WITH HIS MOM AND HER FRIEND C/O SUICIDAL THOUGHTS--"FOR A WEEK OR SO" NO SPECIFIC PLAN OR ATTEMPT/GESTURE PT IS EXTREMELY VAGUE IN ALL HIS ANSWERS, AND GIVES VERY MINIMAL ANSWERS TO ALL QUESTIONS PT STATES HE HAS TAKEN PILLS AND CUT HIMSELF IN THE PAST, BUT NEVER SOUGHT CARE WHEN HE HAS DONE THESE THINGS. 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 PT STATES HE HAS "ALOT OF WEIGHT ON MY SHOULDERS" AND "TOO MUCH TO EXPLAIN" AND WILL NOT ELABORATE. PT WAS SEEN AT [facility] MENTAL HEALTH 3 DAYS AGO FOR ROUTINE APPOINTMENT. DID NOT MENTION THAT HE HAS BEEN HAVING SUICIDAL THOUGHTS, NOR HAS HE MENTIONED THEM AT ANY TIME TO HIS THERAPIST OR HIS PRIMARY CARE. NO MEDICATION CHANGES PT STATES HE TAKES ZOLOFT AND SEROQUEL "EVERY ONCE IN AWHILE" PT STATES HE HAS NEVER HAD ANY INPATIENT MENTAL HEALTH ADMITS. PT DOES MENTION LATER THAT HE DOES HAVE ACCESS TO A "9 MM GUN" IN THE HOME--STATES IT IS NOT HIS GUN, BUT DOES HAVE ACCESS TO IT. NO FEVER OR RECENT ILLNESS PT HAS HAD COVID-19 VACCINE X 2, NO BOOSTER VACCINE LONG HISTORY OF NON-COMPLIANCE IN ALL ASPECTS OF CARE. PT WITH MULTIPLE VISITS FOR VARIOUS COMPLAINTS, WITH MANY BEING FOR REPORTED SEIZURES PCP: [facility], GENETIC TECHNOLOGIST [facility]: [facility] (HORTENSIA HOFFMAN DO) Allergies and Home Medications Allergies Coded Allergies: No Known Drug Allergies (Unverified , 01/17/18) Patient Home Medication List Home Medication List Reviewed: Yes (HORTENSIA HOFFMAN DO) Amoxicillin/Potassium Clav (Augmentin 875-125 Tablet) 1 Each Tablet, 1 EACH PO BID Prescribed by: ANTONIETA PROCTOR on 12/31/20 1025 Bacitracin (Bacitraycin Plus) 28 Gm Oint...g., 28 GM TP twice a day Prescribed by: ELLEN PROCTOR on 07/02/17 1156 Cyclobenzaprine HCl (Cyclobenzaprine HCl) 10 Mg Tablet, 10 MG PO Q8H Prescribed by: BENNY LOFTON on 08/19/20 1756 Divalproex Sodium (Depakote) 500 Mg Tablet.dr, 500 MG PO TID Prescribed by: ARIEL HUTCHINSON on 06/09/17 1036 Doxycycline Hyclate (Doxycycline Hyclate) 100 Mg Tablet, 100 MG PO BID Prescribed by: ANTOINE WARD on 11/03/19 1916 Levetiracetam (Keppra) 100 Mg/1 Ml Solution, Unknown Dose PO BID, (Reported) Entered as Reported by: NIKO DELUNA on 01/26/16 1551 Levetiracetam (Keppra) 750 Mg Tablet, 750 MG PO BID Prescribed by: ARIEL HUTCHINSON on 06/09/17 1036 Levetiracetam (Keppra) 250 Mg Tablet, 250 MG PO BID Prescribed by: CARLEY MATHEW on 06/28/17 1940 Sulfamethoxazole/Trimethoprim (Bactrim Ds Tablet) 1 Each Tablet, 1 EACH PO BID Prescribed by: ANTONIETA PROCTOR on 11/30/19 2357 Topiramate (Topamax) 200 Mg Tablet, 200 MG PO BID Prescribed by: EMERSON SYKES on 03/14/16 1533 Review of Systems Constitutional: no symptoms reported EENTM: no symptoms reported Respiratory: no symptoms reported Cardiovascular: no symptoms reported Gastrointestinal: no symptoms reported Genitourinary: no symptoms reported Musculoskeletal: no symptoms reported Skin: no symptoms reported Psychiatric/Neurological: See HPI (HORTENSIA HOFFMAN DO) Past Qwvcykb-Fgdqwr-Jzlznj Hx Patient Social History Tobacco Use?: Yes Tobacco type used: Cigarettes Smoking Status: Current Everyday Smoker Use of E-Cig and/or Vaping dev: No Substance use?: Yes Substance type: Marijuana Substance frequency: Daily Alcohol Use?: No (HORTENSIA HOFFMAN DO) Immunizations Up To Date Tetanus Booster (TDap): Unknown PED Vaccines UTD: Yes Influenza Vaccine Up-to-Date: No; Not Current First/Initial COVID19 Vaccinat: 2020 Second COVID19 Vaccination Gerry: 2020 COVID19 Vaccine 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 ) Cancer: No Psychosocial: Yes (SUICIDAL THOUGHTS/GESTURES ( TOOK PILLS,CUT HIMSELF)--BUT NEVER SOUGHT CARE) Anxiety, Suicide Attempts, Bipolar, Depression Integumentary: No Blood Disorders: No Adverse Reaction/Blood Tranf: No (HORTENSIA HOFFMAN DO) Family Medical History No Pertinent Family Hx SOCIAL HISTORY: -SMOKES 1 PPD -ETOH--HISTORY OF DAILY/HEAVY REGULAR USE--DENIES RECENT USE, ON 05/21/21 -DRUGS--DAILY THC USE LONG HISTORY OF NON-COMPLIANCE IN ALL ASPECTS OF CARE (HORTENSIA HOFFMAN DO) Physical Exam Vital Signs - First Documented 05/21/21 01:55 Temp 36.4 Pulse 92 Resp 18 B/P (MAP) 188/103 (131) Pulse Ox 98 O2 Delivery Room Air (MARYCHUY SIMENTAL MD) Capillary Refill : Less Than 3 Seconds (HORTENSIA HOFFMAN DO) Height, Weight, BMI Height: 5'8.00" Weight: 200lbs. 0oz. 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, no motor/sensory deficits, alert, oriented x 3, other (DEPRESSED, FLAT, TEARFUL) Appearance/Memory: no memory impairment Behavior/Eye Contact: cooperative, normal speech, avoids eye contact; No belligerent Thoughts/Hallucinations: no apparent hallucination; No delusions, No flight of ideas, No grandiose, No incoherent, No paranoid, No persecution, No phobic, No jain Skin: normal color, warm/dry, tattoos/piercings, other (NO EXTERNAL EVIDENCE OF TRAUMA) (HORTENSIA HOFFMAN DO) Procedures/Interventions Suture Size: 6-0 (HORTENSIA HOFFMAN DO) Progress/Results/Core Measures Results/Orders Lab Results Laboratory Tests Test 05/21/21 02:00 05/21/21 02:05 Range/Units White Blood Count 7.1 4.3-11.0 10^3/uL Red Blood Count 4.95 4.30-5.52 10^6/uL Hemoglobin 15.4 13.3-17.7 g/dL Hematocrit 45 40-54 % Mean Corpuscular Volume 92 80-99 fL Mean Corpuscular Hemoglobin 31 25-34 pg Mean Corpuscular Hemoglobin Concent 34 32-36 g/dL Red Cell Distribution Width 11.8 10.0-14.5 % Platelet Count 250 130-400 10^3/uL Mean Platelet Volume 10.3 9.0-12.2 fL Immature Granulocyte % (Auto) 0 % Neutrophils (%) (Auto) 61 42-75 % Lymphocytes (%) (Auto) 28 12-44 % Monocytes (%) (Auto) 9 0-12 % Eosinophils (%) (Auto) 1 0-10 % Basophils (%) (Auto) 1 0-10 % Neutrophils # (Auto) 4.3 1.8-7.8 10^3/uL Lymphocytes # (Auto) 2.0 1.0-4.0 10^3/uL Monocytes # (Auto) 0.7 0.0-1.0 10^3/uL Eosinophils # (Auto) 0.1 0.0-0.3 10^3/uL Basophils # (Auto) 0.1 0.0-0.1 10^3/uL Immature Granulocyte # (Auto) 0.0 0.0-0.1 10^3/uL Sodium Level 139 135-145 MMOL/L Potassium Level 4.5 3.6-5.0 MMOL/L Chloride Level 105 98-107 MMOL/L Carbon Dioxide Level 20 L 21-32 MMOL/L Anion Gap 14 5-14 MMOL/L Blood Urea Nitrogen 18 7-18 MG/DL Creatinine 1.26 0.60-1.30 MG/DL Estimat Glomerular Filtration Rate 78 BUN/Creatinine Ratio 14 Glucose Level 106 H 70-105 MG/DL Calcium Level 9.6 8.5-10.1 MG/DL Corrected Calcium 8.5-10.1 MG/DL Total Bilirubin 0.3 0.1-1.0 MG/DL Aspartate Amino Transf (AST/SGOT) 25 5-34 U/L Alanine Aminotransferase (ALT/SGPT) 31 0-55 U/L Alkaline Phosphatase 54 40-136 U/L Total Protein 7.5 6.4-8.2 GM/DL Albumin 4.6 H 3.2-4.5 GM/DL TSH [place] Testing 2.80 0.35-4.94 UIU/ML Salicylates Level < 5.0 L 5.0-20.0 MG/DL Acetaminophen Level < 10 L 10-30 UG/ML Valproic Acid (Depakene) Level 29.8 L 50.0-100.0 UG/ML Serum Alcohol < 10 <10 MG/DL Urine Color YELLOW Urine Clarity CLEAR Urine pH 6.5 5-9 Urine Specific [place] 1.025 H 1.016-1.022 Urine Protein NEGATIVE NEGATIVE Urine Glucose (UA) NEGATIVE NEGATIVE Urine Ketones NEGATIVE NEGATIVE Urine Nitrite NEGATIVE NEGATIVE Urine Bilirubin NEGATIVE NEGATIVE Urine Urobilinogen 1.0 < = 1.0 MG/DL Urine Leukocyte Esterase NEGATIVE NEGATIVE Urine RBC (Auto) TRACE-I H NEGATIVE Urine RBC NONE /HPF Urine WBC NONE /HPF Urine Squamous Epithelial Cells RARE /HPF Urine Crystals NONE /LPF Urine Bacteria NEGATIVE /HPF Urine Casts NONE /LPF Urine Mucus NEGATIVE /LPF Urine Culture Indicated NO Urine Opiates Screen NEGATIVE NEGATIVE Urine Oxycodone Screen NEGATIVE NEGATIVE Urine Methadone Screen NEGATIVE NEGATIVE Urine Propoxyphene Screen NEGATIVE NEGATIVE Urine Barbiturates Screen NEGATIVE NEGATIVE Ur Tricyclic Antidepressants Screen NEGATIVE NEGATIVE Urine Phencyclidine Screen NEGATIVE NEGATIVE Urine Amphetamines Screen NEGATIVE NEGATIVE Urine Methamphetamines Screen NEGATIVE NEGATIVE Urine Benzodiazepines Screen POSITIVE H NEGATIVE Urine Cocaine Screen NEGATIVE NEGATIVE Urine Cannabinoids Screen POSITIVE H NEGATIVE Influenza Type A (RT-PCR) Not Detected Not Detecte Influenza Type B (RT-PCR) Not Detected Not Detecte SARS-CoV-2 RNA (RT-PCR) Not Detected Not Detecte (MARYCHUY SIMENTAL MD) My Orders Orders - MARYCHUY SIMENTAL MD General/Regular (05/21/21 Breakfast) General/Regular (05/21/21 Lunch) (MARYCHUY SIMENTAL MD) Vital Signs/I&O (MARYCHUY SIMENTAL MD) Blood Pressure Mean: 131 Progress Progress Note : Progress Note 0600--CARE TURNED OVER TO DR. SIMENTAL, PENDING MENTAL HEALTH SCREEN. PT HAS REMAINED QUIET AND COOPERATIVE AND HAS RESTED FOR ENTIRE ER STAY AT THIS POINT. (HORTENSIA HOFFMAN DO) Progress Note #1: Time: 09:19 Progress Note 0920 NADEEM mcrae contacted by CALRY Barber and patient is undergoing Mental Health Screen at this time. Progress Note #2: Time: 15:10 Progress Note Attempted to have a discussion with the patient as his nurse advised that he was becoming agitated with the prolonged wait for placement. NADEEM MCRAE was contacted about an hour ago and they stated they were still waiting on [facility] or [place] to advise if they had bed availability patient. He is very upset and states that he is not going to wait any longer. He wants to call a family member and go to a cousin's house in [place]. Patient was advised that he likely needed placement as mental health felt that it would be in his best interest regarding his suicidal ideation. I talked to him about waiting to have a bed assigned for further mental health evaluation and management. He states "they only want my money". He is quite agitated and wants to leave the room and go and find his bags. I advised him of the risks of leaving to include worsening depression, worsening suicidal ideation and possible . He verbalizes understanding and still wants to leave. Nurse brought in his bags and he states if he can find a ride he will leave. If not he then stated he might stay. Progress Note #3: Time: 16:51 Progress Note Patient's ride arrived to the ER and he decided to leave AMA (MARYCHUY SIMENTAL MD) Initial ECG Impression Date: May 21, 2021 Initial ECG Impression Time: 02:05 Initial ECG Rate: 92 Initial ECG Rhythm: Normal Sinus (HORTENSIA HOFFMAN DO) Departure Communication (Admissions) 2758--NADEEM MCRAE HAS BEEN CONTACTED BY ER STAFF MEMBER. PT'S INFORMATION IS BEING FAXED. 6774--RN HAS CONTACTED NADEEM [facility]CRAE. THEY HAVE RECEIVED ALL OF PT'S INFORMATION. THEY HAVE SEVERAL MENTAL HEALTH SCREENS AHEAD OF PT. THEY WILL CALL WHEN THEY ARE READY TO DO PT'S SCREEN. PT WAS UPDATED OF THIS PROCESS. (HORTENSIA HOFFMAN DO) Impression Primary Impression: Passive suicidal ideations Additional Impression: Depression with suicidal ideation Disposition: 07 AGAINST MEDICAL ADVICE Condition: Against Medical Advice Departure-Patient Inst. Decision time for Depature: 16:54 (MARYCHUY SIMENTAL MD) Referrals: [facility] (PCP/Family) Primary Care Physician Patient Instructions: Persistent Depressive Disorder Add. Discharge Instructions: PLease follow up with [facility] for further treatment of your depression. Please call any one of the crisi hotlines if you feel you are a danger to yourself. You are always welcome to come back to the Emergency Department, HORTENSIA HOFFMAN DO May 21, 2021 03:29 MARYCHUY SIMENTAL MD May 21, 2021 09:21
--- NOTE | 2021-05-21 06:12 | Diagnostic Imaging Report ---
INDICATION: Chest pain. COMPARISON: 08/19/2020 FINDINGS: Single frontal view of the chest demonstrates normal heart size and pulmonary vascularity. The lungs are well aerated and clear. No large pleural effusion or pneumothorax is seen. The visualized osseous structures show no acute abnormalities. IMPRESSION: 1. No acute cardiopulmonary process. Dictated by: Dictated on workstation # [id number]
[2021-05-21 16:56] VITALS: BP 188/103
== END 2021-05-21 16:56 | disposition left against medical advice (07) ==
LOC: EDUNIT# 01:11 → ER 01:13
DX: R45.851 Suicidal ideations (principal); F32.9 Major depressive disorder, single episode, unspecified; G40.909 Epilepsy, unspecified, not intractable, without status epilepticus; F17.210 Nicotine dependence, cigarettes, uncomplicated; Z20.822 Contact with and (suspected) exposure to COVID-19; Z79.899 Other long term (current) drug therapy
CPT/HCPCS: 71045; 80053; 80164; 80306; 81000; 84443; 85025; 87636; 93005; 99283; G0480 ×3; 36415; 80320; 80329

== ENCOUNTER 2021-10-30 18:07 | Emergency (ER) | payer SELFPAY ==
--- NOTE | 2021-10-30 19:08 | ED Lower Extremity ---
General Stated Complaint: R FOOT PAIN Source: patient Exam Limitations: no limitations (GA MARTINEZ) History of Present Illness Date Seen by Provider: Oct 30, 2021 Time Seen by Provider: 19:07 Initial Comments Patient is a 30-year-old male who presents ED with right lateral foot pain. Patient states last night he slipped going down the steps at home missed the second step to the bottom had inward rotation of his foot. Denies of any ankle pain but pain is located the right lateral foot. Reports swelling. Has been able to ambulate and walk but denies taking thing for pain. Denies hitting his head, loss consciousness, nausea, vomit, diarrhea, fever, chills (GA MARTINEZ) Allergies and Home Medications Allergies Coded Allergies: No Known Drug Allergies (Unverified , 01/17/18) Patient Home Medication List Home Medication List Reviewed: Yes (GA MARTINEZ) Amoxicillin/Potassium Clav (Augmentin 875-125 Tablet) 1 Each Tablet, 1 EACH PO BID Prescribed by: ANTONIETA PROCTOR on 12/31/20 1025 Bacitracin (Bacitraycin Plus) 28 Gm Oint...g., 28 GM TP twice a day Prescribed by: ELLEN PROCTOR on 07/02/17 1156 Cyclobenzaprine HCl (Cyclobenzaprine HCl) 10 Mg Tablet, 10 MG PO Q8H Prescribed by: BENNY LOFTON on 08/19/20 1756 Divalproex Sodium (Depakote) 500 Mg Tablet.dr, 500 MG PO TID Prescribed by: ARIEL HUTCHINSON on 06/09/17 1036 Doxycycline Hyclate (Doxycycline Hyclate) 100 Mg Tablet, 100 MG PO BID Prescribed by: ANTOINE WARD on 11/03/19 1916 Levetiracetam (Keppra) 100 Mg/1 Ml Solution, Unknown Dose PO BID, (Reported) Entered as Reported by: NIKO DELUNA on 01/26/16 1551 Levetiracetam (Keppra) 750 Mg Tablet, 750 MG PO BID Prescribed by: ARIEL HUTCHINSON on 06/09/17 1036 Levetiracetam (Keppra) 250 Mg Tablet, 250 MG PO BID Prescribed by: CARLEY MATHEW on 06/28/17 194 Sulfamethoxazole/Trimethoprim (Bactrim Ds Tablet) 1 Each Tablet, 1 EACH PO BID Prescribed by: ANTONIETA PROCTOR on 11/30/19 6743 Topiramate (Topamax) 200 Mg Tablet, 200 MG PO BID Prescribed by: EMERSON SYKES on 03/14/16 1533 Review of Systems Constitutional: No chills, No diaphoresis, No malaise, No weakness EENTM: No hearing loss, No blurred vision, No double vision Respiratory: No cough, No dyspnea on exertion Cardiovascular: No chest pain Gastrointestinal: No abdominal pain, No diarrhea, No nausea, No vomiting Genitourinary: No decreased output Musculoskeletal: No back pain; joint pain, joint swelling Skin: No change in color, No change in hair/nails (GA MARTINEZ) All Other Systems Reviewed Negative Unless Noted: Yes (GA MARTINEZ) Past Gvmfzoa-Rwdlvd-Rvojmg Hx Immunizations Up To Date Tetanus Booster (TDap): Unknown PED Vaccines UTD: Yes First/Initial COVID19 Vaccinat: 2020 Second COVID19 Vaccination Gerry: 2020 (GA MARTINEZ) Seasonal Allergies Seasonal Allergies: No (GA MARTINEZ) Past Medical History Surgery/Hospitalization HX: DEPRESSION, ANXIETY, BIPOLAR, EPILEPSY Surgeries: Yes (LEG SURGERY) Orthopedic Respiratory: No Cardiac: No Neurological: Yes Seizure Disorder Reproductive Disorders: No Sexually Transmitted Disease: No Genitourinary: No Gastrointestinal: No Musculoskeletal: Yes (LEG SURGERY) Endocrine: No HEENT: Yes (POOR DENTITION/CHRONIC DENTAL COMPLAINTS. ) Cancer: No Psychosocial: Yes (SUICIDAL THOUGHTS/GESTURES ( TOOK PILLS,CUT HIMSELF)--BUT NEVER SOUGHT CARE) Anxiety, Suicide Attempts, Bipolar, Depression Integumentary: No Blood Disorders: No Adverse Reaction/Blood Tranf: No (GA MARTINEZ) Family Medical History No Pertinent Family Hx SOCIAL HISTORY: -SMOKES 1 PPD -ETOH--HISTORY OF DAILY/HEAVY REGULAR USE--DENIES RECENT USE, ON 05/21/21 -DRUGS--DAILY THC USE LONG HISTORY OF NON-COMPLIANCE IN ALL ASPECTS OF CARE (GA MARTINEZ) Physical Exam Vital Signs Vital Signs - First Documented 10/30/21 19:03 Temp 36.7 Pulse 92 Resp 16 B/P (MAP) 135/85 (102) (ARIEL ALSTON MD) Vital Signs Capillary Refill : (GA MARTINEZ) Height, Weight, BMI Height: 5'8.00" Weight: 200lbs. 0oz. 90.499998nw; 33.00 BMI Method:Estimated General Appearance: WD/WN, no apparent distress HEENT: PERRL/EOMI, normal ENT inspection, TMs normal, pharynx normal Neck: non-tender, full range of motion, supple Cardiovascular: regular rate, rhythm, no edema, no gallop, no JVD Respiratory: chest non-tender, lungs clear, normal breath sounds, no respiratory distress, no accessory muscle use Gastrointestinal: normal bowel sounds, non tender, soft Back: normal inspection, no CVA tenderness Ankles: bilateral ankle non-tender, bilateral ankle normal inspection, bilateral ankle normal range of motion Feet: right foot pain (Right lateral foot.), right foot soft tissue tenderness, right foot swelling 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, no motor/sensory deficits, alert, normal mood/affect, oriented x 3 Skin: warm/dry (GA MARTINEZ) Procedures/Interventions Suture Size: 6-0 (GA MARTINEZ) Progress/Results/Core Measures Results/Orders Medications Given in ED Current Medications Medications Dose Ordered Sig/Jennifer Route Start Time Stop Time Status Last Admin Dose Admin Ibuprofen 600 mg ONCE ONCE PO 10/30/21 19:15 10/30/21 19:16 DC 10/30/21 19:45 600 MG (ARIEL ALSTON MD) Vital Signs/I&O 10/30/21 10/30/21 19:03 20:05 Temp 36.7 36.7 Pulse 92 90 Resp 16 16 B/P (MAP) 135/85 (102) 131/80 (ARIEL ALSTON MD) Departure Communication (PCP) Patient is complaining of right lateral foot pain. X-ray was negative for fracture. Appears to be more of a foot sprain. No ankle tenderness. Normal active range of motion. Enoc wrap, ice and anti-inflammatories. Orthopedic outpatient follow-up in 7 to 10 days for further evaluation as needed. If any worsening symptoms return back to ED for further evaluation (GA MARTINEZ) Impression Primary Impression: Foot sprain Disposition: 01 HOME, SELF-CARE Condition: Stable Departure-Patient Inst. Decision time for Depature: 19:27 (GA MARTINEZ) Referrals: [facility] ([place]P/[place]) Primary Care Physician KARISSA CHILDRESS MD Patient Instructions: Foot Sprain ED Add. Discharge Instructions: Recommend ice, Enoc wrap for support, anti-inflammatories for pain. If any worsening pain follow-up with orthopedic in 7 to 10 days Work/School Note: Work Release Form Date Seen in the Emergency Department: Oct 30, 2021 Return to Work: Nov 02, 2021 ATTENDING PHYSICIAN NOTE: I was physically present as attending physician in the emergency department during the care of this patient, but I was not directly involved in the decision making or delivery of care for this patient. (ARIEL ALSTON MD) GA MARTINEZ Oct 30, 2021 19:08 ARIEL ALSTON MD Oct 31, 2021 06:37
[2021-10-30] MEDS ORDERED: IBUPROFEN 600 MG (MOTRIN) TAB PO ONE (19:15)
--- NOTE | 2021-10-30 19:22 | Diagnostic Imaging Report ---
INDICATION: Fall. Lateral foot pain. FINDINGS: Alignment of the foot is appropriate. There are no findings of joint dislocation. There is no cortical disruption or evidence of an acute fracture. There is no suspicious bone lesion. There is no focal soft tissue abnormality. There are minimal early osteoarthritic changes present within the 1st metatarsophalangeal joint. IMPRESSION: 1. No acute process within the right foot. Dictated by: Dictated on workstation # [id number]
[2021-10-30 20:05] VITALS: BP 131/80
== END 2021-10-30 20:05 | disposition home or self-care (01) ==
LOC: EDUNIT# 18:07 → ER 18:09
DX: S93.601A Unspecified sprain of right foot, initial encounter (principal); F17.210 Nicotine dependence, cigarettes, uncomplicated; W18.43XA Slipping, tripping and stumbling without falling due to stepping from one level to another, initial encounter; Y92.009 Unspecified place in unspecified non-institutional (private) residence as the place of occurrence of the external cause
CPT/HCPCS: 73630

== ENCOUNTER 2022-01-31 16:14 | Emergency (ER) | payer SELFPAY ==
[~2022-01-31] VITALS: Ht 170 cm; Wt 94.0 kg
--- NOTE | 2022-01-31 17:24 | ED Neurological Problem ---
General Chief Complaint: Neurological Problems Stated Complaint: SEIZURE Nursing Triage Note: ARRIVED VIA EMS FROM HOME AFTER HAVING A UNWITTNESSED SEIZURE. PT WOKE UP ON THE FLOOR AND FELT A 2ND ONE COMING ON AND CALLED EMS. Source: patient Exam Limitations: no limitations History of Present Illness Date Seen by Provider: Jan 31, 2022 Time Seen by Provider: 17:10 Initial Comments Patient is a 31-year-old male with a history of seizure disorder, depression anxiety and panic attacks who presents to the emergency department from home after having a seizure. Patient states he woke up on the floor approximately an hour prior to arrival with a lot of blood around him. He states he felt like he might have a second seizure therefore he called EMS. Patient states that he is compliant with his daily medications of Depakote, Keppra and Lamictal. He states its been several months since he had a seizure. He states they are normally "random". He cannot recall any triggers that may have caused the seizure today. He denies alcohol or drug use. He slept fairly well last night. No recent illnesses. No significant stressors. He states he thinks he hit his face on a dresser in his room. He complains of bleeding and pain to his left upper lip. He also has a small contusion to the left maxilla. Mild headache. He is not on any blood thinners no complaints of extremity pain/dislocation. He did not bite his tongue. Teeth fit together normally. He cannot recall last tetanus shot. All other review of systems reviewed and negative except as stated. Timing/Duration: 1-3 hours Severity: mild Associated Symptoms: loss of consciousness, seizures, other (laceration) Allergies and Home Medications Allergies Coded Allergies: No Known Drug Allergies (Unverified , 01/17/18) Patient Home Medication List Home Medication List Reviewed: Yes Amoxicillin/Potassium Clav (Augmentin 875-125 Tablet) 1 Each Tablet, 1 EACH PO BID Prescribed by: ANTONIETA PROCTOR on 12/31/20 1025 Bacitracin (Bacitraycin Plus) 28 Gm Oint...g., 28 GM TP twice a day Prescribed by: ELLEN PROCTOR on 07/02/17 1156 Cyclobenzaprine HCl (Cyclobenzaprine HCl) 10 Mg Tablet, 10 MG PO Q8H Prescribed by: BENNY LOFTON on 08/19/20 1756 Divalproex Sodium (Depakote) 500 Mg Tablet.dr, 500 MG PO TID Prescribed by: ARIEL HUTCHINSON on 06/09/17 103 Doxycycline Hyclate (Doxycycline Hyclate) 100 Mg Tablet, 100 MG PO BID Prescribed by: ANTOINE WARD on 11/03/19 191 Levetiracetam (Keppra) 100 Mg/1 Ml Solution, Unknown Dose PO BID, (Reported) Entered as Reported by: NIKO DELUNA on 01/26/16 1551 Levetiracetam (Keppra) 750 Mg Tablet, 750 MG PO BID Prescribed by: ARIEL HUTCHINSON on 06/09/17 103 Levetiracetam (Keppra) 250 Mg Tablet, 250 MG PO BID Prescribed by: CARLEY MATHEW on 06/28/17 194 Sulfamethoxazole/Trimethoprim (Bactrim Ds Tablet) 1 Each Tablet, 1 EACH PO BID Prescribed by: ANTONIETA PROCTOR on 11/30/19 235 Topiramate (Topamax) 200 Mg Tablet, 200 MG PO BID Prescribed by: EMERSON SYKES on 03/14/16 1533 Review of Systems Review of Systems Constitutional: see HPI Eyes: No Symptoms Reported Ears, Nose, Mouth, Throat: mouth pain (laceration) Respiratory: no symptoms reported Cardiovascular: no symptoms reported Gastrointestinal: no symptoms reported Genitourinary: no symptoms reported Musculoskeletal: no symptoms reported Skin: other (laceration) Psychiatric/Neurological: Headache All Other Systems Reviewed Negative Unless Noted: Yes Past Aarpfao-Ejmfpo-Vnokuy Hx Patient Social History Tobacco type used: Cigarettes Smoking Status: Current Everyday Smoker Substance use?: No Alcohol Use?: No Immunizations Up To Date Tetanus Booster (TDap): Unknown PED Vaccines UTD: Yes First/Initial COVID19 Vaccinat: 2020 Second COVID19 Vaccination Gerry: 2020 Seasonal Allergies Seasonal Allergies: No Past Medical History Surgery/Hospitalization HX: DEPRESSION, ANXIETY, BIPOLAR, EPILEPSY Surgeries: Yes (LEG SURGERY) Orthopedic Respiratory: No Cardiac: No Neurological: Yes Seizure Disorder Reproductive Disorders: No Sexually Transmitted Disease: No Genitourinary: No Gastrointestinal: No Musculoskeletal: Yes (LEG SURGERY) Endocrine: No HEENT: Yes (POOR DENTITION/CHRONIC DENTAL COMPLAINTS. ) Cancer: No Psychosocial: Yes (SUICIDAL THOUGHTS/GESTURES ( TOOK PILLS,CUT HIMSELF)--BUT NEVER SOUGHT CARE) Anxiety, Suicide Attempts, Bipolar, Depression Integumentary: No Blood Disorders: No Adverse Reaction/Blood Tranf: No Family Medical History No Pertinent Family Hx SOCIAL HISTORY: -SMOKES 1 PPD -ETOH--HISTORY OF DAILY/HEAVY REGULAR USE--DENIES RECENT USE, ON 05/21/21 -DRUGS--DAILY THC USE LONG HISTORY OF NON-COMPLIANCE IN ALL ASPECTS OF CARE Physical Exam Vital Signs Vital Signs - First Documented 01/31/22 16:15 Temp 36.9 Pulse 101 Resp 16 B/P (MAP) 142/110 (121) Capillary Refill : Less Than 3 Seconds Height, Weight, BMI Height: 5'8.00" Weight: 200lbs. 0oz. [id number]; 32.00 BMI Method:Estimated General Appearance: WD/WN, no apparent distress HEENT: PERRL/EOMI, pharynx normal, other (1.5cm lac to left upper lip lateral margin. about 2mm extends through the krissy border. minimal bleeding; no dental tenderness) Neck: non-tender, full range of motion, supple, normal inspection Respiratory: chest non-tender, lungs clear, normal breath sounds, no respiratory distress, no accessory muscle use Cardiovascular: regular rate, rhythm Gastrointestinal: normal bowel sounds, non tender, soft Extremities: normal range of motion, non-tender, normal inspection, no pedal edema Neurologic/Psychiatric: convict guard II-XII nml as tested, no motor/sensory deficits, alert, normal mood/affect, oriented x 3 Crainal Nerves: normal hearing, normal speech, PERRL Coordination/Gait: negative Romberg's sign Motor/Sensory: no motor deficit, no sensory deficit, no pronator drift Skin: normal color, warm/dry, other (as above; small contusion/ abrasion left zygoma) Procedures/Interventions Wound Location: Face Other Wound Location left upper lip Wound Length (cm): 2 Wound's Depth, Shape: superficial (angled) Wound Explored: clean Irrigated w/ Saline (ccs): 50 Anesthesia: 1% Lidocaine Volume Anesthetic (ccs): 2 Suture: Ethlion Suture Size: 5-0 Number of Sutures: 5 Layer Closure?: 1 Progress/Results/Core Measures Results/Orders My Orders Orders - MARYCHUY SIMENTAL MD Ketorolac Injection (Toradol Injection) (01/31/22 18:00) Dipht,Pertuss(Acell),Tet Adult (Boostrix (01/31/22 18:00) Medications Given in ED Current Medications Medications Dose Ordered Sig/Jennifer Route Start Time Stop Time Status Last Admin Dose Admin Diphtheria/ Tetanus/Acell Pertussis 0.5 ml ONCE ONCE IM 01/31/22 18:00 01/31/22 18:01 DC 01/31/22 17:56 0.5 ML Ketorolac Tromethamine 15 mg ONCE ONCE IVP 01/31/22 18:00 01/31/22 18:01 DC 01/31/22 17:55 15 MG Vital Signs/I&O 01/31/22 16:15 Temp 36.9 Pulse 101 Resp 16 B/P (MAP) 142/110 (121) Blood Pressure Mean: 121 Departure Impression Primary Impression: Seizure Additional Impressions: Lip laceration Qualified Codes: S01.511A - Laceration without foreign body of lip, initial encounter Facial contusion Qualified Codes: S00.83XA - Contusion of other part of head, initial encounter Disposition: 01 HOME, SELF-CARE Condition: Stable Departure-Patient Inst. Decision time for Depature: 17:51 Referrals: PENDING SALE TO [facility] (PCP/Family) Primary Care Physician Patient Instructions: Seizures, Laceration Repair With Stitches ED Add. Discharge Instructions: The stitches in your left upper lip will need to come out in 5 to 6 days. You can come back here to the hospital to have the stitches removed, that is a part of this visit. Monitor the wound for redness, swelling, drainage. If any of these develop please come back to the emergency room for reevaluation. Continue your seizure medications as prescribed. If you develop any new, concerning or emergent complaints please come back to the emergency room for reevaluation. Please follow-up with [facility] as scheduled. Copy Copies To 1: LIZBETH BALLARD KATHRYN M MD Jan 31, 2022 17:24
[2022-01-31] MEDS ORDERED: TETANUS,DIPTH,PERTUSS P/F (BOOSTRIX) 0.5 ML VIAL IM ONE (18:00)
[2022-01-31] MEDS ORDERED: KETOROLAC 15 MG/ML VIAL IVP ONE (18:00)
[2022-01-31 18:30] VITALS: BP 182/92
== END 2022-01-31 18:31 | disposition home or self-care (01) ==
LOC: EDUNIT# 16:14 → ER 16:15
DX: S01.511A Laceration without foreign body of lip, initial encounter (principal); G40.909 Epilepsy, unspecified, not intractable, without status epilepticus; F17.210 Nicotine dependence, cigarettes, uncomplicated; W18.30XA Fall on same level, unspecified, initial encounter
CPT/HCPCS: 90715; 99284

== ENCOUNTER 2022-02-07 17:14 | Emergency (ER) | payer SELFPAY ==
[~2022-02-07] VITALS: Ht 170 cm; Wt 95.0 kg
[2022-02-07 17:35] VITALS: BP 152/95
== END 2022-02-07 17:42 | disposition home or self-care (01) ==
LOC: EDUNIT# 17:14 → ER 17:16
DX: Z48.02 Encounter for removal of sutures (principal); Z28.310 Unvaccinated for COVID-19

== ENCOUNTER 2022-10-11 00:07 | Emergency (ER) | payer SELFPAY ==
[~2022-10-11] VITALS: Ht 170 cm; Wt 95.3 kg
[2022-10-11 00:10] VITALS: BP 121/80
--- NOTE | 2022-10-11 00:24 | ED Neurological Problem ---
General Chief Complaint: Neurological Problems Stated Complaint: SEIZURE Nursing Triage Note: BROUGHT IN BY [facility] S/P SEIZURE. PT REPORTS HX EPILEPSY Source: patient, old records History of Present Illness Date Seen by Provider: Oct 11, 2022 Time Seen by Provider: 00:15 Initial Comments PT ARRIVES VIA EMS FROM HOME PT'S FRIEND CALLED EMS FOR PT HAVING A SEIZURE--DETAILS OF SEIZURE ARE NOT KNOWN SUCH HOW LONG IT LASTED, ETC. PT HAS LONGSTANDING HISTORY OF SEIZURES, AND IS ON DEPAKOTE, LAMICTAL, AND KEPPRA PT IS ADAMANT THAT HE HAS NOT MISSED ANY DOSES OF MEDICATIONS OR CHANGES IN MEDICATIONS HE STATES HIS LAST SEIZURE WAS OVER A MONTH AGO PT STATES HE HAS BEEN FINE ALL DAY HE RECALLS SITTING DOWN TO EAT, AND THEN "COMING TO" AT HIS RESIDENCE PT STATES THAT HIS FRIEND "GOT SCARED" AND CALLED THE AMBULANCE. HE DENIES ANY INJURY OR AREA OF PAIN PT STATES HE FEELS FINE NOW, AND DOES NOT NEED TO BE HERE. NO INCONTINENCE NO TONGUE BITING OR MOUTH INJURY HE STATES HE DOES NOT SEE A NEUROLOGIST, SEES SYLVIA CORTES AT [facility]. PT HAS HAD 35 VISITS HERE SINCE 2016, WITH THE LARGE MAJORITY OF THOSE BEING FOR SEIZURE-RELATED COMPLAINTS PCP: SYLVIA CORTES AT [facility] Allergies and Home Medications Allergies Coded Allergies: No Known Drug Allergies (Unverified , 01/17/18) Patient Home Medication List Home Medication List Reviewed: Yes Amoxicillin/Potassium Clav (Augmentin 875-125 Tablet) 1 Each Tablet, 1 EACH PO BID Prescribed by: ANTONIETA PROCTOR on 12/31/20 1025 Bacitracin (Bacitraycin Plus) 28 Gm Oint...g., 28 GM TP twice a day Prescribed by: ELLEN PROCTOR on 07/02/17 1156 Cyclobenzaprine HCl (Cyclobenzaprine HCl) 10 Mg Tablet, 10 MG PO Q8H Prescribed by: BENNY LOFTON on 08/19/20 175 Divalproex Sodium (Depakote) 500 Mg Tablet.dr, 500 MG PO TID Prescribed by: ARIEL HUTCHINSON on 06/09/17 1036 Doxycycline Hyclate (Doxycycline Hyclate) 100 Mg Tablet, 100 MG PO BID Prescribed by: ANTOINE WARD on 11/03/191915 Levetiracetam (Keppra) 100 Mg/1 Ml Solution, Unknown Dose PO BID, (Reported) Entered as Reported by: NIKO DELUNA on 01/26/16 1551 Levetiracetam (Keppra) 750 Mg Tablet, 750 MG PO BID Prescribed by: ARIEL HUTCHINSON on 06/09/17 1036 Levetiracetam (Keppra) 250 Mg Tablet, 250 MG PO BID Prescribed by: CARLEY MATHEW on 06/28/17 194 Sulfamethoxazole/Trimethoprim (Bactrim Ds Tablet) 1 Each Tablet, 1 EACH PO BID Prescribed by: ANTONIETA PROCTOR on 11/30/19 2357 Topiramate (Topamax) 200 Mg Tablet, 200 MG PO BID Prescribed by: EMERSON SYKES on 03/14/16 1533 Review of Systems Review of Systems Constitutional: no symptoms reported Eyes: No Symptoms Reported Ears, Nose, Mouth, Throat: no symptoms reported Respiratory: no symptoms reported Cardiovascular: no symptoms reported Gastrointestinal: no symptoms reported Genitourinary: no symptoms reported Musculoskeletal: no symptoms reported Skin: no symptoms reported Psychiatric/Neurological: See HPI Endocrine: No Symptoms Reported Hematologic/Lymphatic: No Symptoms Reported Past Islzoyb-Tmfbwe-Bwiate Hx Patient Social History Tobacco Use?: Yes Tobacco type used: Cigarettes Smoking Status: Current Everyday Smoker Substance use?: Yes Substance type: Marijuana Substance frequency: Daily Alcohol Use?: Yes Alcohol Frequency: Rarely Pt feels they are or have been: No Immunizations Up To Date Tetanus Booster (TDap): Unknown PED Vaccines UTD: Yes First/Initial COVID19 Vaccinat: 2020 Second COVID19 Vaccination Gerry: 2020 Third COVID19 Vaccination Date: 2020 Seasonal Allergies Seasonal Allergies: No Past Medical History Surgery/Hospitalization HX: DEPRESSION, ANXIETY, BIPOLAR, EPILEPSY Surgeries: Yes (LEG SURGERY) Orthopedic Respiratory: No Cardiac: No Neurological: Yes Seizure Disorder Reproductive Disorders: No Sexually Transmitted Disease: No Genitourinary: No Gastrointestinal: No Musculoskeletal: Yes (LEG SURGERY) Endocrine: No HEENT: Yes (POOR DENTITION/CHRONIC DENTAL COMPLAINTS. ) Cancer: No Psychosocial: Yes (SUICIDAL THOUGHTS/GESTURES ( TOOK PILLS,CUT HIMSELF)--BUT NEVER SOUGHT CARE) Anxiety, Suicide Attempts, Bipolar, Depression Integumentary: No Blood Disorders: No Adverse Reaction/Blood Tranf: No Family Medical History No Pertinent Family Hx SOCIAL HISTORY: -SMOKES 1 PPD -ETOH--HISTORY OF DAILY/HEAVY REGULAR USE--DENIES RECENT USE, ON 05/21/21 -DRUGS--DAILY THC USE LONG HISTORY OF NON-COMPLIANCE IN ALL ASPECTS OF CARE Physical Exam Vital Signs Vital Signs - First Documented 10/11/22 00:10 Temp 36.8 Pulse 105 Resp 16 B/P (MAP) 121/80 (94) Pulse Ox 91 O2 Delivery Room Air Capillary Refill : Less Than 3 Seconds Height, Weight, BMI Height: 5'8.00" Weight: 200lbs. 0oz. 90.466157uz; 32.00 BMI Method:Estimated General Appearance: WD/WN, no apparent distress HEENT: PERRL/EOMI, other (EXTENSIVE DENTAL DECAY AND MULTIPLE MISSING TEETH, MULTIPLE SORES/SCARS/SCABS TO FACE NO EVIDENCE OF NEW DENTAL INJURY OR ANY INTRA-ORAL INJURY. ) Neck: non-tender, normal inspection Respiratory: normal breath sounds, no respiratory distress, no accessory muscle use Cardiovascular: regular rate, rhythm, no murmur Gastrointestinal: non tender Back: normal inspection Extremities: normal inspection, normal capillary refill Neurologic/Psychiatric: laboratory chief II-XII nml as tested, no motor/sensory deficits, alert, normal mood/affect, oriented x 3, other (PT IS TALKATIVE, SMILING, DOES NOT APPEAR POST ICTAL AT THIS, TIME. HE IS ORIENTED X 4. ) Crainal Nerves: normal speech, PERRL Coordination/Gait: normal gait Motor/Sensory: no motor deficit, no sensory deficit Skin: normal color, warm/dry Procedures/Interventions Suture Size: 5-0 Progress/Results/Core Measures Results/Orders My Orders Orders - HORTENSIA HOFFMAN DO Ed Iv/Invasive Line Start (10/11/22 00:16) Monitor-Rhythm Ecg Trace Only (10/11/22 00:16) Ed Iv/Invasive Line Start (10/11/22 00:16) Ns Iv 1000 Ml (Sodium Chloride 0.9%) (10/11/22 00:30) Vital Signs/I&O 10/11/22 00:10 Temp 36.8 Pulse 105 Resp 16 B/P (MAP) 121/80 (94) Pulse Ox 91 O2 Delivery Room Air Blood Pressure Mean: 94 Progress Progress Note : Progress Note VITALS STABLE. PT STATES HE IS FINE AND DOES NOT NEED TO BE HERE AND WANTS TO GO HOME PT AMBULATES WITHOUT DIFFICULTY DISCUSSED NEED FOR FOLLOW UP WITH HIS PCP FOR FURTHER CARE, AND RETURN PRECAUTIONS REVIEWED PRIOR RECORDS, MOST ARE ER VISITS, BUT HAS HAD 2 ADMITS AND REVIEWED H&P'S / DISCHARGE SUMMARIES, TESTS/PROCEDURES. Departure Impression Primary Impression: Seizure Additional Impression: Hx of seizure disorder Disposition: HOME, SELF-CARE Condition: Stable Departure-Patient Inst. Decision time for Depature: 00:23 Referrals: [facility] (PCP/Family) Primary Care Physician Patient Instructions: Seizures, Adult ED Add. Discharge Instructions: TAKE YOUR MEDICATIONS PRESCRIBED LOTS OF FLUIDS FOLLOW UP WITH YOUR DR THIS WEEK FOR FURTHER CARE All discharge instructions reviewed with patient and/or family. Voiced understanding. HORTENSIA HOFFMAN DO Oct 11, 2022 00:24
[2022-10-11] MEDS ORDERED: NS IV 1000 ML 1,000 ML IV SCH (00:30)
== END 2022-10-11 00:27 | disposition home or self-care (01) ==
LOC: EDUNIT# 00:07 → ER 00:09
DX: G40.909 Epilepsy, unspecified, not intractable, without status epilepticus (principal); F17.210 Nicotine dependence, cigarettes, uncomplicated; Z79.899 Other long term (current) drug therapy
CPT/HCPCS: 93041

== ENCOUNTER 2023-02-22 10:34 | Emergency (ER) | payer SELFPAY ==
[~2023-02-22] VITALS: Ht 170 cm; Wt 97.0 kg
[~2023-02-22 10:34] MED LIST changes: +AMOX1TAB12 PO
--- NOTE | 2023-02-22 11:12 | ED Neurological Problem ---
General Chief Complaint: Neurological Problems Stated Complaint: EPILEPSY/FEELS LIKE GETTING READY TO HAVE SEIZURE Nursing Triage Note: PT STATES HX OF SEIZURES, TAKES MEDS REGULARLY, HAD ONE LAST NIGHT, BIT HIS TONGUE, FEELS LIKE HE COULD HAVE ANOTHER, HAD NOT HAD ONE FOR MONTHS, DENIES HITTING HIT HEAD, NO PAIN JUST WEAK Source: patient Exam Limitations: no limitations History of Present Illness Date Seen by Provider: Feb 22, 2023 Time Seen by Provider: 11:10 Initial Comments Patient is a 32-year-old male with a history of seizures currently on Depakote, Lamictal and Keppra who presents ED for a seizure last night. Patient states he was laying on the couch. He woke up had blood coming from his mouth. Patient bit his tongue. He states he had a prodrome of feeling weak fatigue dizzy unknown length of seizure. States he had similar symptoms this morning concerned that he may be developing another seizure. Has been taking his medication regularly. History of seizures for the past 33 years. Denies of any headache, chest pain, cough, shortness of breath, abdominal pain, vomiting, diarrhea, fever, chills. Patient alert and orient x 4. GCS of 15. Seizure precautions on arrival. Denies of any drug use or alcohol use. Currently follows his primary care physician for seizures. Allergies and Home Medications Allergies Coded Allergies: No Known Drug Allergies (Unverified , 01/17/18) Patient Home Medication List Home Medication List Reviewed: Yes Amoxicillin/Potassium Clav (Augmentin 875-125 Tablet) 1 Each Tablet, 1 EACH PO BID Prescribed by: ANTONIETA PROCTOR on 12/31/20 1025 Amoxicillin/Potassium Clav (Amox Tr-K Clv 875-125 mg Tab) 875 Mg-125 Mg Tablet, 1 EACH PO BID Prescribed by: Guillermina Philip on 12/20/222013 Bacitracin (Bacitraycin Plus) 28 Gm Oint...g., 28 GM TP twice a day Prescribed by: ELLEN PROCTOR on 07/02/17 115 Cyclobenzaprine HCl (Cyclobenzaprine HCl) 10 Mg Tablet, 10 MG PO Q8H Prescribed by: BENNY LOFTON on 08/19/20 175 Divalproex Sodium (Depakote) 500 Mg Tablet.dr, 500 MG PO TID Prescribed by: ARIEL HUTCHINSON on 06/09/17 1036 Doxycycline Hyclate (Doxycycline Hyclate) 100 Mg Tablet, 100 MG PO BID Prescribed by: ANTOINE WARD on 11/03/19 191 Levetiracetam (Keppra) 100 Mg/1 Ml Solution, Unknown Dose PO BID, (Reported) Entered as Reported by: NIKO DELUNA on 01/26/16 1551 Levetiracetam (Keppra) 750 Mg Tablet, 750 MG PO BID Prescribed by: ARIEL HUTCHINSON on 06/09/17 1036 Levetiracetam (Keppra) 250 Mg Tablet, 250 MG PO BID Prescribed by: CARLEY MATHEW on 06/28/17 194 Sulfamethoxazole/Trimethoprim (Bactrim Ds Tablet) 1 Each Tablet, 1 EACH PO BID Prescribed by: ANTONIETA PROCTOR on 11/30/19 4501 Topiramate (Topamax) 200 Mg Tablet, 200 MG PO BID Prescribed by: EMERSON SYKES on 03/14/16 1533 Review of Systems Review of Systems Constitutional: No chills, No diaphoresis, No malaise, No weakness Eyes: Denies Drainage, Denies Decreased Acuity Ears, Nose, Mouth, Throat: denies ear pain, denies ear discharge Respiratory: No cough, No dyspnea on exertion Cardiovascular: No chest pain Gastrointestinal: No abdominal pain, No diarrhea, No nausea, No vomiting Genitourinary: No decreased output, No discharge Musculoskeletal: No back pain Skin: No change in color, No change in hair/nails Psychiatric/Neurological: Other (seizure) All Other Systems Reviewed Negative Unless Noted: Yes Past Letkquk-Zttpzv-Ktfjyi Hx Patient Social History Tobacco Use?: Yes Tobacco type used: Cigarettes Smoking Status: Current Everyday Smoker Substance use?: No Alcohol Use?: Yes Alcohol Frequency: Rarely Immunizations Up To Date Tetanus Booster (TDap): Unknown PED Vaccines UTD: Yes First/Initial COVID19 Vaccinat: 2020 Second COVID19 Vaccination Gerry: 2020 Third COVID19 Vaccination Date: 2020 Seasonal Allergies Seasonal Allergies: No Past Medical History Surgery/Hospitalization HX: DEPRESSION, ANXIETY, BIPOLAR, EPILEPSY Surgeries: Yes (LEG SURGERY) Orthopedic Respiratory: No Cardiac: No Neurological: Yes Seizure Disorder Reproductive Disorders: No Sexually Transmitted Disease: No Genitourinary: No Gastrointestinal: No Musculoskeletal: Yes (LEG SURGERY) Endocrine: No HEENT: Yes (POOR DENTITION/CHRONIC DENTAL COMPLAINTS. ) Cancer: No Psychosocial: Yes (SUICIDAL THOUGHTS/GESTURES ( TOOK PILLS,CUT HIMSELF)--BUT NEVER SOUGHT CARE) Anxiety, Suicide Attempts, Bipolar, Depression Integumentary: No Blood Disorders: No Adverse Reaction/Blood Tranf: No Family Medical History No Pertinent Family Hx SOCIAL HISTORY: -SMOKES 1 PPD -ETOH--HISTORY OF DAILY/HEAVY REGULAR USE--DENIES RECENT USE, ON 05/21/21 -DRUGS--DAILY THC USE LONG HISTORY OF NON-COMPLIANCE IN ALL ASPECTS OF CARE Physical Exam Vital Signs Vital Signs - First Documented 02/22/23 10:44 Temp 37.1 Pulse 89 Resp 20 B/P (MAP) 134/90 (105) Pulse Ox 95 O2 Delivery Room Air Capillary Refill : Less Than 3 Seconds Height, Weight, BMI Height: 5'8.00" Weight: 200lbs. 0oz. 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 as tested, no motor/sensory deficits, alert, oriented x 3 Crainal Nerves: normal hearing, normal speech, PERRL Coordination/Gait: normal finger to nose, normal gait Motor/Sensory: no motor deficit, no sensory deficit Skin: normal color, warm/dry Procedures/Interventions Suture Size: 5-0 Progress/Results/Core Measures Results/Orders Lab Results Laboratory Tests Test 02/22/23 10:53 Range/Units White Blood Count 7.5 4.3-11.0 10^3/uL Red Blood Count 4.81 4.30-5.52 10^6/uL Hemoglobin 15.2 13.3-17.7 g/dL Hematocrit 44 40-54 % Mean Corpuscular Volume 92 80-99 fL Mean Corpuscular Hemoglobin 32 25-34 pg Mean Corpuscular Hemoglobin Concent 35 32-36 g/dL Red Cell Distribution Width 11.6 10.0-14.5 % Platelet Count 249 130-400 10^3/uL Mean Platelet Volume 10.1 9.0-12.2 fL Immature Granulocyte % (Auto) 0 % Neutrophils (%) (Auto) 61 42-75 % Lymphocytes (%) (Auto) 28 12-44 % Monocytes (%) (Auto) 9 0-12 % Eosinophils (%) (Auto) 1 0-10 % Basophils (%) (Auto) 0 0-10 % Neutrophils # (Auto) 4.6 1.8-7.8 10^3/uL Lymphocytes # (Auto) 2.1 1.0-4.0 10^3/uL Monocytes # (Auto) 0.7 0.0-1.0 10^3/uL Eosinophils # (Auto) 0.1 0.0-0.3 10^3/uL Basophils # (Auto) 0.0 0.0-0.1 10^3/uL Immature Granulocyte # (Auto) 0.0 0.0-0.1 10^3/uL Sodium Level 140 135-145 MMOL/L Potassium Level 4.1 3.6-5.0 MMOL/L Chloride Level 105 98-107 MMOL/L Carbon Dioxide Level 23 21-32 MMOL/L Anion Gap 12 5-14 MMOL/L Blood Urea Nitrogen 12 7-18 MG/DL Creatinine 0.86 0.60-1.30 MG/DL Estimat Glomerular Filtration Rate 117 BUN/Creatinine Ratio 14 Glucose Level 113 H 70-105 MG/DL Calcium Level 9.0 8.5-10.1 MG/DL Corrected Calcium 8.6 8.5-10.1 MG/DL Magnesium Level 2.1 1.6-2.4 MG/DL Total Bilirubin 0.4 0.1-1.0 MG/DL Aspartate Amino Transf (AST/SGOT) 23 5-34 U/L Alanine Aminotransferase (ALT/SGPT) 35 0-55 U/L Alkaline Phosphatase 41 40-136 U/L Total Protein 7.3 6.4-8.2 GM/DL Albumin 4.5 3.2-4.5 GM/DL Valproic Acid (Depakene) Level 36.7 L 50.0-100.0 UG/ML Serum Alcohol < 10 <10 MG/DL My Orders Orders - GA MARTINEZ Cbc And Automated Diff (02/22/23 11:08) Comprehensive Metabolic Panel (02/22/23 11:08) Alcohol (02/22/23 11:08) Valproic Acid (02/22/23 11:08) Lamotrigine Level (02/22/23 11:08) Magnesium (02/22/23 11:08) Vital Signs/I&O 02/22/23 10:44 Temp 37.1 Pulse 89 Resp 20 B/P (MAP) 134/90 (105) Pulse Ox 95 O2 Delivery Room Air Blood Pressure Mean: 105 Departure Communication (PCP) Patient is a 32-year-old male history of seizures who presents to ED for seizure last night. Does take Lamictal, Keppra, Depakote. States he has not missed any dose. Unknown length of seizure. Unwitnessed. Did bite his mouth. Patient states today he feels like he is going to have another seizure. On arrival alert and orient x 4. GCS of 15. Seizure precautions. Denies falling or hitting his head. Up-to-date on his tetanus. Generalized lab work was obtained . Denies any chest pain shortness of breath nausea, vomiting, diarrhea. No evidence of trauma to the head. No focal neural deficits. Generalized lab work was ordered which was grossly unremarkable. Vital signs stable. Depakote level 36.7 which is low. Does take 500 mg twice daily. Suggest increasing to 500 mg 3 times a day for the next 2 or 3 days to get into therapeutic level. Lamictal level currently pending. Patient did not require any medication here. Patient was observed here in the ED. No seizure-like activity. Patient slept most of his visit. Patient states he is feeling much better at this time would like to be discharged. History of seizures for the past several years. Continue monitoring symptoms at home. Follow-up your PCP in 2 days for recheck of lab work. If any worsening symptoms return back to ED. Patient with a steady gait. Patient does not drive. Impression Primary Impression: Seizure Disposition: 01 HOME, SELF-CARE Condition: Stable Departure-Patient Inst. Decision time for Depature: 11:58 Referrals: [facility] (PCP/Family) Primary Care Physician Patient Instructions: Seizures, Adult (DC) Add. Discharge Instructions: Recommend follow-up your PCP in the next 2 or 3 days for reevaluation. If any worsening symptoms return back to ED. Continue with medication. All discharge instructions reviewed with patient and/or family. Voiced understanding. Work/School Note: Work Release Form Date Seen in the Emergency Department: Feb 22, 2023 Return to Work: Feb 24, 2023 GA MARTINEZ Feb 22, 2023 11:12
[2023-02-22 11:17] LABS: BASOPHILS % (AUTO) 0 % (0-10); EOSINOPHILS # (AUTO) 0.1 10^3/uL (0.0-0.3); EOSINOPHILS % (AUTO) 1 % (0-10); HEMATOCRIT 44 % (40-54); HEMOGLOBIN 15.2 g/dL (13.3-17.7); LYMPHOCYTES # (AUTO) 2.1 10^3/uL (1.0-4.0); LYMPHOCYTES % (AUTO) 28 % (12-44); MEAN CORPUSCULAR HEMOGLOBIN 32 pg (25-34); MEAN CORPUSCULAR HGB CONC 35 g/dL (32-36); MEAN CORPUSCULAR VOLUME 92 fL (80-99); MEAN PLATELET VOLUME 10.1 fL (9.0-12.2); MONOCYTES # (AUTO) 0.7 10^3/uL (0.0-1.0); MONOCYTES % (AUTO) 9 % (0-12); NEUTROPHILS # (AUTO) 4.6 10^3/uL (1.8-7.8); NEUTROPHILS % (AUTO) 61 % (42-75); PLATELET COUNT 249 10^3/uL (130-400); WHITE BLOOD COUNT 7.5 10^3/uL (4.3-11.0)
[2023-02-22 11:19] LABS: ALBUMIN 4.5 GM/DL (3.2-4.5); CHLORIDE 105 MMOL/L (98-107); POTASSIUM 4.1 MMOL/L (3.6-5.0); SODIUM 140 MMOL/L (135-145)
[2023-02-22 11:22] LABS: GLUCOSE 113 MG/DL (70-105); TOTAL PROTEIN 7.3 GM/DL (6.4-8.2)
[2023-02-22 11:23] LABS: CARBON DIOXIDE 23 MMOL/L (21-32)
[2023-02-22 11:24] LABS: BILIRUBIN,TOTAL 0.4 MG/DL (0.1-1.0)
[2023-02-22 11:25] LABS: ALKALINE PHOSPHATASE 41 U/L (40-136)
[2023-02-22 11:26] LABS: CREATININE SERUM 0.86 MG/DL (0.60-1.30); GFR ESTIMATED 117
[2023-02-22 11:27] LABS: BUN/CREATININE RATIO 14
[2023-02-22 11:28] LABS: ALANINE AMINOTRANSFERASE 35 U/L (0-55); MAGNESIUM 2.1 MG/DL (1.6-2.4)
[2023-02-22 11:35] LABS: VALPROIC ACID 36.7 UG/ML (50.0-100.0)
[2023-02-22 12:20] VITALS: BP 121/84
== END 2023-02-22 12:20 | disposition home or self-care (01) ==
LOC: EDUNIT# 10:34 → ER 10:36
DX: G40.909 Epilepsy, unspecified, not intractable, without status epilepticus (principal); F17.210 Nicotine dependence, cigarettes, uncomplicated; Z79.899 Other long term (current) drug therapy
CPT/HCPCS: 80053; 80164; 80175; 83735; 85025; 99284; G0480; 36415; 80320

== ENCOUNTER 2023-02-25 09:21 | Emergency (ER) | payer SELFPAY ==
[~2023-02-25] VITALS: Ht 172 cm; Wt 97.0 kg
[2023-02-25] MEDS ORDERED: LIDOCAINE 2% VISCOUS 15 ML UDC PO ONE (10:00)
[2023-02-25] MEDS ORDERED: AMOX500C2 PO (10:14)
--- NOTE | 2023-02-25 10:14 | ED EENT ---
History of Present Illness General Chief Complaint: Dental Problems/Pain Stated Complaint: TOOTH INFECTION Nursing Triage Note: ARRIVES TO TRIAGE ROOM WITH A C/O RIGHT SIDED LOWER FORWARD JAW DENTAL PAIN. PATIENT STATES HE HAS BEEN HERE BEFORE AND WAS GIVEN ANTIBIOTIC FOR HIS DENTAL CARIES AND WOULD LIKE MORE. Source: patient Exam Limitations: no limitations History of Present Illness Date Seen by Provider: Feb 25, 2023 Time Seen by Provider: 09:48 Initial Comments Trent is a 32-year-old gentleman who presents to the emergency room with a dental pain related to a right lower premolar that is completely eroded below the root line. He has been having trouble with it for 1 to 2 months. He does not presently have a dentist. He has been using Orajel and Tylenol without significant relief. He denies any fever or chills. He reports pain radiates from the area of this tooth up toward his right ear. His primary care provider is Radha Winchester and his preferred pharmacy is [facility]. Allergies and Home Medications Allergies Coded Allergies: No Known Drug Allergies (Unverified , 02/25/23) Patient Home Medication List Home Medication List Reviewed: Yes Amoxicillin (Amoxicillin) 500 Mg Capsule, 1,000 MG PO BID Prescribed by: ARIEL HUTCHINSON on 02/25/23 1014 Amoxicillin/Potassium Clav (Augmentin 875-125 Tablet) 1 Each Tablet, 1 EACH PO BID Prescribed by: ANTONIETA PROCTOR on 12/31/20 1025 Amoxicillin/Potassium Clav (Amox Tr-K Clv 875-125 mg Tab) 875 Mg-125 Mg Tablet, 1 EACH PO BID Prescribed by: Guillermina Philip on 12/20/222013 Bacitracin (Bacitraycin Plus) 28 Gm Oint...g., 28 GM TP twice a day Prescribed by: ELLEN PROCTOR on 07/02/17 1156 Cyclobenzaprine HCl (Cyclobenzaprine HCl) 10 Mg Tablet, 10 MG PO Q8H Prescribed by: BENNY LOFTON on 08/19/20 175 Divalproex Sodium (Depakote) 500 Mg Tablet.dr, 500 MG PO TID Prescribed by: ARIEL HUTCHINSON on 06/09/17 1036 Doxycycline Hyclate (Doxycycline Hyclate) 100 Mg Tablet, 100 MG PO BID Prescribed by: ANTOINE WARD on 11/03/19 191 Levetiracetam (Keppra) 100 Mg/1 Ml Solution, Unknown Dose PO BID, (Reported) Entered as Reported by: NIKO DELUNA on 01/26/16 1551 Levetiracetam (Keppra) 750 Mg Tablet, 750 MG PO BID Prescribed by: ARIEL HUTCHINSON on 06/09/17 1036 Levetiracetam (Keppra) 250 Mg Tablet, 250 MG PO BID Prescribed by: CARLEY MATHEW on 06/28/17 194 Sulfamethoxazole/Trimethoprim (Bactrim Ds Tablet) 1 Each Tablet, 1 EACH PO BID Prescribed by: ANTONIETA PROCTOR on 11/30/19 2357 Topiramate (Topamax) 200 Mg Tablet, 200 MG PO BID Prescribed by: EMERSON SYKES on 03/14/16 1533 Review of Systems Review of Systems Constitutional: no symptoms reported Eyes: No Symptoms Reported Ears: No Symptoms Reported Nose: no symptoms reported Mouth: see HPI Throat: no symptoms reported Respiratory: no symptoms reported Cardiovascular: no symptoms reported Gastrointestinal: no symptoms reported Musculoskeletal: no symptoms reported Skin: no symptoms reported Neurological: No Symptoms Reported Hematologic/Lymphatic: No Symptoms Reported Past Exqbjya-Brbnet-Bqqain Hx Patient Social History Tobacco Use?: Yes Tobacco type used: Cigarettes Smoking Status: Current Everyday Smoker Smokeless Tobacco Frequency: Former User Use of E-Cig and/or Vaping dev: Yes E-Cig or Vaping type used: Nicotine, Marijuana Use of E-Cig and/or Vaping García: Current Everyday User Substance type: Nicotine, Marijuana Substance frequency: Daily Alcohol Use?: Yes Alcohol type: Beer Alcohol Frequency: Once in a while Pt feels they are or have been: No Immunizations Up To Date Tetanus Booster (TDap): Unknown PED Vaccines UTD: Yes Influenza Vaccine Up-to-Date: No; Not Current First/Initial COVID19 Vaccinat: 2 SHOTS Second COVID19 Vaccination Gerry: 2020 Third COVID19 Vaccination Date: 2020 Seasonal Allergies Seasonal Allergies: No Past Medical History Surgery/Hospitalization HX: DEPRESSION, ANXIETY, BIPOLAR, EPILEPSY Surgeries: Yes (LEG SURGERY) Orthopedic Respiratory: No Cardiac: No Neurological: Yes Seizure Disorder Reproductive Disorders: No Sexually Transmitted Disease: No Genitourinary: No Gastrointestinal: No Musculoskeletal: Yes (LEG SURGERY) Endocrine: No HEENT: Yes (POOR DENTITION/CHRONIC DENTAL COMPLAINTS. ) Cancer: No Psychosocial: Yes (SUICIDAL THOUGHTS/GESTURES ( TOOK PILLS,CUT HIMSELF)--BUT NEVER SOUGHT CARE) Anxiety, Suicide Attempts, Bipolar, Depression Integumentary: No Blood Disorders: No Adverse Reaction/Blood Tranf: No Family Medical History No Pertinent Family Hx SOCIAL HISTORY: -SMOKES 1 PPD -ETOH--HISTORY OF DAILY/HEAVY REGULAR USE--DENIES RECENT USE, ON 05/21/21 -DRUGS--DAILY THC USE LONG HISTORY OF NON-COMPLIANCE IN ALL ASPECTS OF CARE Physical Exam Vital Signs Vital Signs - First Documented 02/25/23 09:35 Temp 36.6 Pulse 73 Resp 18 B/P (MAP) 131/84 (100) Pulse Ox 96 Height, Weight, BMI Height: 5'8.00" Weight: 200lbs. 0oz. 90.839258mr; 32.00 BMI Method:Estimated General Appearance: WD/WN, no apparent distress Eyes: bilateral eye normal inspection Ears: bilateral ear auricle normal, bilateral ear canal normal, bilateral ear TM normal Nose: normal inspection Mouth/Throat: pharynx normal, other (Right lower premolar eroded to below the gumline. 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 Use precautions were discussed. Patient was advised to be seen promptly by a dentist. He is being treated with antibiotics in the meantime. See discharge instructions for further discussion. Departure Impression Primary Impression: Dental decay Additional Impression: Pain, dental Disposition: 01 HOME, SELF-CARE Condition: Stable Departure-Patient Inst. Referrals: RADHA WINCHESTER APRN (PCP/Family) Primary Care Physician Patient Instructions: Dental Pain ED, Tooth Decay, Adult Add. Discharge Instructions: See a dentist as soon as possible. Please call today for an appointment. Complete your antibiotics as prescribed. [place] your teeth twice daily with a soft bristle old toothbrush. You may continue using Tylenol (acetaminophen) up to 1000 mg every 6 hours as needed for pain. Add ibuprofen up to 600 mg every 6 hours as needed for additional pain relief if needed. You may use the anesthetic gauze pads provided to you for topical relief of pain. Roll a gauze pad up and place it in the gap between your teeth over the decayed tooth. Eat and drink very carefully after using these gauze pads as the area contacting the gauze will become numb. Do not fall asleep with gauze pads in your mouth as this will create a choking hazard. Return to care if you have worsening symptoms including escalating pain, devel opment of fever, etc. All discharge instructions reviewed with patient and/or family. Voiced understanding. Scripts Amoxicillin (Amoxicillin) 500 Mg Capsule 1000 MG PO BID, #40 CAP 0 Refills Prov: ARIEL ALSTON MD 02/25/23 Copy Copies To 1: [facility] [place] ARIEL ALSTON MD Feb 25, 2023 10:14
[2023-02-25 10:30] VITALS: BP 131/84
== END 2023-02-25 10:30 | disposition home or self-care (01) ==
LOC: EDUNIT# 09:21 → ER 09:23
DX: K02.9 Dental caries, unspecified (principal); F17.210 Nicotine dependence, cigarettes, uncomplicated; F17.290 Nicotine dependence, other tobacco product, uncomplicated
CPT/HCPCS: 99283